=== PATIENT | male | born 1970 | race Caucasian/White ===

== ENCOUNTER 2019-11-14 01:45 | Day surgery (SDC) | payer BC, SELFPAY ==
[2019-11-11 10:08] VITALS: BMI 28.4
[2019-11-14 11:22] VITALS: BP 132/84; PULSE 85; RESP 16; TEMP 36.5; O2SAT 100; BMI 27.4
[2019-11-14] MEDS: LACTATED RINGERS 1,000 ML 150 ML IV CONT (11:41)
--- NOTE | 2019-11-14 11:54 | P.PNAN_ITS ---
Anes - Initial Pre Proc Eval Procedure: Operation Date: 11/14/19 11:45 Proposed Procedures p Screening Colonoscopy - Damon Heredia MD Date/Time: 11/14/19 11:54 Surgeon: Damon Heredia MD Pre Op Diagnosis: Neoplasm Screening Patient Data Age: 49 Gender: M Height: 6 ft Weight: 91.8 kg Last Vital Signs Temp 97.7 F 11/14/19 11:22 Pulse 85 11/14/19 11:22 Resp 16 11/14/19 11:22 BP 132/84 11/14/19 11:22 Pulse Ox 100 11/14/19 11:22 Allergies Allergy/AdvReac Type Severity Reaction Status Date / Time No Known Allergies Allergy Verified 11/14/19 11:20 Home Medications Medication Instructions Recorded Confirmed Type cholecalciferol (vitamin D3) 4,000 unit PO DAILY 11/11/19 11/14/19 History [Vitamin D3] multivitamin 1 cap PO DAILY 11/11/19 11/14/19 History omega 5-ndn-avk-fish oil [[place]-3] 1 cap PO DAILY 11/11/19 11/14/19 History omeprazole 40 mg PO DAILY 11/11/19 11/14/19 History Patient hx anesthesia problems: none Family hx anesthesia problems: none PMFSH Past Medical History Medical History (Updated 11/14/19 @ 11:54 by Arnav Ireland MD) GERD (gastroesophageal reflux disease) Anes - Eval Final PreProcedure Day of Procedure 11/14/19 11:54 Patient weight: normal Heart: regular rate and rhythm Lungs: clear to auscultation Airway: Mallampati scale class II Neurological: alert and oriented Last oral intake: >/= 8 hours ASA classification: II Emergent: no Anesthetic plan: proceed Anesthesia type and monitoring: general GIVS and standard monitoring Informed Consent: The patient's anesthetic plan and its attendant risks and benefits were discussed with the patient/family/POA. Questions were solicited and answers provided to the satisfaction of the patient/family/POA.
--- NOTE | 2019-11-14 12:18 | P.HP_ITS ---
History of Present Illness History of Present Illness Consent: Risks, benefits, and alternatives have been discussed and questions answered. Patient agrees to proceed with procedure. Chief complaint: Neoplasm Screening Narrative: Suhail Graham is a 49 year old male here for his first screening colonoscopy Review of Systems Constitutional: Constitutional: Denies headache(s) and Denies weakness Eyes: Eyes: Denies blurry vision ENT: Reports Normal hearing present, Denies headache(s) and Denies neck pain Cardiovascular: Cardiovascular: Denies chest pain and Denies dyspnea Respiratory: Respiratory: Denies dyspnea Gastrointestinal: Gastrointestinal: Reports no additional gastrointestinal complaints Genitourinary: Genitourinary: Denies dysuria Musculoskeletal: Musculoskeletal: Denies neck pain Integumentary/Breasts: Skin/Breast: Denies dry skin Neurologic: Reports Normal hearing present, Denies headache(s) and Denies weakness Psychiatric: Psychiatric: Denies anxiety Endocrine: Endocrine: Denies change in body appearance Hematologic/Lymphatic: Hematologic/Lymphatic: Denies easy bleeding Allergic/Immunologic: Allergic/Immunologic: Denies urticaria [facility] Past Medical History Medical History (Updated 11/14/19 @ 12:19 by Damon Heredia MD) Colon cancer screening GERD (gastroesophageal reflux disease) Meds Home Medications and Allergies Home Medications Medication Instructions Recorded Confirmed Type cholecalciferol (vitamin D3) 4,000 unit PO DAILY 11/11/19 11/14/19 History [Vitamin D3] multivitamin 1 cap PO DAILY 11/11/19 11/14/19 History omega 8-xla-kba-fish oil [[place]-3] 1 cap PO DAILY 11/11/19 11/14/19 History omeprazole 40 mg PO DAILY 11/11/19 11/14/19 History Allergies Allergy/AdvReac Type Severity Reaction Status Date / Time No Known Allergies Allergy Verified 11/14/19 11:20 Vital Signs Vital Signs - 24 hr 11/14/19 11:22 Temperature 97.7 F Pulse Rate 85 Respiratory Rate 16 Blood Pressure 132/84 Pulse Oximetry 100 Exam Const: General: comfortable and no acute distress HENMT: General nose exam: Normal nares present Eyes: General: appearance normal, both eyes and all related structures Neck: Neck: no JVD Resp: Auscultation: clear to auscultation bilaterally Cardio: Rate: regular rate Rhythm: regular rhythm GI: Inspection: non-distended GI Palp: Yes Soft to palpation Skin: General skin exam: normal color Neuro: General: gait normal Speech: normal speech Extrem: General: normal to inspection Psych: Mental Status: mental status grossly normal Assessment and Plan Assessment and plan (1) Colon cancer screening: Code(s): Z12.11 - Encounter for screening for malignant neoplasm of colon Status: Acute Assessment and Plan: will proceed with colonoscopy
[2019-11-14 12:36] VITALS: BP 111/77; PULSE 76; RESP 21; O2SAT 97
[2019-11-14 12:46] VITALS: BP 122/84; PULSE 62; RESP 19; O2SAT 99
[2019-11-14 12:56] VITALS: BP 126/89; PULSE 67; RESP 18; O2SAT 100
== END 2019-11-14 13:08 | disposition home or self-care (01) ==
PROVIDERS: PCP Family Medicine Sports Medicine; Visit Provider Internal Medicine Gastroenterology
PROC: 0DJD8ZZ Inspection of Lower Intestinal Tract, Via Natural or Artificial Opening Endoscopic (ICD-10-PCS; CPT 45378; principal; 2019-11-14 11:45)
DX: Z12.11 Encounter for screening for malignant neoplasm of colon (principal); D12.0 Benign neoplasm of cecum; K64.8 Other hemorrhoids; K21.9 Gastro-esophageal reflux disease without esophagitis
CPT/HCPCS: 45380; 88305; J2704; J7120

== ENCOUNTER 2024-09-12 01:16 | Emergency (ER) | payer BC, SELFPAY ==
[2024-09-12] VITALS (7 sets, daily range): BP systolic 134–161; BP diastolic 82–94; PULSE 72–84; RESP 15–22; TEMP 36.2; O2SAT 97–100
--- NOTE | ~2024-09-12 | XR_ITS ---
Clinical Indication: Chest pain PA and lateral views of the chest: Comparison: None Findings: The lungs are clear, without evidence of focal consolidation or pleural effusion. Cardiome diastinal silhouette is within normal limits. Bones and soft tissues are unremarkable. Impression: Normal chest. Reviewed, dictated and finalized at location . FABRICATOR Impression: Normal chest.
--- NOTE | 2024-09-12 01:53 | ECG_ITS ---
Test Date: 2024-09-12 01:26:02 Measurements Intervals Agency Rate: 81 P: 15 OR: 173 QRS: -18 QRSD: 126 T: 30 QT: 389 QTc: 453 Interpretive Statements SINUS RHYTHM POSSIBLE RIGHT VENTRICULAR CONDUCTION DELAY [RSR (QR) IN V1/V2] No previous ECG available for comparison Electronically Signed On 09-12-2024 15:57:34 [employer] EXECUTIVE DIRECTOR by Wallace Fernandes M.D.
[2024-09-12] MEDS: ASPIRIN 81 MG CHEWABLE TABLET 324 MG PO (01:58)
[2024-09-12 02:00] LABS: Basophils Percent Auto 0.3 % (0.2-1.2); Eosinophils Absolute Auto 0.1 K/mm3 (0-0.3); Eosinophils Percent Auto 1.2 % (0-4.4); Hemoglobin 14.4 g/dL (14.0-18.0); Immature Granulocyte Absolute 0.07 K/mm3 (0.00-0.031); Immature Granulocyte Percent A 0.6 % (0-0.5); Lymphocytes Absolute Auto 6.71 K/mm3 (0.9-3.2); Lymphocytes Percent Auto 55.1 % (18.3-44.2); Mean Corpuscular HGB Conc 33.5 g/dl (32-36); Mean Corpuscular Hemoglobin 29.1 pg (26-34); Mean Corpuscular Volume 86.9 fl (80-100); Mean Platelet Volume 8.9 fl (7.4-10.4); Monocytes Absolute Auto 0.8 K/mm3 (0.1-0.6); Monocytes Percent Auto 6.6 % (2.6-8.5); Neutrophils Absolute Auto 4.4 K/mm3 (1.3-6.7); Neutrophils Percent Auto 36.2 % (45.5-73.1); Platelet Count Result 306 k/mm3 (150-375); Red Blood Count 4.95 M/mm3 (4.6-6.20); Red Cell Distribution Width 13.2 % (11.5-14.5); White Blood Count 12.2 K/mm3 (4.5-10.0)
[2024-09-12 02:12] LABS: Alanine Aminotransferase 58 U/L (6-50); Albumin Level 4.7 g/dL (3.5-5.1); Alkaline Phosphatase 96 U/L (38-126); Anion Gap 7 mmol/L (4-12); Aspartate Amino Transferase 39 U/L (17-59); Bilirubin,Total 0.3 mg/dL (0.2-1.3); Blood Urea Nitrogen 21 mg/dL (9-20); Calcium 9.6 mg/dL (8.4-10.2); Carbon Dioxide 27 mmol/L (22-30); Chloride 104 mmol/L (98-107); Estimated CRCL calculation 103 ml/min; Estimated Glomerular Filt Rate > 60; Glucose 114 mg/dL (65-110); Lipase 45 U/L (23-300); Potassium 3.3 mmol/L (3.4-5.0); Sodium 138 mmol/L (137-145)
[2024-09-12 02:15] LABS: INR 0.9; Prothrombin Time 12.7 Seconds (11.1-14.7)
[2024-09-12 02:16] LABS: Partial Thromboplastin Time 28.6 Seconds (22.3-36.8)
[2024-09-12 02:19] LABS: D Dimer < 0.27 ug/mL (<0.48)
[2024-09-12 02:21] LABS: NT Pro B Type Natriuretic Pept < 20 pg/mL (19.9-100)
[2024-09-12 02:23] LABS: Troponin I < 0.012 ng/mL (0.000-0.034)
[2024-09-12] MEDS: ACETAMINOPHEN 500 MG TABLET 1000 MG PO (03:07)
[2024-09-12] MEDS: KETOROLAC 30 MG/ML VIAL (*BKC) IV PUSH (03:07)
--- NOTE | 2024-09-12 04:24 | ED_ITS ---
HPI - General Adult General Chief complaint: Alcohol Stated complaint: chest pain Time Seen by Provider: 09/12/24 01:41 History of Present Illness HPI narrative: this is a 54-year-old male presenting ED with a chief complaint chest pain. Patient says that last week he had a viral illness that lasted for 1-2 days. Since then he is feeling well until earlier today when he developed a sharp pain on the right side of his chest. It then moved to the center of his chest. It is better when he leans forward and worse when he leans back. It can be worse with deep breaths. He he is denying fevers chills productive cough abdominal pain nausea vomiting or diarrhea. The pain is not associated with exertion vomiting or diaphoresis. Related Data Home Medications ?Medication ?Instructions ?Recorded ?Confirmed ?Last Taken ?Type cholecalciferol (vitamin D3) 100 4,000 unit PO DAILY 11/11/19 11/14/19 11/13/19 History mcg (4,000 unit) capsule (Vitamin D3) multivitamin 1 cap PO DAILY 11/11/19 11/14/19 11/13/19 History omega 3 350 mg-dha 235 mg-epa 90 1 cap PO DAILY 11/11/19 11/14/19 11/13/19 History mg-fish oil 597 mg capsule,delay rel (Damon-3) omeprazole 40 mg capsule,delayed 40 mg PO DAILY 11/11/19 11/14/19 11/13/19 History release Allergies Allergy/AdvReac Type Severity Reaction Status Date / Time No Known Allergies Allergy Verified 09/12/24 01:27 [facility] Past Medical History Medical History Colon cancer screening GERD (gastroesophageal reflux disease) Exam 2 Narrative: APPEARANCE: No apparent distress. Head: atraumatic. EYES: EOMI, NOSE: Atraumatic NECK: Trachea midline RESPIRATORY: No increased rate of breathing clear to auscultation CARDIOVASCULAR: RRR, no pericardial friction rub, No effusion on POC Echo, ABDOMINAL: Non-distended soft nontender no CVA tenderness MUSCULOSKELETAl: No obvious deformities NEURO: Alert. Moving 4/4 extremities SKIN:: Warm, dry. Normal color PSYCHIATRIC: Normal affect Course Vital Signs Vital signs: Vital Signs Temperature 97.2 F L 09/12/24 01:20 Pulse Rate 79 09/12/24 01:20 Respiratory Rate 18 09/12/24 01:20 Blood Pressure 139/88 09/12/24 01:20 Pulse Oximetry 100 09/12/24 01:20 Oxygen Delivery Room Air 09/12/24 01:20 Temperature 97.2 F L 09/12/24 01:20 Pulse Rate 79 09/12/24 01:20 Respiratory Rate 18 09/12/24 01:20 Blood Pressure 139/88 09/12/24 01:20 Pulse Oximetry 100 09/12/24 01:27 Oxygen Delivery Room Air 09/12/24 01:36 Medical Decision Making MDM Narrative Medical decision making narrative: -Course: 54-year-old male presenting with pleuritic chest pain. Workup including troponins x2, BNP/Dimer, EKG and chest x-ray were unremarkable. clinically the patient's pain is consistent with pleurisy/pericarditis. he was given Toradol with significant improvement in his pain. Patient be discharged course of NSAIDs with cardiology follow-up. Given return precautions for severe chest pain, difficulty breathing or fevers. -DDX includes but is not limited to: pleurisy, pericarditis, ACS pneumonia PE pneumothorax -Co-morbidities complicating care: GERD -Independent interpretation of studies: labs imaging reviewed. white count 12.2 Troponin undetectable x2, BNP undetectable, dimer undetectable chest x-ray showed acute no acute cardiopulmonary abnormalities. Official read will occur in the a.m.. Independent EKG interpretation: Rhythm [sinus], Rate [81], [place] -[normal], [place] -[normal], QRS [126], QTC [normal], T waves -[negative for concerning inversions], ST Segments - [Negative for concerning elevations] Final interpretations: [Normal Sinus Rhythm] -Interventions: Toradol 30 mg, Tylenol -Shared decision making / Disposition: discharged -RX: Motrin 600 mg t.i.d. times 10 days Vital Signs Vital Signs: Vital Signs Temperature 97.2 F L 09/12/24 01:20 Pulse Rate 79 09/12/24 01:20 Respiratory Rate 18 09/12/24 01:20 Blood Pressure 139/88 09/12/24 01:20 Pulse Oximetry 100 09/12/24 01:20 Oxygen Delivery Room Air 09/12/24 01:20 Temperature 97.2 F L 09/12/24 01:20 Pulse Rate 79 12/19/24 01:20 Respiratory Rate 18 09/12/24 01:20 Blood Pressure 139/88 09/12/24 01:20 Pulse Oximetry 100 09/12/24 01:27 Oxygen Delivery Room Air 09/12/24 01:36 Lab Data 09/12/24 01:55 09/12/24 01:55 Labs: Lab Results 09/12/24 09/12/24 Range/Units 01:55 01:55 WBC 12.2 H (4.5-10.0) K/mm3 RBC 4.95 (4.6-6.20) M/mm3 Hgb 14.4 (14.0-18.0) g/dL Hct 43.0 (42.0-52.0) % MCV 86.9 (80-100) fl MCH 29.1 (26-34) pg MCHC 33.5 (32-36) g/dl RDW 13.2 (11.5-14.5) % Plt Count 306 (150-375) k/mm3 MPV 8.9 (7.4-10.4) fl Immature Gran % (Auto) 0.6 H (0-0.5) % Neut % (Auto) 36.2 L (45.5-73.1) % Lymph % (Auto) 55.1 H (18.3-44.2) % [place] % (Auto) 6.6 (2.6-8.5) % Eos % (Auto) 1.2 (0-4.4) % Baso % (Auto) 0.3 (0.2-1.2) % Lymph # (Auto) 6.71 H (0.9-3.2) K/mm3 [place] # (Auto) 0.8 H (0.1-0.6) K/mm3 Eos # (Auto) 0.1 (0-0.3) K/mm3 Baso # (Auto) 0.0 (0.0-0.1) K/mm3 Abs Immat Gran (auto) 0.07 H (0.00-0.031) K/mm3 Absolute Neuts (auto) 4.4 (1.3-6.7) K/mm3 Absolute Nucleated RBC 0.000 (0.0-0.012) K/mm3 Nucleated RBC % 0.0 (0.0-0.2) % PT 12.7 (11.1-14.7) Seconds INR 0.9 APTT 28.6 (22.3-36.8) Seconds D-Dimer Cancelled < 0.27 Sodium 138 (137-145) mmol/L Potassium 3.3 L (3.4-5.0) mmol/L Chloride 104 (98-107) mmol/L Carbon Dioxide 27 (22-30) mmol/L Anion Gap 7 (4-12) mmol/L BUN 21 H (9-20) mg/dL Creatinine 0.90 (0.7-1.3) mg/dL Estim Creat Clear Calc 103 ml/min Estimated GFR > 60 (59 - ) Glucose 114 H (65-110) mg/dL Calcium 9.6 (8.4-10.2) mg/dL Total Bilirubin 0.3 (0.2-1.3) mg/dL AST 39 (17-59) U/L ALT 58 H (6-50) U/L Alkaline Phosphatase 96 (38-126) U/L Troponin I < 0.012 (0.000-0.034) ng/mL NT-Pro-B Natriuret Pep < 20 (19.9-100) pg/mL Total Protein 8.0 (6.3-8.2) g/dL Albumin 4.7 (3.5-5.1) g/dL Lipase 45 (23-300) U/L Discharge Plan Discharge Clinical Impression: Pericarditis Patient Disposition: Home, Self-Care Condition: Stable Instructions: Antibiotic Form, Acute Pericarditis (ED) Additional Instructions: You were seen in the emergency department for chest pain. Presentation is most consistent with pericarditis /pleurisy. Please take Motrin as instructed. Please follow-up with the thread cutter tender in 1 week. Return to ED if you develop fevers severe chest pain shortness of breath or feel your condition is worsening. Patient Language: Croatian Prescriptions: New ibuprofen 600 mg tablet 600 mg PO TID 10 Days Qty: 60 0RF No Action omeprazole 40 mg capsule,delayed release(DR/EC) 40 mg PO DAILY multivitamin Capsule 1 cap PO DAILY Vitamin D3 4,000 unit Capsule 4,000 unit PO DAILY Damon-3 350 mg-235 mg- 90 mg-597 mg Capsule,Delayed Release(Dr/Ec) 1 cap PO DAILY Follow-up/Referrals: Sharla,Ben Glover MD [Primary Care Provider] - Nitish Peterson MD [Physician] - 1 Week (Pericarditis)
--- NOTE | 2024-09-12 04:50 | ECG_ITS ---
Test Date: 2024-09-12 05:13:21 Measurements Intervals [place] Rate: 69 P: 20 TX: 177 QRS: -19 QRSD: 122 T: 4 QT: 394 QTc: 423 Interpretive Statements SINUS RHYTHM POSSIBLE RIGHT VENTRICULAR CONDUCTION DELAY [RSR (QR) IN V1/V2] MINIMAL VOLTAGE CRITERIA FOR LVH, CONSIDER NORMAL VARIANT [MEETS CRITERIA IN ONE OF: R(aVL), S(V1), R(V5), R(V5/V6)+S(V1)] Compared to ECG 09/12/2024 01:26:02 No significant changes Electronically Signed On 09-12-2024 15:58:34 SPECIALTY MOLDER by Wallace Fernandes M.D.
[2024-09-12 05:41] LABS: Troponin I < 0.012 ng/mL (0.000-0.034)
== END 2024-09-12 06:25 | disposition home or self-care (01) ==
PROVIDERS: Emergency Provider Emergency Medicine; PCP Family Medicine
DX: I31.9 Disease of pericardium, unspecified (principal); K21.9 Gastro-esophageal reflux disease without esophagitis
CPT/HCPCS: 36415; 71046; 80053; 83690; 83880; 84484; 85025; 85380; 85610; 85730; 93005; 96374; 99284; A9270; J1885

== ENCOUNTER 2024-11-28 20:25 | Inpatient (IN) | payer BC, SELFPAY ==
--- NOTE | ~2024-11-28 | XR_ITS ---
EXAMINATION: XR chest 1V portable DATE: 11/30/2024 08:35 INDICATION: Chest pain. TECHNIQUE: A single frontal view of the chest was obtained. COMPARISON: Chest 2 views 09/12/2024, CT abdomen and pelvis 11/29/2024 FINDINGS: There is mild atelectasis in the lower lung zones. There is mild scarring at left lung apex . No pleural effusion or pneumothorax. The heart size is normal. IMPRESSION: 1. Mild atelectasis in the lower lung zones and mild scarring at left lung apex. Reviewed, dictated and finalized at location A. D INSTALLATION WORKER IMPRESSION: 1. Mild atelectasis in the lower lung zones and mild scarring at left lung apex .
--- NOTE | ~2024-11-28 | MR_ITS ---
EXAMINATION: MR MRCP wo/w con/w 3D wo ind DATE: 11/29/2024 10:43 INDICATION: Abdominal pain. Abnormal liver function tests. TECHNIQUE: Magnetic resonance imaging (MRI) of the abdomen was performed without and with 20 mL Multi Rekha intravenous contrast. Sequences included coronal T2-weighted FS FSE, coronal T2-weighted FSE, a xial T1-weighted LAVA, coronal FS FIESTA, axial dual-echo T1-weighted SPGR, coronal lava-FLEX, sagitt al T2-weighted FSE, axial T2-weighted FSE, and axial DWI. Thick-slab T2-weighted FSE images were obta ined for magnetic resonance cholangiopancreatography (MRCP). Maximum intensity projection 3-D reconst ructions of the volumetric data were created by the technologist. Postcontrast sequences included cor onal LAVA-flex and time course of axial T1-weighted LAVA. COMPARISON: CT abdomen and pelvis 11/29/24 FINDINGS: ABDOMEN MRI: There are cysts in the liver measuring up to 2.5 cm. There is a 2.3 cm mass in segment V III of the liver with delayed hyperenhancement without washout. The gallbladder is distended and cont ains stones. Gallbladder wall thickening is noted. There is mild intrahepatic and extrahepatic biliar y duct dilatation. The spleen, pancreas, adrenal glands, and right kidney are normal. There is a 5 mm cyst in left kidney. There is a small sliding hiatal hernia. There are no dilated loops of bowel. ABDOMEN MRCP: The common duct is dilated to 9 mm. There is ill-defined material in the distal common bile duct without enhancement. IMPRESSION: 1. Mild intrahepatic and extrahepatic biliary duct dilatation with sludge in the distal common duct. 2. Distended gallbladder with gallstones and gallbladder wall thickening suspicious for acute cholecy stitis. 3. 2.3 cm hyperenhancing liver mass. In the absence of known malignancy, this finding is likely a hem angioma or focal nodular hyperplasia. Reviewed, dictated and finalized at location A. LLMENT CLERK IMPRESSION: 1. Mild intrahepatic and extrahepatic biliary duct dilatation with sludge in th e distal common duct. 2. Distended gallbladder with gallstones and gallbladder wall thickening suspic ious for acute cholecystitis. 3. 2.3 cm hyperenhancing liver mass. In the absence of known malignancy, this f inding is likely a hemangioma or focal nodular hyperplasia.
--- NOTE | ~2024-11-28 | CT_ITS ---
EXAMINATION: CT abdomen pelvis w con DATE: 12/04/2024 12:18 INDICATION: Left lower quadrant abdominal pain. Fever. TECHNIQUE: Computed tomography (CT) of the abdomen and pelvis was performed with 100 mL Omnipaque 350 intravenous contrast. Automated exposure control and iterative reconstruction technique were employe d. The dose-length product was 677.44 mGy-cm. COMPARISON: CT abdomen and pelvis 11/29/2024, abdomen MRI 11/29/2024 FINDINGS: The visualized portions of lung bases demonstrate mild atelectasis. There is a small left p leural effusion. The heart size is normal. No pericardial effusion. There is a small sliding hiatal h ernia. There are cysts in the liver measuring up to 2.7 cm. There is a 2.3 cm hyperenhancing mass in right hepatic lobe, likely a hemangioma or focal nodular hyperplasia in the absence of known malignan cy. There are changes of cholecystectomy. The spleen is normal. There is fat stranding and fluid arou nd the pancreas, consistent with acute interstitial pancreatitis. The adrenal glands and right kidney are normal. There is a 5 mm cyst in left kidney. The prostate is mildly enlarged. There is diverticu losis of the colon without evidence of diverticulitis. The appendix is not visualized. There are no d ilated loops of bowel. There are no pathologically enlarged lymph nodes. There is mild thoracic and l umbar spondylosis. IMPRESSION: 1. Acute interstitial pancreatitis. 2. Small left pleural effusion. Reviewed, dictated and finalized at location B.
--- NOTE | ~2024-11-28 | CT_ITS ---
EXAMINATION: CT abdomen pelvis w con DATE: 11/29/2024 01:20 INDICATION: Abdominal pain. TECHNIQUE: Computed tomography (CT) of the abdomen and pelvis was performed with 100 mL Omnipaque 350 intravenous contrast. Automated exposure control and iterative reconstruction technique were employe d. The dose-length product was 738.02 mGy-cm. COMPARISON: None. FINDINGS: The visualized portions of the lung bases demonstrate mild atelectasis. No pleural effusion . The heart size is normal. No pericardial effusion. There is a small sliding hiatal hernia. There ar e cysts in the liver measuring up to 2.6 cm. There is a 2.2 cm mass in the liver. There is mild intra hepatic biliary duct dilatation. The gallbladder is distended. There is fat stranding around the gall bladder. The common duct is dilated to 9 mm. There is a possible filling defect in the distal common bile duct. The spleen, pancreas, adrenal glands, and right kidney are normal. There is a 5 mm cyst in left kidney. The prostate is mildly enlarged. There is diverticulosis of the colon without evidence of diverticulitis. There are no dilated loops of bowel. The appendix is not visualized. There are no pathologically enlarged lymph nodes. There is no free intraperitoneal fluid. There is mild thoracic a nd lumbar spondylosis. IMPRESSION: 1. Mild intrahepatic and extrahepatic biliary duct dilatation with possible filling defect distal com mon bile duct. MRCP without and with contrast is recommended. 2. 2.2 cm liver mass, which may be benign or malignant. MRCP without and with contrast is recommended . 3. Distended gallbladder with surrounding fat stranding suspicious for acute cholecystitis. 4. Small sliding hiatal hernia. Reviewed, dictated and finalized at location A. TRUCTION LABORER IMPRESSION: 1. Mild intrahepatic and extrahepatic biliary duct dilatation with possible jordyn ling defect distal common bile duct. MRCP without and with contrast is recommen ded. 2. 2.2 cm liver mass, which may be benign or malignant. MRCP without and with c ontrast is recommended. 3. Distended gallbladder with surrounding fat stranding suspicious for acute ch olecystitis. 4. Small sliding hiatal hernia.
--- NOTE | ~2024-11-28 | CT_ITS ---
EXAMINATION: CT abdomen pelvis w con DATE: 12/07/2024 14:48 INDICATION: flank pain TECHNIQUE: Computed tomography (CT) of the abdomen and pelvis was performed with 100 mL Omnipaque-350 intravenous contrast. Automated exposure control and iterative reconstruction technique were employe d. The dose-length product was 779.77 mGy-cm. COMPARISON: 12/04/2024. FINDINGS: Lower thorax: Bibasilar scar/atelectasis. Liver: Likely right lobe hemangioma versus focal nodular hyperplasia, in the absence of known maligna ncy. Multiple hepatic cysts. Multiple subcentimeter hypodensities, too small to characterize, statist ically likely representing cysts or hemangiomas. Biliary/Gallbladder: Gallbladder is absent. No bile duct dilation. Pancreas: Pancreatic enlargement/edema, with moderate peripancreatic inflammatory change and mild flu id. Spleen: Normal. Adrenals:No mass. Kidneys: No suspicious mass, obstructing stone, or hydronephrosis. Scattered punctate nonobstructing calcifications. Subcentimeter left lower pole hypodensity, too small to characterize, statistically l ikely representing a cyst. GI tract: Mild distal esophageal and antral wall edema. No small or large bowel dilation. Appendix no t confidently visualized, no lower quadrant inflammatory process. Diverticulosis without diverticulit is. Mesentery/Peritoneum: No ascites, mass, or free air. Retroperitoneum: No mass. Pelvis: Bladder is mostly empty, with mild wall stranding. Prostatomegaly with calcification. Soft Tissues: Uncomplicated small fat-containing umbilical hernia Bones: No acute osseous finding. IMPRESSION: Mild esophagitis/gastritis. Acute interstitial pancreatitis, stable. Cystitis versus bladder wall thickening from incomplete distention. Reviewed, dictated and finalized at location K.
--- NOTE | ~2024-11-28 | XR_ITS ---
EXAMINATION: XR abdomen/kub 1V DATE: 12/03/2024 14:12 INDICATION: Adynamic ileus. TECHNIQUE: A supine view of the abdomen on 3 radiographs was obtained. COMPARISON: CT abdomen and pelvis 11/29/2024 FINDINGS: There are no dilated loops of bowel. There is a small volume of stool in the colon. Surgica l clips in the right upper quadrant are likely from cholecystectomy. IMPRESSION: 1. Normal bowel gas pattern. Reviewed, dictated and finalized at location B.
--- NOTE | ~2024-11-28 | XR_ITS ---
EXAMINATION: XR cholangiogram surg 1st inj DATE: 11/29/2024 14:53 INDICATION: Acute cholecystitis. TECHNIQUE: 32 fluoroscopic images of the right upper quadrant were obtained during intraoperative cho langiography performed by the surgeon. I was not present in the operating room. Fluoroscopy exposure time was 38 seconds. COMPARISON: MRCP 11/29/2024 FINDINGS: There is a catheter in the cystic duct. There is intrahepatic and extrahepatic biliary duct dilatation. There are filling defects in the distal common bile duct. There is opacification of the pancreatic duct. Contrast passes to the duodenum. IMPRESSION: 1. Filling defects in the distal common bile duct, which may be sludge or stones. Neoplasm is not exc luded. ERCP is recommended. 2. Intrahepatic and extrahepatic biliary duct dilatation. Reviewed, dictated and finalized at location A. BOX TENDER IMPRESSION: 1. Filling defects in the distal common bile duct, which may be sludge or stone s. Neoplasm is not excluded. ERCP is recommended. 2. Intrahepatic and extrahepatic biliary duct dilatation.
--- NOTE | ~2024-11-28 | XR_ITS ---
EXAMINATION: XR ERCP DATE: 12/02/2024 13:31 INDICATION: Choledocholithiasis. TECHNIQUE: 4 spot fluoroscopic images of the right upper quadrant were obtained during endoscopic ret rograde cholangiopancreatography (ERCP). Fluoroscopy exposure time was 110 seconds. COMPARISON: Cholangiogram 11/29/2024 FINDINGS: The endoscope is in the second portion of the duodenum. There are surgical clips from byron cystectomy. Images demonstrate opacification of the biliary tree and balloon sweeping of the common d uct. IMPRESSION: 1. Balloon sweeping of the common duct. Please refer to the ERCP procedure note for additional detail s. Reviewed, dictated and finalized at location B. IMPRESSION: 1. Balloon sweeping of the common duct. Please refer to the ERCP procedure note for additional details.
--- OUTSIDE RECORDS SUMMARY | 2024-11-28 20:27 | XMS_ITS | Data Portability ---
Author Organization [place] - [facility] [employer], Main Office Address [address] [place] [address] Assessment No assessment recorded. Plan of Treatment Reminders Order Date Submit Date Provider Last Modified By Organization Details Last Modified Time Details Appointments Follow Up 15 2024 03:00P M Tyrel Roy MD Not available Not available Not available Lab None recorded. Referral None recorded. Procedures upper endoscopy procedure (EGD) (PROC) [address] [place] [address] Ctr (Pre-Screen), [address] [place], [address], 11/22/2024 08:20:04 colonosco py procedure (PROC) - December [address]2420[address] [place] [address] Ctr (Pre-Screen), [address] [place], [address], 11/22/2024 09:26:52 Surgeries None recorded. Imaging MRI, abdomen, w/wo contrast - PLEASE CONTACT PATIENT TO SCHEDULE [address] [place] [address] ([facility] Call Scheduling), [address] [place], [address], 11/27/2024 08:24:31 Medication Orders None recorded. Patient TargetsNo targets recorded. Patient Instructions Encounter Date Encounter Id Patient Instructions Last Modified By Organization Details Last Modified Time 11/21/2024 [id number] patient currentl y is stable abdomen is benign mildly tender on examination. I encouraged patient to take Cipro and Flagyl possibility of some sort of viral gastroenteritis has been discussed also liver lesion is concerning we will order the MRI of the abdomen with and without contrast I advised the patient that we will proceed with the upper endoscopy to rule out any esophagitis ulcers. Patient has already seen the vocational aide and according to me has been cleared from Cardiology. I also advised the patient that in 6 weeks he needs to get a colonoscopy done patient wants to check it with the [facility] and see if his colonoscopy can be done sooner otherwise he wants to get it scheduled at [facility]. Follow up with me in 3-4 months in the office [email or web address] Not available 11/21/2024 16:07:02 Reason for Referral None Reported. Results Created Date Observation Date Name Description Value Unit Range Abnormal Flag Note LastModifiedBy Organization Detail LastModifiedTime 11/20/1911/20/2024 CT, abdom en + pelvi s, w/ contr ast No observ ation record ed. BARCODE Not Available 2024 11:50:27 Result Notes None recorded. Problems Name Problem SNOMED Code Status Onset Date Resolution Date Notes Provider Name and Address Organization Details Recorded Time Lesion of liver 156080557 Active Srini Roy MD [address], [place] [address], [place], [address], [employer] 5 16:03:21 Epigastric pain 48438880 Active Srini Roy MD [address], [place] [address], [place], [address], [employer] 5 16:03:31 Colitis 27560790 Active Srini Roy MD [address] [place] [address], [place], [address], [employer] 5 16:03:37 Problem Notes None recorded. Procedures Surgical History Date Name Laterality Status Provider Name and Address Organization Details Recorded Time Appendectomy completed LISANDRA Jones [employer] 11/20/2024 11:53:03 Myringotomy Tube Placement completed LISANDRA Jones [employer] 11/20/2024 11:53:20 Tonsillectomy completed LISNADRA Jones [employer] 11/20/2024 11:53:32 Imaging Results Imaging Date Name Status LastModified by Organiz ation Details LastModified Time 11/20/2024 CT, abdomen + pelvis, w/ contrast completed BARCODE Information not available 11/20/2024 11:50:27 Procedure Notes None recorded. Medical Equipment None Reported. Allergies No known drug allergies Medications Name Sig Start Date Stop Date Status Note LastModified by Organization Details LastModified Time ondansetron HCl 4 mg tablet active Not Available Not Available Not Available metronidazo le 500 mg tablet active Not Available Not Available Not Available ciprofloxac in 500 mg tablet active Not Available Not Available Not Available omeprazole 40 mg capsule,del ayed release active Not Available Not Available Not Available ibuprofen 600 mg tablet 11/20 completed Not Available Not Available Not Available rosuvastati n 20 mg tablet active Not Available Not Available Not Available Golytely 236 gram-22.74 gram-6.74 gram-5.86 gram oral solution take as directed 2024 active Not Available Not Available Not Avai lable Vitals Date Recorded Body height Body mass index (BMI) Body weight Heart rate Oxygen saturation Oxygen saturation in Arterial blood by Pulse oximetry Systolic blood pressure Diastolic blood pressure Provider Name and Address Organization Details Last Updated DateTime 182.88 cm 28.5 kg/m2 55456.4 g 94 /min 97 % 97 % 124 mm[Hg] 86 mm[Hg] LISANDRA Jones [email or web address] [facility] [employer] 15:28:40 Social History Question Answer Notes LastModified by Organizat ion Details LastModified Time Tobacco Smoking Status Never Smoker LISANDRA Jones null [facility] [employer] 11/20/2024 11:52:52 What Is Your Level Of Alcohol Consumption? Occasional [email or web address] Information not available 11/21/2024 Sex: Unknown Functional Status None recorded. Mental Status None recorded. Family History Nothing Reported. Medical History Condition Response GERD/NAUSEA Y HIGH CHOLESTEROL / HYPERLIPIDEMIA Y Past Encounters Encounter ID Performer Location Encounter Start Date Encounter Closed Date Diagnosis/Indication Diagnosis SNOMED-CT Code Diagnosis ICD10 Code Diagnosis Note [id number] Tyrel Roy MD [facility] [place] [address] [place] [address] 11/21/2024 15:21:13 11/21/2024 16:13:43 Colitis 62933310 K52.9 Epigastric pain 17203759 R10.13 Lesion of liver 77745034 0 K76.9 Health Concerns Section Related Observation LastModified by Organization Detai ls LastModified Time None Recorded Concern Status LastModified by Organization Details LastModified Time None Recorded Advance Directives Directive None Recorded Payers Encounter Date Sequence Insurance Name Policy Number Policy Mcintyre Covered Member ID Mcintyre Member ID Guarantor Name 11/21/2024 1 [place] [id number] Suhail Graham [id number] Suhail Graham Notes Date Note Type Note Provider Name and Address Organization Details Recorded Time 11/21/2024 text/html patient is seen 1st time in the office patient is being seen for abdominal pain patient stated that he was in [place] and just came like a week ago patient had 2 episodes of abdominal pain chest pain for which she has seen a vocational aide according to him the vocational aide cleared him from the cardiac standpoint patient recently on November 20 was in the ER had a CT scan that showed a 3 cm liver lesion and also had colitis on it according to him his last colonoscopy was 5 years ago according to him he is getting a repeat colonoscopy at [facility] in February this year. Patient denies any diarrhea blood in the stool. According to him he still has abdominal discomfort which is in the mid abdomen along with some nausea and vomiting in the ER patient was also given Cipro and Flagyl which she has not started taking it yet. Denies any sick contacts in the family denies any fevers denies any diarrhea Tyrel Roy MD [address], [address], [place], [address], [place] - [facility] 11/21/2024 16:07:34
--- OUTSIDE RECORDS SUMMARY | 2024-11-28 20:27 | XMS_ITS | Referral Summary ---
Author Organization [facility] Address [address] [place] [address] Care Team Providers Care Edgerman Name Role Phone Ben Magdaleno MD Primary Care Provider [phone] Encounters Date Type Department Care Team Description 10/17/2024 1:00 PM FRAME POLISHER Office Visit [facility] Cardiology at [address] [place] [address] Rodrigo Carolina MD Other chest pain (Primary Dx) from Last 3 Months Allergies No known active allergies Medications omeprazole (PriLOSEC) 40 mg capsule Take 1 capsule (40 mg total) by mouth daily 10/02/2024 Active rosuvastatin (CRESTOR) 20 mg tablet Take 1 tablet (20 mg total) by mouth daily Active Active Problems Problem Noted Date Diagnosed Date Other chest pain 10/17/2024 Social History Tobacco Use Types Packs/Day Years Used Date Smoking Tobacco: Never Smokeless Tobacco: Never Tobacco Cessation:Counseling Given: Not Answered Sex and Gender Information Value Date Recorded Sex Assigned at Not on file Legal Sex Male 3:46 PM FRAME POLISHER Gender Identity Not on file Sexual Orientation Not on file Last Filed Vital Signs Vital Sign Reading Time Taken Comments Blood Pressure 142/84 10/17/2024 1:11 PM FRAME POLISHER Pulse 71 10/17/2024 1:11 PM FRAME POLISHER Temperature - - Respiratory Rate - - Oxygen Saturation 99% 10/17/2024 1:11 PM FRAME POLISHER Inhaled Oxygen Concentration - - Weight 98.4 kg (217 lb) 10/17/2024 1:11 PM FRAME POLISHER Height 180.3 cm (5' 11 ) 10/17/2024 1:11 PM FRAME POLISHER Body Mass Index 30.27 10/17/2024 1:11 PM FRAME POLISHER Plan of Treatment Not on file Procedures Procedure Name Priority Date/Time Associated Diagnosis Comments ELECTROCARDIOGRAM REPORT Routine 025 3:55 PM FRAME POLISHER Other chest pain from Last 3 Months Results * Electrocardiogram Report (10/17/2024 3:55 PM FRAME POLISHER) Rodrigo Carolina MD ECG ORDERABLES Final Re sult from Last 3 Months Insurance [facility] CHO[facility] OOS Care Teams Edgerman Relationship Specialty Start Date End Date Ben Magdaleno MD [facility] [place] [address] PCP - General Family Medicine 09/13/24
--- OUTSIDE RECORDS SUMMARY | 2024-11-28 20:27 | XMS_ITS | Clinical Summary ---
Author Organization [facility] Address [address] [place] [id number] Care Team Providers Care Racetrack Steward Name Role Phone Ben Magdaleno MD Primary Care Provider [phone] Allergies No known active allergies Medications omeprazole (PriLOSEC) 40 mg capsule Take 1 capsule (40 mg total) by mouth daily 10/02/2024 Active rosuvastatin (CRESTOR) 20 mg tablet Take 1 tablet (20 mg total) by mouth daily Active Active Problems Problem Noted Date Diagnosed Date Other chest pain 10/17/2024 Encounters Date Type Department Care Team Description 10/17/2024 1:00 PM EXTRUSION MANAGER Office Visit [facility] Medical Group Cardiology at [address] [place] [address] Rodrigo Carolina MD Other chest pain (Primary Dx) from Last 3 Months Surgical History Surgery Date Site/Laterality Comments APPENDECTOMY TYMPANOSTOMY TUBE PLACEMENT Medical History Medical History Date Comments GERD (gastroesophageal reflux disease) Hyperlipidemia Family History Medical History Relation Name Comments Alzheimer's disease Father Dementia Mother Diabetes Mother Hypertension Mother Relation Name Status Comments Father Mother Social History Tobacco Use Types Packs/Day Years Used Date Smoking Tobacco: Never Smokeless Tobacco: Never Tobacco Cessation:Counseling Given: Not Answered Sex and Gender Information Value Date Recorded Sex Assigned at Not on file Legal Sex Male 3:46 PM EXTRUSION MANAGER Gender Identity Not on file Sexual Orientation Not on file Obstetrics History Last Filed Vital Signs Vital Sign Reading Time Taken Comments Blood Pressure 142/84 10/17/2024 1:11 PM EXTRUSION MANAGER Pulse 71 10/17/2024 1:11 PM EXTRUSION MANAGER Temperature - - Respiratory Rate - - Oxygen Saturation 99% 10/17/2024 1:11 PM EXTRUSION MANAGER Inhaled Oxygen Concentration - - Weight 98.4 kg (217 lb) 10/17/2024 1:11 PM EXTRUSION MANAGER Height 180.3 cm (5' 11 ) 10/17/2024 1:11 PM EXTRUSION MANAGER Body Mass Index 30.27 10/17/2024 1:11 PM EXTRUSION MANAGER Plan of Treatment Health Maintenance Due Date Last Done Comments Colon Cancer Screening-Colonoscopy 1969 Depression Screening 1969 Hepatitis C Screening 1969 Prostate Cancer Screening-PSA 1969 DTaP/Tdap/Td Vaccine (1 - Tdap) 1980 Hepatitis B Screening 1987 Regular Well Visit/Exam 18-64 1987 Zoster Vaccine (1 of 2) 2019 Covid-19 Vaccine (3 - 2023-2 5 season) 2024 09/24/2021, 08/27/2021 Influenza Vaccine (#1) 2024 Pneumococcal vaccine <65 Aged Out No longer eligible based on patient's age to complete this topic Procedures Procedure Name Priority Date/Time Associated Diagnosis Comments ELECTROCARDIOGRAM REPORT Routine 025 3:55 PM EXTRUSION MANAGER Other chest pain from Last 3 Months Results * Electrocardiogram Report (10/17/2024 3:55 PM EXTRUSION MANAGER) us Rodrigo Carolina MD ECG ORDERABLES Final Re sult from Last 3 Months Insurance [facility] CHOICE OOS Member Subscriber Plan / Payer (Ef fective 2024-Present) Name:Suhail Graham Relation to Subscriber:Self Name:Suhail Graham Payer ID:[id number] (NAIC) Type: GEETHA Address: [facility] [id number] [id number] Care Teams Racetrack Steward Relationship Specialty Start Date End Date Ben Magdaleno MD [facility] [place] [address] (work) PCP - General Family Medicine 09/13/24
[2024-11-28 20:33] VITALS: BP 132/79; PULSE 88; RESP 15; TEMP 36.9; O2SAT 99
[2024-11-28 20:51] LABS: Basophils Percent Auto 0.3 % (0.2-1.2); Eosinophils Percent Auto 0.3 % (0-4.4); Hemoglobin 14.4 g/dL (14.0-18.0); Immature Granulocyte Absolute 0.02 K/mm3 (0.00-0.031); Immature Granulocyte Percent A 0.2 % (0-0.5); Lymphocytes Absolute Auto 2.27 K/mm3 (0.9-3.2); Lymphocytes Percent Auto 25.7 % (18.3-44.2); Mean Corpuscular HGB Conc 33.5 g/dl (32-36); Mean Corpuscular Hemoglobin 29.1 pg (26-34); Mean Platelet Volume 8.6 fl (7.4-10.4); Monocytes Absolute Auto 0.7 K/mm3 (0.1-0.6); Monocytes Percent Auto 7.6 % (2.6-8.5); Neutrophils Absolute Auto 5.8 K/mm3 (1.3-6.7); Neutrophils Percent Auto 65.9 % (45.5-73.1); Platelet Count Result 384 k/mm3 (150-375); Red Blood Count 4.94 M/mm3 (4.6-6.20); Red Cell Distribution Width 13.2 % (11.5-14.5); White Blood Count 8.8 K/mm3 (4.5-10.0)
[2024-11-28 21:03] LABS: Alanine Aminotransferase 447 U/L (6-50); Albumin Level 4.1 g/dL (3.5-5.1); Alkaline Phosphatase 527 U/L (38-126); Anion Gap 12 mmol/L (4-12); Aspartate Amino Transferase 349 U/L (17-59); Blood Urea Nitrogen 13 mg/dL (9-20); Carbon Dioxide 23 mmol/L (22-30); Chloride 105 mmol/L (98-107); Estimated CRCL calculation 102 ml/min; Estimated Glomerular Filt Rate > 60; Glucose 108 mg/dL (65-110); Lipase 33 U/L (23-300); Potassium 3.8 mmol/L (3.4-5.0); Sodium 140 mmol/L (137-145)
[2024-11-28 23:20] LABS: Add Urine Microscopic? YES; Appearance Urine Cloudy (Clear); Bacteria Urine None Seen /hpf; Bilirubin Urine 2+ (Negative); Blood Urine Trace (Negative); Color Urine Dark Yellow (Yellow); Glucose Urine UA Negative (Negative); Ketones Urine Trace mg/dL (Negative); Leukocyte Esterase Ur 1+ LEU/UL (Negative); Mucus Urine Present /lpf; Need Manual Microscopic Reviewed; Nitrate Urine Positive (Negative); Protein Urine 1+ mg/dL (Negative); Specific Grav Ur 1.022 (1.001-1.035); Squamous Epithelial Cell Urine None Seen /hpf (Few); WBC Urine 0-5 /hpf (0-3)
[2024-11-28 23:27] VITALS: BP 139/92; PULSE 80; RESP 17; O2SAT 100
[2024-11-29] VITALS (20 sets, daily range): BP systolic 130–188; BP diastolic 80–113; PULSE 61–98; RESP 14–20; TEMP 36.2–37.4; O2SAT 93–100; BMI 27.9
--- OUTSIDE RECORDS SUMMARY | 2024-11-29 01:03 | XMS_ITS | Clinical Summary ---
Author Organization [facility] Address [address] [place] [address] Care Team Providers Care Certified Marine Mechanic Name Role Phone Ben Magdaleno MD Primary Care Provider [phone] Allergies No known active allergies Medications omeprazole (PriLOSEC) 40 mg capsule Take 1 capsule (40 mg total) by mouth daily 10/02/2024 Active rosuvastatin (CRESTOR) 20 mg tablet Take 1 tablet (20 mg total) by mouth daily Active Active Problems Problem Noted Date Diagnosed Date Other chest pain 10/17/2024 Encounters Date Type Department Care Team Description 10/17/2024 1:00 PM SATELLITE INSTALLER Office Visit [facility] Medical Group Cardiology at [address] [place] [address] Rodrigo Carolina MD Other chest [...] on file Legal Sex Male 3:46 PM SATELLITE INSTALLER Gender Identity Not on file Sexual Orientation Not on file Obstetrics History Last Filed Vital Signs Vital Sign Reading Time Taken Comments Blood Pressure 142/84 10/17/2024 1:11 PM SATELLITE INSTALLER Pulse 71 10/17/2024 1:11 PM SATELLITE INSTALLER Temperature - - Respiratory Rate - - Oxygen Saturation 99% 10/17/2024 1:11 PM SATELLITE INSTALLER Inhaled Oxygen Concentration - - Weight 98.4 kg (217 lb) 10/17/2024 1:11 PM SATELLITE INSTALLER Height 180.3 cm (5' 11 ) 10/17/2024 1:11 PM SATELLITE INSTALLER Body Mass Index 30.27 10/17/2024 1:11 PM SATELLITE INSTALLER Plan of Treatment Health Maintenance Due Date [...] Comments ELECTROCARDIOGRAM REPORT Routine 025 3:55 PM SATELLITE INSTALLER Other chest pain from Last 3 Months Results * Electrocardiogram Report (10/17/2024 3:55 PM SATELLITE INSTALLER) us Rodrigo Carolina MD ECG ORDERABLES Final Re sult from Last 3 Months Insurance [facility] CHOICE OOS Member Subscriber Plan / Payer (Ef fective 2024-Present) Name:Suhail Graham Relation to Subscriber:Self Name:Suhail Graham Payer ID:[id number] (NAIC) Type: GEETHA Address: [facility] [id number] [id number] Care Teams Certified Marine Mechanic Relationship Specialty Start Date End Date Ben Magdaleno MD [facility] [place] [address] (work) PCP - General Family Medicine 09/13/24
--- OUTSIDE RECORDS SUMMARY | 2024-11-29 01:03 | XMS_ITS | Referral Summary ---
Author Organization [facility] Address [address] [place] [id number] Care Team Providers Care Quarantine Inspector Name Role Phone Ben Magdaleno MD Primary Care Provider Encounters Date Type Department Care Team Description 10/17/2024 1:00 PM PLATE DRILLER Office Visit [facility] Medical Group Cardiology at [address] [place] [address] Rodrigo Carolina MD Other chest [...] on file Legal Sex Male 3:46 PM PLATE DRILLER Gender Identity Not on file Sexual Orientation Not on file Last Filed Vital Signs Vital Sign Reading Time Taken Comments Blood Pressure 142/84 10/17/2024 1:11 PM PLATE DRILLER Pulse 71 10/17/2024 1:11 PM PLATE DRILLER Temperature - - Respiratory Rate - - Oxygen Saturation 99% 10/17/2024 1:11 PM PLATE DRILLER Inhaled Oxygen Concentration - - Weight 98.4 kg (217 lb) 10/17/2024 1:11 PM PLATE DRILLER Height 180.3 cm (5' 11 ) 10/17/2024 1:11 PM PLATE DRILLER Body Mass Index 30.27 10/17/2024 1:11 PM PLATE DRILLER Plan of Treatment Not on file Procedures Procedure Name Priority Date/Time Associated Diagnosis Comments ELECTROCARDIOGRAM REPORT Routine 025 3:55 PM PLATE DRILLER Other chest pain from Last 3 Months Results * Electrocardiogram Report (10/17/2024 3:55 PM PLATE DRILLER) Rodrigo Carolina MD ECG ORDERABLES Final Re sult from Last 3 Months Insurance [facility] CHOICE OOS Care Teams Quarantine Inspector Relationship Specialty Start Date End Date Ben Magadleno MD [facility] [place] [address] PCP - General Family Medicine 09/13/24
[2024-11-29] MEDS: SODIUM CHLORIDE 0.9% IV 1,000 ML 999 ML IV CONT (01:08)
[2024-11-29] MEDS: PROCHLORPERAZINE EDISYLATE 10 MG/2 ML VIAL IV PUSH (01:08)
--- NOTE | 2024-11-29 02:44 | ED_ITS ---
HPI - General Adult General Chief complaint: Abdominal Pain Stated complaint: abd pain Time Seen by Provider: 11/29/24 00:15 History of Present Illness HPI narrative: Patient is a 54-year-old gentleman who presents emergency department with chief complaint of abdominal pain. Patient reports that he was seen at [facility] recently diagnosed with colitis the patient states that he is taking Flagyl another antibiotic and reports he continues to have discomfort in his abdomen reports that he is nauseated and not able to keep anything down for fluids Related Data Home Medications ?Medication ?Instructions ?Recorded ?Confirmed ?Last Taken ?Type cholecalciferol (vitamin D3) 100 4,000 unit PO DAILY 11/11/19 11/14/19 11/13/19 History mcg (4,000 unit) capsule (Vitamin D3) multivitamin 1 cap PO DAILY 11/11/19 11/14/19 11/13/19 History omega 3 350 mg-dha 235 mg-epa 90 1 cap PO DAILY 11/11/19 11/14/19 11/13/19 History mg-fish oil 597 mg capsule,delay rel ([place]-3) omeprazole 40 mg capsule,delayed 40 mg PO DAILY 11/11/19 11/14/19 11/13/19 History release Allergies Allergy/AdvReac Type Severity Reaction Status Date / Time No Known Allergies Allergy Verified 11/28/24 23:28 Review of Systems 2 Review of Systems: A 10 system review of systems was completed on the patient and is negative except for what is stated in the HPI. Nursing and ancillary documentation was reviewed. PMFSH Past Medical History Medical History Colon cancer screening GERD (gastroesophageal reflux disease) Exam 2 Narrative: GENERAL: Well-appearing, well-nourished, and in no acute distress. HEAD: Normocephalic, atraumatic. EYES: PERRLA and EOMI. ENT: Nares clear, no rhinorrhea or epistaxis. Mucous membranes moist. NECK: Supple. CHEST: Clear to auscultation. No respiratory distress. HEART: Regular rate and rhythm. No murmur heard. Normal peripheral pulses. ABDOMEN: Soft, nontender, nondistended, normal active bowel sounds. EXTREMITIES: Normal range of motion. No edema. SKIN: Warm, dry, no rash. NEURO: No focal deficits. Alert and oriented x3. PSYCH: Normal mood and affect. Course Vital Signs Vital signs: Vital Signs Temperature 36.9 C 11/28/24 20:33 Pulse Rate 88 11/28/24 20:33 Respiratory Rate 15 11/28/24 20:33 Blood Pressure 132/79 11/28/24 20:33 Pulse Oximetry 99 11/28/24 20:33 Oxygen Delivery Room Air 11/28/24 20:33 Temperature 36.9 C 11/28/24 20:33 Pulse Rate 73 11/29/24 02:32 Respiratory Rate 17 11/29/24 02:32 Blood Pressure 130/95 H 11/29/24 02:32 Pulse Oximetry 96 11/29/24 02:32 Oxygen Delivery Room Air 11/28/24 20:33 Medical Decision Making MDM Narrative Medical decision making narrative: Differential diagnosis includes intra-abdominal infection, dehydration, cholecystitis, choledocholithiasis CT scan showed a thickened gallbladder wall and inflammatory stranding common bile duct was dilated at 1.1 cm with intrahepatic biliary ductal dilatation and recommendation for MRCP. Laboratory studies showed a normal white blood cell count electrolytes showed a bilirubin of 3.0 AST and ALT were 349 447 respectively lipase was normal at 33 The patient was started on Zosyn the case was discussed with hospitalist the plan will be to admit the patient to the hospital with consult for GI and surgery Vital Signs Vital Signs: Vital Signs Temperature 36.9 C 11/28/24 20:33 Pulse Rate 88 11/28/24 20:33 Respiratory Rate 15 11/28/24 20:33 Blood Pressure 132/79 11/28/24 20:33 Pulse Oximetry 99 11/28/24 20:33 Oxygen Delivery Room Air 11/28/24 20:33 Temperature 36.9 C 11/28/24 20:33 Pulse Rate 73 11/29/24 02:32 Respiratory Rate 17 11/29/24 02:32 Blood Pressure 130/95 H 11/29/24 02:32 Pulse Oximetry 96 11/29/24 02:32 Oxygen Delivery Room Air 11/28/24 20:33 Lab Data 11/28/24 20:44 11/28/24 20:44 Labs: Lab Results 11/28/24 11/28/24 Range/Units 20:44 22:59 WBC 8.8 (4.5-10.0) K/mm3 RBC 4.94 (4.6-6.20) M/mm3 Hgb 14.4 (14.0-18.0) g/dL Hct 43.0 (42.0-52.0) % MCV 87.0 (80-100) fl MCH 29.1 (26-34) pg MCHC 33.5 (32-36) g/dl RDW 13.2 (11.5-14.5) % Plt Count 384 H (150-375) k/mm3 MPV 8.6 (7.4-10.4) fl Immature Gran % (Auto) 0.2 (0-0.5) % Neut % (Auto) 65.9 (45.5-73.1) % Lymph % (Auto) 25.7 (18.3-44.2) % Tripp % (Auto) 7.6 (2.6-8.5) % Eos % (Auto) 0.3 (0-4.4) % Baso % (Auto) 0.3 (0.2-1.2) % Lymph # (Auto) 2.27 (0.9-3.2) K/mm3 Tripp # (Auto) 0.7 H (0.1-0.6) K/mm3 Eos # (Auto) 0.0 (0-0.3) K/mm3 Baso # (Auto) 0.0 (0.0-0.1) K/mm3 Abs Immat Gran (auto) 0.02 (0.00-0.031) K/mm3 Absolute Neuts (auto) 5.8 (1.3-6.7) K/mm3 Absolute Nucleated RBC 0.000 (0.0-0.012) K/mm3 Nucleated RBC % 0.0 (0.0-0.2) % Sodium 140 (137-145) mmol/L Potassium 3.8 (3.4-5.0) mmol/L Chloride 105 (98-107) mmol/L Carbon Dioxide 23 (22-30) mmol/L Anion Gap 12 (4-12) mmol/L BUN 13 D (9-20) mg/dL Creatinine 0.78 (0.7-1.3) mg/dL Estim Creat Clear Calc 102 ml/min Estimated GFR > 60 (59 - ) Glucose 108 (65-110) mg/dL Calcium 10.0 (8.4-10.2) mg/dL Total Bilirubin 3.0 H (0.2-1.3) mg/dL AST 349 H (17-59) U/L ALT 447 H (6-50) U/L Alkaline Phosphatase 527 H (38-126) U/L Total Protein 8.0 (6.3-8.2) g/dL Albumin 4.1 (3.5-5.1) g/dL Lipase 33 (23-300) U/L Urine Color Dark yellow (Yellow) Urine Appearance Cloudy H (Clear) Urine pH 7.0 (5.0-9.0) Ur Specific [place] 1.022 (1.001-1.035) Urine Protein 1+ H (Negative) mg/dL Urine Glucose (UA) Negative (Negative) mg/dL Urine Ketones Trace H (Negative) mg/dL Ur Blood (Man) Trace (Negative) Urine Nitrate Positive H (Negative) Urine Bilirubin 2+ H (Negative) Urine Urobilinogen 1.0 (<2.0) mg/dL Add Ur Microanalysis Reviewed Leukocyte Esterase Rfl 1+ H (Negative) PASTOR/UL Urine RBC 11-20 H (0-2) /hpf Urine WBC 0-5 (0-3) /hpf Ur Squamous Epith Cells None seen (Few) /hpf Urine Bacteria None seen /hpf Urine Casts 6-10 Urine Mucus Present /lpf Discharge Plan Discharge Clinical Impression: Abdominal pain, Elevated liver enzymes Patient Disposition: Still a Patient Condition: Stable Instructions: Antibiotic Form Patient Language: Nepali Prescriptions: No Action omeprazole 40 mg capsule,delayed release(DR/EC) 40 mg PO DAILY multivitamin Capsule 1 cap PO DAILY Vitamin D3 4,000 unit Capsule 4,000 unit PO DAILY [place]-3 350 mg-235 mg- 90 mg-597 mg Capsule,Delayed Release(Dr/Ec) 1 cap PO DAILY ibuprofen 600 mg tablet 600 mg PO TID 10 Days Qty: 60 0RF Follow-up/Referrals: Sharla,Ben Glover MD [Primary Care Provider] - Time of Disposition: 03:43
[2024-11-29] MEDS: PIPERACILLN/TAZ 3.375GM/NS50ML 3.375 GM/50 ML BAG IVPB ×4 (04:41→21:00)
--- NOTE | 2024-11-29 04:50 | PC.NURSE ---
Pt to be taken to floor after talking with hospitalist.
--- NOTE | 2024-11-29 05:20 | PM.IMHP ---
H&P: HPI History of Present Illness Date/Time: 11/29/24 05:20 Chief Complaint: Abdominal pain. Narrative: This is a 54-year-old male with gastroesophageal reflux disease and history of appendectomy presented to the emergency department via private vehicle with complaints of abdominal pain. The patient provides the following history. Last week at work he developed ?sharp hunger pains? which became quite intense and radiated to the right upper quadrant and chest. He was taken via EMS from his place of employment to [facility] and a CT of the abdomen and pelvis done at that time reportedly showed colitis for which he was discharged with ciprofloxacin and metronidazole. He has completed 1 of the antibiotics and has a couple of doses left of the other. Interestingly he had not had issues with loose stools up until the last several days. Yesterday he once again developed intense, squeezing abdominal pain, center more so in the epigastric region though radiating somewhat to the right upper quadrant. Associated symptoms include chills, nausea, and some vomiting and dry heaves. He denies documented fever, exertional chest pain, shortness of breath, hematemesis, melena, hematochezia, bloating, and belching. No known history of gallbladder disease, pancreatitis, or ulcers. In the ED: Vital signs were stable on arrival. Labs were significant for a total bili III 0.0, AST 349, ALT 447, alkaline phosphatase 527. Urinalysis was positive for 1+ protein, trace ketones, nitrates, 2+ bilirubin, 1+ leukocyte esterase, and [address] of the abdomen pelvis showed distended gallbladder with thickening of the wall and surrounding inflammatory stranding, common bile duct dilatation, mild intrahepatic biliary ductal dilatation, questionable filling defect of the distal common bile duct, and 2.2 cm mass of hepatic segment 8. He was started on Zosyn and was given a L normal saline bolus. He is being admitted in this setting for further treatment, evaluation, and GI and surgery consultations. Review of Systems Review of Systems: 12 systems were reviewed and are negative except for as per HPI. [facility] Past Medical History Medical History (Updated 11/29/24 @ 05:31 by Perla Burdick PA-C) Gastroesophageal reflux disease Surgical History Surgical History (Updated 11/29/24 @ 05:29 by Perla Burdick PA-C) History of tonsillectomy History of appendectomy Social History Social History (Updated 11/29/24 @ 05:30 by Perla Burdick PA-C) Social History: Surrogate medical decision maker: Sole Graham, spouse. Code status: Full code. Smoking status: Never smoker Alcohol intake: current Drinks per week: 2 Substance use: never Do You Feel Safe in your Home?: Yes Lack of Transportation: No Lack of Food: Never True Current Housing: I Have Housing Concerned About Future Housing: No Difficulty Paying Gas/Electric Bills: No Difficulty Paying for Meds: No Currently Unemployed: No Education: High School Diploma/GED Difficulty w/ Childcare or Family Care: No Spiritual care concerns: No Meds Home Medications and Allergies Home Medications ?Medication ?Instructions ?Recorded ?Confirmed ?Type cholecalciferol (vitamin D3) 100 4,000 unit PO DAILY 11/11/19 11/14/19 History mcg (4,000 unit) capsule (Vitamin D3) multivitamin 1 cap PO DAILY 11/11/19 11/14/19 History omega 3 350 mg-dha 235 mg-epa 90 1 cap PO DAILY 11/11/19 11/14/19 History mg-fish oil 597 mg capsule,delay rel ([place]-3) omeprazole 40 mg capsule,delayed 40 mg PO DAILY 11/11/19 11/14/19 History release ibuprofen 600 mg tablet 600 mg PO TID 10 days #60 tabs 09/12/24 Rx Allergies Allergy/AdvReac Type Severity Reaction Status Date / Time No Known Allergies Allergy Verified 11/28/24 23:28 Vital Signs Vital Signs - 24 hr 11/28/24 20:33 11/28/24 23:27 11/29/24 02:32 Temperature 98.4 F Pulse Rate 88 80 73 Respiratory Rate 15 17 17 Blood Pressure 132/79 139/92 H 130/95 H Pulse Oximetry 99 100 96 Oxygen Delivery Room Air Exam Narrative: General: Mildly ill-appearing gentleman sitting up in bed in no acute distress. Weight: 93.18 kg. BMI: 27.9. HEENT: PERRL, EOMI. Sclera anicteric. Conjunctiva mildly injected. Oral mucosa moist. Neck: Supple. Respiratory: Lungs are clear to auscultation bilaterally. Cardiovascular: Regular rate and rhythm with S1-S2. Gastrointestinal: Abdomen is soft and nondistended with positive bowel sounds. He is tender to palpation epigastric region and to a lesser extent in the right upper quadrant. No guarding or rebound tenderness. Skin: Warm and dry. Extremities: No cyanosis, clubbing, or edema. Radial and pedal pulses intact. Neurological: Alert. Cranial nerves 2-12 are grossly intact. No gross focal deficits to casual conversation. Psychiatric: Pleasant and cooperative with normal mood and affect. Judgment and insight intact. H&P: Results Labs Labs: Short CBC 11/28/24 Range/Units 20:44 WBC 8.8 (4.5-10.0) K/mm3 Hgb 14.4 (14.0-18.0) g/dL Hct 43.0 (42.0-52.0) % Plt Count 384 H (150-375) k/mm3 BMP 11/28/24 20:44 Sodium 140 Potassium 3.8 Chloride 105 Carbon Dioxide 23 BUN 13 D Creatinine 0.78 Glucose 108 Calcium 10.0 Liver Function 11/28/24 Range/Units 20:44 Total Bilirubin 3.0 H (0.2-1.3) mg/dL AST 349 H (17-59) U/L ALT 447 H (6-50) U/L Alkaline Phosphatase 527 H (38-126) U/L Albumin 4.1 (3.5-5.1) g/dL Urine 11/28/24 Range/Units 22:59 Urine Color Dark yellow (Yellow) Urine Appearance Cloudy H (Clear) Urine pH 7.0 (5.0-9.0) Ur Specific [place] 1.022 (1.001-1.035) Urine Protein 1+ H (Negative) mg/dL Urine Glucose (UA) Negative (Negative) mg/dL Imaging CT scan - abdomen: Radiologist's impression: 1. Distended gallbladder with thickening of the wall and surrounding inflammatory stranding. 2. Common bile duct is distended measuring 1.1 cm with mild intrahepatic biliary ductal dilatation. 3. Questionable filling defect of the distal common bile duct. 4. Subtle 2.2 cm mass of hepatic segment 8. Assessment and Plan Assessment and plan (1) Cholecystitis: Code(s): K81.9 - Cholecystitis, unspecified Status: Acute (2) Common bile duct dilatation: Code(s): K83.8 - Other specified diseases of biliary tract Status: Acute (3) Liver mass: Code(s): R16.0 - Hepatomegaly, not elsewhere classified Status: Acute (4) Elevated liver enzymes: Code(s): R74.8 - Abnormal levels of other serum enzymes Status: Acute (5) Gastroesophageal reflux disease: Code(s): K21.9 - Gastro-esophageal reflux disease without esophagitis Status: Acute Plan The patient presented to the emergency department with complaints of abdominal pain as detailed in HPI. Labs, imaging, EKG, and all reports were personally reviewed. Preliminary workup shows findings concerning for cholecystitis with questionable filling defect in the distal common bile duct. He has been started on Zosyn and analgesics and antiemetics are available as needed. Surgery has been consulted for their opinion. MRCP and abdominal MRI ordered for evaluation of elevated liver enzymes, ductal dilatation, and hepatic mass. Vital signs have been stable. His home medications will be reviewed and resumed as appropriate. Findings and treatment plan were discussed with the patient. Questions were solicited and answered to satisfaction. The patient's medical management will be taken over by the hospitalist team in a.m. Quality VTE Prophylaxis VTE prophylaxis: mechanical ordered If No VTE Prophylaxis Answer both mechanical and pharmacologic: Reason no pharmacologic proph: medical contraindication (may need procedure) The patient has been admitted under observation status. Hospitalist [facility] Advance Care Plan I have confirmed that the patient's Advanced Care Plan is present, code status is documented, or surrogate decision maker is listed in patient medical record.: Yes Medication Reconciliation I have utilized all available resources to obtain, update and review the patients current medications (includes all prescriptions, OTC, herbals, cannabis, and nutritional supplements).: Yes
--- NOTE | 2024-11-29 05:46 | ADMGEN ---
This patient, Suhail Graham, was admitted to [address] [facility] Surg Room 321-02. Patient/family oriented to hospital policies and general routines including ID bracelet, bed and alarms, visiting hours, pain management, procedures, bathroom and other care routines, personal items, smoking policy, room service/diet, and visiting hours. Information on how to activate the Rapid Response Team has been discussed. Patient/Family are encouraged to report perceived risks to care and to ask questions if they do not understand what they are told or what they should do.
[2024-11-29] MEDS: SODIUM CHLORIDE 0.9% IV 1,000 ML 125 ML IV CONT (06:11)
--- NOTE | 2024-11-29 09:11 | P.CONGI_ITS ---
<Statement entered by Damon Heredia MD - 11/29/24 14:30> I, Damon Heredia MD, have provided a substantive portion of the care of this patient and discussed the patient with my Nurse Practitioner. I have reviewed any new relevant radiographic and laboratory results including medications. I agree with her documentation as noted below.?I personally performed the medical decision making and much of the history and exam for this encounter. briefly, here with new onset of abdominal pain, work up revealed elevated liver enzymes with bili 3, CT scan showed cholecystitis, MRCP with no stone but possible sludge in bile duct. He was evaluated by surgery and he will get lap byron today with IOC, if any residual sludge/filling defect then consideration to do ERCP but if clean and liver enzymes start trending down we can just monitor. Assessment and Plan Assessment and plan (1) Elevated liver enzymes: Code(s): R74.8 - Abnormal levels of other serum enzymes <Aleisha Douglas APRN - Last Filed: 11/29/24 10:40> Status: Acute <Aleisha Douglas APRN - Last Filed: 11/29/24 10:40> (2) Liver mass: Code(s): R16.0 - Hepatomegaly, not elsewhere classified <Aleisha Douglas APRN - Last Filed: 11/29/24 10:40> Status: Acute <Aleisha Douglas APRN - Last Filed: 11/29/24 10:40> (3) Common bile duct dilatation: Code(s): K83.8 - Other specified diseases of biliary tract <Aleisha Douglas APRN - Last Filed: 11/29/24 10:40> Status: Acute <Aleisha Douglas APRN - Last Filed: 11/29/24 10:40> (4) Abdominal pain: Qualifiers: Abdominal location: epigastric Qualified Code(s): R10.13 - Epigastric pain <Aleisha Douglas APRN - Last Filed: 11/29/24 10:40> Code(s): R10.9 - Unspecified abdominal pain <Aleisha Douglas APRN - Last Filed: 11/29/24 10:40> Status: Acute <Aleisha Douglas APRN - Last Filed: 11/29/24 10:40> (5) Gastroesophageal reflux disease: Qualifiers: Esophagitis presence: esophagitis presence not specified Q ualified Code(s): K21.9 - Gastro-esophageal reflux disease without esophagitis < Aleisha Douglas, NAILHEAD PUNCHER - Last Filed: 11/29/24 10:40> Code(s): K21.9 - Gastro-esophageal reflux disease without esophagitis <Aleisha Douglas, NAILHEAD PUNCHER - Last Filed: 11/29/24 10:40> Status: Acute <Aleisha Douglas, NAILHEAD PUNCHER - Last Filed: 11/29/24 10:40> (6) Cholecystitis: Code(s): K81.9 - Cholecystitis, unspecified <Aleisha Douglas, NAILHEAD PUNCHER - Last Filed: 11/29/24 10:40> Status: Acute <Aleisha Douglas, NAILHEAD PUNCHER - Last Filed: 11/29/24 10:40> Assessment and Plan: 1. Elevated LFT's/ abnormal imaging digestive- CBD dilation/ cholecystitis/liver mass/epigastric pain/GERD: Patient has never had an EGD. firs onset of symptoms was in July at which time the patient states that he was having epigastric pain that radiated into his right upper quadrant and right flank. Second episode occurred last week and he was seen at [facility] and was diagnosed and treated for colitis. Patient completed 6 days of Cipro and Flagyl prior to admission. On admission patient was found to have elevated LFT and today total bilirubin 3.0, AST 349, ALT 447, alkaline phosphatase 527 and lipase 33. BMP and CBC normal except elevated platelets at 384. CT performed today showed common bile duct dilation at 9 mm, a 2.2 cm mass in the liver, small hiatal hernia, and distended gallbladder with fat stranding suspicious for acute cholecystitis. Patient denies any prior history of LFT elevation or liver disease. He is a social drinker. * MRCP pending * If MRCP shows obstruction we will discuss ERCP * Surgery aready consulted, additional recommendations per surgery * Continue monitoring LFTs * Continue supportive care with pain management, antiemetics and IV fluids Thank you very much for allowing me to share in the care of this very nice patient. This report may have been done utilizing a voice recognition system. Attempts have been made to correct errors. However, there may be uncorrected grammatical, spelling, and recognition errors present. <Aleisha Víctor ElvaSVETLANA riveraN - Last Filed: 11/29/24 10:40> GI Consult Note Consult date/time: 11/29/24 09:11 <Aleisha Douglas APRN - Last Filed: 11/29/24 10:40> Reason for consult: Elevated LFT's and dilated CBD <Aleishaartem Douglas APRN - Last Filed: 11/29/24 10:40> HPI: This is a 54-year-old male with history of GERD is unremarkable medical surgical history. He presented to complaints of abdominal pain. GI has been consulted for elevated LFTs and dilated CBD. Patient states that he remembers 1st having symptoms in July of 2024 at which time he experienced epigastric pressure/ tightness that radiated into his right upper quadrant and right flank. Last week he had a similar episode and was seen at [facility] and was diagnosed and treated for colitis. Patient completed 6 days out of [employer]. He presented to [facility] yesterday with complaints of abdominal pain. Prior to admission he was also having nausea and vomiting which has resolved. He typically takes omeprazole 40 mg daily and his reflux is well controlled yesterday he was having reflux symptoms decreased appetite over the past week. He denies any abdominal bloating, odynophagia, dysphagia, regurgitation, early satiety or unexplained weight loss. He is having regular daily bowel movements that are formed and non Urgent. He denies diarrhea, constipation, hematochezia, or melena. He denies any NSAID, aspirin, or anticoagulant use. He is a social drinker. He is a nonsmoker and denies marijuana use. Patient's sister has a history of cholecystectomy and his brother had some form of unknown GI cancer but is doing finding . ENDOSCOPY HISTORY: EGD: Patient has never had an EGD COLONOSCOPY: 11/14/[address] Houser for CRC screening Findings: In the cecum a polyp 2 mm in diameter was seen. The polyp was completely excised by cold forceps In the rectum, small size internal hemorrhoid was seen that was not actively bleeding Bx results: COLON, CECUM, POLYP, BIOPSY: - TUBULAR ADENOMA LABS AND STOOL STUDIES: LABS 11/28/2024: Sodium 140, potassium 3.8, BUN 13, creatinine 0.78, GFR > 60 WBC is 9, HGB 14, Hct 43, MCV 87, platelets 384 Total bilirubin 3.0, AST 349, ALT 447, alkaline phosphatase 527, albumin 4.1 and lipase 33. Calcium 10.0 IMAGING: CT abd/pelvis w/contrast 11/29/2024: FINDINGS: The visualized portions of the lung bases demonstrate mild atelectasis. No pleural effusion. The heart size is normal. No pericardial effusion. There is a small sliding hiatal hernia. There are cysts in the liver measuring up to 2.6 cm. There is a 2.2 cm mass in the liver. There is mild intrahepatic biliary duct dilatation. The gallbladder is distended. There is fat stranding around the gallbladder. The common duct is dilated to 9 mm. There is a possible filling defect in the distal common bile duct. The spleen, pancreas, adrenal glands, and right kidney are normal. There is a 5 mm cyst in left kidney. The prostate is mildly enlarged. There is diverticulosis of the colon without evidence of diverticulitis. There are no dilated loops of bowel. The appendix is not visualized. There are no pathologically enlarged lymph nodes. There is no free intraperitoneal fluid. There is mild thoracic and lumbar spondylosis. IMPRESSION: 1. Mild intrahepatic and extrahepatic biliary duct dilatation with possible filling defect distal common bile duct. MRCP without and with contrast is recommended. 2. 2.2 cm liver mass, which may be benign or malignant. MRCP without and with contrast is recommended. 3. Distended gallbladder with surrounding fat stranding suspicious for acute cholecystitis. 4. Small sliding hiatal hernia. <Aleisha Douglas APRN - Last Filed: 11/29/24 10:40> Review of Systems 2 Constitutional: Constitutional: Reports as per HPI <Aleisha Douglas APRN - Last Filed: 11/29/24 10:40> ENT: Reports as per HPI <Aleisha Douglas APRN - Last Filed: 11/29/24 10:40> Cardiovascular: Cardiovascular: Reports as per HPI, Denies chest pain and Denies dyspnea <Aleisha BiswasFelipa Douglas NAILHEAD PUNCHER Last Filed: 11/29/24 10:40> Respiratory: Respiratory: Denies cough and Denies dyspnea <Aleisha BiswasFelipa Douglas NAILHEAD PUNCHER Last Filed: 11/29/24 10:40> Gastrointestinal: Gastrointestinal: Reports as per HPI <Aleisha BiswasFelipa Douglas NAILHEAD PUNCHER - Last Filed: 11/29/24 10:40> Musculoskeletal: Musculoskeletal: Reports as per HPI <Aleisha BiswasFelipa Douglas NAILHEAD PUNCHER - Last Filed: 11/29/24 10:40> Integumentary/Breasts: Skin/Breast: Reports as per HPI <Aleisha Víctor Douglas Last Filed: 11/29/24 10:40> Psychiatric: Psychiatric: Reports as per HPI <Aleisha Víctor Douglas NAILHEAD PUNCHER Last Filed: 11/29/24 10:40> Endocrine: Endocrine: Reports no additional endocrine complaints <Aleisha BiswasFelipa Douglas NAILHEAD PUNCHER Last Filed: 11/29/24 10:40> Hematologic/Lymphatic: Hematologic/Lymphatic: Reports no additional hematologic/lymphatic complaints <Aleisha Víctor Douglas NAILHEAD PUNCHER Last Filed: 11/29/24 10:40> [facility] Past Medical History Medical History: Medical History (Updated 11/29/24 @ 13:14 by Danie Poole DO) Hyperlipidemia Gastroesophageal reflux disease <Aleishaartem Douglas NAILHEAD PUNCHER Last Filed: 11/29/24 10:40> Surgical History Surgical History: Surgical History (Updated 11/29/24 @ 05:29 by Perla Burdick PA-C) History of tonsillectomy History of appendectomy <Aleishaartem Douglas APRN Last Filed: 11/29/24 10:40> Social History Social History: Social History (Updated 11/29/24 @ 05:30 by Perla Burdick PA-C) Social History: Surrogate medical decision maker: Sole Graham, spouse. Code status: Full code. Smoking status: Never smoker Alcohol intake: current Drinks per week: 2 Substance use: never Do You Feel Safe in your Home?: Yes Lack of Transportation: No Lack of Food: Never True Current Housing: I Have Housing Concerned About Future Housing: No Difficulty Paying Gas/Electric Bills: No Difficulty Paying for Meds: No Currently Unemployed: No Education: High School Diploma/GED Difficulty w/ Childcare or Family Care: No Spiritual care concerns: No <Aleisha Douglas APRN - Last Filed: 11/29/24 10:40> Meds Home Medications and Allergies Home medications: Home Medications ?Medication ?Instructions ?Recorded ?Confirmed ?Type cholecalciferol (vitamin D3) 100 4,000 unit PO DAILY 11/11/19 11/29/24 History mcg (4,000 unit) capsule (Vitamin D3) multivitamin 1 cap PO DAILY 11/11/19 11/29/24 History omega 3 350 mg-dha 235 mg-epa 90 1 cap PO DAILY 11/11/19 11/29/24 History mg-fish oil 597 mg capsule,delay rel (Har[place]inger-3) omeprazole 40 mg capsule,delayed 40 mg PO DAILY 11/11/19 11/29/24 History release ciprofloxacin HCl 500 mg tablet 500 mg PO Q12H 11/29/24 11/29/24 History metronidazole 500 mg tablet 500 mg PO Q12H 11/29/24 11/29/24 History rosuvastatin 20 mg tablet 20 mg PO DAILY 11/29/24 11/29/24 History <Aleisha Douglas, CIELO - Last Filed: 11/29/24 10:40> Allergies/Adverse reactions: Allergies Allergy/AdvReac Type Severity Reaction Status Date / Time No Known Allergies Allergy Verified 11/29/24 13:39 <Aleisha Douglas APRN - Last Filed: 11/29/24 10:40> Vital Signs Vital Signs - 24 hr 11/28/24 20:33 11/28/24 23:27 11/29/24 02:32 Temperature 98.4 F Pulse Rate 88 80 73 Respiratory Rate 15 17 17 Blood Pressure 132/79 139/92 H 130/95 H Pulse Oximetry 99 100 96 Oxygen Delivery Room Air 11/29/24 05:59 Temperature 97.3 F L Pulse Rate 80 Respiratory Rate 14 Blood Pressure 139/85 Pulse Oximetry 96 Oxygen Delivery <Aleisha Douglas APRN - Last Filed: 11/29/24 10:40> Exam 2 Const: General: cooperative, healthy appearing, comfortable, no acute distress and well developed <Aleisha BiswasFelipa ElvaCIELO rivera - Last Filed: 11/29/24 10:40> Orientation/consciousness: oriented to person, oriented to place, oriented to time and patient oriented x3 <Aleisha Víctor Elvamiguel NAILHEAD PUNCHER - Last Filed: 11/29/24 10:40> HENMT: Head: normal to inspection, normocephalic and atraumatic <Aleisha BiswasFelipa Elvamigeul NAILHEAD PUNCHER - Last Filed: 11/29/24 10:40> Mouth: Yes Normal oral and palatal mucosa present and Yes moist mucous membranes <Aleisha Víctor Douglas NAILHEAD PUNCHER - Last Filed: 11/29/24 10:40> Eyes: General: appearance normal, both eyes and all related structures < Aleisha Víctor Douglas NAILHEAD PUNCHER - Last Filed: 11/29/24 10:40> Conjunctivae: conjunctivae normal <Aleisha Víctor Elvamiguel NAILHEAD PUNCHER - Last Filed: 11/29/24 10:40> Sclera: sclerae normal <Aleisha Víctor Elvamiguel NAILHEAD PUNCHER - Last Filed: 11/29/24 10:40> Pupils: Equal, round and reactive pupils present <Aleisha Víctor Elvamiguel NAILHEAD PUNCHER - Last Filed: 11/29/24 10:40> Neck: Neck: normal visual inspection <Aleisha Víctor Douglas APRN - Last Filed: 11/29/24 10:40> Chest: Chest palpation & inspection: normal inspection of the chest < Aleisha Víctor Douglas APRN - Last Filed: 11/29/24 10:40> Resp: Effort & Inspection: normal respiratory effort and able to speak in complete sentences <Aleisha Víctor Douglas APRN - Last Filed: 11/29/24 10:40> Auscultation: clear to auscultation bilaterally <Aleishaartem Douglas APRN - Last Filed: 11/29/24 10:40> Cardio: Jugular venous distension: no JVD <Aleisha Douglas APRN - Last Filed: 11/29/24 10:40> Rate: regular rate <Aleisha Douglas APRN Last Filed: 11/29/24 10:40> Rhythm: regular rhythm <Aleisha Douglas APRN - Last Filed: 11/29/24 10:40> Heart sounds: S1 normal heart sound present and S2 normal heart sound present <Aleisha Douglas APRN Last Filed: 11/29/24 10:40> GI: Inspection: normal to inspection and non-distended <Aleisha Douglas APRN Last Filed: 11/29/24 10:40> GI Palp: Yes Soft to palpation, No Tenderness to palpation present (GI), No Guarding due to palpation present (GI) and Yes No hepatosplenomegaly present <Aleisha Douglas NAILHEAD PUNCHER Last Filed: 11/29/24 10:40> Auscultation: normal bowel sounds <Aleisha StevensonmiguelSVETLANAN Last Filed: 11/29/24 10:40> Rectal Exam: deferred <Aleisha Douglas APRN Last Filed: 11/29/24 10:40> Skin: General skin exam: normal color and no rashes or lesions noted < Aleisha Stevensonmiguel NAILHEAD PUNCHER Last Filed: 11/29/24 10:40> Neuro: General: oriented to person, oriented to place, oriented to time and patient oriented x3 <Aleisha StevensonmiguelCIELO Last Filed: 11/29/24 10:40> Cranial nerves: Yes Equal, round and reactive pupils present <Aleisha Stevensonmiguel NAILHEAD PUNCHER Last Filed: 11/29/24 10:40> Speech: normal speech <Aleisha Stevensonmiguel NAILHEAD PUNCHER Last Filed: 11/29/24 10:40> Extrem: General: normal to inspection and no clubbing, cyanosis or edema < Aleisha Stevensonmiguel NAILHEAD PUNCHER - Last Filed: 11/29/24 10:40> Psych: Appearance: grossly normal and well kempt <Aleisha Renee CIELO Douglas - Last Filed: 11/29/24 10:40> Affect: normal affect <Aleisha StevensonlingCIELO moody - Last Filed: 11/29/24 10:40> Results Labs CBC & Chem 7: 11/28/24 20:44 11/28/24 20:44 <Aleisha Douglas APRN - Last Filed: 11/29/24 10:40> Labs: Short CBC 11/28/24 Range/Units 20:44 WBC 8.8 (4.5-10.0) K/mm3 Hgb 14.4 (14.0-18.0) g/dL Hct 43.0 (42.0-52.0) % Plt Count 384 H (150-375) k/mm3 BMP 11/28/24 20:44 Sodium 140 Potassium 3.8 Chloride 105 Carbon Dioxide 23 BUN 13 D Creatinine 0.78 Glucose 108 Calcium 10.0 Liver Function 11/28/24 Range/Units 20:44 Total Bilirubin 3.0 H (0.2-1.3) mg/dL AST 349 H (17-59) U/L ALT 447 H (6-50) U/L Alkaline Phosphatase 527 H (38-126) U/L Albumin 4.1 (3.5-5.1) g/dL Urine 11/28/24 Range/Units 22:59 Urine Color Dark yellow (Yellow) Urine Appearance Cloudy H (Clear) Urine pH 7.0 (5.0-9.0) Ur Specific [place] 1.022 (1.001-1.035) Urine Protein 1+ H (Negative) mg/dL Urine Glucose (UA) Negative (Negative) mg/dL <Aleisha Douglas APRN - Last Filed: 11/29/24 10:40>
--- NOTE | 2024-11-29 12:16 | P.PNIM_ITS ---
Progress Note: A&P Assessment and Plan (1) Cholecystitis: Code(s): K81.9 - Cholecystitis, unspecified Status: Acute Assessment and Plan: * abdomen/pelvis CT showed mild intrahepatic and extrahepatic biliary duct dilatation with possible filling defect distal common bile duct, 2.2 cm liver mass which may be benign or malignant, distended gallbladder with surrounding fat stranding suspicious for acute cholecystitis, small sliding hiatal hernia * MRCP showing mild intrahepatic and extrahepatic biliary duct dilatation was sludge in the distal common duct, distended gallbladder with gallstones and gallbladder wall thickening suspicious for acute cholecystitis, 2.3 cm hyper enhancing liver mass. * general surgery consulted and plans for lap cholecystectomy today at 1:30 a.m. * GI consulted * continue pain control * continue IV fluids * continue Zosyn * continue NPO status (2) Common bile duct dilatation: Code(s): K83.8 - Other specified diseases of biliary tract Status: Acute Assessment and Plan: see above (3) Liver mass: Code(s): R16.0 - Hepatomegaly, not elsewhere classified Status: Acute Assessment and Plan: * liver mass shown on abdomen pelvis CT and on MRCP * GI following (4) Elevated liver enzymes: Code(s): R74.8 - Abnormal levels of other serum enzymes Status: Acute Assessment and Plan: * initial total bilirubin 3.0, AST 349, ALT 447, alkaline phosphate 527 * * continue to trend (5) Gastroesophageal reflux disease: Qualifiers: Esophagitis presence: esophagitis presence not specified Qualified Code(s): K21.9 - Gastro-esophageal reflux disease without esophagitis Code(s): K21.9 - Gastro-esophageal reflux disease without esophagitis Status: Acute Assessment and Plan: * started Protonix Time Spent With Patient Time with patient: Greater than 35 minutes Subjective Date/time seen: 11/29/24 12:16 Interval history: interval history: This is 54-year-old male with a significant past medical history of GERD an appendectomy who presented to the emergency room with complaints of abdominal pain. Workup in the hospital included an abdomen / pelvis CT which showed mild intrahepatic and extrahepatic biliary duct dilatation with possible filling defect distal common bile duct, 2.2 cm liver mass which may be benign or malignant, distended gallbladder with surrounding fat stranding suspicious for acute cholecystitis, sliding scale hiatal hernia. MRCP showed mild intrahepatic and extrahepatic biliary duct dilatation with sludge in the distal common duct, distended gallbladder with gallstones and gallbladder wall thickening suspicious for acute cholecystitis, 2.3 cm hyperenhancing liver mass in the absence of known malignancy this finding is likely hemangioma or focal nodular hyperplasia. Initial labs showed a normal white blood cell count of 8.8, platelet count was 384, total bili 3.0, AST 349, ALT 447, alkaline phosphate 527. UA was obtained which showed cloudy urine appearance, 1+ urine protein, trace urine ketone, positive nitrate, 2+ urine bili, 1+ leukocytes, 11-20 urine RBC. Urine culture was obtained and pending. Patient was given 1 L of normal saline, Compazine, Zosyn, and started on IV fluids while in the ED. GI and General surgery were consulted. Subjective: Patient seen right out of OR. He is reporting abdominal pain. Lap sites with surgical glue to the abdomen. Labs reviewed. Review of Systems Review of Systems: 12 systems were reviewed and are negativ e except for as per HPI. All systems reviewed & are unremarkable except as noted in HPI and below Exam Narrative: General: In no acute distress, well nourished Head: atraumatic, no encephalopathy Eyes: PERRLA, sclera clear ENT: moist mucous membranes, nasal passages clear Neck: supple, no JVD, no adenopathy, trachea midline Cardiac: Normal S1 and S2. No murmur, gallops or friction rubs, peripheral pulses intact. Respiratory: Lungs clear to auscultation, no adventitious lung sounds, currently on O2 with face mask Gastrointestinal: soft, non-distended, non-tender, hypoactive bowel sounds. : voiding without difficulty. Extremities: moves all extremities well, no edema Skin:Lap sites with surgical glue to abdomen Neuro: Alert and oriented x4, cranial nerves intact, no neuro deficits. Psych: normal mood, normal affect, interactive Objective Data Vital Signs Vital Signs: Vital Signs - 24 hr 11/28/24 20:33 11/28/24 23:27 11/29/24 02:32 Temperature 98.4 F Pulse Rate 88 80 73 Respiratory Rate 15 17 17 Blood Pressure 132/79 139/92 H 130/95 H Pulse Oximetry 99 100 96 Oxygen Delivery Room Air 11/29/24 05:59 11/29/24 08:00 Temperature 97.3 F L Pulse Rate 80 Respiratory Rate 14 Blood Pressure 139/85 Pulse Oximetry 96 96 Oxygen Delivery Room Air Intake/Output Intake/Output: Intake & Output 11/26/24 11/27/24 11/28/24 11/29/24 23:59 23:59 23:59 23:59 Intake Total 1050 Balance 1050 Meds/Results Medications: Active Medications Generic Name Dose Route Start Last Admin Trade Name Freq PRN Reason Stop Dose Admin Acetaminophen 650 mg 11/29/24 05:34 Acetaminophen 325 Mg Tablet PO Q6H PRN Mild Pain (1-3) or Fever Hydrocodone Bitart/Acetaminophen 1 tab 11/29/24 05:34 Hydrocodone/Acetaminophen (*Crx) 5-325 Mg Tablet PO Q6H PRN Pain Rated 4-6 Piperacillin/Tazobactam/Dextrose 3.375 gm in 50 mls @ 100 mls/hr 11/29/24 10:00 11/29/24 11:13 Zosyn 3.375 Gm/Ns 50 Ml IVPB 100 mls/hr Q6H ADOLFO Administration Sodium Chloride 1,000 mls @ 125 mls/hr 11/29/24 05:36 11/29/24 06:11 Normal Saline Iv IV CONT 11/29/24 13:34 125 mls/hr .Q8H ONE Administration Morphine Sulfate 4 mg 11/29/24 03:39 Morphine Sulfate (*Crx) 4 Mg/Ml Inj IV PUSH Q2H PRN Pain Rated 7-10 Ondansetron HCl 4 mg 11/29/24 03:39 Ondansetron Inj 4 Mg/2 Ml Vial IV PUSH Q4H PRN Nausea Radiology Results: ITS Impressions Abdomen/Pelvis CT 11/29/24 07:14 IMPRESSION: 1. Mild intrahepatic and extrahepatic biliary duct dilatation with possible filling defect distal common bile duct. MRCP without and with contrast is r ecommended. 2. 2.2 cm liver mass, which may be benign or malignant. MRCP without and with contrast is recommended. 3. Distended gallbladder with surrounding fat stranding suspicious for acute cholecystitis. 4. Small sliding hiatal hernia. MRCP 11/29/24 10:47 IMPRESSION: 1. Mild intrahepatic and extrahepatic biliary duct dilatation with sludge in the distal common duct. 2. Distended gallbladder with gallstones and gallbladder wall thickening suspicious for acute cholecystitis. 3. 2.3 cm hyperenhancing liver mass. In the absence of known malignancy, this finding is likely a hemangioma or focal nodular hyperplasia. Labs Labs: Laboratory Results - last 24 hr 11/28/24 11/28/24 20:44 22:59 WBC 8.8 RBC 4.94 Hgb 14.4 Hct 43.0 MCV 87.0 MCH 29.1 MCHC 33.5 RDW 13.2 Plt Count 384 H MPV 8.6 Immature Gran % (Auto) 0.2 Neut % (Auto) 65.9 Lymph % (Auto) 25.7 [place] % (Auto) 7.6 Eos % (Auto) 0.3 Baso % (Auto) 0.3 Lymph # (Auto) 2.27 [place] # (Auto) 0.7 H Eos # (Auto) 0.0 Baso # (Auto) 0.0 Abs Immat Gran (auto) 0.02 Absolute Neuts (auto) 5.8 Absolute Nucleated RBC 0.000 Nucleated RBC % 0.0 Sodium 140 Potassium 3.8 Chloride 105 Carbon Dioxide 23 Anion Gap 12 BUN 13 D Creatinine 0.78 Estim Creat Clear Calc 102 Estimated GFR > 60 Glucose 108 Calcium 10.0 Total Bilirubin 3.0 H AST 349 H ALT 447 H Alkaline Phosphatase 527 H Total Protein 8.0 Albumin 4.1 Lipase 33 Urine Color Dark yellow Urine Appearance Cloudy H Urine pH 7.0 Ur Specific [place] 1.022 Urine Protein 1+ H Urine Glucose (UA) Negative Urine Ketones Trace H Ur Blood (Man) Trace Urine Nitrate Positive H Urine Bilirubin 2+ H Urine Urobilinogen 1.0 Add Ur Microanalysis Reviewed Leukocyte Esterase Rfl 1+ H Urine RBC 11-20 H Urine WBC 0-5 Ur Squamous Epith Cells None seen Urine Bacteria None seen Urine Casts 6-10 Urine Mucus Present Quality VTE Prophylaxis VTE prophylaxis: mechanical ordered
--- NOTE | 2024-11-29 12:48 | P.CONGS_ITS ---
Assessment and Plan Assessment and plan (1) Acute calculous cholecystitis: Code(s): K80.00 - Calculus of gallbladder with acute cholecystitis without obstruction Status: Acute Assessment and Plan: * Have reviewed the imaging and discussed the findings with the patient. He has evidence of acute calculous cholecystitis and also has elevated liver enzymes with sludge in the common bile duct. I have discussed that there is still possibility of a common bile duct obstruction either caused by the sludge or a small common bile duct stone that was not seen on the MRCP. I have recommended proceeding with laparoscopic cholecystectomy with intraoperative cholangiogram, possible open. I discussed the procedure, risks, benefits, and alternatives. Questions were answered. Will proceed with surgery today. (2) Elevated liver enzymes: Code(s): R74.8 - Abnormal levels of other serum enzymes Status: Acute History of Present Illness Consult details Consult date: 11/29/24 Reason for consult: other (CHOLELITHIASIS, ELEVATED LIVER ENZYMES) Requesting physician: Mahesh Montoya MD Narrative: This is a 54-year-old man who I am asked to see for cholelithiasis with elevated liver enzymes. He presented to the emergency department last night with right upper quadrant and epigastric abdominal pain. He has had multiple symptoms over the past 3 weeks. He has also noticed dark urine and slight yellowing the eyes. In the emergency department a CT showed evidence of gallbladder wall thickening and dilated common bile duct. He had elevated bilirubin and transaminases. He was admitted for further treatment and underwent MRCP this morning. He was found to have sludge in the common bile duct but no evidence of choledocholithiasis. Review of Systems 2 Review of Systems: All systems reviewed & are unremarkable except as noted in HPI and below Eyes: Eyes: Denies change in vision ENT: Denies hearing loss, Denies neck pain and Denies sore throat Cardiovascular: Cardiovascular: Denies chest pain and Denies dyspnea Respiratory: Respiratory: Denies cough, Denies dyspnea and Denies wheezing Gastrointestinal: Gastrointestinal: Reports as per HPI Genitourinary: Genitourinary: Denies hematuria and Denies dysuria Musculoskeletal: Musculoskeletal: Denies arthralgias, Denies joint swelling and Denies neck pain Allergic/Immunologic: Allergic/Immunologic: Denies wheezing [facility] Past Medical History Medical History (Updated 11/29/24 @ 12:51 by Abe Abdalla DO) Gastroesophageal reflux disease Surgical History Surgical History (Updated 11/29/24 @ 05:29 by Perla Burdick PA-C) History of tonsillectomy History of appendectomy Social History Social History (Updated 11/29/24 @ 05:30 by Perla Burdick PA-C) Social History: Surrogate medical decision maker: Sole Graham, spouse. Code status: Full code. Smoking status: Never smoker Alcohol intake: current Drinks per week: 2 Substance use: never Do You Feel Safe in your Home?: Yes Lack of Transportation: No Lack of Food: Never True Current Housing: I Have Housing Concerned About Future Housing: No Difficulty Paying Gas/Electric Bills: No Difficulty Paying for Meds: No Currently Unemployed: No Education: High School Diploma/GED Difficulty w/ Childcare or Family Care: No Spiritual care concerns: No Meds Home Medications and Allergies Home Medications ?Medication ?Instructions ?Recorded ?Confirmed ?Type cholecalciferol (vitamin D3) 100 4,000 unit PO DAILY 11/11/19 11/29/24 History mcg (4,000 unit) capsule (Vitamin D3) multivitamin 1 cap PO DAILY 11/11/19 11/29/24 History omega 3 350 mg-dha 235 mg-epa 90 1 cap PO DAILY 11/11/19 11/29/24 History mg-fish oil 597 mg capsule,delay rel ([place]-3) omeprazole 40 mg capsule,delayed 40 mg PO DAILY 11/11/19 11/29/24 History release ciprofloxacin HCl 500 mg tablet 500 mg PO Q12H 11/29/24 11/29/24 History metronidazole 500 mg tablet 500 mg PO Q12H 11/29/24 11/29/24 History rosuvastatin 20 mg tablet 20 mg PO DAILY 11/29/24 11/29/24 History Allergies Allergy/AdvReac Type Severity Reaction Status Date / Time No Known Allergies Allergy Verified 11/29/24 05:39 Vital Signs Vital Signs - 24 hr 11/28/24 20:33 11/28/24 23:27 11/29/24 02:32 Temperature 98.4 F Pulse Rate 88 80 73 Respiratory Rate 15 17 17 Blood Pressure 132/79 139/92 H 130/95 H Pulse Oximetry 99 100 96 Oxygen Delivery Room Air 11/29/24 05:59 11/29/24 08:00 Temperature 97.3 F L Pulse Rate 80 Respiratory Rate 14 Blood Pressure 139/85 Pulse Oximetry 96 96 Oxygen Delivery Room Air Exam 2 Const: General: alert; No acute distress Orientation/consciousness: patient oriented x3 Limitations: no limitations HENMT: Head: normocephalic and atraumatic Ears: hearing grossly normal bilaterally Face/Nose/Sinus: Normal external nose present and Normal nares present Mouth: Yes Normal oral and palatal mucosa present and Yes moist mucous membranes Eyes: General: appearance normal, both eyes and all related structures C onjunctivae: conjunctivae normal Sclera: sclerae normal Pupils: Equal, round and reactive pupils present EOM: EOMs intact bilaterally Neck: Neck: normal visual inspection, full ROM, no lymphadenopathy, supple and no JVD Lymphatic: no lymphadenopathy noted Chest: Chest palpation & inspection: normal inspection of the chest Resp: Effort & Inspection: normal respiratory effort and able to speak in complete sentences Auscultation: clear to auscultation bilaterally P ercussion: percussion normal Cardio: Jugular venous distension: no JVD Rate: regular rate Rhythm: r egular rhythm Heart sounds: S1 normal heart sound present and S2 normal heart sound present Peripheral pulses: Peripheral pulses 2+ throughout GI: Inspection: normal to inspection GI Palp: Yes Soft to palpation, Yes Tenderness to palpation present (GI) (Epigastric), No Guarding due to palpation present (GI), No No hepatosplenomegaly present and No Rebound tenderness present Auscultation: normal bowel sounds : General: Yes no CVA tenderness Back/Spine/Pelvis: Back: no CVA tenderness Skin: General skin exam: dry skin Other: Slight jaundice skin and slight scleral icterus Neuro: General: patient oriented x3, gait normal, moves all extremities, no focal motor deficits and CN's II-XI intact bilaterally Cranial nerves: Yes Equal, round and reactive pupils present Speech: normal speech Extrem: General: normal to inspection and capillary refill normal Results Labs 11/28/24 20:44 11/28/24 20:44 Labs: Abnormal lab results 11/28/24 11/28/24 Range/Units 20:44 22:59 Plt Count 384 H (150-375) k/mm3 [place] # (Auto) 0.7 H (0.1-0.6) K/mm3 Total Bilirubin 3.0 H (0.2-1.3) mg/dL AST 349 H (17-59) U/L ALT 447 H (6-50) U/L Alkaline Phosphatase 527 H (38-126) U/L Urine Appearance Cloudy H (Clear) Urine Protein 1+ H (Negative) mg/dL Urine Ketones Trace H (Negative) mg/dL Urine Nitrate Positive H (Negative) Urine Bilirubin 2+ H (Negative) Leukocyte Esterase Rfl 1+ H (Negative) PASTOR/UL Urine RBC 11-20 H (0-2) /hpf Diabetes panel 11/28/24 Range/Units 20:44 Sodium 140 (137-145) mmol/L Potassium 3.8 (3.4-5.0) mmol/L Chloride 105 (98-107) mmol/L Carbon Dioxide 23 (22-30) mmol/L BUN 13 D (9-20) mg/dL Creatinine 0.78 (0.7-1.3) mg/dL Glucose 108 (65-110) mg/dL Calcium 10.0 (8.4-10.2) mg/dL AST 349 H (17-59) U/L ALT 447 H (6-50) U/L Alkaline Phosphatase 527 H (38-126) U/L Total Protein 8.0 (6.3-8.2) g/dL Albumin 4.1 (3.5-5.1) g/dL Calcium panel 11/28/24 Range/Units 20:44 Calcium 10.0 (8.4-10.2) mg/dL Albumin 4.1 (3.5-5.1) g/dL Pituitary panel 11/28/24 Range/Units 20:44 Sodium 140 (137-145) mmol/L Potassium 3.8 (3.4-5.0) mmol/L Chloride 105 (98-107) mmol/L Carbon Dioxide 23 (22-30) mmol/L BUN 13 D (9-20) mg/dL Creatinine 0.78 (0.7-1.3) mg/dL Glucose 108 (65-110) mg/dL Calcium 10.0 (8.4-10.2) mg/dL Adrenal panel 11/28/24 Range/Units 20:44 Sodium 140 (137-145) mmol/L Potassium 3.8 (3.4-5.0) mmol/L Chloride 105 (98-107) mmol/L Carbon Dioxide 23 (22-30) mmol/L BUN 13 D (9-20) mg/dL Creatinine 0.78 (0.7-1.3) mg/dL Glucose 108 (65-110) mg/dL Calcium 10.0 (8.4-10.2) mg/dL Total Bilirubin 3.0 H (0.2-1.3) mg/dL AST 349 H (17-59) U/L ALT 447 H (6-50) U/L Alkaline Phosphatase 527 H (38-126) U/L Total Protein 8.0 (6.3-8.2) g/dL Albumin 4.1 (3.5-5.1) g/dL All other labs normal. Imaging Additional studies: ITS Impressions Abdomen/Pelvis CT 11/29/24 07:14 IMPRESSION: 1. Mild intrahepatic and extrahepatic biliary duct dilatation with possible filling defect distal common bile duct. MRCP without and with contrast is recommended. 2. 2.2 cm liver mass, which may be benign or malignant. MRCP without and with contrast is recommended. 3. Distended gallbladder with surrounding fat stranding suspicious for acute cholecystitis. 4. Small sliding hiatal hernia. MRCP 11/29/24 10:47 IMPRESSION: 1. Mild intrahepatic and extrahepatic biliary duct dilatation with sludge in the distal common duct. 2. Distended gallbladder with gallstones and gallbladder wall thickening suspicious for acute cholecystitis. 3. 2.3 cm hyperenhancing liver mass. In the absence of known malignancy, this finding is likely a hemangioma or focal nodular hyperplasia.
--- NOTE | 2024-11-29 12:53 | WPDHPUPDATE1 ---
History and Physical Update Update Date/Time: 11/29/24 12:53 History and Physical has been reviewed, including an updated exam of the patient. There are NO changes in the patient's condition. Risks, benefits, and alternatives have been discussed and questions answered. Patient agrees to proceed with procedure.
--- NOTE | 2024-11-29 13:11 | WPDANESEPPF ---
Anes - Initial Pre Proc Eval Procedure: Operation Date: 11/29/24 13:30 Proposed Procedures p Laparoscopic Cholecystectomy with IntraOperative Cholangiogram - Abe Abdalla DO Date/Time: 11/29/24 13:11 Surgeon: Nimo Montalvo APRN Pre Op Diagnosis: abdominal pain nausea vomiting elevated LFTs Patient Data Age: 54 Gender: M Height: 1.83 m Weight: 93.4 kg Last Vital Signs Temp 36.3 C L 11/29/24 05:59 Pulse 80 11/29/24 05:59 Resp 14 11/29/24 05:59 BP 139/85 11/29/24 05:59 Pulse Ox 96 11/29/24 08:00 O2 Del Method Room Air 11/29/24 08:00 Allergies Allergy/AdvReac Type Severity Reaction Status Date / Time No Known Allergies Allergy Verified 11/29/24 05:39 Home Medications ?Medication ?Instructions ?Recorded ?Confirmed ?Type cholecalciferol (vitamin D3) 100 4,000 unit PO DAILY 11/11/19 11/29/24 History mcg (4,000 unit) capsule (Vitamin D3) multivitamin 1 cap PO DAILY 11/11/19 11/29/24 History omega 3 350 mg-dha 235 mg-epa 90 1 cap PO DAILY 11/11/19 11/29/24 History mg-fish oil 597 mg capsule,delay rel ([place]-3) omeprazole 40 mg capsule,delayed 40 mg PO DAILY 11/11/19 11/29/24 History release ciprofloxacin HCl 500 mg tablet 500 mg PO Q12H 11/29/24 11/29/24 History metronidazole 500 mg tablet 500 mg PO Q12H 11/29/24 11/29/24 History rosuvastatin 20 mg tablet 20 mg PO DAILY 11/29/24 11/29/24 History Laboratory Tests 11/28/24 11/28/24 20:44 22:59 WBC 8.8 K/mm3 (4.5-10.0) RBC 4.94 M/mm3 (4.6-6.20) Hgb 14.4 g/dL (14.0-18.0) Hct 43.0 % (42.0-52.0) MCV 87.0 fl (80-100) MCH 29.1 pg (26-34) MCHC 33.5 g/dl (32-36) RDW 13.2 % (11.5-14.5) Plt Count 384 H k/mm3 (150-375) MPV 8.6 fl (7.4-10.4) Immature Gran % (Auto) 0.2 % (0-0.5) Neut % (Auto) 65.9 % (45.5-73.1) Lymph % (Auto) 25.7 % (18.3-44.2) [place] % (Auto) 7.6 % (2.6-8.5) Eos % (Auto) 0.3 % (0-4.4) Baso % (Auto) 0.3 % (0.2-1.2) Lymph # (Auto) 2.27 K/mm3 (0.9-3.2) [place] # (Auto) 0.7 H K/mm3 (0.1-0.6) Eos # (Auto) 0.0 K/mm3 (0-0.3) Baso # (Auto) 0.0 K/mm3 (0.0-0.1) Abs Immat Gran (auto) 0.02 K/mm3 (0.00-0.031) Absolute Neuts (auto) 5.8 K/mm3 (1.3-6.7) Absolute Nucleated RBC 0.000 K/mm3 (0.0-0.012) Nucleated RBC % 0.0 % (0.0-0.2) Sodium 140 mmol/L (137-145) Potassium 3.8 mmol/L (3.4-5.0) Chloride 105 mmol/L (98-107) Carbon Dioxide 23 mmol/L (22-30) Anion Gap 12 mmol/L (4-12) BUN 13 D mg/dL (9-20) Creatinine 0.78 mg/dL (0.7-1.3) Estim Creat Clear Calc 102 ml/min Estimated GFR > 60 (59 - ) Glucose 108 mg/dL (65-110) Calcium 10.0 mg/dL (8.4-10.2) Total Bilirubin 3.0 H mg/dL (0.2-1.3) AST 349 H U/L (17-59) ALT 447 H U/L (6-50) Alkaline Phosphatase 527 H U/L (38-126) Total Protein 8.0 g/dL (6.3-8.2) Albumin 4.1 g/dL (3.5-5.1) Lipase 33 U/L (23-300) Urine Color Dark yellow (Yellow) Urine Appearance Cloudy H (Clear) Urine pH 7.0 (5.0-9.0) Ur Specific [place] 1.022 (1.001-1.035) Urine Protein 1+ H mg/dL (Negative) Urine Glucose (UA) Negative mg/dL (Negative) Urine Ketones Trace H mg/dL (Negative) Ur Blood (Man) Trace (Negative) Urine Nitrate Positive H (Negative) Urine Bilirubin 2+ H (Negative) Urine Urobilinogen 1.0 mg/dL (<2.0) Add Ur Microanalysis Reviewed Leukocyte Esterase Rfl 1+ H PASTOR/UL (Negative) Urine RBC 11-20 H /hpf (0-2) Urine WBC 0-5 /hpf (0-3) Ur Squamous Epith Cells None seen /hpf (Few) Urine Bacteria None seen /hpf Urine Casts 6-10 Urine Mucus Present /lpf Patient hx anesthesia problems: none Family hx anesthesia problems: none Results Review: All pre-operative results and documents have been reviewed as part of the pre-operative evaluation. [facility] Past Medical History Medical History (Updated 11/29/24 @ 13:14 by Danie Poole DO) Hyperlipidemia Gastroesophageal reflux disease Surgical History Surgical History (Updated 11/29/24 @ 05:29 by Perla Burdick PA-C) History of tonsillectomy History of appendectomy Social History Social History (Updated 11/29/24 @ 05:30 by Perla Burdick PA-C) Social History: Surrogate medical decision maker: Sole Graham, spouse. Code status: Full code. Smoking status: Never smoker Alcohol intake: current Drinks per week: 2 Substance use: never Do You Feel Safe in your Home?: Yes Lack of Transportation: No Lack of Food: Never True Current Housing: I Have Housing Concerned About Future Housing: No Difficulty Paying Gas/Electric Bills: No Difficulty Paying for Meds: No Currently Unemployed: No Education: High School Diploma/GED Difficulty w/ Childcare or Family Care: No Spiritual care concerns: No Anes - Eval Final PreProcedure Day of Procedure 11/29/24 13:11 Patient weight: overweight Heart: regular rate and rhythm Lungs: clear to auscultation Airway: Mallampati scale class II Neurological: alert and oriented Last oral intake: >/= 8 hours ASA classification: II Emergent: no Anesthetic plan: proceed Anesthesia type and monitoring: general ETT and standard monitoring Results Review: All pre-operative results and documents have been reviewed as part of the pre-operative evaluation. Informed Consent: The patient's anesthetic plan and its attendant risks and benefits were discussed with the patient/family/POA. Questions were solicited and answers provided to the satisfaction of the patient/family/POA.
[2024-11-29] MEDS: LACTATED RINGERS 1,000 ML 30 ML IV CONT ×2 (13:42→15:26)
--- NOTE | 2024-11-29 15:06 | P.OP_ITS ---
Procedure Note - Detailed Date of Procedure 11/29/24 Pre-op Diagnosis Acute calculous cholecystitis, elevated liver enzymes Post-op Diagnosis Other (Acute calculous cholecystitis with choledocholithiasis) Procedure Performed Laparoscopic cholecystectomy with intraoperative cholangiogram Surgeon Abe Abdalla, DO Anesthesia General and Local (0.5% bupivacaine) Indications This is a 54-year-old man who presented to the emergency department with epigastric abdominal pain that started intermittently over the past 2-3 weeks. He has had more constant pain over the past couple days. In the emergency department he had elevated liver enzymes and CT showed evidence of acute calculous cholecystitis and dilated common bile duct. MRCP showed evidence of gallbladder sludge within the common bile duct. Discussions were made with the patient about treatment options and decision was made to proceed with laparo scopic cholecystectomy with intraoperative cholangiogram. Findings Laparoscopic cholecystectomy with cholangiography was performed. The gallbladder had some acute and chronic gallbladder wall thickening. There were a few pericholecystic adhesions as well. The cystic duct appeared normal in size. Intraoperative cholangiogram was obtained and images were sent to Radiology for interpretation. There did appear to be some distal common bile duct filling defects consistent with stones or sludge. Some contrast was visualized advancing into the duodenum beyond this area. There was also reflux of contrast into the pancreatic duct. The gallbladder was removed and sent to the lab for pathology. Description of Procedure Procedure as well as risks, benefits, and alternatives were discussed with patient. Written consent was obtained and placed in chart prior to procedure. The patient was brought back to surgical suite. Patient was placed in supine position on operating table. Time-out was done to confirm patient and procedure. Patient was then intubated by the anesthesia department. Abdomen was prepped and draped in sterile fashion using chlorhexidine prep. 0.5% bupivacaine with epinephrine was infiltrated at each site of incision. A 5 millimeter incision was made near the umbilicus, and a 5 millimeter Optiview trocar was advanced through the abdominal layers under direct visualization. Once inside the abdominal cavity, carbon dioxide was insufflated to create a pneumoperitoneum. The camera was inserted and the abdomen was inspected. No immediate abnormalities were identified. The patient was placed in reverse Trendelenburg position and rotated slightly to the left. An 11 millimeter incision was made in the subxiphoid region, and an 11 millimeter trocar was inserted under direct visualization. Two 5 millimeter incisions were made in the right upper quadrant, and two 5 millimeter trocars were inserted under direct visualization. The gallbladder was identified and grasped at the fundus and retracted superiorly. It was then grasped at the infundibulum retracted laterally. Careful dissection around the neck of the gallbladder was performed using blunt dissection with a [place] grasper and hook electrocautery. The cystic duct was identified, and a window was created behind it. The cystic artery was also identified and a window was created behind it. The critical view of safety was identified, visualizing the cystic duct running directly into the neck of the gallbladder, and the cystic artery running directly into the wall of the gallbladder. A 5 millimeter clip correction lieutenant was then used to place 2 clips proximally and 1 clip distally on the cystic artery. It was then transected using endoscopic scissors. The [place] Leon clamp was then placed across the neck of the gallbladder and the [place] cholangiocatheter was advanced into the distal neck of the gallbladder. Bile was able to aspirated with ease and the catheter flushed with saline with ease. The patient was then flattened out in bed. Fluoroscopy was used to obtain an intraoperative cholangiogram using Omnipaque contrast. The images were sent to Radiology for interpretation. Patient was placed back in reverse Trendelenburg position. A 5 mm Endoclip correction lieutenant was used to place 2 clips proximally and 1 clip distally on the cystic duct. It was then transected using endoscopic scissors. Once safely away from the constantin hepatitis, the gallbladder was dissected free from the liver bed using hook electrocautery. Hemostasis was achieved along the way. The gallbladder was removed completely and then removed through the subxiphoid port. The liver bed was then inspected. Hemostasis appeared adequate, and our clips appeared secure. The area was gently irrigated with sterile saline. No other abnormalities were seen. The patient was flattened out in bed, and 1 final inspection was made around the abdominal cavity. The subxiphoid port was removed, and a Duran Pj cone was used to approximate the fascia with an 0-Vicryl simple interrupted suture. The remaining ports were then removed under direct visualization, the camera was removed, and the pneumoperitoneum was released. The skin of the incisions was approximated using 4-0 Monocryl subcuticular sutures. Exofin glue was applied on top. The patient was then awakened from anesthesia, extubated, and transferred to recovery. Estimated Blood Loss 10 Pathology Yes (Gallbladder) Complications No immediate complications Condition Stable Disposition Floor [facility] Billing Surgery - Charge Forward: Surgery Billing
[2024-11-29] MEDS: BUPIVACAINE/EPINEPHRINE 0.5% 50 ML VIAL 30 ML INFILTRATE (15:29)
[2024-11-29] MEDS: MIDAZOLAM HCL (*CRX) 2 MG/2 ML VIAL 1 MG IV PUSH (15:39)
[2024-11-29] MEDS: LABETALOL HCL INJ 100 MG/20 ML VIAL IV PUSH ×2 (15:50→16:11)
[2024-11-29] MEDS: HYDROmorphone HCL INJ (*CRX) 1 MG/ML SYR 0.25 MG IV PUSH ×4 (15:56→16:17)
[2024-11-29] MEDS: LACTATED RINGERS 1,000 ML 100 ML IV CONT (17:49)
[2024-11-29] MEDS: IBUPROFEN IV 800 MG/200 ML 800 MG/200 ML BAG 400 MG IVPB (18:02)
--- NOTE | 2024-11-29 18:32 | PC.NURSE ---
1655: Pt arrived back to unit s/p surgery. Patient VSS, orders reviewed, and patient arouses to verbal stimuli easily; patient currently denies pain. LR started at 100 ml/hr as ordered. Patient's and son at bedside.
[2024-11-29] MEDS: MORPHINE SULFATE (*CRX) 2 MG/ML INJ IV PUSH (19:02)
[2024-11-29 19:45] LABS: Hematocrit 42.8 % (42.0-52.0); Hemoglobin 14.2 g/dL (14.0-18.0); Mean Corpuscular HGB Conc 33.2 g/dl (32-36); Mean Corpuscular Hemoglobin 29.5 pg (26-34); Mean Corpuscular Volume 88.8 fl (80-100); Platelet Count Result 362 k/mm3 (150-375); Red Blood Count 4.82 M/mm3 (4.6-6.20); Red Cell Distribution Width 13.6 % (11.5-14.5); White Blood Count 23.9 K/mm3 (4.5-10.0)
[2024-11-29 19:56] LABS: Alanine Aminotransferase 503 U/L (6-50); Albumin Level 3.9 g/dL (3.5-5.1); Alkaline Phosphatase 564 U/L (38-126); Anion Gap 13 mmol/L (4-12); Aspartate Amino Transferase 358 U/L (17-59); Bilirubin,Total 3.7 mg/dL (0.2-1.3); Blood Urea Nitrogen 13 mg/dL (9-20); Calcium 8.9 mg/dL (8.4-10.2); Carbon Dioxide 23 mmol/L (22-30); Chloride 103 mmol/L (98-107); Estimated CRCL calculation 103 ml/min; Estimated Glomerular Filt Rate > 60; Glucose 127 mg/dL (65-110); Potassium 3.9 mmol/L (3.4-5.0); Sodium 139 mmol/L (137-145)
[2024-11-29 20:11] LABS: Band Neutrophils Percent 4 % (0-6); Lymphocytes Absolute Manual 0.23 K/mm3 (1.1-4.5); Monocytes Absolute Manual 0.23 K/mm3 (0.1-0.90); Monocytes Percent Manual 1 % (3-9); Neutrophils Absolute Manual 23.42 K/mm3 (1.3-6.7); Neutrophils Percent Manual 94 % (46-73); Platelet Estimate Adequate (Adequate); Schistocytes None Seen; Total Cells Counted 100
[2024-11-29] MEDS: MORPHINE SULFATE (*CRX) 4 MG/ML INJ IV PUSH ×2 (20:59→23:08)
[2024-11-29] MEDS: HYDROcodone/acetaminophen (*CRX) 10-325 MG TABLET 1 TAB PO (23:59)
[2024-11-30] VITALS (10 sets, daily range): BP systolic 140–182; BP diastolic 90–104; PULSE 58–121; RESP 16–19; TEMP 36.7–37.3; O2SAT 93–98
[2024-11-30] MEDS: ONDANSETRON INJ 4 MG/2 ML VIAL IV PUSH (02:03)
[2024-11-30] MEDS: MORPHINE SULFATE (*CRX) 4 MG/ML INJ IV PUSH ×3 (02:04→21:46)
[2024-11-30] MEDS: PROMETHAZINE HCL 25 MG/ML AMPUL 12.5 MG IV PUSH (03:54)
[2024-11-30] MEDS: PIPERACILLN/TAZ 3.375GM/NS50ML 3.375 GM/50 ML BAG IVPB ×4 (03:56→21:00)
[2024-11-30] MEDS: HYDROcodone/acetaminophen (*CRX) 5-325 MG TABLET 1 TAB PO ×2 (05:34→13:10)
[2024-11-30 06:39] LABS: Hematocrit 44.2 % (42.0-52.0); Hemoglobin 14.3 g/dL (14.0-18.0); Mean Corpuscular HGB Conc 32.4 g/dl (32-36); Mean Corpuscular Hemoglobin 28.5 pg (26-34); Mean Platelet Volume 8.4 fl (7.4-10.4); Platelet Count Result 369 k/mm3 (150-375); Red Blood Count 5.02 M/mm3 (4.6-6.20); Red Cell Distribution Width 13.7 % (11.5-14.5); White Blood Count 25.4 K/mm3 (4.5-10.0)
[2024-11-30 06:57] LABS: Alanine Aminotransferase 444 U/L (6-50); Albumin Level 3.9 g/dL (3.5-5.1); Alkaline Phosphatase 470 U/L (38-126); Anion Gap 11 mmol/L (4-12); Aspartate Amino Transferase 259 U/L (17-59); Bilirubin,Total 1.4 mg/dL (0.2-1.3); Blood Urea Nitrogen 14 mg/dL (9-20); Calcium 8.7 mg/dL (8.4-10.2); Carbon Dioxide 26 mmol/L (22-30); Chloride 100 mmol/L (98-107); Estimated CRCL calculation 106 ml/min; Estimated Glomerular Filt Rate > 60; Glucose 155 mg/dL (65-110); Potassium 4.2 mmol/L (3.4-5.0); Sodium 137 mmol/L (137-145)
[2024-11-30 07:09] LABS: Band Neutrophils Percent 7 % (0-6); Eosinophils Absolute Manual 0.25 K/mm3 (0.02-0.50); Eosinophils Percent Manual 1 % (0-4); Lymphocytes Absolute Manual 1.77 K/mm3 (1.1-4.5); Lymphocytes Percent Manual 7 % (18-44); Monocytes Absolute Manual 0.25 K/mm3 (0.1-0.90); Monocytes Percent Manual 1 % (3-9); Neutrophils Absolute Manual 23.11 K/mm3 (1.3-6.7); Neutrophils Percent Manual 84 % (46-73); Platelet Estimate Adequate (Adequate); Schistocytes None Seen; Total Cells Counted 100
[2024-11-30] MEDS: MORPHINE SULFATE (*CRX) 2 MG/ML INJ IV PUSH ×2 (08:04→23:34)
--- NOTE | 2024-11-30 08:20 | ECG_ITS ---
Test Date: 2024-11-30 08:44:46 Measurements Intervals [place] Rate: 87 P: 32 WY: 163 QRS: -15 QRSD: 124 T: 4 QT: 364 QTc: 439 Interpretive Statements SINUS RHYTHM INCOMPLETE RIGHT BUNDLE BRANCH BLOCK MINIMAL VOLTAGE CRITERIA FOR LVH, CONSIDER NORMAL VARIANT [MEETS CRITERIA IN ONE OF: R(aVL), S(V1), R(V5), R(V5/V6)+S(V1)] ABNORMAL ECG Compared to ECG 09/12/2024 05:13:21 No significant changes Electronically Signed On 11-30-2024 15:57:11 [employer] by Rodrigo Carolina M.D.
[2024-11-30 09:02] LABS: Troponin I < 0.012 ng/mL (0.000-0.034)
[2024-11-30] MEDS: ROSUVASTATIN 20 MG TABLET PO (09:13)
[2024-11-30] MEDS: MULTIVITAMINS THERAPEUTIC TAB (*BKC) 1 TABLET PO (09:13)
[2024-11-30] MEDS: OMEGA 3 POLYUNSAT FATTY ACIDS 1 GM CAP PO (09:13)
[2024-11-30] MEDS: CHOLECALCIFEROL 1,000 UNITS TABLET 4000 UNITS PO (09:13)
[2024-11-30] MEDS: ENOXAPARIN 40 MG/0.4 ML SYRINGE SUB-Q (09:17)
[2024-11-30] MEDS: HYDROcodone/acetaminophen (*CRX) 10-325 MG TABLET 1 TAB PO ×3 (09:26→20:41)
[2024-11-30] MEDS: LOSARTAN POTASSIUM 25 MG TABLET PO (11:01)
--- NOTE | 2024-11-30 12:23 | WPDGIPROGNO ---
Progress Note: A&P Assessment and Plan (1) Cholecystitis: Code(s): K81.9 - Cholecystitis, unspecified Status: Acute Assessment and Plan: ioc noted sludge vs stone in bile duct but contrast reached duodenum continue to trend liver enzymes, may need ercp if persistent high liver enzymes- plan for Monday (2) Choledocholithiasis: Code(s): K80.50 - Calculus of bile duct without cholangitis or cholecystitis without obstruction Status: Acute Assessment and Plan: IOC report reviewed most likely will do ERCP Monday (3) Abdominal pain: Qualifiers: Abdominal location: epigastric Qualified Code(s): R10.13 - Epigastric pain Code(s): R10.9 - Unspecified abdominal pain Status: Acute (4) Elevated liver enzymes: Code(s): R74.8 - Abnormal levels of other serum enzymes Status: Acute Assessment and Plan: continue to monitor Subjective Date/time seen: 11/30/24 12:23 Interval history: pain from recent surgery Review of Systems Review of Systems: All systems reviewed & are unremarkable except as noted in HPI and below Exam Const: General: comfortable HENMT: Face/Nose/Sinus: Normal nares present Eyes: General: appearance normal, both eyes and all related structures Neck: Neck: supple Resp: Auscultation: clear to auscultation bilaterally Cardio: Rate: regular rate Rhythm: regular rhythm GI: Auscultation: normal bowel sounds Other: expected pain from recent surgery Skin: General skin exam: no rashes or lesions noted Neuro: Speech: normal speech Motor exam (neuro): 5/5 motor strength present throughout Extrem: General: normal to inspection Psych: Mental Status: mental status grossly normal Objective Data Vital Signs Vital Signs: Vital Signs - 24 hr 11/29/24 13:15 11/29/24 15:26 11/29/24 15:30 Temperature 98.9 F 97.1 F L Pulse Rate 61 90 95 Respiratory Rate 14 20 19 Blood Pressure 155/80 H 165/98 H 168/95 H Pulse Oximetry 98 99 99 Oxygen Delivery Room Air Simple Face Mask Simple Face Mask Oxygen Flow Rate 8 8 11/29/24 15:45 11/29/24 15:50 11/29/24 15:57 Temperature Pulse Rate 98 98 87 Respiratory Rate 18 17 Blood Pressure 188/106 H 171/112 H Pulse Oximetry 100 100 Oxygen Delivery Simple Face Mask Simple Face Mask Oxygen Flow Rate 8 8 11/29/24 16:00 11/29/24 16:07 11/29/24 16:11 Temperature Pulse Rate 90 88 92 Respiratory Rate 17 18 Blood Pressure 176/110 H 188/113 H Pulse Oximetry 100 100 Oxygen Delivery Simple Face Mask Simple Face Mask Oxygen Flow Rate 8 8 11/29/24 16:15 11/29/24 16:30 11/29/24 16:45 Temperature Pulse Rate 89 83 85 Respiratory Rate 17 15 16 Blood Pressure 172/101 H 150/98 H 155/96 H Pulse Oximetry 100 100 93 Oxygen Delivery Simple Face Mask Room Air Room Air Oxygen Flow Rate 8 11/29/24 16:55 11/29/24 17:10 11/29/24 18:30 Temperature Pulse Rate 88 81 76 Respiratory Rate 18 18 18 Blood Pressure 162/97 H 161/94 H 167/98 H Pulse Oximetry 96 97 97 Oxygen Delivery Oxygen Flow Rate 11/29/24 20:49 11/29/24 20:59 11/29/24 21:22 Temperature 99.4 F Pulse Rate 70 Respiratory Rate 16 Blood Pressure 166/94 H Pulse Oximetry 95 95 Oxygen Delivery Room Air Room Air Oxygen Flow Rate 11/30/24 01:00 11/30/24 05:20 11/30/24 08:00 Temperature 98.1 F 99.1 F 99.0 F Pulse Rate 58 L 82 88 Respiratory Rate 18 16 18 Blood Pressure 160/97 H 182/99 H 180/90 H Pulse Oximetry 96 96 93 Oxygen Delivery Oxygen Flow Rate 11/30/24 08:00 11/30/24 09:40 11/30/24 10:29 Temperature 98.9 F Pulse Rate 90 Respiratory Rate 16 Blood Pressure 171/104 H 170/103 H Pulse Oximetry 95 Oxygen Delivery Room Air Oxygen Flow Rate 11/30/24 12:00 Temperature Pulse Rate 88 Respiratory Rate 18 Blood Pressure 162/98 H Pulse Oximetry 97 Oxygen Delivery Oxygen Flow Rate Intake/Output Intake/Output: Intake & Output 11/27/24 11/28/24 11/29/24 11/30/24 23:59 23:59 23:59 23:59 Intake Total 1200 900 Balance 1200 900 Meds/Results Medications: Active Medications Generic Name Dose Route Start Last Admin Trade Name Freq PRN Reason Stop Dose Admin Hydrocodone Bitart/Acetaminophen 1 tab 11/29/24 16:55 11/30/24 05:34 Hydrocodone/Acetaminophen (*Crx) 5-325 Mg Tablet PO 1 tab Q4H PRN Administration Pain Rated 4-6 Hydrocodone Bitart/Acetaminophen 1 tab 11/29/24 16:55 11/30/24 09:26 Hydrocodone/Acetaminophen (*Crx) 10-325 Mg Tablet PO 1 tab Q4H PRN Administration Pain Rated 7-10 Diphenhydramine HCl 25 mg 11/29/24 16:55 Diphenhydramine Hcl Inj 50 Mg/Ml Vial IV PUSH Q6H PRN Itching Enoxaparin Sodium 40 mg 11/30/24 09:00 11/30/24 09:17 Enoxaparin 40 Mg/0.4 Ml Syringe SUB-Q 40 mg DAILY ADOLFO Administration Fish Oil 1 gm 11/30/24 09:00 11/30/24 09:13 [place] 3 Polyunsat Fatty Acids 1 Gm Cap PO 1 gm QAM ADOLFO Administration Piperacillin/Tazobactam/Dextrose 3.375 gm in 50 mls @ 100 mls/hr 11/29/24 10:00 11/30/24 10:00 Zosyn 3.375 Gm/Ns 50 Ml IVPB 100 mls/hr Q6H ADOLFO Administration Ibuprofen 800 mg in 200 mls @ 400 mls/hr 11/29/24 16:55 11/29/24 18:02 Caldolor 800 Mg/200 Ml IVPB 400 mls/hr Q6H PRN Administration Breakthrough Pain Rated 1-3 or NPO Ibuprofen 600 mg 11/29/24 15:40 Ibuprofen 600 Mg Tablet PO Q6H PRN Pain Rated 1-3 Losartan Potassium 25 mg 11/30/24 10:35 11/30/24 11:01 Losartan Potassium 25 Mg Tablet PO 25 mg DAILY ADOLFO Administration Morphine Sulfate 2 mg 11/29/24 16:55 11/30/24 08:04 Morphine Sulfate (*Crx) 2 Mg/Ml Inj IV PUSH 2 mg Q2H PRN Administration Breakthrough Pain Rated 4-6 or NPO Morphine Sulfate 4 mg 11/29/24 16:55 11/30/24 03:50 Morphine Sulfate (*Crx) 4 Mg/Ml Inj IV PUSH 4 mg Q2H PRN Administration Breakthrough Pain Rated 7-10 or NPO Multivitamins Therapeutic 1 tablet 11/30/24 09:00 11/30/24 09:13 Multivitamins Therapeutic Tab (*Bkc) PO 1 tablet DAILY ADOLFO Administration Naloxone HCl 0.1 mg 11/29/24 16:55 Naloxone Hcl 0.4 Mg/Ml Vial IV PUSH Q2M PRN Opiate Reversal Rosuvastatin Calcium 20 mg 11/30/24 09:00 11/30/24 09:13 Rosuvastatin 20 Mg Tablet PO 20 mg DAILY ADOLFO Administration Vitamin D 4,000 units 11/30/24 09:00 11/30/24 09:13 Cholecalciferol 1,000 Units Tablet PO 4,000 units DAILY ADOLFO Administration Radiology Results: ITS Impressions Abdomen/Pelvis CT 11/29/24 07:14 IMPRESSION: 1. Mild intrahepatic and extrahepatic biliary duct dilatation with possible filling defect distal common bile duct. MRCP without and with contrast is recommended. 2. 2.2 cm liver mass, which may be benign or malignant. MRCP without and with contrast is recommended. 3. Distended gallbladder with surrounding fat stranding suspicious for acute cholecystitis. 4. Small sliding hiatal hernia. MRCP 11/29/24 10:47 IMPRESSION: 1. Mild intrahepatic and extrahepatic biliary duct dilatation with sludge in the distal common duct. 2. Distended gallbladder with gallstones and gallbladder wall thickening suspicious for acute cholecystitis. 3. 2.3 cm hyperenhancing liver mass. In the absence of known malignancy, this finding is likely a hemangioma or focal nodular hyperplasia. Cholangiogram,Operative 11/29/24 14:55 IMPRESSION: 1. Filling defects in the distal common bile duct, which may be sludge or stones. Neoplasm is not excluded. ERCP is recommended. 2. Intrahepatic and extrahepatic biliary duct dilatation. Chest X-Ray 11/30/24 08:38 IMPRESSION: 1. Mild atelectasis in the lower lung zones and mild scarring at left lung apex. Labs Labs: Laboratory Results - last 24 hr 11/29/24 11/30/24 11/30/24 19:06 06:15 08:26 WBC 23.9 H 25.4 H RBC 4.82 5.02 Hgb 14.2 14.3 Hct 42.8 44.2 MCV 88.8 88.0 MCH 29.5 28.5 MCHC 33.2 32.4 RDW 13.6 13.7 Plt Count 362 369 MPV 9.0 8.4 Immature Gran % (Auto) Not Reportable Not Reportable Neut % (Auto) Not Reportable Not Reportable Lymph % (Auto) Not Reportable Not Reportable [place] % (Auto) Not Reportable Not Reportable Eos % (Auto) Not Reportable Not Reportable Baso % (Auto) Not Reportable Not Reportable Lymph # (Auto) Not Reportable Not Reportable [place] # (Auto) Not Reportable Not Reportable Eos # (Auto) Not Reportable Not Reportable Baso # (Auto) Not Reportable Not Reportable Abs Immat Gran (auto) Not Reportable Not Reportable Absolute Neuts (auto) Not Reportable Not Reportable Absolute Nucleated RBC Not Reportable Not Reportable Total Counted 100 100 Neutrophils % (Manual) 94 H 84 H Band Neutrophils % 4 7 H Lymphocytes % (Manual) 1.0 L 7 L Monocytes % (Manual) 1 L 1 L Eosinophils % (Manual) 1 Nucleated RBC % Not Reportable Not Reportable Abs Neuts (Manual) 23.42 H 23.11 H Abs Lymphs (Manual) 0.23 L 1.77 Abs Monocytes (Manual) 0.23 0.25 Absolute Eos (Manual) 0.25 Platelet Estimate Adequate Adequate Schistocytes None seen None seen Sodium 139 137 Potassium 3.9 4.2 Chloride 103 100 Carbon Dioxide 23 26 Anion Gap 13 H 11 BUN 13 14 Creatinine 0.77 0.75 Estim Creat Clear Calc 103 106 Estimated GFR > 60 > 60 Glucose 127 H 155 H Calcium 8.9 8.7 Magnesium 2.0 Total Bilirubin 3.7 H 1.4 H AST 358 H 259 H ALT 503 H 444 H Alkaline Phosphatase 564 H 470 H Troponin I < 0.012 Total Protein 7.0 7.0 Albumin 3.9 3.9
--- NOTE | 2024-11-30 13:36 | P.PNIM_ITS ---
Progress Note: A&P Assessment and Plan (1) Cholecystitis: Code(s): K81.9 - Cholecystitis, unspecified Status: Acute Assessment and Plan: * abdomen/pelvis CT showed mild intrahepatic and extrahepatic biliary duct dilatation with possible filling defect distal common bile duct, 2.2 cm liver mass which may be benign or malignant, distended gallbladder with surrounding fat stranding suspicious for acute cholecystitis, small sliding hiatal hernia * MRCP showing mild intrahepatic and extrahepatic biliary duct dilatation was sludge in the distal common duct, distended gallbladder with gallstones and gallbladder wall thickening suspicious for acute cholecystitis, 2.3 cm hyper enhancing liver mass. * general surgery consulted and plans for lap cholecystectomy today at 1:30 a.m. * GI consulted * continue pain control * continue IV fluids * continue Zosyn * continue NPO status 11/30 * Post op day 1 from Lap cholecystectomy * General surgery following * Continue pain control * Advance diet as tolerated * Continue Zosyn * WBC 25.4 today, will continue to monitor for now * Encourage ambulation in halls to prevent ileus (2) Common bile duct dilatation: Code(s): K83.8 - Other specified diseases of biliary tract Status: Acute Assessment and Plan: see above (3) Liver mass: Code(s): R16.0 - Hepatomegaly, not elsewhere classified Status: Acute Assessment and Plan: * liver mass shown on abdomen pelvis CT and on MRCP * GI following 11/30 * no change (4) Elevated liver enzymes: Code(s): R74.8 - Abnormal levels of other serum enzymes Status: Acute Assessment and Plan: * initial total bilirubin 3.0, AST 349, ALT 447, alkaline phosphate 527 * continue to trend 11/30 * Total Bili 1.4, AST 259, ALT 444, Alk Phos 470 * Continue to trend (5) Gastroesophageal reflux disease: Qualifiers: Esophagitis presence: esophagitis presence not specified Qualified C ode(s): K21.9 - Gastro-esophageal reflux disease without esophagitis Code(s): K21.9 - Gastro-esophageal reflux disease without esophagitis Status: Acute Assessment and Plan: * started Protonix 11/30 * no change to current treatment plan Time Spent With Patient Time with patient: 25 - 35 minutes Subjective Date/time seen: 11/30/24 13:36 Interval history: interval history: This is 54-year-old male with a significant past medical history of GERD an appendectomy who presented to the emergency room with complaints of abdominal pain. Workup in the hospital included an abdomen / pelvis CT which showed mild intrahepatic and extrahepatic biliary duct dilatation with possible filling defect distal common bile duct, 2.2 cm liver mass which may be benign or malignant, distended gallbladder with surrounding fat stranding suspicious for acute cholecystitis, sliding scale hiatal hernia. MRCP showed mild intrahepatic and extrahepatic biliary duct dilatation with sludge in the distal common duct, distended gallbladder with gallstones and gallbladder wall thickening suspicious for acute cholecystitis, 2.3 cm hyperenhancing liver mass in the absence of known malignancy this finding is likely hemangioma or focal nodular hyperplasia. Initial labs showed a normal white blood cell count of 8.8, platelet count was 384, total bili 3.0, AST 349, ALT 447, alkaline phosphate 527. UA was obtained which showed cloudy urine appearance, 1+ urine protein, trace urine ketone, positive nitrate, 2+ urine bili, 1+ leukocytes, 11-20 urine RBC. Urine culture was obtained and pending. Patient was given 1 L of normal saline, Compazine, Zosyn, and started on IV fluids while in the ED. GI and General surgery were consulted. Subjective: Patient still reporting chest pain this morning. EKG, troponin, and CXR were all WNL. Likely epigastric abdominal pain from either choledocholithiases versus gas pain from the procedure. He was encouraged to ambulate in the halls. He reports feeling nauseated x1 today but no vomiting. Labs reviewed. Review of Systems Review of Systems: 12 systems were reviewed and are negativ e except for as per HPI. All systems reviewed & are unremarkable except as noted in HPI and below Exam Narrative: General: In no acute distress, well nourished Cardiac: Normal S1 and S2. No murmur, gallops or friction rubs, peripheral pulses intact. Respiratory: Lungs clear to auscultation, no adventitious lung sounds, currently on room air Gastrointestinal: soft, slightly distended,epigastric tenderness, hypoactive bowel sounds, not passing gas, is belching. : voiding without difficulty. Skin:Lap sites with surgical glue to abdomen Neuro: Alert and oriented x4 Objective Data Vital Signs Vital Signs: Vital Signs - 24 hr 11/29/24 15:26 11/29/24 15:30 11/29/24 15:45 Temperature 97.1 F L Pulse Rate 90 95 98 Respiratory Rate 20 19 18 Blood Pressure 165/98 H 168/95 H 188/106 H Pulse Oximetry 99 99 100 Oxygen Delivery Simple Face Mask Simple Face Mask Simple Face Mask Oxygen Flow Rate 8 8 8 11/29/24 15:50 11/29/24 15:57 11/29/24 16:00 Temperature Pulse Rate 98 87 90 Respiratory Rate 17 17 Blood Pressure 171/112 H 176/110 H Pulse Oximetry 100 100 Oxygen Delivery Simple Face Mask Simple Face Mask Oxygen Flow Rate 8 8 11/29/24 16:07 11/29/24 16:11 11/29/24 16:15 Temperature Pulse Rate 88 92 89 Respiratory Rate 18 17 Blood Pressure 188/113 H 172/101 H Pulse Oximetry 100 100 Oxygen Delivery Simple Face Mask Simple Face Mask Oxygen Flow Rate 8 8 11/29/24 16:30 11/29/24 16:45 11/29/24 16:55 Temperature Pulse Rate 83 85 88 Respiratory Rate 15 16 18 Blood Pressure 150/98 H 155/96 H 162/97 H Pulse Oximetry 100 93 96 Oxygen Delivery Room Air Room Air Oxygen Flow Rate 11/29/24 17:10 11/29/24 18:30 11/29/24 20:49 Temperature 99.4 F Pulse Rate 81 76 70 Respiratory Rate 18 18 16 Blood Pressure 161/94 H 167/98 H 166/94 H Pulse Oximetry 97 97 95 Oxygen Delivery Oxygen Flow Rate 11/29/24 20:59 11/29/24 21:22 11/30/24 01:00 Temperature 98.1 F Pulse Rate 58 L Respiratory Rate 18 Blood Pressure 160/97 H Pulse Oximetry 95 96 Oxygen Delivery Room Air Room Air Oxygen Flow Rate 11/30/24 05:20 11/30/24 08:00 11/30/24 08:00 Temperature 99.1 F 99.0 F Pulse Rate 82 88 Respiratory Rate 16 18 Blood Pressure 182/99 H 180/90 H Pulse Oximetry 96 93 Oxygen Delivery Room Air Oxygen Flow Rate 11/30/24 09:40 11/30/24 10:29 11/30/24 12:00 Temperature 98.9 F Pulse Rate 90 88 Respiratory Rate 16 18 Blood Pressure 171/104 H 170/103 H 162/98 H Pulse Oximetry 95 97 Oxygen Delivery Oxygen Flow Rate Intake/Output Intake/Output: Intake & Output 11/27/24 11/28/24 11/29/24 11/30/24 23:59 23:59 23:59 23:59 Intake Total 1200 950 Balance 1200 950 Meds/Results Medications: Active Medications Generic Name Dose Route Start Last Admin Trade Name Freq PRN Reason Stop Dose Admin Hydrocodone Bitart/Acetaminophen 1 tab 11/29/24 16:55 11/30/24 13:10 Hydrocodone/Acetaminophen (*Crx) 5-325 Mg Tablet PO 1 tab Q4H PRN Administration Pain Rated 4-6 Hydrocodone Bitart/Acetaminophen 1 tab 11/29/24 16:55 11/30/24 09:26 Hydrocodone/Acetaminophen (*Crx) 10-325 Mg Tablet PO 1 tab Q4H PRN Administration Pain Rated 7-10 Diphenhydramine HCl 25 mg 11/29/24 16:55 Diphenhydramine Hcl Inj 50 Mg/Ml Vial IV PUSH Q6H PRN Itching Enoxaparin Sodium 40 mg 11/30/24 09:00 11/30/24 09:17 Enoxaparin 40 Mg/0.4 Ml Syringe SUB-Q 40 mg DAILY ADOLFO Administration Fish Oil 1 gm 11/30/24 09:00 11/30/24 09:13 [place] 3 Polyunsat Fatty Acids 1 Gm Cap PO 1 gm QAM ADOLFO Administration Piperacillin/Tazobactam/Dextrose 3.375 gm in 50 mls @ 100 mls/hr 11/29/24 10:00 11/30/24 13:05 Zosyn 3.375 Gm/Ns 50 Ml IVPB Infused Q6H ADOLFO Infusion Ibuprofen 800 mg in 200 mls @ 400 mls/hr 11/29/24 16:55 11/29/24 18:02 Caldolor 800 Mg/200 Ml IVPB 400 mls/hr Q6H PRN Administration Breakthrough Pain Rated 1-3 or NPO Ibuprofen 600 mg 11/29/24 15:40 Ibuprofen 600 Mg Tablet PO Q6H PRN Pain Rated 1-3 Losartan Potassium 25 mg 11/30/24 10:35 11/30/24 11:01 Losartan Potassium 25 Mg Tablet PO 25 mg DAILY ADOLFO Administration Morphine Sulfate 2 mg 11/29/24 16:55 11/30/24 08:04 Morphine Sulfate (*Crx) 2 Mg/Ml Inj IV PUSH 2 mg Q2H PRN Administration Breakthrough Pain Rated 4-6 or NPO Morphine Sulfate 4 mg 11/29/24 16:55 11/30/24 03:50 Morphine Sulfate (*Crx) 4 Mg/Ml Inj IV PUSH 4 mg Q2H PRN Administration Breakthrough Pain Rated 7-10 or NPO Multivitamins Therapeutic 1 tablet 11/30/24 09:00 11/30/24 09:13 Multivitamins Therapeutic Tab (*Bkc) PO 1 tablet DAILY ADOLFO Administration Naloxone HCl 0.1 mg 11/29/24 16:55 Naloxone Hcl 0.4 Mg/Ml Vial IV PUSH Q2M PRN Opiate Reversal Rosuvastatin Calcium 20 mg 11/30/24 09:00 11/30/24 09:13 Rosuvastatin 20 Mg Tablet PO 20 mg DAILY ADOLFO Administration Vitamin D 4,000 units 11/30/24 09:00 11/30/24 09:13 Cholecalciferol 1,000 Units Tablet PO 4,000 units DAILY ADOLFO Administration Radiology Results: ITS Impressions Abdomen/Pelvis CT 11/29/24 07:14 IMPRESSION: 1. Mild intrahepatic and extrahepatic biliary duct dilatation with possible filling defect distal common bile duct. MRCP without and with contrast is recommended. 2. 2.2 cm liver mass, which may be benign or malignant. MRCP without and with contrast is recommended. 3. Distended gallbladder with surrounding fat stranding suspicious for acute cholecystitis. 4. Small sliding hiatal hernia. MRCP 11/29/24 10:47 IMPRESSION: 1. Mild intrahepatic and extrahepatic biliary duct dilatation with sludge in the distal common duct. 2. Distended gallbladder with gallstones and gallbladder wall thickening suspicious for acute cholecystitis. 3. 2.3 cm hyperenhancing liver mass. In the absence of known malignancy, this finding is likely a hemangioma or focal nodular hyperplasia. Cholangiogram,Operative 11/29/24 14:55 IMPRESSION: 1. Filling defects in the distal common bile duct, which may be sludge or stones. Neoplasm is not excluded. ERCP is recommended. 2. Intrahepatic and extrahepatic biliary duct dilatation. Chest X-Ray 11/30/24 08:38 IMPRESSION: 1. Mild atelectasis in the lower lung zones and mild scarring at left lung apex. Labs Labs: Laboratory Results - last 24 hr 11/29/24 11/30/24 11/30/24 19:06 06:15 08:26 WBC 23.9 H 25.4 H RBC 4.82 5.02 Hgb 14.2 14.3 Hct 42.8 44.2 MCV 88.8 88.0 MCH 29.5 28.5 MCHC 33.2 32.4 RDW 13.6 13.7 Plt Count 362 369 MPV 9.0 8.4 Immature Gran % (Auto) Not Reportable Not Reportable Neut % (Auto) Not Reportable Not Reportable Lymph % (Auto) Not Reportable Not Reportable [place] % (Auto) Not Reportable Not Reportable Eos % (Auto) Not Reportable Not Reportable Baso % (Auto) Not Reportable Not Reportable Lymph # (Auto) Not Reportable Not Reportable [place] # (Auto) Not Reportable Not Reportable Eos # (Auto) Not Reportable Not Reportable Baso # (Auto) Not Reportable Not Reportable Abs Immat Gran (auto) Not Reportable Not Reportable Absolute Neuts (auto) Not Reportable Not Reportable Absolute Nucleated RBC Not Reportable Not Reportable Total Counted 100 100 Neutrophils % (Manual) 94 H 84 H Band Neutrophils % 4 7 H Lymphocytes % (Manual) 1.0 L 7 L Monocytes % (Manual) 1 L 1 L Eosinophils % (Manual) 1 Nucleated RBC % Not Reportable Not Reportable Abs Neuts (Manual) 23.42 H 23.11 H Abs Lymphs (Manual) 0.23 L 1.77 Abs Monocytes (Manual) 0.23 0.25 Absolute Eos (Manual) 0.25 Platelet Estimate Adequate Adequate Schistocytes None seen None seen Sodium 139 137 Potassium 3.9 4.2 Chloride 103 100 Carbon Dioxide 23 26 Anion Gap 13 H 11 BUN 13 14 Creatinine 0.77 0.75 Estim Creat Clear Calc 103 106 Estimated GFR > 60 > 60 Glucose 127 H 155 H Calcium 8.9 8.7 Magnesium 2.0 Total Bilirubin 3.7 H 1.4 H AST 358 H 259 H ALT 503 H 444 H Alkaline Phosphatase 564 H 470 H Troponin I < 0.012 Total Protein 7.0 7.0 Albumin 3.9 3.9 Quality VTE Prophylaxis VTE prophylaxis: mechanical ordered
--- NOTE | 2024-11-30 16:29 | P.PNGS_ITS ---
Progress Note: A&P Assessment and Plan (1) Acute calculous cholecystitis: Code(s): K80.00 - Calculus of gallbladder with acute cholecystitis without obstruction Status: Acute Assessment and Plan: * Patient continues to have symptoms suggestive of possible ongoing bile duct obstruction. Liver enzymes marginally better today. Continue to follow, but may need ERCP eventually. Will also check lipase tomorrow to rule out pancreatitis. (2) Elevated liver enzymes: Code(s): R74.8 - Abnormal levels of other serum enzymes Status: Acute Subjective Subjective Date/Time Seen: 11/30/24 16:29 Interval history: Still having significant epigastric pain. Urine still dark. Not much appetite yet. Exam GI: Inspection: non-distended, incision (Intact with glue) and other (Jaundice skin) GI Palp: Yes Soft to palpation and Yes Tenderness to palpation present (GI) (Epigastric) Objective Data Vital Signs Vital Signs: Vital Signs - 24 hr 11/29/24 16:30 11/29/24 16:45 11/29/24 16:55 Temperature Pulse Rate 83 85 88 Respiratory Rate 15 16 18 Blood Pressure 150/98 H 155/96 H 162/97 H Pulse Oximetry 100 93 96 Oxygen Delivery Room Air Room Air 11/29/24 17:10 11/29/24 18:30 11/29/24 20:49 Temperature 99.4 F Pulse Rate 81 76 70 Respiratory Rate 18 18 16 Blood Pressure 161/94 H 167/98 H 166/94 H Pulse Oximetry 97 97 95 Oxygen Delivery 11/29/24 20:59 11/29/24 21:22 11/30/24 01:00 Temperature 98.1 F Pulse Rate 58 L Respiratory Rate 18 Blood Pressure 160/97 H Pulse Oximetry 95 96 Oxygen Delivery Room Air Room Air 11/30/24 05:20 11/30/24 08:00 11/30/24 08:00 Temperature 99.1 F 99.0 F Pulse Rate 82 88 Respiratory Rate 16 18 Blood Pressure 182/99 H 180/90 H Pulse Oximetry 96 93 Oxygen Delivery Room Air 11/30/24 09:40 11/30/24 10:29 11/30/24 12:00 Temperature 98.9 F Pulse Rate 90 88 Respiratory Rate 16 18 Blood Pressure 171/104 H 170/103 H 162/98 H Pulse Oximetry 95 97 Oxygen Delivery Intake/Output Intake/Output: Intake & Output 11/27/24 11/28/24 11/29/24 11/30/24 23:59 23:59 23:59 23:59 Intake Total 1200 1190 Balance 1200 1190 Meds/Results Medications: Active Medications Generic Name Dose Route Start Last Admin Trade Name Freq PRN Reason Stop Dose Admin Hydrocodone Bitart/Acetaminophen 1 tab 11/29/24 16:55 11/30/24 13:10 Hydrocodone/Acetaminophen (*Crx) 5-325 Mg Tablet PO 1 tab Q4H PRN Administration Pain Rated 4-6 Hydrocodone Bitart/Acetaminophen 1 tab 11/29/24 16:55 11/30/24 09:26 Hydrocodone/Acetaminophen (*Crx) 10-325 Mg Tablet PO 1 tab Q4H PRN Administration Pain Rated 7-10 Diphenhydramine HCl 25 mg 11/29/24 16:55 Diphenhydramine Hcl Inj 50 Mg/Ml Vial IV PUSH Q6H PRN Itching Enoxaparin Sodium 40 mg 11/30/24 09:00 11/30/24 09:17 Enoxaparin 40 Mg/0.4 Ml Syringe SUB-Q 40 mg DAILY ADOLFO Administration Fish Oil 1 gm 11/30/24 09:00 11/30/24 09:13 [place] 3 Polyunsat Fatty Acids 1 Gm Cap PO 1 gm QAM ADOLFO Administration Piperacillin/Tazobactam/Dextrose 3.375 gm in 50 mls @ 100 mls/hr 11/29/24 10:00 11/30/24 13:05 Zosyn 3.375 Gm/Ns 50 Ml IVPB Infused Q6H ADOLFO Infusion Ibuprofen 800 mg in 200 mls @ 400 mls/hr 11/29/24 16:55 11/29/24 18:02 Caldolor 800 Mg/200 Ml IVPB 400 mls/hr Q6H PRN Administration Breakthrough Pain Rated 1-3 or NPO Ibuprofen 600 mg 11/29/24 15:40 Ibuprofen 600 Mg Tablet PO Q6H PRN Pain Rated 1-3 Losartan Potassium 25 mg 11/30/24 10:35 11/30/24 11:01 Losartan Potassium 25 Mg Tablet PO 25 mg DAILY ADOLFO Administration Morphine Sulfate 2 mg 11/29/24 16:55 11/30/24 08:04 Morphine Sulfate (*Crx) 2 Mg/Ml Inj IV PUSH 2 mg Q2H PRN Administration Breakthrough Pain Rated 4-6 or NPO Morphine Sulfate 4 mg 11/29/24 16:55 11/30/24 03:50 Morphine Sulfate (*Crx) 4 Mg/Ml Inj IV PUSH 4 mg Q2H PRN Administration Breakthrough Pain Rated 7-10 or NPO Multivitamins Therapeutic 1 tablet 11/30/24 09:00 11/30/24 09:13 Multivitamins Therapeutic Tab (*Bkc) PO 1 tablet DAILY ADOLFO Administration Naloxone HCl 0.1 mg 11/29/24 16:55 Naloxone Hcl 0.4 Mg/Ml Vial IV PUSH Q2M PRN Opiate Reversal Rosuvastatin Calcium 20 mg 11/30/24 09:00 11/30/24 09:13 Rosuvastatin 20 Mg Tablet PO 20 mg DAILY ADOLFO Administration Vitamin D 4,000 units 11/30/24 09:00 11/30/24 09:13 Cholecalciferol 1,000 Units Tablet PO 4,000 units DAILY ADOLFO Administration Radiology Results: ITS Impressions Abdomen/Pelvis CT 11/29/24 07:14 IMPRESSION: 1. Mild intrahepatic and extrahepatic biliary duct dilatation with possible filling defect distal common bile duct. MRCP without and with contrast is recommended. 2. 2.2 cm liver mass, which may be benign or malignant. MRCP without and with contrast is recommended. 3. Distended gallbladder with surrounding fat stranding suspicious for acute cholecystitis. 4. Small sliding hiatal hernia. MRCP 11/29/24 10:47 IMPRESSION: 1. Mild intrahepatic and extrahepatic biliary duct dilatation with sludge in the distal common duct. 2. Distended gallbladder with gallstones and gallbladder wall thickening suspicious for acute cholecystitis. 3. 2.3 cm hyperenhancing liver mass. In the absence of known malignancy, this finding is likely a hemangioma or focal nodular hyperplasia. Cholangiogram,Operative 11/29/24 14:55 IMPRESSION: 1. Filling defects in the distal common bile duct, which may be sludge or stones. Neoplasm is not excluded. ERCP is recommended. 2. Intrahepatic and extrahepatic biliary duct dilatation. Chest X-Ray 11/30/24 08:38 IMPRESSION: 1. Mild atelectasis in the lower lung zones and mild scarring at left lung apex. Labs Labs: Laboratory Results - last 24 hr 11/29/24 11/30/24 11/30/24 19:06 06:15 08:26 WBC 23.9 H 25.4 H RBC 4.82 5.02 Hgb 14.2 14.3 Hct 42.8 44.2 MCV 88.8 88.0 MCH 29.5 28.5 MCHC 33.2 32.4 RDW 13.6 13.7 Plt Count 362 369 MPV 9.0 8.4 Immature Gran % (Auto) Not Reportable Not Reportable Neut % (Auto) Not Reportable Not Reportable Lymph % (Auto) Not Reportable Not Reportable [place] % (Auto) Not Reportable Not Reportable Eos % (Auto) Not Reportable Not Reportable Baso % (Auto) Not Reportable Not Reportable Lymph # (Auto) Not Reportable Not Reportable [facility] # (Auto) Not Reportable Not Reportable Eos # (Auto) Not Reportable Not Reportable Baso # (Auto) Not Reportable Not Reportable Abs Immat Gran (auto) Not Reportable Not Reportable Absolute Neuts (auto) Not Reportable Not Reportable Absolute Nucleated RBC Not Reportable Not Reportable Total Counted 100 100 Neutrophils % (Manual) 94 H 84 H Band Neutrophils % 4 7 H Lymphocytes % (Manual) 1.0 L 7 L Monocytes % (Manual) 1 L 1 L Eosinophils % (Manual) 1 Nucleated RBC % Not Reportable Not Reportable Abs Neuts (Manual) 23.42 H 23.11 H Abs Lymphs (Manual) 0.23 L 1.77 Abs Monocytes (Manual) 0.23 0.25 Absolute Eos (Manual) 0.25 Platelet Estimate Adequate Adequate Schistocytes None seen None seen Sodium 139 137 Potassium 3.9 4.2 Chloride 103 100 Carbon Dioxide 23 26 Anion Gap 13 H 11 BUN 13 14 Creatinine 0.77 0.75 Estim Creat Clear Calc 103 106 Estimated GFR > 60 > 60 Glucose 127 H 155 H Calcium 8.9 8.7 Magnesium 2.0 Total Bilirubin 3.7 H 1.4 H AST 358 H 259 H ALT 503 H 444 H Alkaline Phosphatase 564 H 470 H Troponin I < 0.012 Total Protein 7.0 7.0 Albumin 3.9 3.9
[2024-11-30] MEDS: diphenhydrAMINE HCl INJ 50 MG/ML VIAL 25 MG IV PUSH (18:00)
[2024-11-30] MEDS: IBUPROFEN 600 MG TABLET PO (20:41)
[2024-12-01] VITALS (8 sets, daily range): BP systolic 137–158; BP diastolic 87–97; PULSE 92–117; RESP 13–18; TEMP 35.3–36.6; O2SAT 93–96
[2024-12-01] MEDS: HYDROcodone/acetaminophen (*CRX) 5-325 MG TABLET 1 TAB PO ×2 (00:38→21:09)
--- NOTE | 2024-12-01 03:34 | PC.NURSE ---
Daylight Savings Time For Daylight Savings Time Ending in the Fall - Clocks are moved back. For Daylight Savings Time Beginning in the Spring - Clocks are moved ahead. For [facility], the time of change occurs at 0200 hrs. Time is taken from the windows server support technician. This entry on the patient's chart recognizes the change in time reflected during documentation. Example: 2 entries for vital signs may be charted for 0200 hrs.
[2024-12-01] MEDS: IBUPROFEN 600 MG TABLET PO ×3 (04:34→21:09)
[2024-12-01] MEDS: PIPERACILLN/TAZ 3.375GM/NS50ML 3.375 GM/50 ML BAG IVPB ×4 (04:38→21:07)
[2024-12-01] MEDS: PANTOPRAZOLE 40 MG TABLET PO (05:07)
[2024-12-01 06:35] LABS: Alanine Aminotransferase 365 U/L (6-50); Albumin Level 3.6 g/dL (3.5-5.1); Alkaline Phosphatase 380 U/L (38-126); Anion Gap 8 mmol/L (4-12); Aspartate Amino Transferase 143 U/L (17-59); Bilirubin,Total 1.5 mg/dL (0.2-1.3); Blood Urea Nitrogen 11 mg/dL (9-20); Calcium 8.6 mg/dL (8.4-10.2); Carbon Dioxide 27 mmol/L (22-30); Chloride 100 mmol/L (98-107); Estimated CRCL calculation 116 ml/min; Estimated Glomerular Filt Rate > 60; Glucose 136 mg/dL (65-110); Lipase 1311 U/L (23-300); Potassium 4.1 mmol/L (3.4-5.0); Sodium 135 mmol/L (137-145)
[2024-12-01 06:36] LABS: Basophils Absolute Auto 0.1 K/mm3 (0.0-0.1); Basophils Percent Auto 0.3 % (0.2-1.2); Hematocrit 44.1 % (42.0-52.0); Hemoglobin 14.3 g/dL (14.0-18.0); Immature Granulocyte Absolute 0.77 K/mm3 (0.00-0.031); Lymphocytes Absolute Auto 1.51 K/mm3 (0.9-3.2); Mean Corpuscular HGB Conc 32.4 g/dl (32-36); Mean Corpuscular Hemoglobin 28.7 pg (26-34); Mean Corpuscular Volume 88.6 fl (80-100); Mean Platelet Volume 8.8 fl (7.4-10.4); Monocytes Absolute Auto 1.5 K/mm3 (0.1-0.6); Neutrophils Absolute Auto 33.8 K/mm3 (1.3-6.7); Neutrophils Percent Auto 89.7 % (45.5-73.1); Platelet Count Result 338 k/mm3 (150-375); Red Blood Count 4.98 M/mm3 (4.6-6.20); White Blood Count 37.7 K/mm3 (4.5-10.0)
[2024-12-01] MEDS: CHOLECALCIFEROL 1,000 UNITS TABLET 4000 UNITS PO (09:21)
[2024-12-01] MEDS: MULTIVITAMINS THERAPEUTIC TAB (*BKC) 1 TABLET PO (09:21)
[2024-12-01] MEDS: LOSARTAN POTASSIUM 25 MG TABLET PO (09:21)
[2024-12-01] MEDS: ROSUVASTATIN 20 MG TABLET PO (09:21)
[2024-12-01] MEDS: OMEGA 3 POLYUNSAT FATTY ACIDS 1 GM CAP PO (09:21)
[2024-12-01] MEDS: ENOXAPARIN 40 MG/0.4 ML SYRINGE SUB-Q (09:23)
--- NOTE | 2024-12-01 11:29 | PM.PNGS ---
Progress Note: A&P Assessment and Plan (1) Acute calculous cholecystitis: Code(s): K80.00 - Calculus of gallbladder with acute cholecystitis without obstruction Status: Acute Assessment and Plan: WBC rising and feeling feverish, concerning for possible cholangitis. Pain improving slightly. Await decision from GI for possible ERCP. (2) Elevated liver enzymes: Code(s): R74.8 - Abnormal levels of other serum enzymes Status: Acute (3) Pancreatitis due to biliary obstruction: Qualifiers: Chronicity: acute Acute pancreatitis complication: unspecified Qualified Code(s): K85.10 - Biliary acute pancreatitis without necrosis or infection Code(s): K85.90 - Acute pancreatitis without necrosis or infection, unspecified; K83.1 - Obstruction of bile duct Status: Acute Assessment and Plan: Lipase elevated this AM and still having epigastric tenderness. Will repeat Lipase tomorrow, consider repeat CT if pain worsening. Subjective Subjective Date/Time Seen: 12/01/24 11:29 Interval history: Pain a little improved today, but still has significant pain on palpation. No flatus or BM yet. Not much appetite but tolerating drinking fluids. Also feeling feverish. Exam GI: Inspection: non-distended and incision (intact with glue) GI Palp: Yes Soft to palpation, Yes Tenderness to palpation present (GI) (epigastric) and Yes Guarding due to palpation present (GI) (epigastric) Objective Data Vital Signs Vital Signs: Vital Signs - 24 hr 11/30/24 12:00 11/30/24 16:00 11/30/24 20:00 Temperature 98.8 F Pulse Rate 88 90 121 H Respiratory Rate 18 18 19 Blood Pressure 162/98 H 160/101 H 157/104 H Pulse Oximetry 97 98 94 Oxygen Delivery 11/30/24 20:41 11/30/24 21:45 11/30/24 22:30 Temperature Pulse Rate 114 H 104 H Respiratory Rate Blood Pressure 163/103 H 140/95 H Pulse Oximetry Oxygen Delivery Room Air 12/01/24 00:00 12/01/24 00:44 12/01/24 04:00 Temperature 97.9 F 97.2 F L Pulse Rate 111 H 99 114 H Respiratory Rate 13 17 Blood Pressure 149/97 H 140/87 146/93 H Pulse Oximetry 93 93 Oxygen Delivery 12/01/24 08:00 12/01/24 08:00 Temperature 95.6 F L Pulse Rate 108 H Respiratory Rate 18 Blood Pressure 150/96 H Pulse Oximetry 95 Oxygen Delivery Room Air Intake/Output Intake/Output: Intake & Output 11/28/24 11/29/24 11/30/24 12/02/24 23:59 23:59 23:59 00:59 Intake Total 1200 1530 790 Balance 1200 1530 790 Meds/Results Medications: Active Medications Generic Name Dose Route Start Last Admin Trade Name Freq PRN Reason Stop Dose Admin Hydrocodone Bitart/Acetaminophen 1 tab 11/29/24 16:55 12/01/24 00:38 Hydrocodone/Acetaminophen (*Crx) 5-325 Mg Tablet PO 1 tab Q4H PRN Administration Pain Rated 4-6 Hydrocodone Bitart/Acetaminophen 1 tab 11/29/24 16:55 11/30/24 20:41 Hydrocodone/Acetaminophen (*Crx) 10-325 Mg Tablet PO 1 tab Q4H PRN Administration Pain Rated 7-10 Diphenhydramine HCl 25 mg 11/29/24 16:55 11/30/24 18:00 Diphenhydramine Hcl Inj 50 Mg/Ml Vial IV PUSH 25 mg Q6H PRN Administration Itching Enoxaparin Sodium 40 mg 11/30/24 09:00 12/01/24 09:23 Enoxaparin 40 Mg/0.4 Ml Syringe SUB-Q 40 mg DAILY ADOLFO Administration Fish Oil 1 gm 11/30/24 09:00 12/01/24 09:21 [place] 3 Polyunsat Fatty Acids 1 Gm Cap PO 1 gm QAM ADOLFO Administration Piperacillin/Tazobactam/Dextrose 3.375 gm in 50 mls @ 100 mls/hr 11/29/24 10:00 12/01/24 11:07 Zosyn 3.375 Gm/Ns 50 Ml IVPB 100 mls/hr Q6H ADOLFO Administration Ibuprofen 800 mg in 200 mls @ 400 mls/hr 11/29/24 16:55 11/29/24 18:02 Caldolor 800 Mg/200 Ml IVPB 400 mls/hr Q6H PRN Administration Breakthrough Pain Rated 1-3 or NPO Ibuprofen 600 mg 11/29/24 15:40 12/01/24 04:34 Ibuprofen 600 Mg Tablet PO 600 mg Q6H PRN Administration Pain Rated 1-3 Losartan Potassium 25 mg 11/30/24 10:35 12/01/24 09:21 Losartan Potassium 25 Mg Tablet PO 25 mg DAILY ADOLFO Administration Magnesium Hydroxide 30 ml 12/01/24 11:28 Magnesium Hydroxide Susp 30 Ml Udc PO 12/01/24 11:29 ONCE ONE Morphine Sulfate 2 mg 11/29/24 16:55 11/30/24 23:34 Morphine Sulfate (*Crx) 2 Mg/Ml Inj IV PUSH 2 mg Q2H PRN Administration Breakthrough Pain Rated 4-6 or NPO Morphine Sulfate 4 mg 11/29/24 16:55 11/30/24 21:46 Morphine Sulfate (*Crx) 4 Mg/Ml Inj IV PUSH 4 mg Q2H PRN Administration Breakthrough Pain Rated 7-10 or NPO Multivitamins Therapeutic 1 tablet 11/30/24 09:00 12/01/24 09:21 Multivitamins Therapeutic Tab (*Bkc) PO 1 tablet DAILY ADOLFO Administration Naloxone HCl 0.1 mg 11/29/24 16:55 Naloxone Hcl 0.4 Mg/Ml Vial IV PUSH Q2M PRN Opiate Reversal Pantoprazole Sodium 40 mg 12/01/24 09:00 12/01/24 05:07 Pantoprazole 40 Mg Tablet PO 40 mg QAM ADOLFO Administration Rosuvastatin Calcium 20 mg 11/30/24 09:00 12/01/24 09:21 Rosuvastatin 20 Mg Tablet PO 20 mg DAILY ADOLFO Administration Vitamin D 4,000 units 11/30/24 09:00 12/01/24 09:21 Cholecalciferol 1,000 Units Tablet PO 4,000 units DAILY ADOLFO Administration Radiology Results: ITS Impressions Abdomen/Pelvis CT 11/29/24 07:14 IMPRESSION: 1. Mild intrahepatic and extrahepatic biliary duct dilatation with possible filling defect distal common bile duct. MRCP without and with contrast is recommended. 2. 2.2 cm liver mass, which may be benign or malignant. MRCP without and with contrast is recommended. 3. Distended gallbladder with surrounding fat stranding suspicious for acute cholecystitis. 4. Small sliding hiatal hernia. MRCP 11/29/24 10:47 IMPRESSION: 1. Mild intrahepatic and extrahepatic biliary duct dilatation with sludge in the distal common duct. 2. Distended gallbladder with gallstones and gallbladder wall thickening suspicious for acute cholecystitis. 3. 2.3 cm hyperenhancing liver mass. In the absence of known malignancy, this finding is likely a hemangioma or focal nodular hyperplasia. Cholangiogram,Operative 11/29/24 14:55 IMPRESSION: 1. Filling defects in the distal common bile duct, which may be sludge or stones. Neoplasm is not excluded. ERCP is recommended. 2. Intrahepatic and extrahepatic biliary duct dilatation. Chest X-Ray 11/30/24 08:38 IMPRESSION: 1. Mild atelectasis in the lower lung zones and mild scarring at left lung apex. Labs Labs: Laboratory Results - last 24 hr 12/01/24 06:12 WBC 37.7 H RBC 4.98 Hgb 14.3 Hct 44.1 MCV 88.6 MCH 28.7 MCHC 32.4 RDW 14.0 Plt Count 338 MPV 8.8 Immature Gran % (Auto) 2.0 H Neut % (Auto) 89.7 H Lymph % (Auto) 4.0 L [place] % (Auto) 4.0 Eos % (Auto) 0.0 Baso % (Auto) 0.3 Lymph # (Auto) 1.51 [place] # (Auto) 1.5 H Eos # (Auto) 0.0 Baso # (Auto) 0.1 Abs Immat Gran (auto) 0.77 H Absolute Neuts (auto) 33.8 H Absolute Nucleated RBC 0.000 Nucleated RBC % 0.0 Sodium 135 L Potassium 4.1 Chloride 100 Carbon Dioxide 27 Anion Gap 8 BUN 11 Creatinine 0.68 L Estim Creat Clear Calc 116 Estimated GFR > 60 Glucose 136 H Calcium 8.6 Total Bilirubin 1.5 H AST 143 H ALT 365 H Alkaline Phosphatase 380 H Total Protein 7.0 Albumin 3.6 Lipase 1311 H
--- NOTE | 2024-12-01 12:53 | WPDGIPROGNO ---
Progress Note: A&P Assessment and Plan (1) Cholecystitis: Code(s): K81.9 - Cholecystitis, unspecified Status: Acute Assessment and Plan: ioc noted sludge vs stone in bile duct but contrast reached duodenum noted worsening leukocytosis (covered with abx) and chills ? cholangitis will proceed with ercp tomorrow (2) Choledocholithiasis: Code(s): K80.50 - Calculus of bile duct without cholangitis or cholecystitis without obstruction Status: Acute Assessment and Plan: IOC report reviewed plan is ERCP tomorrow also had elevated lipase ? pancreatitis, also discussed with patient that ERCP increases risk of pancreatitis (3) Abdominal pain: Qualifiers: Abdominal location: epigastric Qualified Code(s): R10.13 - Epigastric pain Code(s): R10.9 - Unspecified abdominal pain Status: Acute Assessment and Plan: this has improved (4) Elevated liver enzymes: Code(s): R74.8 - Abnormal levels of other serum enzymes Status: Acute Assessment and Plan: bili 1.5 (5) SIRS (systemic inflammatory response syndrome): Code(s): R65.10 - Systemic inflammatory response syndrome (SIRS) of non-infectious origin without acute organ dysfunction Status: Acute Assessment and Plan: on abx (6) Leukocytosis: Code(s): D72.829 - Elevated white blood cell count, unspecified Status: Acute Subjective Date/time seen: 12/01/24 12:53 Interval history: c/o more reflux symptom, pain has improved but bloated Review of Systems Review of Systems: All systems reviewed & are unremarkable except as noted in HPI and below Exam Const: General: comfortable HENMT: Face/Nose/Sinus: Normal nares present Eyes: General: appearance normal, both eyes and all related structures Neck: Neck: supple Resp: Auscultation: clear to auscultation bilaterally Cardio: Rate: regular rate Rhythm: regular rhythm GI: GI Palp: Yes Tenderness to palpation present (GI) Auscultation: normal bowel sounds Other: expected pain from recent surgery Skin: General skin exam: no rashes or lesions noted Neuro: Speech: normal speech Motor exam (neuro): 5/5 motor strength present throughout Extrem: General: normal to inspection Psych: Mental Status: mental status grossly normal Objective Data Vital Signs Vital Signs: Vital Signs - 24 hr 11/30/24 12:00 11/30/24 16:00 11/30/24 20:00 Temperature 98.8 F Pulse Rate 88 90 121 H Respiratory Rate 18 18 19 Blood Pressure 162/98 H 160/101 H 157/104 H Pulse Oximetry 97 98 94 Oxygen Delivery 11/30/24 20:41 11/30/24 21:45 11/30/24 22:30 Temperature Pulse Rate 114 H 104 H Respiratory Rate Blood Pressure 163/103 H 140/95 H Pulse Oximetry Oxygen Delivery Room Air 12/01/24 00:00 12/01/24 00:44 12/01/24 04:00 Temperature 97.9 F 97.2 F L Pulse Rate 111 H 99 114 H Respiratory Rate 13 17 Blood Pressure 149/97 H 140/87 146/93 H Pulse Oximetry 93 93 Oxygen Delivery 12/01/24 08:00 12/01/24 08:00 12/01/24 12:00 Temperature 95.6 F L 95.7 F L Pulse Rate 108 H 92 Respiratory Rate 18 18 Blood Pressure 150/96 H 158/95 H Pulse Oximetry 95 94 Oxygen Delivery Room Air Intake/Output Intake/Output: Intake & Output 11/28/24 11/29/24 11/30/24 12/02/24 23:59 23:59 23:59 00:59 Intake Total 1200 1530 790 Balance 1200 1530 790 Meds/Results Medications: Active Medications Generic Name Dose Route Start Last Admin Trade Name Freq PRN Reason Stop Dose Admin Hydrocodone Bitart/Acetaminophen 1 tab 11/29/24 16:55 12/01/24 00:38 Hydrocodone/Acetaminophen (*Crx) 5-325 Mg Tablet PO 1 tab Q4H PRN Administration Pain Rated 4-6 Hydrocodone Bitart/Acetaminophen 1 tab 11/29/24 16:55 11/30/24 20:41 Hydrocodone/Acetaminophen (*Crx) 10-325 Mg Tablet PO 1 tab Q4H PRN Administration Pain Rated 7-10 Diphenhydramine HCl 25 mg 11/29/24 16:55 11/30/24 18:00 Diphenhydramine Hcl Inj 50 Mg/Ml Vial IV PUSH 25 mg Q6H PRN Administration Itching Enoxaparin Sodium 40 mg 11/30/24 09:00 12/01/24 09:23 Enoxaparin 40 Mg/0.4 Ml Syringe SUB-Q 40 mg DAILY ADOLFO Administration Fish Oil 1 gm 11/30/24 09:00 12/01/24 09:21 [place] 3 Polyunsat Fatty Acids 1 Gm Cap PO 1 gm QAM ADOLFO Administration Piperacillin/Tazobactam/Dextrose 3.375 gm in 50 mls @ 100 mls/hr 11/29/24 10:00 12/01/24 11:07 Zosyn 3.375 Gm/Ns 50 Ml IVPB 100 mls/hr Q6H ADOLFO Administration Ibuprofen 800 mg in 200 mls @ 400 mls/hr 11/29/24 16:55 11/29/24 18:02 Caldolor 800 Mg/200 Ml IVPB 400 mls/hr Q6H PRN Administration Breakthrough Pain Rated 1-3 or NPO Ibuprofen 600 mg 11/29/24 15:40 12/01/24 04:34 Ibuprofen 600 Mg Tablet PO 600 mg Q6H PRN Administration Pain Rated 1-3 Losartan Potassium 25 mg 11/30/24 10:35 12/01/24 09:21 Losartan Potassium 25 Mg Tablet PO 25 mg DAILY ADOLFO Administration Morphine Sulfate 2 mg 11/29/24 16:55 11/30/24 23:34 Morphine Sulfate (*Crx) 2 Mg/Ml Inj IV PUSH 2 mg Q2H PRN Administration Breakthrough Pain Rated 4-6 or NPO Morphine Sulfate 4 mg 11/29/24 16:55 11/30/24 21:46 Morphine Sulfate (*Crx) 4 Mg/Ml Inj IV PUSH 4 mg Q2H PRN Administration Breakthrough Pain Rated 7-10 or NPO Multivitamins Therapeutic 1 tablet 11/30/24 09:00 12/01/24 09:21 Multivitamins Therapeutic Tab (*Bkc) PO 1 tablet DAILY ADOLFO Administration Naloxone HCl 0.1 mg 11/29/24 16:55 Naloxone Hcl 0.4 Mg/Ml Vial IV PUSH Q2M PRN Opiate Reversal Pantoprazole Sodium 40 mg 12/01/24 09:00 12/01/24 05:07 Pantoprazole 40 Mg Tablet PO 40 mg QAM ADOLFO Administration Rosuvastatin Calcium 20 mg 11/30/24 09:00 12/01/24 09:21 Rosuvastatin 20 Mg Tablet PO 20 mg DAILY ADOLFO Administration Vitamin D 4,000 units 11/30/24 09:00 12/01/24 09:21 Cholecalciferol 1,000 Units Tablet PO 4,000 units DAILY ADOLFO Administration Radiology Results: ITS Impressions Abdomen/Pelvis CT 11/29/24 07:14 IMPRESSION: 1. Mild intrahepatic and extrahepatic biliary duct dilatation with possible filling defect distal common bile duct. MRCP without and with contrast is recommended. 2. 2.2 cm liver mass, which may be benign or malignant. MRCP without and with contrast is recommended. 3. Distended gallbladder with surrounding fat stranding suspicious for acute cholecystitis. 4. Small sliding hiatal hernia. MRCP 11/29/24 10:47 IMPRESSION: 1. Mild intrahepatic and extrahepatic biliary duct dilatation with sludge in the distal common duct. 2. Distended gallbladder with gallstones and gallbladder wall thickening suspicious for acute cholecystitis. 3. 2.3 cm hyperenhancing liver mass. In the absence of known malignancy, this finding is likely a hemangioma or focal nodular hyperplasia. Cholangiogram,Operative 11/29/24 14:55 IMPRESSION: 1. Filling defects in the distal common bile duct, which may be sludge or stones. Neoplasm is not excluded. ERCP is recommended. 2. Intrahepatic and extrahepatic biliary duct dilatation. Chest X-Ray 11/30/24 08:38 IMPRESSION: 1. Mild atelectasis in the lower lung zones and mild scarring at left lung apex. Labs Labs: Laboratory Results - last 24 hr 12/01/24 06:12 WBC 37.7 H RBC 4.98 Hgb 14.3 Hct 44.1 MCV 88.6 MCH 28.7 MCHC 32.4 RDW 14.0 Plt Count 338 MPV 8.8 Immature Gran % (Auto) 2.0 H Neut % (Auto) 89.7 H Lymph % (Auto) 4.0 L [place] % (Auto) 4.0 Eos % (Auto) 0.0 Baso % (Auto) 0.3 Lymph # (Auto) 1.51 [place] # (Auto) 1.5 H Eos # (Auto) 0.0 Baso # (Auto) 0.1 Abs Immat Gran (auto) 0.77 H Absolute Neuts (auto) 33.8 H Absolute Nucleated RBC 0.000 Nucleated RBC % 0.0 Sodium 135 L Potassium 4.1 Chloride 100 Carbon Dioxide 27 Anion Gap 8 BUN 11 Creatinine 0.68 L Estim Creat Clear Calc 116 Estimated GFR > 60 Glucose 136 H Calcium 8.6 Total Bilirubin 1.5 H AST 143 H ALT 365 H Alkaline Phosphatase 380 H Total Protein 7.0 Albumin 3.6 Lipase 1311 H
[2024-12-01] MEDS: MAGNESIUM HYDROXIDE SUSP 30 ML UDC PO (13:16)
--- NOTE | 2024-12-01 13:28 | P.PNIM_ITS ---
Progress Note: A&P Assessment and Plan (1) Cholecystitis: Code(s): K81.9 - Cholecystitis, unspecified Status: Acute Assessment and Plan: * abdomen/pelvis CT showed mild intrahepatic and extrahepatic biliary duct dilatation with possible filling defect distal common bile duct, 2.2 cm liver mass which may be benign or malignant, distended gallbladder with surrounding fat stranding suspicious for acute cholecystitis, small sliding hiatal hernia * MRCP showing mild intrahepatic and extrahepatic biliary duct dilatation was sludge in the distal common duct, distended gallbladder with gallstones and gallbladder wall thickening suspicious for acute cholecystitis, 2.3 cm hyper enhancing liver mass and noted in the absence of knwon malignancy this is likely Hemangioma or focal nodular hyperplasia * general surgery consulted and plans for lap cholecystectomy today at 1:30 a.m. * GI consulted * continue pain control * continue IV fluids * continue Zosyn * continue NPO status 11/30 * Post op day 1 from Lap cholecystectomy * General surgery following * Continue pain control * Advance diet as tolerated * Continue Zosyn * WBC 25.4 today, will continue to monitor for now * Encourage ambulation in halls to prevent ileus * 12/01 For ERCP tomorrow continue ZOsyn, advance diet as tolerated adn NPO from Midnight GI on board (2) Common bile duct dilatation: Code(s): K83.8 - Other specified diseases of biliary tract Status: Acute Assessment and Plan: see above (3) Liver mass: Code(s): R16.0 - Hepatomegaly, not elsewhere classified Status: Acute Assessment and Plan: * liver mass shown on abdomen pelvis CT and on MRCP * GI following 11/30 * no change (4) Elevated liver enzymes: Code(s): R74.8 - Abnormal levels of other serum enzymes Status: Acute Assessment and Plan: * initial total bilirubin 3.0, AST 349, ALT 447, alkaline phosphate 527 * continue to trend today Bili 1.5, AST 143, ALT 365, Alk phos 380 For MRCP (5) Gastroesophageal reflux disease: Qualifiers: Esophagitis presence: esophagitis presence not specified Qualified Code(s): K21.9 - Gastro-esophageal reflux disease without esophagitis Code(s): K21.9 - Gastro-esophageal reflux disease without esophagitis Status: Acute Assessment and Plan: * started Protonix 11/30 * no change to current treatment plan Plan DVT prophylaxis on Sq Lovenox Subjective Date/time seen: 12/01/24 13:28 Interval history: Comfortable at bedside awaiting ERCP tomorrow Review of Systems Review of Systems: 12 systems were reviewed and are negativ e except for as per HPI. All systems reviewed & are unremarkable except as noted in HPI and below Exam Narrative: General: In no acute distress, well nourished Cardiac: Normal S1 and S2. No murmur, gallops or friction rubs, peripheral pulses intact. Respiratory: Lungs clear to auscultation, no adventitious lung sounds, currently on room air Gastrointestinal: soft, slightly distended,epigastric tenderness, hypoactive bowel sounds, not passing gas, is belching. : voiding without difficulty. Skin:Lap sites with surgical glue to abdomen Neuro: Alert and oriented x4 Objective Data Vital Signs Vital Signs: Vital Signs - 24 hr 11/30/24 16:00 11/30/24 20:00 11/30/24 20:41 Temperature 98.8 F Pulse Rate 90 121 H Respiratory Rate 18 19 Blood Pressure 160/101 H 157/104 H Pulse Oximetry 98 94 Oxygen Delivery Room Air 11/30/24 21:45 11/30/24 22:30 12/01/24 00:00 Temperature 97.9 F Pulse Rate 114 H 104 H 111 H Respiratory Rate 13 Blood Pressure 163/103 H 140/95 H 149/97 H Pulse Oximetry 93 Oxygen Delivery 12/01/24 00:44 12/01/24 04:00 12/01/24 08:00 Temperature 97.2 F L 95.6 F L Pulse Rate 99 114 H 108 H Respiratory Rate 17 18 Blood Pressure 140/87 146/93 H 150/96 H Pulse Oximetry 93 95 Oxygen Delivery 12/01/24 08:00 12/01/24 12:00 Temperature 95.7 F L Pulse Rate 92 Respiratory Rate 18 Blood Pressure 158/95 H Pulse Oximetry 94 Oxygen Delivery Room Air Intake/Output Intake/Output: Intake & Output 11/28/24 11/29/24 11/30/24 12/02/24 23:59 23:59 23:59 00:59 Intake Total 1200 1530 790 Balance 1200 1530 790 Meds/Results Medications: Active Medications Generic Name Dose Route Start Last Admin Trade Name Freq PRN Reason Stop Dose Admin Hydrocodone Bitart/Acetaminophen 1 tab 11/29/24 16:55 12/01/24 00:38 Hydrocodone/Acetaminophen (*Crx) 5-325 Mg Tablet PO 1 tab Q4H PRN Administration Pain Rated 4-6 Hydrocodone Bitart/Acetaminophen 1 tab 11/29/24 16:55 11/30/24 20:41 Hydrocodone/Acetaminophen (*Crx) 10-325 Mg Tablet PO 1 tab Q4H PRN Administration Pain Rated 7-10 Diphenhydramine HCl 25 mg 11/29/24 16:55 11/30/24 18:00 Diphenhydramine Hcl Inj 50 Mg/Ml Vial IV PUSH 25 mg Q6H PRN Administration Itching Enoxaparin Sodium 40 mg 11/30/24 09:00 12/01/24 09:23 Enoxaparin 40 Mg/0.4 Ml Syringe SUB-Q 40 mg DAILY ADOLFO Administration Fish Oil 1 gm 11/30/24 09:00 12/01/24 09:21 [place] 3 Polyunsat Fatty Acids 1 Gm Cap PO 1 gm QAM ADOLFO Administration Piperacillin/Tazobactam/Dextrose 3.375 gm in 50 mls @ 100 mls/hr 11/29/24 10:00 12/01/24 11:07 Zosyn 3.375 Gm/Ns 50 Ml IVPB 100 mls/hr Q6H ADOLFO Administration Ibuprofen 800 mg in 200 mls @ 400 mls/hr 11/29/24 16:55 11/29/24 18:02 Caldolor 800 Mg/200 Ml IVPB 400 mls/hr Q6H PRN Administration Breakthrough Pain Rated 1-3 or NPO Ibuprofen 600 mg 11/29/24 15:40 12/01/24 04:34 Ibuprofen 600 Mg Tablet PO 600 mg Q6H PRN Administration Pain Rated 1-3 Losartan Potassium 25 mg 11/30/24 10:35 12/01/24 09:21 Losartan Potassium 25 Mg Tablet PO 25 mg DAILY ADOLFO Administration Morphine Sulfate 2 mg 11/29/24 16:55 11/30/24 23:34 Morphine Sulfate (*Crx) 2 Mg/Ml Inj IV PUSH 2 mg Q2H PRN Administration Breakthrough Pain Rated 4-6 or NPO Morphine Sulfate 4 mg 11/29/24 16:55 11/30/24 21:46 Morphine Sulfate (*Crx) 4 Mg/Ml Inj IV PUSH 4 mg Q2H PRN Administration Breakthrough Pain Rated 7-10 or NPO Multivitamins Therapeutic 1 tablet 11/30/24 09:00 12/01/24 09:21 Multivitamins Therapeutic Tab (*Bkc) PO 1 tablet DAILY ADOLFO Administration Naloxone HCl 0.1 mg 11/29/24 16:55 Naloxone Hcl 0.4 Mg/Ml Vial IV PUSH Q2M PRN Opiate Reversal Pantoprazole Sodium 40 mg 12/01/24 09:00 12/01/24 05:07 Pantoprazole 40 Mg Tablet PO 40 mg QAM ADOLFO Administration Rosuvastatin Calcium 20 mg 11/30/24 09:00 12/01/24 09:21 Rosuvastatin 20 Mg Tablet PO 20 mg DAILY ADOLFO Administration Vitamin D 4,000 units 11/30/24 09:00 12/01/24 09:21 Cholecalciferol 1,000 Units Tablet PO 4,000 units DAILY ADOLFO Administration Radiology Results: ITS Impressions Abdomen/Pelvis CT 11/29/24 07:14 IMPRESSION: 1. Mild intrahepatic and extrahepatic biliary duct dilatation with possible filling defect distal common bile duct. MRCP without and with contrast is recommended. 2. 2.2 cm liver mass, which may be benign or malignant. MRCP without and with contrast is recommended. 3. Distended gallbladder with surrounding fat stranding suspicious for acute cholecystitis. 4. Small sliding hiatal hernia. MRCP 11/29/24 10:47 IMPRESSION: 1. Mild intrahepatic and extrahepatic biliary duct dilatation with sludge in the distal common duct. 2. Distended gallbladder with gallstones and gallbladder wall thickening suspicious for acute cholecystitis. 3. 2.3 cm hyperenhancing liver mass. In the absence of known malignancy, this finding is likely a hemangioma or focal nodular hyperplasia. Cholangiogram,Operative 11/29/24 14:55 IMPRESSION: 1. Filling defects in the distal common bile duct, which may be sludge or stones. Neoplasm is not excluded. ERCP is recommended. 2. Intrahepatic and extrahepatic biliary duct dilatation. Chest X-Ray 11/30/24 08:38 IMPRESSION: 1. Mild atelectasis in the lower lung zones and mild scarring at left lung apex. Labs Labs: Laboratory Results - last 24 hr 12/01/24 06:12 WBC 37.7 H RBC 4.98 Hgb 14.3 Hct 44.1 MCV 88.6 MCH 28.7 MCHC 32.4 RDW 14.0 Plt Count 338 MPV 8.8 Immature Gran % (Auto) 2.0 H Neut % (Auto) 89.7 H Lymph % (Auto) 4.0 L [place] % (Auto) 4.0 Eos % (Auto) 0.0 Baso % (Auto) 0.3 Lymph # (Auto) 1.51 [place] # (Auto) 1.5 H Eos # (Auto) 0.0 Baso # (Auto) 0.1 Abs Immat Gran (auto) 0.77 H Absolute Neuts (auto) 33.8 H Absolute Nucleated RBC 0.000 Nucleated RBC % 0.0 Sodium 135 L Potassium 4.1 Chloride 100 Carbon Dioxide 27 Anion Gap 8 BUN 11 Creatinine 0.68 L Estim Creat Clear Calc 116 Estimated GFR > 60 Glucose 136 H Calcium 8.6 Total Bilirubin 1.5 H AST 143 H ALT 365 H Alkaline Phosphatase 380 H Total Protein 7.0 Albumin 3.6 Lipase 1311 H Quality VTE Prophylaxis VTE prophylaxis: mechanical ordered
[2024-12-01] MEDS: MORPHINE SULFATE (*CRX) 4 MG/ML INJ IV PUSH (16:54)
--- NOTE | 2024-12-01 17:16 | PC.NURSE ---
Provider notified of Pt C/O indigestion, nausea and elevated B/P. Orders received.
[2024-12-01] MEDS: ONDANSETRON INJ 4 MG/2 ML VIAL IV PUSH (17:31)
[2024-12-01] MEDS: BELLADONNA ALK/PHENOB ELIX 10 ML, MAG HYDROX/ALUMINUM HYD/SIMETH 30 ML, LIDOCAINE 2% VI... PO (17:42)
[2024-12-01] MEDS: MORPHINE SULFATE (*CRX) 2 MG/ML INJ IV PUSH (20:26)
[2024-12-01] MEDS: diphenhydrAMINE HCl INJ 50 MG/ML VIAL 25 MG IV PUSH (20:27)
[2024-12-01] MEDS: MIRTAZAPINE 7.5 MG TABLET PO (23:49)
[2024-12-02] VITALS (11 sets, daily range): BP systolic 143–174; BP diastolic 89–110; PULSE 87–109; RESP 12–18; TEMP 35.5–37.2; O2SAT 95–100
[2024-12-02] MEDS: MORPHINE SULFATE (*CRX) 4 MG/ML INJ IV PUSH ×2 (01:03→16:05)
[2024-12-02] MEDS: HYDROcodone/acetaminophen (*CRX) 5-325 MG TABLET 1 TAB PO (01:33)
[2024-12-02] MEDS: MORPHINE SULFATE (*CRX) 2 MG/ML INJ IV PUSH (02:43)
[2024-12-02] MEDS: CALCIUM CARBONATE (TUMS) 500 MG (200 MG ELEMENTAL) PO ×2 (03:15→22:44)
[2024-12-02] MEDS: PANTOPRAZOLE 40 MG TABLET PO ×2 (03:15→10:58)
[2024-12-02] MEDS: IBUPROFEN IV 800 MG/200 ML 800 MG/200 ML BAG 400 MG IVPB (03:16)
[2024-12-02] MEDS: PIPERACILLN/TAZ 3.375GM/NS50ML 3.375 GM/50 ML BAG IVPB ×3 (03:56→22:09)
[2024-12-02 06:39] LABS: Basophils Absolute Auto 0.1 K/mm3 (0.0-0.1); Basophils Percent Auto 0.2 % (0.2-1.2); Eosinophils Absolute Auto 0.1 K/mm3 (0-0.3); Eosinophils Percent Auto 0.2 % (0-4.4); Hematocrit 41.8 % (42.0-52.0); Hemoglobin 13.5 g/dL (14.0-18.0); Immature Granulocyte Absolute 0.64 K/mm3 (0.00-0.031); Lymphocytes Absolute Auto 2.54 K/mm3 (0.9-3.2); Lymphocytes Percent Auto 7.8 % (18.3-44.2); Mean Corpuscular HGB Conc 32.3 g/dl (32-36); Mean Corpuscular Hemoglobin 28.9 pg (26-34); Mean Corpuscular Volume 89.5 fl (80-100); Monocytes Absolute Auto 1.5 K/mm3 (0.1-0.6); Monocytes Percent Auto 4.6 % (2.6-8.5); Neutrophils Absolute Auto 27.9 K/mm3 (1.3-6.7); Neutrophils Percent Auto 85.2 % (45.5-73.1); Platelet Count Result 330 k/mm3 (150-375); Red Blood Count 4.67 M/mm3 (4.6-6.20); Red Cell Distribution Width 13.8 % (11.5-14.5); White Blood Count 32.7 K/mm3 (4.5-10.0)
[2024-12-02 06:48] LABS: Alanine Aminotransferase 222 U/L (6-50); Albumin Level 3.4 g/dL (3.5-5.1); Alkaline Phosphatase 281 U/L (38-126); Anion Gap 9 mmol/L (4-12); Aspartate Amino Transferase 49 U/L (17-59); Bilirubin,Total 1.1 mg/dL (0.2-1.3); Blood Urea Nitrogen 15 mg/dL (9-20); Calcium 8.5 mg/dL (8.4-10.2); Carbon Dioxide 28 mmol/L (22-30); Chloride 100 mmol/L (98-107); Estimated CRCL calculation 102 ml/min; Estimated Glomerular Filt Rate > 60; Glucose 131 mg/dL (65-110); Lipase 266 U/L (23-300); Potassium 3.9 mmol/L (3.4-5.0); Sodium 137 mmol/L (137-145)
--- NOTE | 2024-12-02 09:25 | P.PNIM_ITS ---
Progress Note: A&P Assessment and Plan (1) Cholecystitis: Code(s): K81.9 - Cholecystitis, unspecified Status: Acute Assessment and Plan: * abdomen/pelvis CT showed mild intrahepatic and extrahepatic biliary duct dilatation with possible filling defect distal common bile duct, 2.2 cm liver mass which may be benign or malignant, distended gallbladder with surrounding fat stranding suspicious for acute cholecystitis, small sliding hiatal hernia * MRCP showing mild intrahepatic and extrahepatic biliary duct dilatation was sludge in the distal common duct, distended gallbladder with gallstones and gallbladder wall thickening suspicious for acute cholecystitis, 2.3 cm hyper enhancing liver mass and noted in the absence of knwon malignancy this is likely Hemangioma or focal nodular hyperplasia * general surgery consulted and plans for lap cholecystectomy today at 1:30 a.m. * GI consulted * continue pain control * continue IV fluids * continue Zosyn * continue NPO status 11/30 * Post op day 1 from Lap cholecystectomy * General surgery following * Continue pain control * Advance diet as tolerated * Continue Zosyn * WBC 32 today, will continue to monitor for now * Encourage ambulation in halls to prevent ileus * 12/01 For ERCP tomorrow continue ZOsyn, advance diet as tolerated adn NPO from Midnight awaiting ERCP today GI on board (2) Common bile duct dilatation: Code(s): K83.8 - Other specified diseases of biliary tract Status: Acute Assessment and Plan: see above (3) Liver mass: Code(s): R16.0 - Hepatomegaly, not elsewhere classified Status: Acute Assessment and Plan: * liver mass shown on abdomen pelvis CT * MRCP showed mass is likely hemangioma or focal nodular hyperplasia in shahnaz absence of known malignancy * GI following (4) Elevated liver enzymes: Code(s): R74.8 - Abnormal levels of other serum enzymes Status: Acute Assessment and Plan: * initial total bilirubin 3.0, AST 349, ALT 447, alkaline phosphate 527 * continue to trend today Bili 1.5, AST 122, ALT 281, Alk phos 380 For ERCP (5) Gastroesophageal reflux disease: Qualifiers: Esophagitis presence: esophagitis presence not specified Qualified Code(s): K21.9 - Gastro-esophageal reflux disease without esophagitis Code(s): K21.9 - Gastro-esophageal reflux disease without esophagitis Status: Acute Assessment and Plan: * started Protonix 11/30 * no change to current treatment plan Plan DVT prophylaxis on Sq Lovenox Subjective Date/time seen: 12/02/24 09:25 Interval history: Comfortable at bedside awaiting ERCP today Review of Systems Review of Systems: 12 systems were reviewed and are negativ e except for as per HPI. All systems reviewed & are unremarkable except as noted in HPI and below Exam Narrative: General: In no acute distress, well nourished Cardiac: Normal S1 and S2. No murmur, gallops or friction rubs, peripheral pulses intact. Respiratory: Lungs clear to auscultation, no adventitious lung sounds, currently on room air Gastrointestinal: soft, slightly distended,epigastric tenderness, hypoactive bowel sounds, not passing gas, is belching. : voiding without difficulty. Skin:Lap sites with surgical glue to abdomen Neuro: Alert and oriented x4 Objective Data Vital Signs Vital Signs: Vital Signs - 24 hr 12/01/24 12:00 12/01/24 16:00 12/01/24 20:00 Temperature 95.7 F L 97.9 F Pulse Rate 92 108 H 117 H Respiratory Rate 18 18 13 Blood Pressure 158/95 H 149/94 H 149/97 H Pulse Oximetry 94 96 94 Oxygen Delivery 12/01/24 20:26 12/01/24 23:54 12/02/24 04:00 Temperature 97.2 F L 97.0 F L Pulse Rate 112 H 94 Respiratory Rate 16 12 Blood Pressure 137/96 H 153/96 H Pulse Oximetry 94 95 Oxygen Delivery Room Air 12/02/24 08:00 Temperature 95.9 F L Pulse Rate 108 H Respiratory Rate 18 Blood Pressure 160/97 H Pulse Oximetry 95 Oxygen Delivery Intake/Output Intake/Output: Intake & Output 11/29/24 11/30/24 12/02/24 12/02/24 23:59 23:59 00:59 23:59 Intake Total 1400 1530 1420 650 Balance 1400 1530 1420 650 Meds/Results Medications: Active Medications Generic Name Dose Route Start Last Admin Trade Name Freq PRN Reason Stop Dose Admin Hydrocodone Bitart/Acetaminophen 1 tab 11/29/24 16:55 12/02/24 01:33 Hydrocodone/Acetaminophen (*Crx) 5-325 Mg Tablet PO 1 tab Q4H PRN Administration Pain Rated 4-6 Hydrocodone Bitart/Acetaminophen 1 tab 11/29/24 16:55 11/30/24 20:41 Hydrocodone/Acetaminophen (*Crx) 10-325 Mg Tablet PO 1 tab Q4H PRN Administration Pain Rated 7-10 Calcium Carbonate 200 mg 12/02/24 02:57 12/02/24 03:15 Calcium Carbonate (Tums) 500 Mg (200 Mg Elemental) PO 200 mg Q6H PRN Administration Indigestion Diphenhydramine HCl 25 mg 11/29/24 16:55 12/01/24 20:27 Diphenhydramine Hcl Inj 50 Mg/Ml Vial IV PUSH 25 mg Q6H PRN Administration Itching Enoxaparin Sodium 40 mg 11/30/24 09:00 12/01/24 09:23 Enoxaparin 40 Mg/0.4 Ml Syringe SUB-Q 40 mg DAILY ADOLFO Administration Fish Oil 1 gm 11/30/24 09:00 12/01/24 09:21 [place] 3 Polyunsat Fatty Acids 1 Gm Cap PO 1 gm QAM ADOLFO Administration Piperacillin/Tazobactam/Dextrose 3.375 gm in 50 mls @ 100 mls/hr 11/29/24 10:00 12/02/24 04:26 Zosyn 3.375 Gm/Ns 50 Ml IVPB Infused Q6H ADOLFO Infusion Ibuprofen 800 mg in 200 mls @ 400 mls/hr 11/29/24 16:55 12/02/24 03:46 Caldolor 800 Mg/200 Ml IVPB Infused Q6H PRN Infusion Breakthrough Pain Rated 1-3 or NPO Doxycycline Hyclate 100 mg in 100 mls @ 100 mls/hr 12/02/24 08:00 Vibramycin 100 Mg/Ns 100 Ml IVPB Q12HR ADOLFO Ibuprofen 600 mg 11/29/24 15:40 12/01/24 21:09 Ibuprofen 600 Mg Tablet PO 600 mg Q6H PRN Administration Pain Rated 1-3 Losartan Potassium 25 mg 11/30/24 10:35 12/01/24 09:21 Losartan Potassium 25 Mg Tablet PO 25 mg DAILY ADOLFO Administration Morphine Sulfate 2 mg 11/29/24 16:55 12/02/24 02:43 Morphine Sulfate (*Crx) 2 Mg/Ml Inj IV PUSH 2 mg Q2H PRN Administration Breakthrough Pain Rated 4-6 or NPO Morphine Sulfate 4 mg 11/29/24 16:55 12/02/24 01:03 Morphine Sulfate (*Crx) 4 Mg/Ml Inj IV PUSH 4 mg Q2H PRN Administration Breakthrough Pain Rated 7-10 or NPO Multivitamins Therapeutic 1 tablet 11/30/24 09:00 12/01/24 09:21 Multivitamins Therapeutic Tab (*Bkc) PO 1 tablet DAILY ADOLFO Administration Naloxone HCl 0.1 mg 11/29/24 16:55 Naloxone Hcl 0.4 Mg/Ml Vial IV PUSH Q2M PRN Opiate Reversal Ondansetron HCl 4 mg 12/01/24 17:14 12/01/24 17:31 Ondansetron Inj 4 Mg/2 Ml Vial IV PUSH 4 mg Q6H PRN Administration Nausea And Vomiting Pantoprazole Sodium 40 mg 12/02/24 09:00 Pantoprazole 40 Mg Tablet PO Q12HR ADOLFO Rosuvastatin Calcium 20 mg 11/30/24 09:00 12/01/24 09:21 Rosuvastatin 20 Mg Tablet PO 20 mg DAILY ADOLFO Administration Vitamin D 4,000 units 11/30/24 09:00 12/01/24 09:21 Cholecalciferol 1,000 Units Tablet PO 4,000 units DAILY ADOLFO Administration Radiology Results: ITS Impressions Abdomen/Pelvis CT 11/29/24 07:14 IMPRESSION: 1. Mild intrahepatic and extrahepatic biliary duct dilatation with possible filling defect distal common bile duct. MRCP without and with contrast is recommended. 2. 2.2 cm liver mass, which may be benign or malignant. MRCP without and with contrast is recommended. 3. Distended gallbladder with surrounding fat stranding suspicious for acute cholecystitis. 4. Small sliding hiatal hernia. MRCP 11/29/24 10:47 IMPRESSION: 1. Mild intrahepatic and extrahepatic biliary duct dilatation with sludge in the distal common duct. 2. Distended gallbladder with gallstones and gallbladder wall thickening suspicious for acute cholecystitis. 3. 2.3 cm hyperenhancing liver mass. In the absence of known malignancy, this finding is likely a hemangioma or focal nodular hyperplasia. Cholangiogram,Operative 11/29/24 14:55 IMPRESSION: 1. Filling defects in the distal common bile duct, which may be sludge or stones. Neoplasm is not excluded. ERCP is recommended. 2. Intrahepatic and extrahepatic biliary duct dilatation. Chest X-Ray 11/30/24 08:38 IMPRESSION: 1. Mild atelectasis in the lower lung zones and mild scarring at left lung apex. Labs Labs: Laboratory Results - last 24 hr 12/02/24 06:15 WBC 32.7 H RBC 4.67 Hgb 13.5 L Hct 41.8 L MCV 89.5 MCH 28.9 MCHC 32.3 RDW 13.8 Plt Count 330 MPV 9.0 Immature Gran % (Auto) 2.0 H Neut % (Auto) 85.2 H Lymph % (Auto) 7.[address] [place] % (Auto) 4.6 Eos % (Auto) 0.2 Baso % (Auto) 0.2 Lymph # (Auto) 2.54 [place] # (Auto) 1.5 H Eos # (Auto) 0.1 Baso # (Auto) 0.1 Abs Immat Gran (auto) 0.64 H Absolute Neuts (auto) 27.9 H Absolute Nucleated RBC 0.000 Nucleated RBC % 0.0 Sodium 137 Potassium 3.9 Chloride 100 Carbon Dioxide 28 Anion Gap 9 BUN 15 Creatinine 0.78 Estim Creat Clear Calc 102 Estimated GFR > 60 Glucose 131 H Calcium 8.5 Total Bilirubin 1.1 AST 49 ALT 222 H Alkaline Phosphatase 281 H Total Protein 7.0 Albumin 3.4 L Lipase 266 Quality VTE Prophylaxis VTE prophylaxis: mechanical ordered
[2024-12-02] MEDS: DOXYCYCLINE 100 MG/NS 100 ML 100 MG/100 ML BAG IVPB ×2 (10:26→21:03)
[2024-12-02] MEDS: HYDROcodone/acetaminophen (*CRX) 10-325 MG TABLET 1 TAB PO ×2 (10:40→16:05)
[2024-12-02] MEDS: LACTATED RINGERS 1,000 ML 150 ML IV CONT (12:01)
--- NOTE | 2024-12-02 12:35 | WPDANESEPPF ---
Anes - Initial Pre Proc Eval Procedure: Operation Date: 11/29/24 13:30 Proposed Procedures p Laparoscopic Cholecystectomy with IntraOperative Cholangiogram - Abe Abdalla DO Operation Date: 12/02/24 12:30 Proposed Procedures p Endoscopic Retro Cholangiopancreatogram - Damon Heredia MD Date/Time: 12/02/24 12:35 Surgeon: Nimo Montalvo APRN Pre Op Diagnosis: abdominal pain nausea vomiting elevated LFTs Patient Data Age: 54 Gender: M Height: 1.83 m Weight: 84.1 kg Last Vital Signs Temp 36.4 C L 12/02/24 11:53 Pulse 90 12/02/24 11:53 Resp 16 12/02/24 11:53 BP 167/110 H 12/02/24 11:53 Pulse Ox 96 12/02/24 11:53 O2 Del Method Room Air 12/02/24 11:53 O2 Flow Rate 8 11/29/24 16:15 Allergies Allergy/AdvReac Type Severity Reaction Status Date / Time No Known Allergies Allergy Verified 12/02/24 11:50 Home Medications ?Medication ?Instructions ?Recorded ?Confirmed ?Type cholecalciferol (vitamin D3) 100 4,000 unit PO DAILY 11/11/19 11/29/24 History mcg (4,000 unit) capsule (Vitamin D3) multivitamin 1 cap PO DAILY 11/11/19 11/29/24 History omega 3 350 mg-dha 235 mg-epa 90 1 cap PO DAILY 11/11/19 11/29/24 History mg-fish oil 597 mg capsule,delay rel (Vass-3) omeprazole 40 mg capsule,delayed 40 mg PO DAILY 11/11/19 11/29/24 History release ciprofloxacin HCl 500 mg tablet 500 mg PO Q12H 11/29/24 11/29/24 History metronidazole 500 mg tablet 500 mg PO Q12H 11/29/24 11/29/24 History rosuvastatin 20 mg tablet 20 mg PO DAILY 11/29/24 11/29/24 History Laboratory Tests 12/02/24 06:15 WBC 32.7 H K/mm3 (4.5-10.0) RBC 4.67 M/mm3 (4.6-6.20) Hgb 13.5 L g/dL (14.0-18.0) Hct 41.8 L % (42.0-52.0) MCV 89.5 fl (80-100) MCH 28.9 pg (26-34) MCHC 32.3 g/dl (32-36) RDW 13.8 % (11.5-14.5) Plt Count 330 k/mm3 (150-375) MPV 9.0 fl (7.4-10.4) Immature Gran % (Auto) 2.0 H % (0-0.5) Neut % (Auto) 85.2 H % (45.5-73.1) Lymph % (Auto) 7.8 L % (18.3-44.2) [place] % (Auto) 4.6 % (2.6-8.5) Eos % (Auto) 0.2 % (0-4.4) Baso % (Auto) 0.2 % (0.2-1.2) Lymph # (Auto) 2.54 K/mm3 (0.9-3.2) [place] # (Auto) 1.5 H K/mm3 (0.1-0.6) Eos # (Auto) 0.1 K/mm3 (0-0.3) Baso # (Auto) 0.1 K/mm3 (0.0-0.1) Abs Immat Gran (auto) 0.64 H K/mm3 (0.00-0.031) Absolute Neuts (auto) 27.9 H K/mm3 (1.3-6.7) Absolute Nucleated RBC 0.000 K/mm3 (0.0-0.012) Nucleated RBC % 0.0 % (0.0-0.2) Sodium 137 mmol/L (137-145) Potassium 3.9 mmol/L (3.4-5.0) Chloride 100 mmol/L (98-107) Carbon Dioxide 28 mmol/L (22-30) Anion Gap 9 mmol/L (4-12) BUN 15 mg/dL (9-20) Creatinine 0.78 mg/dL (0.7-1.3) Estim Creat Clear Calc 102 ml/min Estimated GFR > 60 (59 - ) Glucose 131 H mg/dL (65-110) Calcium 8.5 mg/dL (8.4-10.2) Total Bilirubin 1.1 mg/dL (0.2-1.3) AST 49 U/L (17-59) ALT 222 H U/L (6-50) Alkaline Phosphatase 281 H U/L (38-126) Total Protein 7.0 g/dL (6.3-8.2) Albumin 3.4 L g/dL (3.5-5.1) Lipase 266 U/L (23-300) Patient hx anesthesia problems: none Family hx anesthesia problems: none Results Review: All pre-operative results and documents have been reviewed as part of the pre-operative evaluation. [facility] Past Medical History Medical History Leukocytosis SIRS (systemic inflammatory response syndrome) Choledocholithiasis Hyperlipidemia Gastroesophageal reflux disease Surgical History Surgical History History of tonsillectomy History of appendectomy Social History Social History Social History: Surrogate medical decision maker: Sole Graham, spouse. Code status: Full code. Smoking status: Never smoker Alcohol intake: current Drinks per week: 2 Substance use: never Do You Feel Safe in your Home?: Yes Lack of Transportation: No Lack of Food: Never True Current Housing: I Have Housing Concerned About Future Housing: No Difficulty Paying Gas/Electric Bills: No Difficulty Paying for Meds: No Currently Unemployed: No Education: High School Diploma/GED Difficulty w/ Childcare or Family Care: No Spiritual care concerns: No Anes - Eval Final PreProcedure Day of Procedure 12/02/24 12:35 Patient weight: normal Heart: regular rate and rhythm Lungs: clear to auscultation Airway: Mallampati scale class II Neurological: alert and oriented Last oral intake: >/= 8 hours ASA classification: II Emergent: no Anesthetic plan: proceed Anesthesia type and monitoring: general ETT and standard monitoring Other findings: exam per LW Results Review: All pre-operative results and documents have been reviewed as part of the pre-operative evaluation. Informed Consent: The patient's anesthetic plan and its attendant risks and benefits were discussed with the patient/family/POA. Questions were solicited and answers provided to the satisfaction of the patient/family/POA.
[2024-12-02] MEDS: INDOMETHACIN 50 MG SUPP.RECT RECTAL (12:40)
[2024-12-02] MEDS: ONDANSETRON INJ 4 MG/2 ML VIAL IV PUSH (14:45)
--- NOTE | 2024-12-02 15:17 | P.PNGS_ITS ---
Progress Note: A&P Assessment and Plan (1) Acute calculous cholecystitis: Code(s): K80.00 - Calculus of gallbladder with acute cholecystitis without obstruction Status: Acute Assessment and Plan: * WBC down slightly today. ERCP done today with sphincterotomy and clearance of common bile duct stone and sludge. Also found to have an esophageal ulcer/stricture and duodenal ulcer. Could be contributing to his persistent epigastric pain. Repeat labs again tomorrow. (2) Elevated liver enzymes: Code(s): R74.8 - Abnormal levels of other serum enzymes Status: Acute Assessment and Plan: * Trending down (3) Pancreatitis due to biliary obstruction: Qualifiers: Chronicity: acute Acute pancreatitis complication: unspecified Qualified Code(s): K85.10 - Biliary acute pancreatitis without necrosis or infection Code(s): K85.90 - Acute pancreatitis without necrosis or infection, unspecified; K83.1 - Obstruction of bile duct Status: Acute Assessment and Plan: * Lipase down to normal today. ERCP done today with clearance of stone and sludge. * Advanced to a full liquid diet following ERCP. Repeat labs again tomorrow. Plan I have discussed the patient's case and plan of care with Dr. Abdalal. Subjective Subjective Date/Time Seen: 12/02/24 15:17 Patient reports: no flatus and no bowel movement Interval history: Patient seen following ERCP with sphincterotomy and removal of common bile duct stone and sludge, no evidence of bile leak, additionally found to have esophageal and duodenal ulcer. He reports having some epigastric abdominal pain, which has been consistent since admission. He had some phlegm he coughed up, which made him gag right before my arrival. He is now complaining of some nausea but has not had any vomiting. No other complaints at this time. Exam Const: General: no acute distress and uncomfortable Orie ntation/consciousness: patient oriented x3 GI: Inspection: non-distended and incision (dry and glue intact) GI Palp: Yes Soft to palpation, Yes Tenderness to palpation present (GI) (epigastric area), No Guarding due to palpation present (GI) and No Rebound tenderness present Auscultation: Hypoactive bowel sounds present Objective Data Vital Signs Vital Signs: Vital Signs - 24 hr 12/01/24 16:00 12/01/24 20:00 12/01/24 20:26 Temperature 97.9 F Pulse Rate 108 H 117 H Respiratory Rate 18 13 Blood Pressure 149/94 H 149/97 H Pulse Oximetry 96 94 Oxygen Delivery Room Air Oxygen Flow Rate 12/01/24 23:54 12/02/24 04:00 12/02/24 08:00 Temperature 97.2 F L 97.0 F L 95.9 F L Pulse Rate 112 H 94 108 H Respiratory Rate 16 12 18 Blood Pressure 137/96 H 153/96 H 160/97 H Pulse Oximetry 94 95 95 Oxygen Delivery Oxygen Flow Rate 12/02/24 08:00 12/02/24 11:53 12/02/24 13:27 Temperature 97.5 F L 98.1 F Pulse Rate 108 H 90 102 H Respiratory Rate 18 16 16 Blood Pressure 167/110 H 143/92 H Pulse Oximetry 95 96 100 Oxygen Delivery Room Air Room Air Simple Face Mask Oxygen Flow Rate 6 12/02/24 13:37 12/02/24 13:47 12/02/24 13:57 Temperature Pulse Rate 105 H 95 93 Respiratory Rate 18 18 18 Blood Pressure 145/100 H 147/96 H 152/97 H Pulse Oximetry 100 100 100 Oxygen Delivery Simple Face Mask Simple Face Mask Room Air Oxygen Flow Rate 6 4 12/02/24 14:07 12/02/24 14:17 Temperature Pulse Rate 99 87 Respiratory Rate 18 18 Blood Pressure 167/92 H 174/98 H Pulse Oximetry 100 98 Oxygen Delivery Room Air Room Air Oxygen Flow Rate Intake/Output Intake/Output: Intake & Output 11/29/24 11/30/24 12/02/24 12/02/24 23:59 23:59 00:59 23:59 Intake Total 1400 1530 1420 750 Balance 1400 1530 1420 750 Meds/Results Medications: Active Medications Generic Name Dose Route Start Last Admin Trade Name Freq PRN Reason Stop Dose Admin Hydrocodone Bitart/Acetaminophen 1 tab 11/29/24 16:55 12/02/24 01:33 Hydrocodone/Acetaminophen (*Crx) 5-325 Mg Tablet PO 1 tab Q4H PRN Administration Pain Rated 4-6 Hydrocodone Bitart/Acetaminophen 1 tab 11/29/24 16:55 12/02/24 10:40 Hydrocodone/Acetaminophen (*Crx) 10-325 Mg Tablet PO 1 tab Q4H PRN Administration Pain Rated 7-10 Calcium Carbonate 200 mg 12/02/24 02:57 12/02/24 03:15 Calcium Carbonate (Tums) 500 Mg (200 Mg Elemental) PO 200 mg Q6H PRN Administration Indigestion Diphenhydramine HCl 25 mg 11/29/24 16:55 12/01/24 20:27 Diphenhydramine Hcl Inj 50 Mg/Ml Vial IV PUSH 25 mg Q6H PRN Administration Itching Enoxaparin Sodium 40 mg 11/30/24 09:00 12/02/24 10:26 Enoxaparin 40 Mg/0.4 Ml Syringe SUB-Q Not Given DAILY [facility] Fish Oil 1 gm 11/30/24 09:00 12/02/24 10:29 [place] 3 Polyunsat Fatty Acids 1 Gm Cap PO Not Given QAM [facility] Piperacillin/Tazobactam/Dextrose 3.375 gm in 50 mls @ 100 mls/hr 11/29/24 10:00 12/02/24 10:42 Zosyn 3.375 Gm/Ns 50 Ml IVPB 100 mls/hr Q6H [facility] Administration Doxycycline Hyclate 100 mg in 100 mls @ 100 mls/hr 12/02/24 08:00 12/02/24 10:26 Vibramycin 100 Mg/Ns 100 Ml IVPB 100 mls/hr Q12HR [facility] Administration Losartan Potassium 25 mg 11/30/24 10:35 12/02/24 10:26 Losartan Potassium 25 Mg Tablet PO Not Given DAILY [facility] Morphine Sulfate 2 mg 11/29/24 16:55 12/02/24 02:43 Morphine Sulfate (*Crx) 2 Mg/Ml Inj IV PUSH 2 mg Q2H PRN Administration Breakthrough Pain Rated 4-6 or NPO Morphine Sulfate 4 mg 11/29/24 16:55 12/02/24 01:03 Morphine Sulfate (*Crx) 4 Mg/Ml Inj IV PUSH 4 mg Q2H PRN Administration Breakthrough Pain Rated 7-10 or NPO Multivitamins Therapeutic 1 tablet 11/30/24 09:00 12/02/24 10:26 Multivitamins Therapeutic Tab (*Bkc) PO Not Given DAILY [facility] Naloxone HCl 0.1 mg 11/29/24 16:55 Naloxone Hcl 0.4 Mg/Ml Vial IV PUSH Q2M PRN Opiate Reversal Ondansetron HCl 4 mg 12/01/24 17:14 12/01/24 17:31 Ondansetron Inj 4 Mg/2 Ml Vial IV PUSH 4 mg Q6H PRN Administration Nausea And Vomiting Pantoprazole Sodium 40 mg 12/02/24 21:00 Pantoprazole Sodium Iv 40 Mg Vial IV PUSH Q12HR [facility] Rosuvastatin Calcium 20 mg 11/30/24 09:00 12/02/24 10:59 Rosuvastatin 20 Mg Tablet PO Not Given DAILY [facility] Sucralfate 1,000 mg 12/02/24 16:30 Sucralfate Susp 100 Mg/Ml 10 Ml Udc PO ACHS [facility] Vitamin D 4,000 units 11/30/24 09:00 12/02/24 10:26 Cholecalciferol 1,000 Units Tablet PO Not Given DAILY [facility] Radiology Results: ITS Impressions Abdomen/Pelvis CT 11/29/24 07:14 IMPRESSION: 1. Mild intrahepatic and extrahepatic biliary duct dilatation with possible filling defect distal common bile duct. MRCP without and with contrast is recommended. 2. 2.2 cm liver mass, which may be benign or malignant. MRCP without and with contrast is recommended. 3. Distended gallbladder with surrounding fat stranding suspicious for acute cholecystitis. 4. Small sliding hiatal hernia. MRCP 11/29/24 10:47 IMPRESSION: 1. Mild intrahepatic and extrahepatic biliary duct dilatation with sludge in the distal common duct. 2. Distended gallbladder with gallstones and gallbladder wall thickening suspicious for acute cholecystitis. 3. 2.3 cm hyperenhancing liver mass. In the absence of known malignancy, this finding is likely a hemangioma or focal nodular hyperplasia. Cholangiogram,Operative 11/29/24 14:55 IMPRESSION: 1. Filling defects in the distal common bile duct, which may be sludge or stones. Neoplasm is not excluded. ERCP is recommended. 2. Intrahepatic and extrahepatic biliary duct dilatation. Chest X-Ray 11/30/24 08:38 IMPRESSION: 1. Mild atelectasis in the lower lung zones and mild scarring at left lung apex. Endo Retro Cholangiopancreatogram 12/02/24 14:27 IMPRESSION: 1. Balloon sweeping of the common duct. Please refer to the ERCP procedure note for additional details. Labs Labs: Laboratory Results - last 24 hr 12/02/24 06:15 WBC 32.7 H RBC 4.67 Hgb 13.5 L Hct 41.8 L MCV 89.5 MCH 28.9 MCHC 32.3 RDW 13.8 Plt Count 330 MPV 9.0 Immature Gran % (Auto) 2.0 H Neut % (Auto) 85.2 H Lymph % (Auto) 7.8 L [place] % (Auto) 4.6 Eos % (Auto) 0.2 Baso % (Auto) 0.2 Lymph # (Auto) 2.54 [place] # (Auto) 1.5 H Eos # (Auto) 0.1 Baso # (Auto) 0.1 Abs Immat Gran (auto) 0.64 H Absolute Neuts (auto) 27.9 H Absolute Nucleated RBC 0.000 Nucleated RBC % 0.0 Sodium 137 Potassium 3.9 Chloride 100 Carbon Dioxide 28 Anion Gap 9 BUN 15 Creatinine 0.78 Estim Creat Clear Calc 102 Estimated GFR > 60 Glucose 131 H Calcium 8.5 Total Bilirubin 1.1 AST 49 ALT 222 H Alkaline Phosphatase 281 H Total Protein 7.0 Albumin 3.4 L Lipase 266
[2024-12-02] MEDS: SUCRALFATE SUSP 100 MG/ML 10 ML UDC 1000 MG PO (20:30)
[2024-12-02] MEDS: diphenhydrAMINE HCl INJ 50 MG/ML VIAL 25 MG IV PUSH (21:01)
[2024-12-02] MEDS: PANTOPRAZOLE SODIUM IV 40 MG VIAL IV PUSH (21:03)
[2024-12-03] VITALS (8 sets, daily range): BP systolic 152–169; BP diastolic 93–98; PULSE 94–106; RESP 16–18; TEMP 37.2–38.5; O2SAT 93–97
[2024-12-03] MEDS: MORPHINE SULFATE (*CRX) 2 MG/ML INJ IV PUSH ×3 (00:23→17:51)
[2024-12-03] MEDS: HYDROcodone/acetaminophen (*CRX) 5-325 MG TABLET 1 TAB PO ×3 (01:01→15:21)
[2024-12-03] MEDS: PIPERACILLN/TAZ 3.375GM/NS50ML 3.375 GM/50 ML BAG IVPB ×4 (03:36→22:30)
[2024-12-03] MEDS: MORPHINE SULFATE (*CRX) 4 MG/ML INJ IV PUSH ×2 (05:24→08:34)
[2024-12-03] MEDS: SUCRALFATE SUSP 100 MG/ML 10 ML UDC 1000 MG PO ×4 (05:30→20:25)
[2024-12-03 06:36] LABS: Basophils Percent Auto 0.1 % (0.2-1.2); Eosinophils Absolute Auto 0.2 K/mm3 (0-0.3); Eosinophils Percent Auto 0.7 % (0-4.4); Hematocrit 37.9 % (42.0-52.0); Hemoglobin 12.2 g/dL (14.0-18.0); Immature Granulocyte Absolute 0.12 K/mm3 (0.00-0.031); Immature Granulocyte Percent A 0.6 % (0-0.5); Lymphocytes Absolute Auto 1.87 K/mm3 (0.9-3.2); Lymphocytes Percent Auto 9.3 % (18.3-44.2); Mean Corpuscular HGB Conc 32.2 g/dl (32-36); Mean Corpuscular Hemoglobin 28.5 pg (26-34); Mean Corpuscular Volume 88.6 fl (80-100); Mean Platelet Volume 9.3 fl (7.4-10.4); Monocytes Absolute Auto 1.1 K/mm3 (0.1-0.6); Monocytes Percent Auto 5.6 % (2.6-8.5); Neutrophils Absolute Auto 16.8 K/mm3 (1.3-6.7); Neutrophils Percent Auto 83.7 % (45.5-73.1); Platelet Count Result 349 k/mm3 (150-375); Red Blood Count 4.28 M/mm3 (4.6-6.20); White Blood Count 20.1 K/mm3 (4.5-10.0)
[2024-12-03 06:46] LABS: Alanine Aminotransferase 183 U/L (6-50); Albumin Level 3.1 g/dL (3.5-5.1); Alkaline Phosphatase 420 U/L (38-126); Anion Gap 7 mmol/L (4-12); Aspartate Amino Transferase 86 U/L (17-59); Bilirubin,Total 2.8 mg/dL (0.2-1.3); Blood Urea Nitrogen 14 mg/dL (9-20); Calcium 8.3 mg/dL (8.4-10.2); Carbon Dioxide 28 mmol/L (22-30); Chloride 100 mmol/L (98-107); Estimated CRCL calculation 106 ml/min; Estimated Glomerular Filt Rate > 60; Glucose 125 mg/dL (65-110); Potassium 3.8 mmol/L (3.4-5.0); Sodium 135 mmol/L (137-145)
--- NOTE | 2024-12-03 07:17 | P.PNIM_ITS ---
Progress Note: A&P Assessment and Plan (1) Cholecystitis: Code(s): K81.9 - Cholecystitis, unspecified Status: Acute Assessment and Plan: - Abdomen/pelvis CT mild intrahepatic and extrahepatic biliary duct dilatation with possible filling defect distal common bile duct, 2.2 cm liver mass which may be benign or malignant, distended gallbladder with surrounding fat stranding suspicious for acute cholecystitis, small sliding hiatal hernia - MRCP mild intrahepatic and extrahepatic biliary duct dilatation was sludge in the distal common duct, distended gallbladder with gallstones and gallbladder wall thickening suspicious for acute cholecystitis, 2.3 cm hyper enhancing liver mass and noted in the absence of known malignancy this is likely Hemangioma or focal nodular hyperplasia - ERCP reflux esophagitis, esophageal stricture and previous pancreatic surgery - IV pain management - Gentle IV fluid resuscitation - Antibiotics: Zosyn 3.375 mg every 6 hours started 11/29, doxycycline 100 mg BID started 12/02 - Diet: advance as tolerated - Monitor vital signs, I and O's, check stool output, neuro status and patient is a fall risk - Monitor serum electrolytes and CBC - Monitor lactic acid - Consult general surgery s/p Laparoscopic cholecystectomy with intraoperative cholangiogram on 11/[address] Abdalla - GI consulted EGD in 3-4 months to assess healing, no nsaid use iv protonix BID and carafate with meals Patient endorsing increased abdominal pain requiring IV pain medication. Seems more incisional in nature however he has not had a bowel movement since prior to surgery. KUB showing normal bowel gas pattern. Patient also endorsing epigastric pain, possibly related to esophageal stricture seen on EGD. (2) Common bile duct dilatation: Code(s): K83.8 - Other specified diseases of biliary tract Status: Acute Assessment and Plan: see above (3) Liver mass: Code(s): R16.0 - Hepatomegaly, not elsewhere classified Status: Acute Assessment and Plan: * Liver mass shown on abdomen pelvis CT * MRCP showed mass is likely hemangioma or focal nodular hyperplasia in the absence of known malignancy * GI following (4) Elevated liver enzymes: Code(s): R74.8 - Abnormal levels of other serum enzymes Status: Acute Assessment and Plan: - Initial total bilirubin 3.0, AST 349, ALT 447, alkaline phosphate 527, now tot bili 2.8, AST 86, ALT 183, alk phos 420 on am labs LFTs have doubled since labs yesterday however likely due to patients ERCP Continue to trend (5) Gastroesophageal reflux disease: Qualifiers: Esophagitis presence: esophagitis presence not specified Qualified Code(s): K21.9 - Gastro-esophageal reflux disease without esophagitis Code(s): K21.9 - Gastro-esophageal reflux disease without esophagitis Status: Acute Assessment and Plan: * started Protonix Time Spent With Patient Time with patient: 25 - 35 minutes Subjective Date/time seen: 12/03/24 07:17 Interval history: 54-year-old male with a significant past medical history of GERD and appendectomy who presented to the emergency room with complaints of abdominal pain. Patient is pleasant lying in bed. He continues to endorse severe incisional pain require pain medication regularly. He states that he has not had a bowel movement since prior to surgery. He denies any nausea or vomiting but notes increased epigastric pain and indigestion. He has no other complaints denying chest pain, shortness of breath, palpitations. He continues to ambulate around the nursing station. Review of Systems Review of Systems: All systems reviewed & are unremarkable except as noted in HPI and below Exam Narrative: AF HR 102 RR 18 SpO2 94 BP 152/93 General: male in no acute respiratory distress who is nontoxic appearing, lying semi recumbent in bed. HEENT: Normocephalic. Atraumatic. Extraocular movement intact. Sclera clear and anicteric. No facial asymmetry. Chest: Lungs are clear to auscultation bilaterally. No wheezes or crackles. CV: Heart was regular rate and rhythm. S1/S2. No murmurs, gallops, or rubs. Abd: Abdomen was soft. Tender to palpation. Nondistended. Hypoactive bowel sounds. Incisions are well healing. Ext: No clubbing, cyanosis, or edema. Objective Data Vital Signs Vital Signs: Vital Signs - 24 hr 12/02/24 08:00 12/02/24 08:00 12/02/24 11:53 Temperature 95.9 F L 97.5 F L Pulse Rate 108 H 108 H 90 Respiratory Rate 18 18 16 Blood Pressure 160/97 H 167/110 H Pulse Oximetry 95 95 96 Oxygen Delivery Room Air Room Air Oxygen Flow Rate 12/02/24 13:27 12/02/24 13:37 12/02/24 13:47 Temperature 98.1 F Pulse Rate 102 H 105 H 95 Respiratory Rate 16 18 18 Blood Pressure 143/92 H 145/100 H 147/96 H Pulse Oximetry 100 100 100 Oxygen Delivery Simple Face Mask Simple Face Mask Simple Face Mask Oxygen Flow Rate 6 6 4 12/02/24 13:57 12/02/24 14:07 12/02/24 14:17 Temperature Pulse Rate 93 99 87 Respiratory Rate 18 18 18 Blood Pressure 152/97 H 167/92 H 174/98 H Pulse Oximetry 100 100 98 Oxygen Delivery Room Air Room Air Room Air Oxygen Flow Rate 12/02/24 16:00 12/02/24 20:00 12/02/24 20:30 Temperature 98.9 F Pulse Rate 104 H 109 H Respiratory Rate 18 18 Blood Pressure 143/100 H 145/89 H Pulse Oximetry 97 95 Oxygen Delivery Room Air Oxygen Flow Rate 12/03/24 04:00 Temperature 99.1 F Pulse Rate 102 H Respiratory Rate 18 Blood Pressure 152/93 H Pulse Oximetry 94 Oxygen Delivery Oxygen Flow Rate Intake/Output Intake/Output: Intake & Output 11/30/24 12/02/24 12/02/24 12/03/24 23:59 00:59 23:59 23:59 Intake Total 1530 1420 1290 50 Balance 1530 1420 1290 50 Meds/Results Medications: Active Medications Generic Name Dose Route Start Last Admin Trade Name Freq PRN Reason Stop Dose Admin Hydrocodone Bitart/Acetaminophen 1 tab 11/29/24 16:55 12/03/24 06:05 Hydrocodone/Acetaminophen (*Crx) 5-325 Mg Tablet PO 1 tab Q4H PRN Administration Pain Rated 4-6 Hydrocodone Bitart/Acetaminophen 1 tab 11/29/24 16:55 12/02/24 16:05 Hydrocodone/Acetaminophen (*Crx) 10-325 Mg Tablet PO 1 tab Q4H PRN Administration Pain Rated 7-10 Calcium Carbonate 200 mg 12/02/24 02:57 12/02/24 22:44 Calcium Carbonate (Tums) 500 Mg (200 Mg Elemental) PO 200 mg Q6H PRN Administration Indigestion Diphenhydramine HCl 25 mg 11/29/24 16:55 12/02/24 21:01 Diphenhydramine Hcl Inj 50 Mg/Ml Vial IV PUSH 25 mg Q6H PRN Administration Itching Enoxaparin Sodium 40 mg 11/30/24 09:00 12/02/24 10:26 Enoxaparin 40 Mg/0.4 Ml Syringe SUB-Q Not Given DAILY [facility] Fish Oil 1 gm 11/30/24 09:00 12/02/24 10:29 [place] 3 Polyunsat Fatty Acids 1 Gm Cap PO Not Given QAM [facility] Piperacillin/Tazobactam/Dextrose 3.375 gm in 50 mls @ 100 mls/hr 11/29/24 10:00 12/03/24 04:06 Zosyn 3.375 Gm/Ns 50 Ml IVPB Infused Q6H [facility] Infusion Doxycycline Hyclate 100 mg in 100 mls @ 100 mls/hr 12/02/24 08:00 12/02/24 22:03 Vibramycin 100 Mg/Ns 100 Ml IVPB Infused Q12HR [facility] Infusion Losartan Potassium 25 mg 11/30/24 10:35 12/02/24 10:26 Losartan Potassium 25 Mg Tablet PO Not Given DAILY [facility] Morphine Sulfate 2 mg 11/29/24 16:55 12/03/24 03:35 Morphine Sulfate (*Crx) 2 Mg/Ml Inj IV PUSH 2 mg Q2H PRN Administration Breakthrough Pain Rated 4-6 or NPO Morphine Sulfate 4 mg 11/29/24 16:55 12/03/24 05:24 Morphine Sulfate (*Crx) 4 Mg/Ml Inj IV PUSH 4 mg Q2H PRN Administration Breakthrough Pain Rated 7-10 or NPO Multivitamins Therapeutic 1 tablet 11/30/24 09:00 12/02/24 10:26 Multivitamins Therapeutic Tab (*Bkc) PO Not Given DAILY [facility] Naloxone HCl 0.1 mg 11/29/24 16:55 Naloxone Hcl 0.4 Mg/Ml Vial IV PUSH Q2M PRN Opiate Reversal Pantoprazole Sodium 40 mg 12/02/24 21:00 12/02/24 21:03 Pantoprazole Sodium Iv 40 Mg Vial IV PUSH 40 mg Q12HR [facility] Administration Prochlorperazine Edisylate 10 mg 12/02/24 16:24 Prochlorperazine Edisylate 10 Mg/2 Ml Vial IV PUSH 12/04/24 08:00 Q6H PRN Nausea And Vomiting Rosuvastatin Calcium 20 mg 11/30/24 09:00 12/02/24 10:59 Rosuvastatin 20 Mg Tablet PO Not Given DAILY [facility] Sucralfate 1,000 mg 12/02/24 16:30 12/03/24 05:30 Sucralfate Susp 100 Mg/Ml 10 Ml Udc PO 1,000 mg ACHS [facility] Administration Vitamin D 4,000 units 11/30/24 09:00 12/02/24 10:26 Cholecalciferol 1,000 Units Tablet PO Not Given DAILY [facility] Radiology Results: ITS Impressions Abdomen/Pelvis CT 11/29/24 07:14 IMPRESSION: 1. Mild intrahepatic and extrahepatic biliary duct dilatation with possible filling defect distal common bile duct. MRCP without and with contrast is recommended. 2. 2.2 cm liver mass, which may be benign or malignant. MRCP without and with contrast is recommended. 3. Distended gallbladder with surrounding fat stranding suspicious for acute ch olecystitis. 4. Small sliding hiatal hernia. MRCP 11/29/24 10:47 IMPRESSION: 1. Mild intrahepatic and extrahepatic biliary duct dilatation with sludge in the distal common duct. 2. Distended gallbladder with gallstones and gallbladder wall thickening suspicious for acute cholecystitis. 3. 2.3 cm hyperenhancing liver mass. In the absence of known malignancy, this finding is likely a hemangioma or focal nodular hyperplasia. Cholangiogram,Operative 11/29/24 14:55 IMPRESSION: 1. Filling defects in the distal common bile duct, which may be sludge or stones. Neoplasm is not excluded. ERCP is recommended. 2. Intrahepatic and extrahepatic biliary duct dilatation. Chest X-Ray 11/30/24 08:38 IMPRESSION: 1. Mild atelectasis in the lower lung zones and mild scarring at left lung apex. Endo Retro Cholangiopancreatogram 12/02/24 14:27 IMPRESSION: 1. Balloon sweeping of the common duct. Please refer to the ERCP procedure note for additional details. Labs Labs: Laboratory Results - last 24 hr 12/02/24 12/03/24 06:15 06:03 WBC 32.7 H RBC 4.67 Hgb 13.5 L Hct 41.8 L MCV 89.5 MCH 28.9 MCHC 32.3 RDW 13.8 Plt Count 330 MPV 9.0 Immature Gran % (Auto) 2.0 H Neut % (Auto) 85.2 H Lymph % (Auto) 7.8 L [place] % (Auto) 4.6 Eos % (Auto) 0.2 Baso % (Auto) 0.2 Lymph # (Auto) 2.54 [place] # (Auto) 1.5 H Eos # (Auto) 0.1 Baso # (Auto) 0.1 Abs Immat Gran (auto) 0.64 H Absolute Neuts (auto) 27.9 H Absolute Nucleated RBC 0.000 Nucleated RBC % 0.0 Sodium 135 L Potassium 3.8 Chloride 100 Carbon Dioxide 28 Anion Gap 7 BUN 14 Creatinine 0.75 Estim Creat Clear Calc 106 Estimated GFR > 60 Glucose 125 H Calcium 8.3 L Magnesium 2.0 Total Bilirubin 2.8 H AST 86 H ALT 183 H Alkaline Phosphatase 420 H Total Protein 6.0 L Albumin 3.1 L Quality VTE Prophylaxis VTE prophylaxis: mechanical ordered
[2024-12-03] MEDS: DOXYCYCLINE 100 MG/NS 100 ML 100 MG/100 ML BAG IVPB (08:31)
[2024-12-03] MEDS: LOSARTAN POTASSIUM 25 MG TABLET PO (08:33)
[2024-12-03] MEDS: OMEGA 3 POLYUNSAT FATTY ACIDS 1 GM CAP PO (08:33)
[2024-12-03] MEDS: CALCIUM CARBONATE (TUMS) 500 MG (200 MG ELEMENTAL) PO (08:33)
[2024-12-03] MEDS: MULTIVITAMINS THERAPEUTIC TAB (*BKC) 1 TABLET PO (08:33)
[2024-12-03] MEDS: CHOLECALCIFEROL 1,000 UNITS TABLET 4000 UNITS PO (08:33)
[2024-12-03] MEDS: ENOXAPARIN 40 MG/0.4 ML SYRINGE SUB-Q (08:33)
[2024-12-03] MEDS: ROSUVASTATIN 20 MG TABLET PO (08:33)
[2024-12-03] MEDS: PANTOPRAZOLE SODIUM IV 40 MG VIAL IV PUSH ×2 (08:34→20:24)
--- NOTE | 2024-12-03 16:08 | P.PNGI_ITS ---
Progress Note: A&P Assessment and Plan (1) Choledocholithiasis: Code(s): K80.50 - Calculus of bile duct without cholangitis or cholecystitis without obstruction Status: Acute Assessment and Plan: s/p ercp yesterday with sphincterotomy and balloon sweep of sludge, no bile leak still recovering, he has upper abdominal pain but wonder if could be mostly from ulcerative esophagitis- this was dilated with balloon because unable to traverse safely with ERCP scope (2) Cholecystitis: Code(s): K81.9 - Cholecystitis, unspecified Status: Acute Assessment and Plan: s/p surgery and ercp (3) Abdominal pain: Qualifiers: Abdominal location: epigastric Qualified Code(s): R10.13 - Epigastric pain Code(s): R10.9 - Unspecified abdominal pain Status: Acute Assessment and Plan: with GERD symptom iv protonix bid carafate with meals will check another amylase yesterday (4) Elevated liver enzymes: Code(s): R74.8 - Abnormal levels of other serum enzymes Status: Acute Assessment and Plan: still elevated, monitor (5) SIRS (systemic inflammatory response syndrome): Code(s): R65.10 - Systemic inflammatory response syndrome (SIRS) of non-infectious origin without acute organ dysfunction Status: Acute Assessment and Plan: on doxy (will discontinue) and zosyn (6) Leukocytosis: Code(s): D72.829 - Elevated white blood cell count, unspecified Status: Acute Assessment and Plan: trending down (7) Ulcerative esophagitis: Code(s): K22.10 - Ulcer of esophagus without bleeding Status: Acute Assessment and Plan: iv bid consider repeat egd in 3-4 months to assess healing no more nsaid's (8) Esophageal stricture: Code(s): K22.2 - Esophageal obstruction Status: Acute (9) Constipation: Code(s): K59.00 - Constipation, unspecified Status: Acute Assessment and Plan: kub ok post op and narcotics s/p relistor will add one dose of lactulose Subjective Date/time seen: 12/03/24 16:08 Interval history: yesterday noted ulcerative esophagitis with stricture- this was also dilated and then completed ERCP with sphincterotomy and balloon sweep. Today with reflux and still epigastric discomfort/regurgitation still no BM Review of Systems Review of Systems: All systems reviewed & are unremarkable except as noted in HPI and below Exam Const: General: no acute distress and uncomfortable Orientation/consciousness: patient oriented x3 HENMT: Face/Nose/Sinus: Normal nares present Eyes: General: appearance normal, both eyes and all related structures Neck: Neck: supple Resp: Effort & Inspection: normal respiratory effort Cardio: Rate: regular rate GI: Inspection: non-distended and incision (dry and glue intact) GI Palp: Yes Soft to palpation, Yes Tenderness to palpation present (GI) (epigastric area), No Guarding due to palpation present (GI) and No Rebound tenderness present Auscultation: Hypoactive bowel sounds present Skin: General skin exam: no rashes or lesions noted Neuro: Speech: normal speech Motor exam (neuro): 5/5 motor strength present throughout Extrem: General: normal to inspection Psych: Mental Status: mental status grossly normal Objective Data Vital Signs Vital Signs: Vital Signs - 24 hr 12/02/24 20:00 12/02/24 20:30 12/03/24 04:00 Temperature 98.9 F 99.1 F Pulse Rate 109 H 102 H Respiratory Rate 18 18 Blood Pressure 145/89 H 152/93 H Pulse Oximetry 95 94 Oxygen Delivery Room Air 12/03/24 08:00 12/03/24 08:30 12/03/24 12:00 Temperature 100.4 F H 99.3 F Pulse Rate 99 106 H Respiratory Rate 18 18 Blood Pressure 163/94 H 156/94 H Pulse Oximetry 93 97 Oxygen Delivery Room Air Intake/Output Intake/Output: Intake & Output 11/30/24 12/02/24 12/02/24 12/03/24 23:59 00:59 23:59 23:59 Intake Total 1530 1420 1290 580 Balance 1530 1420 1290 580 Meds/Results Medications: Active Medications Generic Name Dose Route Start Last Admin Trade Name Freq PRN Reason Stop Dose Admin Hydrocodone Bitart/Acetaminophen 1 tab 11/29/24 16:55 12/03/24 15:21 Hydrocodone/Acetaminophen (*Crx) 5-325 Mg Tablet PO 1 tab Q4H PRN Administration Pain Rated 4-6 Hydrocodone Bitart/Acetaminophen 1 tab 11/29/24 16:55 12/02/24 16:05 Hydrocodone/Acetaminophen (*Crx) 10-325 Mg Tablet PO 1 tab Q4H PRN Administration Pain Rated 7-10 Calcium Carbonate 200 mg 12/02/24 02:57 12/03/24 08:33 Calcium Carbonate (Tums) 500 Mg (200 Mg Elemental) PO 200 mg Q6H PRN Administration Indigestion Diphenhydramine HCl 25 mg 11/29/24 16:55 12/02/24 21:01 Diphenhydramine Hcl Inj 50 Mg/Ml Vial IV PUSH 25 mg Q6H PRN Administration Itching Enoxaparin Sodium 40 mg 11/30/24 09:00 12/03/24 08:33 Enoxaparin 40 Mg/0.4 Ml Syringe SUB-Q 40 mg DAILY ADOLFO Administration Fish Oil 1 gm 11/30/24 09:00 12/03/24 08:33 [place] 3 Polyunsat Fatty Acids 1 Gm Cap PO 1 gm QAM ADOLFO Administration Piperacillin/Tazobactam/Dextrose 3.375 gm in 50 mls @ 100 mls/hr 11/29/24 10:00 12/03/24 15:22 Zosyn 3.375 Gm/Ns 50 Ml IVPB 100 mls/hr Q6H ADOLFO Administration Lactulose 20 gm 12/03/24 16:07 Lactulose 20 Gm/30 Ml Udc PO 12/03/24 16:08 ONCE ONE Losartan Potassium 25 mg 11/30/24 10:35 12/03/24 08:33 Losartan Potassium 25 Mg Tablet PO 25 mg DAILY ADOLFO Administration Morphine Sulfate 2 mg 11/29/24 16:55 12/03/24 03:35 Morphine Sulfate (*Crx) 2 Mg/Ml Inj IV PUSH 2 mg Q2H PRN Administration Breakthrough Pain Rated 4-6 or NPO Multivitamins Therapeutic 1 tablet 11/30/24 09:00 12/03/24 08:33 Multivitamins Therapeutic Tab (*Bkc) PO 1 tablet DAILY ADOLFO Administration Naloxone HCl 0.1 mg 11/29/24 16:55 Naloxone Hcl 0.4 Mg/Ml Vial IV PUSH Q2M PRN Opiate Reversal Pantoprazole Sodium 40 mg 12/02/24 21:00 12/03/24 08:34 Pantoprazole Sodium Iv 40 Mg Vial IV PUSH 40 mg Q12HR ADOLFO Administration Polyethylene Glycol 17 gm 12/03/24 13:27 Polyethylene Glycol 3350 17 Gm Powd.Pack PO QAM PRN Constipation Prochlorperazine Edisylate 10 mg 12/02/24 16:24 Prochlorperazine Edisylate 10 Mg/2 Ml Vial IV PUSH 12/04/24 08:00 Q6H PRN Nausea And Vomiting Rosuvastatin Calcium 20 mg 11/30/24 09:00 12/03/24 08:33 Rosuvastatin 20 Mg Tablet PO 20 mg DAILY ADOLFO Administration Senna/Docusate Sodium 1 tab 12/03/24 21:00 Senna/Docusate Sodium Tablet PO HS ADOLFO Sucralfate 1,000 mg 12/02/24 16:30 12/03/24 15:31 Sucralfate Susp 100 Mg/Ml 10 Ml Udc PO 1,000 mg ACHS ADOLFO Administration Vitamin D 4,000 units 11/30/24 09:00 12/03/24 08:33 Cholecalciferol 1,000 Units Tablet PO 4,000 units DAILY ADOLFO Administration Radiology Results: ITS Impressions Abdomen/Pelvis CT 11/29/24 07:14 IMPRESSION: 1. Mild intrahepatic and extrahepatic biliary duct dilatation with possible filling defect distal common bile duct. MRCP without and with contrast is recommended. 2. 2.2 cm liver mass, which may be benign or malignant. MRCP without and with contrast is recommended. 3. Distended gallbladder with surrounding fat stranding suspicious for acute cholecystitis. 4. Small sliding hiatal hernia. MRCP 11/29/24 10:47 IMPRESSION: 1. Mild intrahepatic and extrahepatic biliary duct dilatation with sludge in the distal common duct. 2. Distended gallbladder with gallstones and gallbladder wall thickening suspicious for acute cholecystitis. 3. 2.3 cm hyperenhancing liver mass. In the absence of known malignancy, this finding is likely a hemangioma or focal nodular hyperplasia. Cholangiogram,Operative 11/29/24 14:55 IMPRESSION: 1. Filling defects in the distal common bile duct, which may be sludge or stones. Neoplasm is not excluded. ERCP is recommended. 2. Intrahepatic and extrahepatic biliary duct dilatation. Chest X-Ray 11/30/24 08:38 IMPRESSION: 1. Mild atelectasis in the lower lung zones and mild scarring at left lung apex. Endo Retro Cholangiopancreatogram 12/02/24 14:27 IMPRESSION: 1. Balloon sweeping of the common duct. Please refer to the ERCP procedure note for additional details. Abdomen X-Ray 12/03/24 14:18 IMPRESSION: 1. Normal bowel gas pattern. Labs Labs: Laboratory Results - last 24 hr 12/03/24 06:03 WBC 20.1 H RBC 4.28 L Hgb 12.2 L Hct 37.9 L MCV 88.6 MCH 28.5 MCHC 32.2 RDW 14.0 Plt Count 349 MPV 9.3 Immature Gran % (Auto) 0.6 H Neut % (Auto) 83.7 H Lymph % (Auto) 9.3 L [place] % (Auto) 5.6 Eos % (Auto) 0.7 Baso % (Auto) 0.1 L Lymph # (Auto) 1.87 [place] # (Auto) 1.1 H Eos # (Auto) 0.2 Baso # (Auto) 0.0 Abs Immat Gran (auto) 0.12 H Absolute Neuts (auto) 16.8 H Absolute Nucleated RBC 0.000 Nucleated RBC % 0.0 Sodium 135 L Potassium 3.8 Chloride 100 Carbon Dioxide 28 Anion Gap 7 BUN 14 Creatinine 0.75 Estim Creat Clear Calc 106 Estimated GFR > 60 Glucose 125 H Calcium 8.3 L Magnesium 2.0 Total Bilirubin 2.8 H AST 86 H ALT 183 H Alkaline Phosphatase 420 H Total Protein 6.0 L Albumin 3.1 L
--- NOTE | 2024-12-03 16:15 | P.PNGS_ITS ---
Progress Note: A&P Assessment and Plan (1) Acute calculous cholecystitis: Code(s): K80.00 - Calculus of gallbladder with acute cholecystitis without obstruction Status: Acute Assessment and Plan: * WBC trending down to 20,000. ERCP yesterday successful. Still having epigastric abdominal pain. Ulcerative esophagitis could be contributing, but we will repeat labs tomorrow and include lipase. ERCP showed no bile leak. (2) Elevated liver enzymes: Code(s): R74.8 - Abnormal levels of other serum enzymes Status: Acute Assessment and Plan: * LFTs up after ERCP yesterday when CBD stone and sludge was successfully removed, trend labs tomorrow (3) Pancreatitis due to biliary obstruction: Qualifiers: Chronicity: acute Acute pancreatitis complication: unspecified Qualified Code(s): K85.10 - Biliary acute pancreatitis without necrosis or infection Code(s): K85.90 - Acute pancreatitis without necrosis or infection, unspecified; K83.1 - Obstruction of bile duct Status: Acute Assessment and Plan: * Repeat lipase tomorrow, continues to have epigastric abdominal pain. May need to consider repeating CT if no improvement. Plan I have discussed the patient's case and plan of care with Dr. Abdalla. Subjective Subjective Date/Time Seen: 12/03/24 16:15 Post Op day: 4 (Laparoscopic cholecytectomy) Patient reports: still having pain, tolerating liquids well, voiding w/o difficulty, no flatus, no bowel movement and fever (low grade temp 100.4F this am) Interval history: Patient reports nausea is better today. No vomiting. His epigastric abdominal pain is about the same or possibly slightly worse today. He denies any other new complaints. No flatus or BM since surgery. He was started on Senokot and PRN miralax (but has not received a dose). He feels like he could have a BM soon. KUB today showed normal bowel gas pattern. He also reports feeling today like there are things stuck in his throat when trying to swallow both liquids and solids. Exam Const: General: no acute distress and uncomfortable Orientation/consciousness: patient oriented x3 Resp: Effort & Inspection: normal respiratory effort Auscultation: clear to auscultation bilaterally Cardio: Rate: regular rate Rhythm: regular rhythm GI: Inspection: incision (dry and glue intact, no erythema or drainage) and other (mildly distended) GI Palp: Yes Soft to palpation, Yes Tenderness to palpation present (GI) (epigastric), No Guarding due to palpation present (GI) and No Rebound tenderness present Auscultation: Hypoactive bowel sounds present Extrem: General: no calf tenderness and no edema Objective Data Vital Signs Vital Signs: Vital Signs - 24 hr 12/02/24 20:00 12/02/24 20:30 12/03/24 04:00 Temperature 98.9 F 99.1 F Pulse Rate 109 H 102 H Respiratory Rate 18 18 Blood Pressure 145/89 H 152/93 H Pulse Oximetry 95 94 Oxygen Delivery Room Air 12/03/24 08:00 12/03/24 08:30 12/03/24 12:00 Temperature 100.4 F H 99.3 F Pulse Rate 99 106 H Respiratory Rate 18 18 Blood Pressure 163/94 H 156/94 H Pulse Oximetry 93 97 Oxygen Delivery Room Air Intake/Output Intake/Output: Intake & Output 11/30/24 12/02/24 12/02/24 12/03/24 23:59 00:59 23:59 23:59 Intake Total 1530 1420 1290 580 Balance 1530 1420 1290 580 Meds/Results Medications: Active Medications Generic Name Dose Route Start Last Admin Trade Name Freq PRN Reason Stop Dose Admin Hydrocodone Bitart/Acetaminophen 1 tab 11/29/24 16:55 12/03/24 15:21 Hydrocodone/Acetaminophen (*Crx) 5-325 Mg Tablet PO 1 tab Q4H PRN Administration Pain Rated 4-6 Hydrocodone Bitart/Acetaminophen 1 tab 11/29/24 16:55 12/02/24 16:05 Hydrocodone/Acetaminophen (*Crx) 10-325 Mg Tablet PO 1 tab Q4H PRN Administration Pain Rated 7-10 Calcium Carbonate 200 mg 12/02/24 02:57 12/03/24 08:33 Calcium Carbonate (Tums) 500 Mg (200 Mg Elemental) PO 200 mg Q6H PRN Administration Indigestion Diphenhydramine HCl 25 mg 11/29/24 16:55 12/02/24 21:01 Diphenhydramine Hcl Inj 50 Mg/Ml Vial IV PUSH 25 mg Q6H PRN Administration Itching Enoxaparin Sodium 40 mg 11/30/24 09:00 12/03/24 08:33 Enoxaparin 40 Mg/0.4 Ml Syringe SUB-Q 40 mg DAILY ADOLFO Administration Fish Oil 1 gm 11/30/24 09:00 12/03/24 08:33 [place] 3 Polyunsat Fatty Acids 1 Gm Cap PO 1 gm QAM ADOLFO Administration Piperacillin/Tazobactam/Dextrose 3.375 gm in 50 mls @ 100 mls/hr 11/29/24 10:00 12/03/24 15:22 Zosyn 3.375 Gm/Ns 50 Ml IVPB 100 mls/hr Q6H ADOLFO Administration Losartan Potassium 25 mg 11/30/24 10:35 12/03/24 08:33 Losartan Potassium 25 Mg Tablet PO 25 mg DAILY ADOLFO Administration Morphine Sulfate 2 mg 11/29/24 16:55 12/03/24 03:35 Morphine Sulfate (*Crx) 2 Mg/Ml Inj IV PUSH 2 mg Q2H PRN Administration Breakthrough Pain Rated 4-6 or NPO Multivitamins Therapeutic 1 tablet 11/30/24 09:00 12/03/24 08:33 Multivitamins Therapeutic Tab (*Bkc) PO 1 tablet DAILY ADOLFO Administration Naloxone HCl 0.1 mg 11/29/24 16:55 Naloxone Hcl 0.4 Mg/Ml Vial IV PUSH Q2M PRN Opiate Reversal Pantoprazole Sodium 40 mg 12/02/24 21:00 12/03/24 08:34 Pantoprazole Sodium Iv 40 Mg Vial IV PUSH 40 mg Q12HR ADOLFO Administration Polyethylene Glycol 17 gm 12/03/24 13:27 Polyethylene Glycol 3350 17 Gm Powd.Pack PO QAM PRN Constipation Prochlorperazine Edisylate 10 mg 12/02/24 16:24 Prochlorperazine Edisylate 10 Mg/2 Ml Vial IV PUSH 12/04/24 08:00 Q6H PRN Nausea And Vomiting Rosuvastatin Calcium 20 mg 11/30/24 09:00 12/03/24 08:33 Rosuvastatin 20 Mg Tablet PO 20 mg DAILY ADOLFO Administration Senna/Docusate Sodium 1 tab 12/03/24 21:00 Senna/Docusate Sodium Tablet PO HS ADOLFO Sucralfate 1,000 mg 12/02/24 16:30 12/03/24 15:31 Sucralfate Susp 100 Mg/Ml 10 Ml Udc PO 1,000 mg ACHS ADOLFO Administration Vitamin D 4,000 units 11/30/24 09:00 12/03/24 08:33 Cholecalciferol 1,000 Units Tablet PO 4,000 units DAILY ADOLFO Administration Radiology Results: ITS Impressions Abdomen/Pelvis CT 11/29/24 07:14 IMPRESSION: 1. Mild intrahepatic and extrahepatic biliary duct dilatation with possible filling defect distal common bile duct. MRCP without and with contrast is recommended. 2. 2.2 cm liver mass, which may be benign or malignant. MRCP without and with contrast is recommended. 3. Distended gallbladder with surrounding fat stranding suspicious for acute cholecystitis. 4. Small sliding hiatal hernia. MRCP 11/29/24 10:47 IMPRESSION: 1. Mild intrahepatic and extrahepatic biliary duct dilatation with sludge in the distal common duct. 2. Distended gallbladder with gallstones and gallbladder wall thickening suspicious for acute cholecystitis. 3. 2.3 cm hyperenhancing liver mass. In the absence of known malignancy, this finding is likely a hemangioma or focal nodular hyperplasia. Cholangiogram,Operative 11/29/24 14:55 IMPRESSION: 1. Filling defects in the distal common bile duct, which may be sludge or stones. Neoplasm is not excluded. ERCP is recommended. 2. Intrahepatic and extrahepatic biliary duct dilatation. Chest X-Ray 11/30/24 08:38 IMPRESSION: 1. Mild atelectasis in the lower lung zones and mild scarring at left lung apex. Endo Retro Cholangiopancreatogram 12/02/24 14:27 IMPRESSION: 1. Balloon sweeping of the common duct. Please refer to the ERCP procedure note for additional details. Abdomen X-Ray 12/03/24 14:18 IMPRESSION: 1. Normal bowel gas pattern. Labs Labs: Laboratory Results - last 24 hr 12/03/24 06:03 WBC 20.1 H RBC 4.28 L Hgb 12.2 L Hct 37.9 L MCV 88.6 MCH 28.5 MCHC 32.2 RDW 14.0 Plt Count 349 MPV 9.3 Immature Gran % (Auto) 0.6 H Neut % (Auto) 83.7 H Lymph % (Auto) 9.3 L [place] % (Auto) 5.6 Eos % (Auto) 0.7 Baso % (Auto) 0.1 L Lymph # (Auto) 1.87 [place] # (Auto) 1.1 H Eos # (Auto) 0.2 Baso # (Auto) 0.0 Abs Immat Gran (auto) 0.12 H Absolute Neuts (auto) 16.8 H Absolute Nucleated RBC 0.000 Nucleated RBC % 0.0 Sodium 135 L Potassium 3.8 Chloride 100 Carbon Dioxide 28 Anion Gap 7 BUN 14 Creatinine 0.75 Estim Creat Clear Calc 106 Estimated GFR > 60 Glucose 125 H Calcium 8.3 L Magnesium 2.0 Total Bilirubin 2.8 H AST 86 H ALT 183 H Alkaline Phosphatase 420 H Total Protein 6.0 L Albumin 3.1 L
[2024-12-03] MEDS: LACTULOSE 20 GM/30 ML UDC PO (17:13)
[2024-12-03] MEDS: ACETAMINOPHEN 325 MG TABLET 650 MG PO (18:58)
[2024-12-03] MEDS: HYDROcodone/acetaminophen (*CRX) 10-325 MG TABLET 1 TAB PO (20:24)
[2024-12-03] MEDS: SENNA/DOCUSATE SODIUM TABLET 1 TAB PO (20:24)
[2024-12-03] MEDS: BISACODYL 10 MG SUPPOSITORY RECTAL (20:25)
[2024-12-03] MEDS: diphenhydrAMINE HCl INJ 50 MG/ML VIAL 25 MG IV PUSH (23:00)
[2024-12-04] VITALS (11 sets, daily range): BP systolic 120–159; BP diastolic 70–90; PULSE 74–99; RESP 16–18; TEMP 36.8–38.3; O2SAT 96–98
[2024-12-04] MEDS: HYDROcodone/acetaminophen (*CRX) 10-325 MG TABLET 1 TAB PO ×3 (02:49→20:33)
[2024-12-04] MEDS: PIPERACILLN/TAZ 3.375GM/NS50ML 3.375 GM/50 ML BAG IVPB ×4 (04:37→20:31)
[2024-12-04] MEDS: MORPHINE SULFATE (*CRX) 2 MG/ML INJ IV PUSH (05:07)
[2024-12-04] MEDS: ACETAMINOPHEN 325 MG TABLET 650 MG PO ×2 (06:10→13:52)
[2024-12-04] MEDS: SUCRALFATE SUSP 100 MG/ML 10 ML UDC 1000 MG PO ×3 (06:11→20:32)
[2024-12-04 07:00] LABS: Basophils Absolute Auto 0.1 K/mm3 (0.0-0.1); Basophils Percent Auto 0.4 % (0.2-1.2); Eosinophils Absolute Auto 0.2 K/mm3 (0-0.3); Hematocrit 37.3 % (42.0-52.0); Hemoglobin 11.9 g/dL (14.0-18.0); Immature Granulocyte Absolute 0.14 K/mm3 (0.00-0.031); Immature Granulocyte Percent A 0.7 % (0-0.5); Immature Platelet Fraction Pct 3.8 % (0.9-11.2); Lymphocytes Absolute Auto 2.08 K/mm3 (0.9-3.2); Lymphocytes Percent Auto 10.7 % (18.3-44.2); Mean Corpuscular HGB Conc 31.9 g/dl (32-36); Mean Corpuscular Hemoglobin 28.6 pg (26-34); Mean Corpuscular Volume 89.7 fl (80-100); Mean Platelet Volume 10.7 fl (7.4-10.4); Monocytes Absolute Auto 1.3 K/mm3 (0.1-0.6); Monocytes Percent Auto 6.5 % (2.6-8.5); Neutrophils Absolute Auto 15.7 K/mm3 (1.3-6.7); Neutrophils Percent Auto 80.7 % (45.5-73.1); Platelet Count Result 313 k/mm3 (150-375); Red Blood Count 4.16 M/mm3 (4.6-6.20); Red Cell Distribution Width 13.8 % (11.5-14.5); White Blood Count 19.4 K/mm3 (4.5-10.0)
[2024-12-04 07:10] LABS: Alanine Aminotransferase 131 U/L (6-50); Albumin Level 3.2 g/dL (3.5-5.1); Alkaline Phosphatase 315 U/L (38-126); Anion Gap 9 mmol/L (4-12); Aspartate Amino Transferase 44 U/L (17-59); Bilirubin,Total 1.3 mg/dL (0.2-1.3); Blood Urea Nitrogen 12 mg/dL (9-20); Calcium 8.4 mg/dL (8.4-10.2); Carbon Dioxide 27 mmol/L (22-30); Chloride 97 mmol/L (98-107); Estimated CRCL calculation 126 ml/min; Estimated Glomerular Filt Rate > 60; Glucose 115 mg/dL (65-110); Potassium 3.7 mmol/L (3.4-5.0); Sodium 133 mmol/L (137-145)
[2024-12-04 07:11] LABS: Lipase 54 U/L (23-300)
[2024-12-04] MEDS: ENOXAPARIN 40 MG/0.4 ML SYRINGE SUB-Q (08:41)
[2024-12-04] MEDS: ROSUVASTATIN 20 MG TABLET PO (08:42)
[2024-12-04] MEDS: PANTOPRAZOLE SODIUM IV 40 MG VIAL IV PUSH ×2 (08:42→20:32)
[2024-12-04] MEDS: OMEGA 3 POLYUNSAT FATTY ACIDS 1 GM CAP PO (08:42)
[2024-12-04] MEDS: LOSARTAN POTASSIUM 25 MG TABLET PO (08:42)
[2024-12-04] MEDS: MULTIVITAMINS THERAPEUTIC TAB (*BKC) 1 TABLET PO (08:42)
[2024-12-04] MEDS: CHOLECALCIFEROL 1,000 UNITS TABLET 4000 UNITS PO (08:42)
--- NOTE | 2024-12-04 08:54 | P.PNIM_ITS ---
Progress Note: A&P Assessment and Plan (1) Cholecystitis: Code(s): K81.9 - Cholecystitis, unspecified Status: Acute Assessment and Plan: - Abdomen/pelvis CT mild intrahepatic and extrahepatic biliary duct dilatation with possible filling defect distal common bile duct, 2.2 cm liver mass which may be benign or malignant, distended gallbladder with surrounding fat stranding suspicious for acute cholecystitis, small sliding hiatal hernia - MRCP mild intrahepatic and extrahepatic biliary duct dilatation was sludge in the distal common duct, distended gallbladder with gallstones and gallbladder wall thickening suspicious for acute cholecystitis, 2.3 cm hyper enhancing liver mass and noted in the absence of known malignancy this is likely Hemangioma or focal nodular hyperplasia - ERCP reflux esophagitis, esophageal stricture and previous pancreatic surgery - IV pain management - Gentle IV fluid resuscitation - Antibiotics: Zosyn 3.375 mg every 6 hours started 11/29, doxycycline 100 mg BID started 12/02 - Diet: advance as tolerated - Monitor vital signs, I and O's, check stool output, neuro status and patient is a fall risk - Monitor serum electrolytes and CBC - Monitor lactic acid - Consult general surgery s/p Laparoscopic cholecystectomy with intraoperative cholangiogram on 11/[address] Abdalla - GI consulted EGD in 3-4 months to assess healing, no nsaid use iv protonix BID and carafate with meals Patient endorsing increased abdominal pain requiring IV pain medication. Seems more incisional in nature however he has not had a bowel movement since prior to surgery. KUB showing normal bowel gas pattern. Patient also endorsing epigastric pain, possibly related to esophageal stricture seen on EGD. 12/04- WBC trending down - 19 today. ERCP yesterday. Still some abdominal pain. Ulcerative esophagitis could be contributing, lipase repeated- 54. ERCP showed no bile leak. gi, surgery following- possible CT scan today (2) Common bile duct dilatation: Code(s): K83.8 - Other specified diseases of biliary tract Status: Acute Assessment and Plan: see above (3) Liver mass: Code(s): R16.0 - Hepatomegaly, not elsewhere classified Status: Acute Assessment and Plan: * Liver mass shown on abdomen pelvis CT * MRCP showed mass is likely hemangioma or focal nodular hyperplasia in the absence of known malignancy * GI following (4) Elevated liver enzymes: Code(s): R74.8 - Abnormal levels of other serum enzymes Status: Acute Assessment and Plan: - Initial total bilirubin 3.0, AST 349, ALT 447, alkaline phosphate 527, now tot bili 2.8, AST 86, ALT 183, alk phos 420 on am labs LFTs have doubled since labs yesterday however likely due to patients ERCP Continue to trend (5) Gastroesophageal reflux disease: Qualifiers: Esophagitis presence: esophagitis presence not specified Qualified Code(s): K21.9 - Gastro-esophageal reflux disease without esophagitis Code(s): K21.9 - Gastro-esophageal reflux disease without esophagitis Status: Acute Assessment and Plan: * started Protonix Time Spent With Patient Time with patient: 25 - 35 minutes Subjective Date/time seen: 12/04/24 08:54 Interval history: Assuming care. ERCP yesterday, 12/04. Still having abdominal pain. Ulcerative esophagitis could be contributing, ERCP showed no bile leak. surgery, gi f ollowing. Possible ct scan today. Try to avoid IV pain meds. had 2 BMs today Review of Systems Review of Systems: 12 systems were reviewed and are negativ e except for as per HPI. All systems reviewed & are unremarkable except as noted in HPI and below Exam Narrative: General: male in no acute respiratory distress who is nontoxic appearing, lying semi recumbent in bed. HEENT: Normocephalic. Atraumatic. Extraocular movement intact. Sclera clear and anicteric. No facial asymmetry. Chest: Lungs are clear to auscultation bilaterally. No wheezes or crackles. CV: Heart was regular rate and rhythm. S1/S2. No murmurs, gallops, or rubs. Abd: Abdomen was soft. Tender to palpation. Nondistended. Hypoactive bowel sounds. Incisions are well healing. Ext: No clubbing, cyanosis, or edema. Objective Data Vital Signs Vital Signs: Vital Signs - 24 hr 12/03/24 12:00 12/03/24 16:00 12/03/24 18:58 Temperature 99.3 F 101.3 F H 101.3 F H Pulse Rate 106 H 103 H Respiratory Rate 18 18 Blood Pressure 156/94 H 167/98 H Pulse Oximetry 97 96 12/03/24 19:55 12/03/24 20:00 12/03/24 23:24 Temperature 100.1 F H 100.1 F H 98.9 F Pulse Rate 99 94 Respiratory Rate 16 16 Blood Pressure 169/94 H 154/97 H Pulse Oximetry 97 97 12/04/24 03:24 12/04/24 06:10 12/04/24 07:27 Temperature 100.6 F H 100.6 F H 98.5 F Pulse Rate 99 Respiratory Rate 16 Blood Pressure 159/90 H Pulse Oximetry 97 Intake/Output Intake/Output: Intake & Output 12/02/24 12/02/24 12/03/24 12/04/24 00:59 23:59 23:59 23:59 Intake Total 1420 1290 1920 Balance 1420 1290 1920 Meds/Results Medications: Active Medications Generic Name Dose Route Start Last Admin Trade Name Freq PRN Reason Stop Dose Admin Acetaminophen 650 mg 12/03/24 18:36 12/04/24 06:10 Acetaminophen 325 Mg Tablet PO 650 mg Q6H PRN Administration Mild Pain (1-3) or Fever Hydrocodone Bitart/Acetaminophen 1 tab 11/29/24 16:55 12/03/24 15:21 Hydrocodone/Acetaminophen (*Crx) 5-325 Mg Tablet PO 1 tab Q4H PRN Administration Pain Rated 4-6 Hydrocodone Bitart/Acetaminophen 1 tab 11/29/24 16:55 12/04/24 02:49 Hydrocodone/Acetaminophen (*Crx) 10-325 Mg Tablet PO 1 tab Q4H PRN Administration Pain Rated 7-10 Calcium Carbonate 200 mg 12/02/24 02:57 12/03/24 08:33 Calcium Carbonate (Tums) 500 Mg (200 Mg Elemental) PO 200 mg Q6H PRN Administration Indigestion Diphenhydramine HCl 25 mg 11/29/24 16:55 12/03/24 23:00 Diphenhydramine Hcl Inj 50 Mg/Ml Vial IV PUSH 25 mg Q6H PRN Administration Itching Enoxaparin Sodium 40 mg 11/30/24 09:00 12/04/24 08:41 Enoxaparin 40 Mg/0.4 Ml Syringe SUB-Q 40 mg DAILY ADOLFO Administration Fish Oil 1 gm 11/30/24 09:00 12/04/24 08:42 [place] 3 Polyunsat Fatty Acids 1 Gm Cap PO 1 gm QAM ADOLFO Administration Piperacillin/Tazobactam/Dextrose 3.375 gm in 50 mls @ 100 mls/hr 11/29/24 10:00 12/04/24 04:37 Zosyn 3.375 Gm/Ns 50 Ml IVPB 100 mls/hr Q6H ADOLFO Administration Losartan Potassium 25 mg 11/30/24 10:35 12/04/24 08:42 Losartan Potassium 25 Mg Tablet PO 25 mg DAILY ADOLFO Administration Morphine Sulfate 2 mg 11/29/24 16:55 12/04/24 05:07 Morphine Sulfate (*Crx) 2 Mg/Ml Inj IV PUSH 2 mg Q2H PRN Administration Breakthrough Pain Rated 4-6 or NPO Multivitamins Therapeutic 1 tablet 11/30/24 09:00 12/04/24 08:42 Multivitamins Therapeutic Tab (*Bkc) PO 1 tablet DAILY ADOLFO Administration Naloxone HCl 0.1 mg 11/29/24 16:55 Naloxone Hcl 0.4 Mg/Ml Vial IV PUSH Q2M PRN Opiate Reversal Pantoprazole Sodium 40 mg 12/02/24 21:00 12/04/24 08:42 Pantoprazole Sodium Iv 40 Mg Vial IV PUSH 40 mg Q12HR ADOLFO Administration Polyethylene Glycol 17 gm 12/03/24 13:27 Polyethylene Glycol 3350 17 Gm Powd.Pack PO QAM PRN Constipation Rosuvastatin Calcium 20 mg 11/30/24 09:00 12/04/24 08:42 Rosuvastatin 20 Mg Tablet PO 20 mg DAILY ADOLFO Administration Senna/Docusate Sodium 1 tab 12/03/24 21:00 12/03/24 20:24 Senna/Docusate Sodium Tablet PO 1 tab HS ADOLFO Administration Sucralfate 1,000 mg 12/02/24 16:30 12/04/24 06:11 Sucralfate Susp 100 Mg/Ml 10 Ml Udc PO 1,000 mg ACHS ADOLFO Administration Vitamin D 4,000 units 11/30/24 09:00 12/04/24 08:42 Cholecalciferol 1,000 Units Tablet PO 4,000 units DAILY ADOLFO Administration Radiology Results: ITS Impressions Abdomen/Pelvis CT 11/29/24 07:14 IMPRESSION: 1. Mild intrahepatic and extrahepatic biliary duct dilatation with possible filling defect distal common bile duct. MRCP without and with contrast is recommended. 2. 2.2 cm liver mass, which may be benign or malignant. MRCP without and with co ntrast is recommended. 3. Distended gallbladder with surrounding fat stranding suspicious for acute cholecystitis. 4. Small sliding hiatal hernia. MRCP 11/29/24 10:47 IMPRESSION: 1. Mild intrahepatic and extrahepatic biliary duct dilatation with sludge in the distal common duct. 2. Distended gallbladder with gallstones and gallbladder wall thickening suspicious for acute cholecystitis. 3. 2.3 cm hyperenhancing liver mass. In the absence of known malignancy, this finding is likely a hemangioma or focal nodular hyperplasia. Cholangiogram,Operative 11/29/24 14:55 IMPRESSION: 1. Filling defects in the distal common bile duct, which may be sludge or stones. Neoplasm is not excluded. ERCP is recommended. 2. Intrahepatic and extrahepatic biliary duct dilatation. Chest X-Ray 11/30/24 08:38 IMPRESSION: 1. Mild atelectasis in the lower lung zones and mild scarring at left lung apex. Endo Retro Cholangiopancreatogram 12/02/24 14:27 IMPRESSION: 1. Balloon sweeping of the common duct. Please refer to the ERCP procedure note for additional details. Abdomen X-Ray 12/03/24 14:18 IMPRESSION: 1. Normal bowel gas pattern. Labs Labs: Laboratory Results - last 24 hr 12/04/24 06:15 WBC 19.4 H RBC 4.16 L Hgb 11.9 L Hct 37.3 L MCV 89.7 MCH 28.6 MCHC 31.9 L RDW 13.8 Plt Count 313 MPV 10.7 H Immature Gran % (Auto) 0.7 H Neut % (Auto) 80.7 H Lymph % (Auto) 10.7 L [place] % (Auto) 6.5 Eos % (Auto) 1.0 Baso % (Auto) 0.4 Lymph # (Auto) 2.08 [place] # (Auto) 1.3 H Eos # (Auto) 0.2 Baso # (Auto) 0.1 Abs Immat Gran (auto) 0.14 H Absolute Neuts (auto) 15.7 H Absolute Nucleated RBC 0.000 Nucleated RBC % 0.0 % Immature Plt Fraction 3.8 Sodium 133 L Potassium 3.7 Chloride 97 L Carbon Dioxide 27 Anion Gap 9 BUN 12 Creatinine 0.62 L Estim Creat Clear Calc 126 Estimated GFR > 60 Glucose 115 H Calcium 8.4 Total Bilirubin 1.3 AST 44 ALT 131 H Alkaline Phosphatase 315 H Total Protein 7.0 Albumin 3.2 L Lipase 54 Quality VTE Prophylaxis VTE prophylaxis: mechanical ordered
--- NOTE | 2024-12-04 09:27 | P.PNGS_ITS ---
Progress Note: A&P Assessment and Plan (1) Acute calculous cholecystitis: Code(s): K80.00 - Calculus of gallbladder with acute cholecystitis without obstruction Status: Acute Assessment and Plan: * Surgically doing well, but now c/o LLQ and still having fevers with persistent leukocytosis. Will get CT abd/pelvis this AM. Hopefully can advance diet if CT shows no new findings. (2) Elevated liver enzymes: Code(s): R74.8 - Abnormal levels of other serum enzymes Status: Acute Assessment and Plan: * Bilirubin normalized now. Should continue to improve. (3) Pancreatitis due to biliary obstruction: Qualifiers: Chronicity: acute Acute pancreatitis complication: unspecified Qualified Code(s): K85.10 - Biliary acute pancreatitis without necrosis or infection Code(s): K85.90 - Acute pancreatitis without necrosis or infection, unspecified; K83.1 - Obstruction of bile duct Status: Acute Assessment and Plan: * Resolved (4) LLQ pain: Code(s): R10.32 - Left lower quadrant pain Status: Acute (5) Esophageal stricture: Code(s): K22.2 - Esophageal obstruction Status: Acute (6) Ulcerative esophagitis: Code(s): K22.10 - Ulcer of esophagus without bleeding Status: Acute Subjective Subjective Date/Time Seen: 12/04/24 09:27 Interval history: Patient feeling a little better today. Had a BM and passing flatus. Now c/o LLQ and suprapubic pain. Fever this AM, but now normal. Objective Data Vital Signs Vital Signs: Vital Signs - 24 hr 12/03/24 12:00 12/03/24 16:00 12/03/24 18:58 Temperature 99.3 F 101.3 F H 101.3 F H Pulse Rate 106 H 103 H Respiratory Rate 18 18 Blood Pressure 156/94 H 167/98 H Pulse Oximetry 97 96 12/03/24 19:55 12/03/24 20:00 12/03/24 23:24 Temperature 100.1 F H 100.1 F H 98.9 F Pulse Rate 99 94 Respiratory Rate 16 16 Blood Pressure 169/94 H 154/97 H Pulse Oximetry 97 97 12/04/24 03:24 12/04/24 06:10 12/04/24 07:27 Temperature 100.6 F H 100.6 F H 98.5 F Pulse Rate 99 Respiratory Rate 16 Blood Pressure 159/90 H Pulse Oximetry 97 12/04/24 08:00 Temperature 98.7 F Pulse Rate 92 Respiratory Rate 16 Blood Pressure 154/87 H Pulse Oximetry 98 Intake/Output Intake/Output: Intake & Output 12/02/24 12/02/24 12/03/24 12/04/24 00:59 23:59 23:59 23:59 Intake Total 1420 1290 1920 168 Balance 1420 1290 1920 168 Meds/Results Medications: Active Medications Generic Name Dose Route Start Last Admin Trade Name Freq PRN Reason Stop Dose Admin Acetaminophen 650 mg 12/03/24 18:36 12/04/24 06:10 Acetaminophen 325 Mg Tablet PO 650 mg Q6H PRN Administration Mild Pain (1-3) or Fever Hydrocodone Bitart/Acetaminophen 1 tab 11/29/24 16:55 12/03/24 15:21 Hydrocodone/Acetaminophen (*Crx) 5-325 Mg Tablet PO 1 tab Q4H PRN Administration Pain Rated 4-6 Hydrocodone Bitart/Acetaminophen 1 tab 11/29/24 16:55 12/04/24 02:49 Hydrocodone/Acetaminophen (*Crx) 10-325 Mg Tablet PO 1 tab Q4H PRN Administration Pain Rated 7-10 Calcium Carbonate 200 mg 12/02/24 02:57 12/03/24 08:33 Calcium Carbonate (Tums) 500 Mg (200 Mg Elemental) PO 200 mg Q6H PRN Administration Indigestion Diphenhydramine HCl 25 mg 11/29/24 16:55 12/03/24 23:00 Diphenhydramine Hcl Inj 50 Mg/Ml Vial IV PUSH 25 mg Q6H PRN Administration Itching Enoxaparin Sodium 40 mg 11/30/24 09:00 12/04/24 08:41 Enoxaparin 40 Mg/0.4 Ml Syringe SUB-Q 40 mg DAILY ADOLFO Administration Fish Oil 1 gm 11/30/24 09:00 12/04/24 08:42 [place] 3 Polyunsat Fatty Acids 1 Gm Cap PO 1 gm QAM ADOLFO Administration Piperacillin/Tazobactam/Dextrose 3.375 gm in 50 mls @ 100 mls/hr 11/29/24 10:00 12/04/24 09:17 Zosyn 3.375 Gm/Ns 50 Ml IVPB 100 mls/hr Q6H ADOLFO Administration Losartan Potassium 25 mg 11/30/24 10:35 12/04/24 08:42 Losartan Potassium 25 Mg Tablet PO 25 mg DAILY ADOLFO Administration Morphine Sulfate 2 mg 11/29/24 16:55 12/04/24 05:07 Morphine Sulfate (*Crx) 2 Mg/Ml Inj IV PUSH 2 mg Q2H PRN Administration Breakthrough Pain Rated 4-6 or NPO Multivitamins Therapeutic 1 tablet 11/30/24 09:00 12/04/24 08:42 Multivitamins Therapeutic Tab (*Bkc) PO 1 tablet DAILY ADOLFO Administration Naloxone HCl 0.1 mg 11/29/24 16:55 Naloxone Hcl 0.4 Mg/Ml Vial IV PUSH Q2M PRN Opiate Reversal Pantoprazole Sodium 40 mg 12/02/24 21:00 12/04/24 08:42 Pantoprazole Sodium Iv 40 Mg Vial IV PUSH 40 mg Q12HR ADOLFO Administration Polyethylene Glycol 17 gm 12/03/24 13:27 Polyethylene Glycol 3350 17 Gm Powd.Pack PO QAM PRN Constipation Rosuvastatin Calcium 20 mg 11/30/24 09:00 12/04/24 08:42 Rosuvastatin 20 Mg Tablet PO 20 mg DAILY ADOLFO Administration Senna/Docusate Sodium 1 tab 12/03/24 21:00 12/03/24 20:24 Senna/Docusate Sodium Tablet PO 1 tab HS ADOLFO Administration Sucralfate 1,000 mg 12/02/24 16:30 12/04/24 06:11 Sucralfate Susp 100 Mg/Ml 10 Ml Udc PO 1,000 mg ACHS ADOLFO Administration Vitamin D 4,000 units 11/30/24 09:00 12/04/24 08:42 Cholecalciferol 1,000 Units Tablet PO 4,000 units DAILY ADOLFO Administration Radiology Results: ITS Impressions Abdomen/Pelvis CT 11/29/24 07:14 IMPRESSION: 1. Mild intrahepatic and extrahepatic biliary duct dilatation with possible filling defect distal common bile duct. MRCP without and with contrast is recommended. 2. 2.2 cm liver mass, which may be benign or malignant. MRCP without and with contrast is recommended. 3. Distended gallbladder with surrounding fat stranding suspicious for acute cholecystitis. 4. Small sliding hiatal hernia. MRCP 11/29/24 10:47 IMPRESSION: 1. Mild intrahepatic and extrahepatic biliary duct dilatation with sludge in the distal common duct. 2. Distended gallbladder with gallstones and gallbladder wall thickening suspicious for acute cholecystitis. 3. 2.3 cm hyperenhancing liver mass. In the absence of known malignancy, this finding is likely a hemangioma or focal nodular hyperplasia. Cholangiogram,Operative 11/29/24 14:55 IMPRESSION: 1. Filling defects in the distal common bile duct, which may be sludge or stones . Neoplasm is not excluded. ERCP is recommended. 2. Intrahepatic and extrahepatic biliary duct dilatation. Chest X-Ray 11/30/24 08:38 IMPRESSION: 1. Mild atelectasis in the lower lung zones and mild scarring at left lung apex. Endo Retro Cholangiopancreatogram 12/02/24 14:27 IMPRESSION: 1. Balloon sweeping of the common duct. Please refer to the ERCP procedure note for additional details. Abdomen X-Ray 12/03/24 14:18 IMPRESSION: 1. Normal bowel gas pattern. Labs Labs: Laboratory Results - last 24 hr 12/04/24 06:15 WBC 19.4 H RBC 4.16 L Hgb 11.9 L Hct 37.3 L MCV 89.7 MCH 28.6 MCHC 31.9 L RDW 13.8 Plt Count 313 MPV 10.7 H Immature Gran % (Auto) 0.7 H Neut % (Auto) 80.7 H Lymph % (Auto) 10.7 L [place] % (Auto) 6.5 Eos % (Auto) 1.0 Baso % (Auto) 0.4 Lymph # (Auto) 2.08 [place] # (Auto) 1.3 H Eos # (Auto) 0.2 Baso # (Auto) 0.1 Abs Immat Gran (auto) 0.14 H Absolute Neuts (auto) 15.7 H Absolute Nucleated RBC 0.000 Nucleated RBC % 0.0 % Immature Plt Fraction 3.8 Sodium 133 L Potassium 3.7 Chloride 97 L Carbon Dioxide 27 Anion Gap 9 BUN 12 Creatinine 0.62 L Estim Creat Clear Calc 126 Estimated GFR > 60 Glucose 115 H Calcium 8.4 Total Bilirubin 1.3 AST 44 ALT 131 H Alkaline Phosphatase 315 H Total Protein 7.0 Albumin 3.2 L Lipase 54
--- NOTE | 2024-12-04 17:11 | WPDGIPROGNO ---
Progress Note: A&P Assessment and Plan (1) Choledocholithiasis: Code(s): K80.50 - Calculus of bile duct without cholangitis or cholecystitis without obstruction Status: Acute Assessment and Plan: s/p ercp ywith sphincterotomy and balloon sweep of sludge, no bile leak CT scan showed pancreatitis but normal lipase and liver enzymes coming down (however lipase was elevated prior ERCP) pain also could be from ulcerative esophagitis- this was dilated with balloon because unable to traverse safely with ERCP scope (2) Cholecystitis: Code(s): K81.9 - Cholecystitis, unspecified Status: Acute Assessment and Plan: s/p surgery and ercp (3) Abdominal pain: Qualifiers: Abdominal location: epigastric Qualified Code(s): R10.13 - Epigastric pain Code(s): R10.9 - Unspecified abdominal pain Status: Acute Assessment and Plan: with GERD symptom iv protonix bid carafate with meals CT scan reviewed (4) Elevated liver enzymes: Code(s): R74.8 - Abnormal levels of other serum enzymes Status: Acute Assessment and Plan: coming down (5) SIRS (systemic inflammatory response syndrome): Code(s): R65.10 - Systemic inflammatory response syndrome (SIRS) of non-infectious origin without acute organ dysfunction Status: Acute Assessment and Plan: low grade fever covered with abx (6) Leukocytosis: Code(s): D72.829 - Elevated white blood cell count, unspecified Status: Acute Assessment and Plan: trending down (7) Ulcerative esophagitis: Code(s): K22.10 - Ulcer of esophagus without bleeding Status: Acute Assessment and Plan: iv bid consider repeat egd in 3-4 months to assess healing no more nsaid's (8) Esophageal stricture: Code(s): K22.2 - Esophageal obstruction Status: Acute (9) Constipation: Code(s): K59.00 - Constipation, unspecified Status: Acute Assessment and Plan: kub ok post op and narcotics s/p relistor will add one dose of lactulose Subjective Date/time seen: 12/04/24 17:11 Interval history: had low grade fever, pain is similar he had small BM and would like to have another dose of laxative Review of Systems Review of Systems: All systems reviewed & are unremarkable except as noted in HPI and below Exam Const: General: no acute distress and uncomfortable Orientation/consciousness: patient oriented x3 HENMT: Face/Nose/Sinus: Normal nares present Eyes: General: appearance normal, both eyes and all related structures Neck: Neck: supple Resp: Effort & Inspection: normal respiratory effort Cardio: Rate: regular rate GI: Inspection: non-distended and incision (dry and glue intact) GI Palp: Yes Soft to palpation, Yes Tenderness to palpation present (GI) (epigastric area), No Guarding due to palpation present (GI) and No Rebound tenderness present Skin: General skin exam: no rashes or lesions noted Neuro: Speech: normal speech Motor exam (neuro): 5/5 motor strength present throughout Extrem: General: normal to inspection Psych: Mental Status: mental status grossly normal Objective Data Vital Signs Vital Signs: Vital Signs - 24 hr 12/03/24 18:58 12/03/24 19:55 12/03/24 20:00 Temperature 101.3 F H 100.1 F H 100.1 F H Pulse Rate 99 Respiratory Rate 16 Blood Pressure 169/94 H Pulse Oximetry 97 Oxygen Delivery 12/03/24 23:24 12/04/24 03:24 12/04/24 06:10 Temperature 98.9 F 100.6 F H 100.6 F H Pulse Rate 94 99 Respiratory Rate 16 16 Blood Pressure 154/97 H 159/90 H Pulse Oximetry 97 97 Oxygen Delivery 12/04/24 07:27 12/04/24 08:00 12/04/24 08:42 Temperature 98.5 F 98.7 F Pulse Rate 92 Respiratory Rate 16 16 Blood Pressure 154/87 H Pulse Oximetry 98 98 Oxygen Delivery Room Air 12/04/24 13:00 12/04/24 13:52 12/04/24 14:51 Temperature 101 F H 101 F H 99.9 F H Pulse Rate 97 97 Respiratory Rate 16 16 Blood Pressure 149/83 H Pulse Oximetry 96 96 Oxygen Delivery 12/04/24 14:51 Temperature 99.9 F H Pulse Rate Respiratory Rate Blood Pressure Pulse Oximetry Oxygen Delivery Intake/Output Intake/Output: Intake & Output 12/02/24 12/02/24 12/03/24 12/04/24 00:59 23:59 23:59 23:59 Intake Total 1420 1290 1920 268 Balance 1420 1290 1920 268 Meds/Results Medications: Active Medications Generic Name Dose Route Start Last Admin Trade Name Freq PRN Reason Stop Dose Admin Acetaminophen 650 mg 12/03/24 18:36 12/04/24 13:52 Acetaminophen 325 Mg Tablet PO 650 mg Q6H PRN Administration Mild Pain (1-3) or Fever Hydrocodone Bitart/Acetaminophen 1 tab 11/29/24 16:55 12/03/24 15:21 Hydrocodone/Acetaminophen (*Crx) 5-325 Mg Tablet PO 1 tab Q4H PRN Administration Pain Rated 4-6 Hydrocodone Bitart/Acetaminophen 1 tab 11/29/24 16:55 12/04/24 16:03 Hydrocodone/Acetaminophen (*Crx) 10-325 Mg Tablet PO 1 tab Q4H PRN Administration Pain Rated 7-10 Calcium Carbonate 200 mg 12/02/24 02:57 12/03/24 08:33 Calcium Carbonate (Tums) 500 Mg (200 Mg Elemental) PO 200 mg Q6H PRN Administration Indigestion Diphenhydramine HCl 25 mg 11/29/24 16:55 12/03/24 23:00 Diphenhydramine Hcl Inj 50 Mg/Ml Vial IV PUSH 25 mg Q6H PRN Administration Itching Enoxaparin Sodium 40 mg 11/30/24 09:00 12/04/24 08:41 Enoxaparin 40 Mg/0.4 Ml Syringe SUB-Q 40 mg DAILY ADOLFO Administration Fish Oil 1 gm 11/30/24 09:00 12/04/24 08:42 [place] 3 Polyunsat Fatty Acids 1 Gm Cap PO 1 gm QAM ADOLFO Administration Piperacillin/Tazobactam/Dextrose 3.375 gm in 50 mls @ 100 mls/hr 11/29/24 10:00 12/04/24 16:33 Zosyn 3.375 Gm/Ns 50 Ml IVPB Infused Q6H ADOLFO Infusion Losartan Potassium 25 mg 11/30/24 10:35 12/04/24 08:42 Losartan Potassium 25 Mg Tablet PO 25 mg DAILY ADOLFO Administration Morphine Sulfate 2 mg 11/29/24 16:55 12/04/24 05:07 Morphine Sulfate (*Crx) 2 Mg/Ml Inj IV PUSH 2 mg Q2H PRN Administration Breakthrough Pain Rated 4-6 or NPO Multivitamins Therapeutic 1 tablet 11/30/24 09:00 12/04/24 08:42 Multivitamins Therapeutic Tab (*Bkc) PO 1 tablet DAILY ADOLFO Administration Naloxone HCl 0.1 mg 11/29/24 16:55 Naloxone Hcl 0.4 Mg/Ml Vial IV PUSH Q2M PRN Opiate Reversal Pantoprazole Sodium 40 mg 12/02/24 21:00 12/04/24 08:42 Pantoprazole Sodium Iv 40 Mg Vial IV PUSH 40 mg Q12HR ADOLFO Administration Polyethylene Glycol 17 gm 12/03/24 13:27 Polyethylene Glycol 3350 17 Gm Powd.Pack PO QAM PRN Constipation Rosuvastatin Calcium 20 mg 11/30/24 09:00 12/04/24 08:42 Rosuvastatin 20 Mg Tablet PO 20 mg DAILY ADOLFO Administration Senna/Docusate Sodium 1 tab 12/03/24 21:00 12/03/24 20:24 Senna/Docusate Sodium Tablet PO 1 tab HS ADOLFO Administration Sucralfate 1,000 mg 12/02/24 16:30 12/04/24 16:02 Sucralfate Susp 100 Mg/Ml 10 Ml Udc PO 1,000 mg ACHS ADOLFO Administration Vitamin D 4,000 units 11/30/24 09:00 12/04/24 08:42 Cholecalciferol 1,000 Units Tablet PO 4,000 units DAILY ADOLFO Administration Radiology Results: ITS Impressions MRCP 11/29/24 10:47 IMPRESSION: 1. Mild intrahepatic and extrahepatic biliary duct dilatation with sludge in the distal common duct. 2. Distended gallbladder with gallstones and gallbladder wall thickening suspicious for acute cholecystitis. 3. 2.3 cm hyperenhancing liver mass. In the absence of known malignancy, this finding is likely a hemangioma or focal nodular hyperplasia. Cholangiogram,Operative 11/29/24 14:55 IMPRESSION: 1. Filling defects in the distal common bile duct, which may be sludge or stones. Neoplasm is not excluded. ERCP is recommended. 2. Intrahepatic and extrahepatic biliary duct dilatation. Chest X-Ray 11/30/24 08:38 IMPRESSION: 1. Mild atelectasis in the lower lung zones and mild scarring at left lung apex. Endo Retro Cholangiopancreatogram 12/02/24 14:27 IMPRESSION: 1. Balloon sweeping of the common duct. Please refer to the ERCP procedure note for additional details. Abdomen X-Ray 12/03/24 14:18 IMPRESSION: 1. Normal bowel gas pattern. Abdomen/Pelvis CT 12/04/24 12:33 IMPRESSION: 1. Acute interstitial pancreatitis. 2. Small left pleural effusion. Labs Labs: Laboratory Results - last 24 hr 12/04/24 06:15 WBC 19.4 H RBC 4.16 L Hgb 11.9 L Hct 37.3 L MCV 89.7 MCH 28.6 MCHC 31.9 L RDW 13.8 Plt Count 313 MPV 10.7 H Immature Gran % (Auto) 0.7 H Neut % (Auto) 80.7 H Lymph % (Auto) 10.[address] [facility] % (Auto) 6.5 Eos % (Auto) 1.0 Baso % (Auto) 0.4 Lymph # (Auto) 2.08 [facility] # (Auto) 1.3 H Eos # (Auto) 0.2 Baso # (Auto) 0.1 Abs Immat Gran (auto) 0.14 H Absolute Neuts (auto) 15.7 H Absolute Nucleated RBC 0.000 Nucleated RBC % 0.0 % Immature Plt Fraction 3.8 Sodium 133 L Potassium 3.7 Chloride 97 L Carbon Dioxide 27 Anion Gap 9 BUN 12 Creatinine 0.62 L Estim Creat Clear Calc 126 Estimated GFR > 60 Glucose 115 H Calcium 8.4 Total Bilirubin 1.3 AST 44 ALT 131 H Alkaline Phosphatase 315 H Total Protein 7.0 Albumin 3.2 L Lipase 54
[2024-12-04] MEDS: LACTULOSE 20 GM/30 ML UDC PO (17:38)
[2024-12-04] MEDS: SENNA/DOCUSATE SODIUM TABLET 1 TAB PO (20:32)
[2024-12-04] MEDS: diphenhydrAMINE HCl INJ 50 MG/ML VIAL 25 MG IV PUSH (20:32)
[2024-12-05] VITALS (10 sets, daily range): BP systolic 125–143; BP diastolic 75–95; PULSE 72–94; RESP 16; TEMP 36.8–38.1; O2SAT 95–99
[2024-12-05] MEDS: HYDROcodone/acetaminophen (*CRX) 10-325 MG TABLET 1 TAB PO (00:53)
[2024-12-05] MEDS: SUCRALFATE SUSP 100 MG/ML 10 ML UDC 1000 MG PO ×4 (04:57→20:34)
[2024-12-05] MEDS: PIPERACILLN/TAZ 3.375GM/NS50ML 3.375 GM/50 ML BAG IVPB ×4 (04:57→22:25)
[2024-12-05 06:32] LABS: Basophils Absolute Auto 0.1 K/mm3 (0.0-0.1); Basophils Percent Auto 0.4 % (0.2-1.2); Eosinophils Absolute Auto 0.2 K/mm3 (0-0.3); Eosinophils Percent Auto 1.1 % (0-4.4); Hemoglobin 11.9 g/dL (14.0-18.0); Immature Granulocyte Absolute 0.23 K/mm3 (0.00-0.031); Immature Granulocyte Percent A 1.3 % (0-0.5); Lymphocytes Absolute Auto 2.34 K/mm3 (0.9-3.2); Lymphocytes Percent Auto 13.2 % (18.3-44.2); Mean Corpuscular HGB Conc 33.1 g/dl (32-36); Mean Corpuscular Hemoglobin 28.9 pg (26-34); Mean Corpuscular Volume 87.4 fl (80-100); Mean Platelet Volume 9.4 fl (7.4-10.4); Monocytes Absolute Auto 1.6 K/mm3 (0.1-0.6); Monocytes Percent Auto 8.8 % (2.6-8.5); Neutrophils Absolute Auto 13.3 K/mm3 (1.3-6.7); Neutrophils Percent Auto 75.2 % (45.5-73.1); Platelet Count Result 337 k/mm3 (150-375); Red Blood Count 4.12 M/mm3 (4.6-6.20); Red Cell Distribution Width 13.4 % (11.5-14.5); White Blood Count 17.7 K/mm3 (4.5-10.0)
[2024-12-05 06:48] LABS: Alanine Aminotransferase 92 U/L (6-50); Albumin Level 3.3 g/dL (3.5-5.1); Alkaline Phosphatase 283 U/L (38-126); Anion Gap 8 mmol/L (4-12); Aspartate Amino Transferase 31 U/L (17-59); Blood Urea Nitrogen 10 mg/dL (9-20); Calcium 8.6 mg/dL (8.4-10.2); Carbon Dioxide 29 mmol/L (22-30); Chloride 97 mmol/L (98-107); Estimated CRCL calculation 111 ml/min; Estimated Glomerular Filt Rate > 60; Glucose 122 mg/dL (65-110); Potassium 3.4 mmol/L (3.4-5.0); Sodium 134 mmol/L (137-145)
[2024-12-05] MEDS: CALCIUM CARBONATE (TUMS) 500 MG (200 MG ELEMENTAL) PO (09:18)
[2024-12-05] MEDS: MULTIVITAMINS THERAPEUTIC TAB (*BKC) 1 TABLET PO (09:19)
[2024-12-05] MEDS: HYDROcodone/acetaminophen (*CRX) 5-325 MG TABLET 1 TAB PO ×3 (09:19→18:36)
[2024-12-05] MEDS: CHOLECALCIFEROL 1,000 UNITS TABLET 4000 UNITS PO (09:20)
[2024-12-05] MEDS: ENOXAPARIN 40 MG/0.4 ML SYRINGE SUB-Q (09:20)
[2024-12-05] MEDS: OMEGA 3 POLYUNSAT FATTY ACIDS 1 GM CAP PO (09:20)
[2024-12-05] MEDS: ROSUVASTATIN 20 MG TABLET PO (09:20)
[2024-12-05] MEDS: PANTOPRAZOLE SODIUM IV 40 MG VIAL IV PUSH ×2 (09:20→20:34)
[2024-12-05] MEDS: LOSARTAN POTASSIUM 25 MG TABLET PO (09:20)
--- NOTE | 2024-12-05 10:49 | P.PNIM_ITS ---
Progress Note: A&P Assessment and Plan (1) Cholecystitis: Code(s): K81.9 - Cholecystitis, unspecified Status: Acute Assessment and Plan: - Abdomen/pelvis CT mild intrahepatic and extrahepatic biliary duct dilatation with possible filling defect distal common bile duct, 2.2 cm liver mass which may be benign or malignant, distended gallbladder with surrounding fat stranding suspicious for acute cholecystitis, small sliding hiatal hernia - MRCP mild intrahepatic and extrahepatic biliary duct dilatation was sludge in the distal common duct, distended gallbladder with gallstones and gallbladder wall thickening suspicious for acute cholecystitis, 2.3 cm hyper enhancing liver mass and noted in the absence of known malignancy this is likely Hemangioma or focal nodular hyperplasia - ERCP reflux esophagitis, esophageal stricture and previous pancreatic surgery - IV pain management - Gentle IV fluid resuscitation - Antibiotics: Zosyn 3.375 mg every 6 hours started 11/29, doxycycline 100 mg BID started 12/02 - Diet: advance as tolerated - Monitor vital signs, I and O's, check stool output, neuro status and patient is a fall risk - Monitor serum electrolytes and CBC - Monitor lactic acid - Consult general surgery s/p Laparoscopic cholecystectomy with intraoperative cholangiogram on 11/[address] Abdalla - GI consulted EGD in 3-4 months to assess healing, no nsaid use iv protonix BID and carafate with meals Patient endorsing increased abdominal pain requiring IV pain medication. Seems more incisional in nature however he has not had a bowel movement since prior to surgery. KUB showing normal bowel gas pattern. Patient also endorsing epigastric pain, possibly related to esophageal stricture seen on EGD. 12/04- WBC trending down - 19 today. ERCP yesterday. Still some abdominal pain. Ulcerative esophagitis could be contributing, lipase repeated- 54. ERCP showed no bile leak. gi, surgery following- CT scan yesterday 12/05- WBC down some more today- 17.7. able to avoid IV pain meds, pain is controlled with po meds (2) Common bile duct dilatation: Code(s): K83.8 - Other specified diseases of biliary tract Status: Acute Assessment and Plan: see above (3) Liver mass: Code(s): R16.0 - Hepatomegaly, not elsewhere classified Status: Acute Assessment and Plan: * Liver mass shown on abdomen pelvis CT * MRCP showed mass is likely hemangioma or focal nodular hyperplasia in the absence of known malignancy * GI following (4) Elevated liver enzymes: Code(s): R74.8 - Abnormal levels of other serum enzymes Status: Acute Assessment and Plan: - Initial total bilirubin 3.0, AST 349, ALT 447, alkaline phosphate 527, now tot bili 2.8, AST 86, ALT 183, alk phos 420 on am labs LFTs have doubled since labs yesterday however likely due to patients ERCP Continue to trend (5) Gastroesophageal reflux disease: Qualifiers: Esophagitis presence: esophagitis presence not specified Qualified Code(s): K21.9 - Gastro-esophageal reflux disease without esophagitis Code(s): K21.9 - Gastro-esophageal reflux disease without esophagitis Status: Acute Assessment and Plan: * started Protonix Time Spent With Patient Time with patient: 25 - 35 minutes Subjective Date/time seen: 12/05/24 10:49 Interval history: Had low grade fever last night, pain is better last night, somewhat more bloating this am. no nausea. he had small BM, able to ambulate Review of Systems Review of Systems: 12 systems were reviewed and are negativ e except for as per HPI. All systems reviewed & are unremarkable except as noted in HPI and below Exam Narrative: General: male in no acute respiratory distress who is nontoxic appearing, lying semi recumbent in bed. HEENT: Normocephalic. Atraumatic. Extraocular movement intact. Sclera clear and anicteric. No facial asymmetry. Chest: Lungs are clear to auscultation bilaterally. No wheezes or crackles. CV: Heart was regular rate and rhythm. S1/S2. No murmurs, gallops, or rubs. Abd: Abdomen was soft. Tender to palpation. Nondistended. Hypoactive bowel sounds. Incisions are well healing. Ext: No clubbing, cyanosis, or edema. Objective Data Vital Signs Vital Signs: Vital Signs - 24 hr 12/04/24 13:00 12/04/24 13:52 12/04/24 14:51 Temperature 101 F H 101 F H 99.9 F H Pulse Rate 97 97 Respiratory Rate 16 16 Blood Pressure 149/83 H Pulse Oximetry 96 96 Oxygen Delivery 12/04/24 14:51 12/04/24 16:00 12/04/24 20:00 Temperature 99.9 F H 99.9 F H Pulse Rate 74 74 Respiratory Rate 16 16 Blood Pressure 148/86 H Pulse Oximetry 97 97 Oxygen Delivery Room Air 12/04/24 20:25 12/05/24 00:00 12/05/24 04:40 Temperature 98.3 F 98.2 F 99.4 F Pulse Rate 95 72 91 Respiratory Rate 18 16 16 Blood Pressure 120/70 130/75 142/95 H Pulse Oximetry 97 95 97 Oxygen Delivery 12/05/24 09:20 Temperature Pulse Rate Respiratory Rate 16 Blood Pressure Pulse Oximetry 97 Oxygen Delivery Room Air Intake/Output Intake/Output: Intake & Output 12/02/24 12/03/24 12/04/24 12/05/24 23:59 23:59 23:59 23:59 Intake Total 1290 1920 938 350 Balance 1290 1920 938 350 Meds/Results Medications: Active Medications Generic Name Dose Route Start Last Admin Trade Name Freq PRN Reason Stop Dose Admin Acetaminophen 650 mg 12/03/24 18:36 12/04/24 13:52 Acetaminophen 325 Mg Tablet PO 650 mg Q6H PRN Administration Mild Pain (1-3) or Fever Hydrocodone Bitart/Acetaminophen 1 tab 11/29/24 16:55 12/05/24 09:19 Hydrocodone/Acetaminophen (*Crx) 5-325 Mg Tablet PO 1 tab Q4H PRN Administration Pain Rated 4-6 Hydrocodone Bitart/Acetaminophen 1 tab 11/29/24 16:55 12/05/24 00:53 Hydrocodone/Acetaminophen (*Crx) 10-325 Mg Tablet PO 1 tab Q4H PRN Administration Pain Rated 7-10 Calcium Carbonate 200 mg 12/02/24 02:57 12/05/24 09:18 Calcium Carbonate (Tums) 500 Mg (200 Mg Elemental) PO 200 mg Q6H PRN Administration Indigestion Diphenhydramine HCl 25 mg 11/29/24 16:55 12/04/24 20:32 Diphenhydramine Hcl Inj 50 Mg/Ml Vial IV PUSH 25 mg Q6H PRN Administration Itching Enoxaparin Sodium 40 mg 11/30/24 09:00 12/05/24 09:20 Enoxaparin 40 Mg/0.4 Ml Syringe SUB-Q 40 mg DAILY ADOLFO Administration Fish Oil 1 gm 11/30/24 09:00 12/05/24 09:20 [place] 3 Polyunsat Fatty Acids 1 Gm Cap PO 1 gm QAM ADOLFO Administration Piperacillin/Tazobactam/Dextrose 3.375 gm in 50 mls @ 100 mls/hr 11/29/24 10:00 12/05/24 09:50 Zosyn 3.375 Gm/Ns 50 Ml IVPB Infused Q6H ADOLFO Infusion Losartan Potassium 25 mg 11/30/24 10:35 12/05/24 09:20 Losartan Potassium 25 Mg Tablet PO 25 mg DAILY ADOLFO Administration Morphine Sulfate 2 mg 11/29/24 16:55 12/04/24 05:07 Morphine Sulfate (*Crx) 2 Mg/Ml Inj IV PUSH 2 mg Q2H PRN Administration Breakthrough Pain Rated 4-6 or NPO Multivitamins Therapeutic 1 tablet 11/30/24 09:00 12/05/24 09:19 Multivitamins Therapeutic Tab (*Bkc) PO 1 tablet DAILY ADOLFO Administration Naloxone HCl 0.1 mg 11/29/24 16:55 Naloxone Hcl 0.4 Mg/Ml Vial IV PUSH Q2M PRN Opiate Reversal Pantoprazole Sodium 40 mg 12/02/24 21:00 12/05/24 09:20 Pantoprazole Sodium Iv 40 Mg Vial IV PUSH 40 mg Q12HR ADOLFO Administration Polyethylene Glycol 17 gm 12/03/24 13:27 Polyethylene Glycol 3350 17 Gm Powd.Pack PO QAM PRN Constipation Rosuvastatin Calcium 20 mg 11/30/24 09:00 12/05/24 09:20 Rosuvastatin 20 Mg Tablet PO 20 mg DAILY ADOLFO Administration Senna/Docusate Sodium 1 tab 12/03/24 21:00 12/04/24 20:32 Senna/Docusate Sodium Tablet PO 1 tab HS ADOLFO Administration Sucralfate 1,000 mg 12/02/24 16:30 12/05/24 04:57 Sucralfate Susp 100 Mg/Ml 10 Ml Udc PO 1,000 mg ACHS ADOLFO Administration Trazodone HCl 50 mg 12/05/24 10:36 Trazodone Hcl 50 Mg Tablet PO HS PRN Insomnia Vitamin D 4,000 units 11/30/24 09:00 12/05/24 09:20 Cholecalciferol 1,000 Units Tablet PO 4,000 units DAILY ADOLFO Administration Radiology Results: ITS Impressions MRCP 11/29/24 10:47 IMPRESSION: 1. Mild intrahepatic and extrahepatic biliary duct dilatation with sludge in the distal common duct. 2. Distended gallbladder with gallstones and gallbladder wall thickening suspicious for acute cholecystitis. 3. 2.3 cm hyperenhancing liver mass. In the absence of known malignancy, this finding is likely a hemangioma or focal nodular hyperplasia. Cholangiogram,Operative 11/29/24 14:55 IMPRESSION: 1. Filling defects in the distal common bile duct, which may be sludge or st ones. Neoplasm is not excluded. ERCP is recommended. 2. Intrahepatic and extrahepatic biliary duct dilatation. Chest X-Ray 11/30/24 08:38 IMPRESSION: 1. Mild atelectasis in the lower lung zones and mild scarring at left lung apex. Endo Retro Cholangiopancreatogram 12/02/24 14:27 IMPRESSION: 1. Balloon sweeping of the common duct. Please refer to the ERCP procedure note for additional details. Abdomen X-Ray 12/03/24 14:18 IMPRESSION: 1. Normal bowel gas pattern. Abdomen/Pelvis CT 12/04/24 12:33 IMPRESSION: 1. Acute interstitial pancreatitis. 2. Small left pleural effusion. Labs Labs: Laboratory Results - last 24 hr 12/05/24 05:57 WBC 17.7 H RBC 4.12 L Hgb 11.9 L Hct 36.0 L MCV 87.4 MCH 28.9 MCHC 33.1 RDW 13.4 Plt Count 337 MPV 9.4 Immature Gran % (Auto) 1.3 H Neut % (Auto) 75.2 H Lymph % (Auto) 13.2 L [place] % (Auto) 8.8 H Eos % (Auto) 1.1 Baso % (Auto) 0.4 Lymph # (Auto) 2.34 [place] # (Auto) 1.6 H Eos # (Auto) 0.2 Baso # (Auto) 0.1 Abs Immat Gran (auto) 0.23 H Absolute Neuts (auto) 13.3 H Absolute Nucleated RBC 0.000 Nucleated RBC % 0.0 Sodium 134 L Potassium 3.4 Chloride 97 L Carbon Dioxide 29 Anion Gap 8 BUN 10 Creatinine 0.71 Estim Creat Clear Calc 111 Estimated GFR > 60 Glucose 122 H Calcium 8.6 Total Bilirubin 1.0 AST 31 ALT 92 H Alkaline Phosphatase 283 H Total Protein 6.0 L Albumin 3.3 L Quality VTE Prophylaxis VTE prophylaxis: mechanical ordered
--- NOTE | 2024-12-05 14:28 | PM.PNGS ---
Progress Note: A&P Assessment and Plan (1) Acute calculous cholecystitis: Code(s): K80.00 - Calculus of gallbladder with acute cholecystitis without obstruction Status: Acute Assessment and Plan: CT scan abd/pelvis yesterday showed acute interstitial pancreatitis. His pain is improving and has migrated back to the epigastric area and LUQ this morning. WBC and LFTs trending down Continue low fat diet and antibiotics Hopefully he can discharge in the 1-2 days if he continues to improve (2) Elevated liver enzymes: Code(s): R74.8 - Abnormal levels of other serum enzymes Status: Acute Assessment and Plan: Bilirubin normalized now. Should continue to improve. (3) Pancreatitis due to biliary obstruction: Qualifiers: Chronicity: acute Acute pancreatitis complication: unspecified Qualified Code(s): K85.10 - Biliary acute pancreatitis without necrosis or infection Code(s): K85.90 - Acute pancreatitis without necrosis or infection, unspecified; K83.1 - Obstruction of bile duct Status: Acute (4) Esophageal stricture: Code(s): K22.2 - Esophageal obstruction Status: Acute (5) Ulcerative esophagitis: Code(s): K22.10 - Ulcer of esophagus without bleeding Status: Acute Plan I have discussed the patient's case and plan of care with Dr. Abdalla. Thank you for allowing us to see the patient in consultation and we will continue to follow along with you. Subjective Subjective Date/Time Seen: 12/05/24 14:28 Patient reports: no new complaints, feels better, pain is less, tolerating a regular diet (eating small amounts, but tolerating it well), flatus (passing more gas), bowel movement (good soft BM today) and afebrile Interval history: Abdominal pain improved today. He reports the pain has migrated back to the epigastric area and LUQ. No nausea or vomiting. He didn't have any abdominal pain overnight but felt like he has very mild epigastric and LUQ pain this morning, possibly after breakfast. No other complaints at this time. Exam Const: General: comfortable and no acute distress GI: Inspection: non-distended and incision (incisions dry and intact, no erythema) GI Palp: Yes Soft to palpation, Yes Tenderness to palpation present (GI) (epigastric and LUQ), No Guarding due to palpation present (GI) and No Rebound tenderness present Auscultation: normal bowel sounds Objective Data Vital Signs Vital Signs: Vital Signs - 24 hr 12/04/24 14:51 12/04/24 14:51 12/04/24 16:00 Temperature 99.9 F H 99.9 F H 99.9 F H Pulse Rate 97 74 Respiratory Rate 16 16 Blood Pressure 148/86 H Pulse Oximetry 96 97 Oxygen Delivery 12/04/24 20:00 12/04/24 20:25 12/05/24 00:00 Temperature 98.3 F 98.2 F Pulse Rate 74 95 72 Respiratory Rate 16 18 16 Blood Pressure 120/70 130/75 Pulse Oximetry 97 97 95 Oxygen Delivery Room Air 12/05/24 04:40 12/05/24 08:00 12/05/24 09:20 Temperature 99.4 F 99.3 F Pulse Rate 91 88 Respiratory Rate 16 16 16 Blood Pressure 142/95 H 143/81 H Pulse Oximetry 97 96 97 Oxygen Delivery Room Air 12/05/24 12:00 Temperature 98.5 F Pulse Rate 87 Respiratory Rate 16 Blood Pressure 141/82 H Pulse Oximetry 97 Oxygen Delivery Intake/Output Intake/Output: Intake & Output 12/02/24 12/03/24 12/04/24 12/05/24 23:59 23:59 23:59 23:59 Intake Total 1290 1920 938 827 Balance 1290 1920 938 827 Meds/Results Medications: Active Medications Generic Name Dose Route Start Last Admin Trade Name Freq PRN Reason Stop Dose Admin Acetaminophen 650 mg 12/03/24 18:36 12/04/24 13:52 Acetaminophen 325 Mg Tablet PO 650 mg Q6H PRN Administration Mild Pain (1-3) or Fever Hydrocodone Bitart/Acetaminophen 1 tab 11/29/24 16:55 12/05/24 14:27 Hydrocodone/Acetaminophen (*Crx) 5-325 Mg Tablet PO 1 tab Q4H PRN Administration Pain Rated 4-6 Hydrocodone Bitart/Acetaminophen 1 tab 11/29/24 16:55 12/05/24 00:53 Hydrocodone/Acetaminophen (*Crx) 10-325 Mg Tablet PO 1 tab Q4H PRN Administration Pain Rated 7-10 Calcium Carbonate 200 mg 12/02/24 02:57 12/05/24 09:18 Calcium Carbonate (Tums) 500 Mg (200 Mg Elemental) PO 200 mg Q6H PRN Administration Indigestion Diphenhydramine HCl 25 mg 11/29/24 16:55 12/04/24 20:32 Diphenhydramine Hcl Inj 50 Mg/Ml Vial IV PUSH 25 mg Q6H PRN Administration Itching Enoxaparin Sodium 40 mg 11/30/24 09:00 12/05/24 09:20 Enoxaparin 40 Mg/0.4 Ml Syringe SUB-Q 40 mg DAILY ADOLFO Administration Fish Oil 1 gm 11/30/24 09:00 12/05/24 09:20 [place] 3 Polyunsat Fatty Acids 1 Gm Cap PO 1 gm QAM ADOLFO Administration Piperacillin/Tazobactam/Dextrose 3.375 gm in 50 mls @ 100 mls/hr 11/29/24 10:00 12/05/24 09:50 Zosyn 3.375 Gm/Ns 50 Ml IVPB Infused Q6H ADOLFO Infusion Losartan Potassium 25 mg 11/30/24 10:35 12/05/24 09:20 Losartan Potassium 25 Mg Tablet PO 25 mg DAILY ADOLFO Administration Morphine Sulfate 2 mg 11/29/24 16:55 12/04/24 05:07 Morphine Sulfate (*Crx) 2 Mg/Ml Inj IV PUSH 2 mg Q2H PRN Administration Breakthrough Pain Rated 4-6 or NPO Multivitamins Therapeutic 1 tablet 11/30/24 09:00 12/05/24 09:19 Multivitamins Therapeutic Tab (*Bkc) PO 1 tablet DAILY ADOLFO Administration Naloxone HCl 0.1 mg 11/29/24 16:55 Naloxone Hcl 0.4 Mg/Ml Vial IV PUSH Q2M PRN Opiate Reversal Pantoprazole Sodium 40 mg 12/02/24 21:00 12/05/24 09:20 Pantoprazole Sodium Iv 40 Mg Vial IV PUSH 40 mg Q12HR ADOLFO Administration Polyethylene Glycol 17 gm 12/03/24 13:27 Polyethylene Glycol 3350 17 Gm Powd.Pack PO QAM PRN Constipation Rosuvastatin Calcium 20 mg 11/30/24 09:00 12/05/24 09:20 Rosuvastatin 20 Mg Tablet PO 20 mg DAILY ADOLFO Administration Senna/Docusate Sodium 1 tab 12/03/24 21:00 12/04/24 20:32 Senna/Docusate Sodium Tablet PO 1 tab HS ADOLFO Administration Sucralfate 1,000 mg 12/02/24 16:30 12/05/24 11:02 Sucralfate Susp 100 Mg/Ml 10 Ml Udc PO 1,000 mg ACHS ADOLFO Administration Trazodone HCl 50 mg 12/05/24 10:36 Trazodone Hcl 50 Mg Tablet PO HS PRN Insomnia Vitamin D 4,000 units 11/30/24 09:00 12/05/24 09:20 Cholecalciferol 1,000 Units Tablet PO 4,000 units DAILY ADOLFO Administration Radiology Results: ITS Impressions MRCP 11/29/24 10:47 IMPRESSION: 1. Mild intrahepatic and extrahepatic biliary duct dilatation with sludge in the distal common duct. 2. Distended gallbladder with gallstones and gallbladder wall thickening suspicious for acute cholecystitis. 3. 2.3 cm hyperenhancing liver mass. In the absence of known malignancy, this finding is likely a hemangioma or focal nodular hyperplasia. Cholangiogram,Operative 11/29/24 14:55 IMPRESSION: 1. Filling defects in the distal common bile duct, which may be sludge or stones. Neoplasm is not excluded. ERCP is recommended. 2. Intrahepatic and extrahepatic biliary duct dilatation. Chest X-Ray 11/30/24 08:38 IMPRESSION: 1. Mild atelectasis in the lower lung zones and mild scarring at left lung apex. Endo Retro Cholangiopancreatogram 12/02/24 14:27 IMPRESSION: 1. Balloon sweeping of the common duct. Please refer to the ERCP procedure note for additional details. Abdomen X-Ray 12/03/24 14:18 IMPRESSION: 1. Normal bowel gas pattern. Abdomen/Pelvis CT 12/04/24 12:33 IMPRESSION: 1. Acute interstitial pancreatitis. 2. Small left pleural effusion. Labs Labs: Laboratory Results - last 24 hr 12/05/24 05:57 WBC 17.7 H RBC 4.12 L Hgb 11.9 L Hct 36.0 L MCV 87.4 MCH 28.9 MCHC 33.1 RDW 13.4 Plt Count 337 MPV 9.4 Immature Gran % (Auto) 1.3 H Neut % (Auto) 75.2 H Lymph % (Auto) 13.2 L [place] % (Auto) 8.8 H Eos % (Auto) 1.1 Baso % (Auto) 0.4 Lymph # (Auto) 2.34 [place] # (Auto) 1.6 H Eos # (Auto) 0.2 Baso # (Auto) 0.1 Abs Immat Gran (auto) 0.23 H Absolute Neuts (auto) 13.3 H Absolute Nucleated RBC 0.000 Nucleated RBC % 0.0 Sodium 134 L Potassium 3.4 Chloride 97 L Carbon Dioxide 29 Anion Gap 8 BUN 10 Creatinine 0.71 Estim Creat Clear Calc 111 Estimated GFR > 60 Glucose 122 H Calcium 8.6 Total Bilirubin 1.0 AST 31 ALT 92 H Alkaline Phosphatase 283 H Total Protein 6.0 L Albumin 3.3 L
--- NOTE | 2024-12-05 16:07 | P.PNGI_ITS ---
Progress Note: A&P Assessment and Plan (1) Choledocholithiasis: Code(s): K80.50 - Calculus of bile duct without cholangitis or cholecystitis without obstruction Status: Acute Assessment and Plan: s/p ercp ywith sphincterotomy and balloon sweep of sludge, no bile leak CT scan showed pancreatitis but normal lipase, bili now is normal pain also could be from ulcerative esophagitis- treated with ppi twice daily tolerating diet no fever today blood cx no growth (2) Cholecystitis: Code(s): K81.9 - Cholecystitis, unspecified Status: Acute Assessment and Plan: s/p surgery and ercp (3) Abdominal pain: Qualifiers: Abdominal location: epigastric Qualified Code(s): R10.13 - Epigastric pain Code(s): R10.9 - Unspecified abdominal pain Status: Acute Assessment and Plan: with GERD symptom iv protonix bid carafate with meals (4) Elevated liver enzymes: Code(s): R74.8 - Abnormal levels of other serum enzymes Status: Acute Assessment and Plan: trending down (5) SIRS (systemic inflammatory response syndrome): Code(s): R65.10 - Systemic inflammatory response syndrome (SIRS) of non-infectious origin without acute organ dysfunction Status: Acute Assessment and Plan: no more fever covered with abx (6) Leukocytosis: Code(s): D72.829 - Elevated white blood cell count, unspecified Status: Acute Assessment and Plan: trending down (7) Ulcerative esophagitis: Code(s): K22.10 - Ulcer of esophagus without bleeding Status: Acute Assessment and Plan: iv bid consider repeat egd in 3-4 months to assess healing no more nsaid's (8) Esophageal stricture: Code(s): K22.2 - Esophageal obstruction Status: Acute (9) Constipation: Code(s): K59.00 - Constipation, unspecified Status: Acute Assessment and Plan: kub ok post op and narcotics s/p relistor will add one dose of lactulose Subjective Date/time seen: 12/05/24 16:07 Interval history: similar pain, had BM no more fever today Review of Systems Review of Systems: All systems reviewed & are unremarkable except as noted in HPI and below Exam Const: General: comfortable and no acute distress HENMT: Face/Nose/Sinus: Normal nares present Eyes: Sclera: sclerae normal Neck: Neck: supple Resp: Effort & Inspection: normal respiratory effort Cardio: Rate: regular rate GI: Inspection: non-distended and incision (incisions dry and intact, no erythema) GI Palp: Yes Soft to palpation, Yes Tenderness to palpation present (GI) (epigastric and LUQ), No Guarding due to palpation present (GI) and No Rebound tenderness present Auscultation: normal bowel sounds Skin: General skin exam: no rashes or lesions noted Neuro: Speech: normal speech Motor exam (neuro): 5/5 motor strength present throughout Extrem: General: normal to inspection Psych: Mental Status: mental status grossly normal Objective Data Vital Signs Vital Signs: Vital Signs - 24 hr 12/04/24 20:00 12/04/24 20:25 12/05/24 00:00 Temperature 98.3 F 98.2 F Pulse Rate 74 95 72 Respiratory Rate 16 18 16 Blood Pressure 120/70 130/75 Pulse Oximetry 97 97 95 Oxygen Delivery Room Air 12/05/24 04:40 12/05/24 08:00 12/05/24 09:20 Temperature 99.4 F 99.3 F Pulse Rate 91 88 Respiratory Rate 16 16 16 Blood Pressure 142/95 H 143/81 H Pulse Oximetry 97 96 97 Oxygen Delivery Room Air 12/05/24 12:00 Temperature 98.5 F Pulse Rate 87 Respiratory Rate 16 Blood Pressure 141/82 H Pulse Oximetry 97 Oxygen Delivery Intake/Output Intake/Output: Intake & Output 12/02/24 12/03/24 12/04/24 12/05/24 23:59 23:59 23:59 23:59 Intake Total 1290 1920 938 827 Balance 1290 1920 938 827 Meds/Results Medications: Active Medications Generic Name Dose Route Start Last Admin Trade Name Freq PRN Reason Stop Dose Admin Acetaminophen 650 mg 12/03/24 18:36 12/04/24 13:52 Acetaminophen 325 Mg Tablet PO 650 mg Q6H PRN Administration Mild Pain (1-3) or Fever Hydrocodone Bitart/Acetaminophen 1 tab 11/29/24 16:55 12/05/24 14:27 Hydrocodone/Acetaminophen (*Crx) 5-325 Mg Tablet PO 1 tab Q4H PRN Administration Pain Rated 4-6 Hydrocodone Bitart/Acetaminophen 1 tab 11/29/24 16:55 12/05/24 00:53 Hydrocodone/Acetaminophen (*Crx) 10-325 Mg Tablet PO 1 tab Q4H PRN Administration Pain Rated 7-10 Calcium Carbonate 200 mg 12/02/24 02:57 12/05/24 09:18 Calcium Carbonate (Tums) 500 Mg (200 Mg Elemental) PO 200 mg Q6H PRN Administration Indigestion Diphenhydramine HCl 25 mg 11/29/24 16:55 12/04/24 20:32 Diphenhydramine Hcl Inj 50 Mg/Ml Vial IV PUSH 25 mg Q6H PRN Administration Itching Enoxaparin Sodium 40 mg 11/30/24 09:00 12/05/24 09:20 Enoxaparin 40 Mg/0.4 Ml Syringe SUB-Q 40 mg DAILY ADOLFO Administration Fish Oil 1 gm 11/30/24 09:00 12/05/24 09:20 [place] 3 Polyunsat Fatty Acids 1 Gm Cap PO 1 gm QAM ADOLFO Administration Piperacillin/Tazobactam/Dextrose 3.375 gm in 50 mls @ 100 mls/hr 11/29/24 10:00 12/05/24 15:47 Zosyn 3.375 Gm/Ns 50 Ml IVPB 100 mls/hr Q6H ADOLFO Administration Losartan Potassium 25 mg 11/30/24 10:35 12/05/24 09:20 Losartan Potassium 25 Mg Tablet PO 25 mg DAILY ADOLFO Administration Morphine Sulfate 2 mg 11/29/24 16:55 12/04/24 05:07 Morphine Sulfate (*Crx) 2 Mg/Ml Inj IV PUSH 2 mg Q2H PRN Administration Breakthrough Pain Rated 4-6 or NPO Multivitamins Therapeutic 1 tablet 11/30/24 09:00 12/05/24 09:19 Multivitamins Therapeutic Tab (*Bkc) PO 1 tablet DAILY ADOLFO Administration Naloxone HCl 0.1 mg 11/29/24 16:55 Naloxone Hcl 0.4 Mg/Ml Vial IV PUSH Q2M PRN Opiate Reversal Pantoprazole Sodium 40 mg 12/02/24 21:00 12/05/24 09:20 Pantoprazole Sodium Iv 40 Mg Vial IV PUSH 40 mg Q12HR ADOLFO Administration Polyethylene Glycol 17 gm 12/03/24 13:27 Polyethylene Glycol 3350 17 Gm Powd.Pack PO QAM PRN Constipation Rosuvastatin Calcium 20 mg 11/30/24 09:00 12/05/24 09:20 Rosuvastatin 20 Mg Tablet PO 20 mg DAILY ADOLFO Administration Senna/Docusate Sodium 1 tab 12/03/24 21:00 12/04/24 20:32 Senna/Docusate Sodium Tablet PO 1 tab HS ADOLOF Administration Sucralfate 1,000 mg 12/02/24 16:30 12/05/24 15:47 Sucralfate Susp 100 Mg/Ml 10 Ml Udc PO 1,000 mg ACHS ADOLFO Administration Trazodone HCl 50 mg 12/05/24 10:36 Trazodone Hcl 50 Mg Tablet PO HS PRN Insomnia Vitamin D 4,000 units 11/30/24 09:00 12/05/24 09:20 Cholecalciferol 1,000 Units Tablet PO 4,000 units DAILY ADOLFO Administration Radiology Results: ITS Impressions MRCP 11/29/24 10:47 IMPRESSION: 1. Mild intrahepatic and extrahepatic biliary duct dilatation with sludge in the distal common duct. 2. Distended gallbladder with gallstones and gallbladder wall thickening suspicious for acute cholecystitis. 3. 2.3 cm hyperenhancing liver mass. In the absence of known malignancy, this finding is likely a hemangioma or focal nodular hyperplasia. Cholangiogram,Operative 11/29/24 14:55 IMPRESSION: 1. Filling defects in the distal common bile duct, which may be sludge or stones. Neoplasm is not excluded. ERCP is recommended. 2. Intrahepatic and extrahepatic biliary duct dilatation. Chest X-Ray 11/30/24 08:38 IMPRESSION: 1. Mild atelectasis in the lower lung zones and mild scarring at left lung apex. Endo Retro Cholangiopancreatogram 12/02/24 14:27 IMPRESSION: 1. Balloon sweeping of the common duct. Please refer to the ERCP procedure note for additional details. Abdomen X-Ray 12/03/24 14:18 IMPRESSION: 1. Normal bowel gas pattern. Abdomen/Pelvis CT 12/04/24 12:33 IMPRESSION: 1. Acute interstitial pancreatitis. 2. Small left pleural effusion. Labs Labs: Laboratory Results - last 24 hr 12/05/24 05:57 WBC 17.7 H RBC 4.12 L Hgb 11.9 L Hct 36.0 L MCV 87.4 MCH 28.9 MCHC 33.1 RDW 13.4 Plt Count 337 MPV 9.4 Immature Gran % (Auto) 1.3 H Neut % (Auto) 75.2 H Lymph % (Auto) 13.2 L [place] % (Auto) 8.8 H Eos % (Auto) 1.1 Baso % (Auto) 0.4 Lymph # (Auto) 2.34 [place] # (Auto) 1.6 H Eos # (Auto) 0.2 Baso # (Auto) 0.1 Abs Immat Gran (auto) 0.23 H Absolute Neuts (auto) 13.3 H Absolute Nucleated RBC 0.000 Nucleated RBC % 0.0 Sodium 134 L Potassium 3.4 Chloride 97 L Carbon Dioxide 29 Anion Gap 8 BUN 10 Creatinine 0.71 Estim Creat Clear Calc 111 Estimated GFR > 60 Glucose 122 H Calcium 8.6 Total Bilirubin 1.0 AST 31 ALT 92 H Alkaline Phosphatase 283 H Total Protein 6.0 L Albumin 3.3 L
[2024-12-05] MEDS: SENNA/DOCUSATE SODIUM TABLET 1 TAB PO (20:30)
[2024-12-05] MEDS: traZODone HCL 50 MG TABLET PO (20:30)
[2024-12-05] MEDS: ACETAMINOPHEN 325 MG TABLET 650 MG PO (20:30)
[2024-12-05] MEDS: diphenhydrAMINE HCl INJ 50 MG/ML VIAL 25 MG IV PUSH (22:16)
[2024-12-06] VITALS (7 sets, daily range): BP systolic 109–123; BP diastolic 70–85; PULSE 85–96; RESP 16–20; TEMP 36.6–38.1; O2SAT 96–99
[2024-12-06] MEDS: HYDROcodone/acetaminophen (*CRX) 10-325 MG TABLET 1 TAB PO (04:07)
[2024-12-06] MEDS: PIPERACILLN/TAZ 3.375GM/NS50ML 3.375 GM/50 ML BAG IVPB ×2 (04:08→10:06)
[2024-12-06] MEDS: SUCRALFATE SUSP 100 MG/ML 10 ML UDC 1000 MG PO ×4 (05:53→20:06)
[2024-12-06] MEDS: ACETAMINOPHEN 325 MG TABLET 650 MG PO (05:53)
[2024-12-06 06:20] LABS: Basophils Absolute Auto 0.1 K/mm3 (0.0-0.1); Basophils Percent Auto 0.4 % (0.2-1.2); Eosinophils Absolute Auto 0.2 K/mm3 (0-0.3); Eosinophils Percent Auto 1.4 % (0-4.4); Hematocrit 34.7 % (42.0-52.0); Hemoglobin 11.5 g/dL (14.0-18.0); Immature Granulocyte Absolute 0.16 K/mm3 (0.00-0.031); Lymphocytes Absolute Auto 2.03 K/mm3 (0.9-3.2); Lymphocytes Percent Auto 13.1 % (18.3-44.2); Mean Corpuscular HGB Conc 33.1 g/dl (32-36); Mean Corpuscular Hemoglobin 28.7 pg (26-34); Mean Corpuscular Volume 86.5 fl (80-100); Mean Platelet Volume 9.3 fl (7.4-10.4); Monocytes Absolute Auto 1.6 K/mm3 (0.1-0.6); Monocytes Percent Auto 10.4 % (2.6-8.5); Neutrophils Absolute Auto 11.4 K/mm3 (1.3-6.7); Neutrophils Percent Auto 73.7 % (45.5-73.1); Platelet Count Result 353 k/mm3 (150-375); Red Blood Count 4.01 M/mm3 (4.6-6.20); Red Cell Distribution Width 13.5 % (11.5-14.5); White Blood Count 15.5 K/mm3 (4.5-10.0)
[2024-12-06 06:29] LABS: Alanine Aminotransferase 70 U/L (6-50); Albumin Level 3.1 g/dL (3.5-5.1); Alkaline Phosphatase 223 U/L (38-126); Anion Gap 9 mmol/L (4-12); Aspartate Amino Transferase 30 U/L (17-59); Bilirubin,Total 0.7 mg/dL (0.2-1.3); Blood Urea Nitrogen 11 mg/dL (9-20); Calcium 8.3 mg/dL (8.4-10.2); Carbon Dioxide 27 mmol/L (22-30); Chloride 99 mmol/L (98-107); Estimated CRCL calculation 102 ml/min; Estimated Glomerular Filt Rate > 60; Glucose 127 mg/dL (65-110); Lipase 49 U/L (23-300); Potassium 3.2 mmol/L (3.4-5.0); Sodium 135 mmol/L (137-145)
--- NOTE | 2024-12-06 08:28 | PM.PNGS ---
Progress Note: A&P Assessment and Plan (1) Acute calculous cholecystitis: Code(s): K80.00 - Calculus of gallbladder with acute cholecystitis without obstruction Status: Acute Assessment and Plan: Surgically stable for discharge. Follow up in 2 weeks in office. Continue antibiotics and medical treatment per Hospitalist. (2) Elevated liver enzymes: Code(s): R74.8 - Abnormal levels of other serum enzymes Status: Acute Assessment and Plan: Bilirubin normalized now. Should continue to improve. (3) Pancreatitis due to biliary obstruction: Qualifiers: Chronicity: acute Acute pancreatitis complication: unspecified Qualified Code(s): K85.10 - Biliary acute pancreatitis without necrosis or infection Code(s): K85.90 - Acute pancreatitis without necrosis or infection, unspecified; K83.1 - Obstruction of bile duct Status: Acute (4) Esophageal stricture: Code(s): K22.2 - Esophageal obstruction Status: Acute (5) Ulcerative esophagitis: Code(s): K22.10 - Ulcer of esophagus without bleeding Status: Acute Subjective Subjective Date/Time Seen: 12/06/24 08:28 Interval history: Tolerating diet but still not much appetite. Still having fevers but not as high. Pain improved. Resting better. Exam GI: Inspection: non-distended and incision (intact with glue, mild bruising) GI Palp: Yes Soft to palpation, No Tenderness to palpation present (GI) and No Guarding due to palpation present (GI) Auscultation: normal bowel sounds Objective Data Vital Signs Vital Signs: Vital Signs - 24 hr 12/05/24 09:20 12/05/24 12:00 12/05/24 16:00 Temperature 98.5 F 98.6 F Pulse Rate 87 94 Respiratory Rate 16 16 Blood Pressure 141/82 H Pulse Oximetry 97 97 Oxygen Delivery Room Air 12/05/24 17:28 12/05/24 20:00 12/05/24 20:15 Temperature 98.6 F 100.5 F H Pulse Rate 94 91 91 Respiratory Rate 16 16 16 Blood Pressure 125/80 126/78 Pulse Oximetry 99 98 98 Oxygen Delivery Room Air 12/05/24 20:30 12/06/24 00:25 12/06/24 04:20 Temperature 100.2 F H 98.5 F 100.1 F H Pulse Rate 85 96 Respiratory Rate 18 20 Blood Pressure 121/73 123/79 Pulse Oximetry 97 96 Oxygen Delivery 12/06/24 05:53 Temperature 100.5 F H Pulse Rate Respiratory Rate Blood Pressure Pulse Oximetry Oxygen Delivery Intake/Output Intake/Output: Intake & Output 12/03/24 12/04/24 12/05/24 12/06/24 23:59 23:59 23:59 23:59 Intake Total 5334 072 5921 930 Balance 5396 112 4279 930 Meds/Results Medications: Active Medications Generic Name Dose Route Start Last Admin Trade Name Freq PRN Reason Stop Dose Admin Acetaminophen 650 mg 12/03/24 18:36 12/06/24 05:53 Acetaminophen 325 Mg Tablet PO 650 mg Q6H PRN Administration Mild Pain (1-3) or Fever Hydrocodone Bitart/Acetaminophen 1 tab 11/29/24 16:55 12/05/24 18:36 Hydrocodone/Acetaminophen (*Crx) 5-325 Mg Tablet PO 1 tab Q4H PRN Administration Pain Rated 4-6 Hydrocodone Bitart/Acetaminophen 1 tab 11/29/24 16:55 12/06/24 04:07 Hydrocodone/Acetaminophen (*Crx) 10-325 Mg Tablet PO 1 tab Q4H PRN Administration Pain Rated 7-10 Calcium Carbonate 200 mg 12/02/24 02:57 12/05/24 09:18 Calcium Carbonate (Tums) 500 Mg (200 Mg Elemental) PO 200 mg Q6H PRN Administration Indigestion Diphenhydramine HCl 25 mg 11/29/24 16:55 12/05/24 22:16 Diphenhydramine Hcl Inj 50 Mg/Ml Vial IV PUSH 25 mg Q6H PRN Administration Itching Enoxaparin Sodium 40 mg 11/30/24 09:00 12/05/24 09:20 Enoxaparin 40 Mg/0.4 Ml Syringe SUB-Q 40 mg DAILY ADOLFO Administration Fish Oil 1 gm 11/30/24 09:00 12/05/24 09:20 [place] 3 Polyunsat Fatty Acids 1 Gm Cap PO 1 gm QAM ADOLFO Administration Piperacillin/Tazobactam/Dextrose 3.375 gm in 50 mls @ 100 mls/hr 11/29/24 10:00 12/06/24 04:08 Zosyn 3.375 Gm/Ns 50 Ml IVPB 100 mls/hr Q6H ADOLFO Administration Losartan Potassium 25 mg 11/30/24 10:35 12/05/24 09:20 Losartan Potassium 25 Mg Tablet PO 25 mg DAILY ADOLFO Administration Morphine Sulfate 2 mg 11/29/24 16:55 12/04/24 05:07 Morphine Sulfate (*Crx) 2 Mg/Ml Inj IV PUSH 2 mg Q2H PRN Administration Breakthrough Pain Rated 4-6 or NPO Multivitamins Therapeutic 1 tablet 11/30/24 09:00 12/05/24 09:19 Multivitamins Therapeutic Tab (*Bkc) PO 1 tablet DAILY ADOLFO Administration Naloxone HCl 0.1 mg 11/29/24 16:55 Naloxone Hcl 0.4 Mg/Ml Vial IV PUSH Q2M PRN Opiate Reversal Pantoprazole Sodium 40 mg 12/02/24 21:00 12/05/24 20:34 Pantoprazole Sodium Iv 40 Mg Vial IV PUSH 40 mg Q12HR ADOLFO Administration Polyethylene Glycol 17 gm 12/03/24 13:27 Polyethylene Glycol 3350 17 Gm Powd.Pack PO QAM PRN Constipation Rosuvastatin Calcium 20 mg 11/30/24 09:00 12/05/24 09:20 Rosuvastatin 20 Mg Tablet PO 20 mg DAILY ADOLFO Administration Senna/Docusate Sodium 1 tab 12/03/24 21:00 12/05/24 20:30 Senna/Docusate Sodium Tablet PO 1 tab HS ADOLFO Administration Sucralfate 1,000 mg 12/02/24 16:30 12/06/24 05:53 Sucralfate Susp 100 Mg/Ml 10 Ml Udc PO 1,000 mg ACHS ADOLFO Administration Trazodone HCl 50 mg 12/05/24 10:36 12/05/24 20:30 Trazodone Hcl 50 Mg Tablet PO 50 mg HS PRN Administration Insomnia Vitamin D 4,000 units 11/30/24 09:00 12/05/24 09:20 Cholecalciferol 1,000 Units Tablet PO 4,000 units DAILY ADOLFO Administration Radiology Results: ITS Impressions MRCP 11/29/24 10:47 IMPRESSION: 1. Mild intrahepatic and extrahepatic biliary duct dilatation with sludge in the distal common duct. 2. Distended gallbladder with gallstones and gallbladder wall thickening suspicious for acute cholecystitis. 3. 2.3 cm hyperenhancing liver mass. In the absence of known malignancy, this finding is likely a hemangioma or focal nodular hyperplasia. Cholangiogram,Operative 11/29/24 14:55 IMPRESSION: 1. Filling defects in the distal common bile duct, which may be sludge or stones. Neoplasm is not excluded. ERCP is recommended. 2. Intrahepatic and extrahepatic biliary duct dilatation. Chest X-Ray 11/30/24 08:38 IMPRESSION: 1. Mild atelectasis in the lower lung zones and mild scarring at left lung apex. Endo Retro Cholangiopancreatogram 12/02/24 14:27 IMPRESSION: 1. Balloon sweeping of the common duct. Please refer to the ERCP procedure note for additional details. Abdomen X-Ray 12/03/24 14:18 IMPRESSION: 1. Normal bowel gas pattern. Abdomen/Pelvis CT 12/04/24 12:33 IMPRESSION: 1. Acute interstitial pancreatitis. 2. Small left pleural effusion. Labs Labs: Laboratory Results - last 24 hr 12/06/24 05:54 WBC 15.5 H RBC 4.01 L Hgb 11.5 L Hct 34.7 L MCV 86.5 MCH 28.7 MCHC 33.1 RDW 13.5 Plt Count 353 MPV 9.3 Immature Gran % (Auto) 1.0 H Neut % (Auto) 73.7 H Lymph % (Auto) 13.1 L [place] % (Auto) 10.4 H Eos % (Auto) 1.4 Baso % (Auto) 0.4 Lymph # (Auto) 2.03 [place] # (Auto) 1.6 H Eos # (Auto) 0.2 Baso # (Auto) 0.1 Abs Immat Gran (auto) 0.16 H Absolute Neuts (auto) 11.4 H Absolute Nucleated RBC 0.000 Nucleated RBC % 0.0 Sodium 135 L Potassium 3.2 L Chloride 99 Carbon Dioxide 27 Anion Gap 9 BUN 11 Creatinine 0.78 Estim Creat Clear Calc 102 Estimated GFR > 60 Glucose 127 H Calcium 8.3 L Total Bilirubin 0.7 AST 30 ALT 70 H Alkaline Phosphatase 223 H Total Protein 6.0 L Albumin 3.1 L Lipase 49
--- NOTE | 2024-12-06 09:54 | P.PNIM_ITS ---
Progress Note: A&P Assessment and Plan (1) Cholecystitis: Code(s): K81.9 - Cholecystitis, unspecified Status: Acute Assessment and Plan: - Abdomen/pelvis CT mild intrahepatic and extrahepatic biliary duct dilatation with possible filling defect distal common bile duct, 2.2 cm liver mass which may be benign or malignant, distended gallbladder with surrounding fat stranding suspicious for acute cholecystitis, small sliding hiatal hernia - MRCP mild intrahepatic and extrahepatic biliary duct dilatation was sludge in the distal common duct, distended gallbladder with gallstones and gallbladder wall thickening suspicious for acute cholecystitis, 2.3 cm hyper enhancing liver mass and noted in the absence of known malignancy this is likely Hemangioma or focal nodular hyperplasia - ERCP reflux esophagitis, esophageal stricture and previous pancreatic surgery - IV pain management - Gentle IV fluid resuscitation - Antibiotics: Zosyn 3.375 mg every 6 hours started 11/29, doxycycline 100 mg BID started 12/02 - Diet: advance as tolerated - Monitor vital signs, I and O's, check stool output, neuro status and patient is a fall risk - Monitor serum electrolytes and CBC - Monitor lactic acid - Consult general surgery s/p Laparoscopic cholecystectomy with intraoperative cholangiogram on 11/[address] Abdalla - GI consulted EGD in 3-4 months to assess healing, no nsaid use iv protonix BID and carafate with meals Patient endorsing increased abdominal pain requiring IV pain medication. Seems more incisional in nature however he has not had a bowel movement since prior to surgery. KUB showing normal bowel gas pattern. Patient also endorsing epigastric pain, possibly related to esophageal stricture seen on EGD. 12/04- WBC trending down - 19 today. ERCP yesterday. Still some abdominal pain. Ulcerative esophagitis could be contributing, lipase repeated- 54. ERCP showed no bile leak. gi, surgery following- CT scan yesterday 12/05- WBC down some more today- 17.7. able to avoid IV pain meds, pain is controlled with po meds 12/06 wbc 15.5. Completed antibiotic course. (2) Common bile duct dilatation: Code(s): K83.8 - Other specified diseases of biliary tract Status: Acute Assessment and Plan: see above (3) Liver mass: Code(s): R16.0 - Hepatomegaly, not elsewhere classified Status: Acute Assessment and Plan: * Liver mass shown on abdomen pelvis CT * MRCP showed mass is likely hemangioma or focal nodular hyperplasia in the absence of known malignancy * GI following ast normal-30, alt down to 70, alk. phos down to 223 (4) Elevated liver enzymes: Code(s): R74.8 - Abnormal levels of other serum enzymes Status: Acute Assessment and Plan: - Initial total bilirubin 3.0, AST 349, ALT 447, alkaline phosphate 527, now tot bili 2.8, AST 86, ALT 183, alk phos 420 on am labs LFTs have doubled since labs yesterday however likely due to patients ERCP Continue to trend (5) Gastroesophageal reflux disease: Qualifiers: Esophagitis presence: esophagitis presence not specified Qualified Co de(s): K21.9 - Gastro-esophageal reflux disease without esophagitis Code(s): K21.9 - Gastro-esophageal reflux disease without esophagitis Status: Acute Assessment and Plan: * started Protonix bid * gi is following * still an issue * continue to avoid caffeine, fried foods, donot lie down right after meals Time Spent With Patient Time with patient: 25 - 35 minutes Subjective Date/time seen: 12/06/24 09:54 Interval history: Pt is seen and examined. Pain is the same, epigastric in nature. GI is following. Had BM. WBC trending down. bc negative so far. Surgery cleared him to be discharged. Awaiting for GI to see him and optimize treatment for epigastric pain. Pt had BM and appetite is slowly improving. Will add shakes to nutritional supplement. Review of Systems Review of Systems: 12 systems were reviewed and are negativ e except for as per HPI. All systems reviewed & are unremarkable except as noted in HPI and below Exam Narrative: General: male in no acute respiratory distress who is nontoxic appearing, lying semi recumbent in bed. HEENT: Normocephalic. Atraumatic. Extraocular movement intact. Sclera clear and anicteric. No facial asymmetry. Chest: Lungs are clear to auscultation bilaterally. No wheezes or crackles. CV: Heart was regular rate and rhythm. S1/S2. No murmurs, gallops, or rubs. Abd: Abdomen was soft. Tender to palpation. Nondistended. Hypoactive bowel sounds. Incisions are well healing. Ext: No clubbing, cyanosis, or edema. Objective Data Vital Signs Vital Signs: Vital Signs - 24 hr 12/05/24 12:00 12/05/24 16:00 12/05/24 17:28 Temperature 98.5 F 98.6 F 98.6 F Pulse Rate 87 94 94 Respiratory Rate 16 16 Blood Pressure 141/82 H 125/80 Pulse Oximetry 97 99 Oxygen Delivery 12/05/24 20:00 12/05/24 20:15 12/05/24 20:30 Temperature 100.5 F H 100.2 F H Pulse Rate 91 91 Respiratory Rate 16 16 Blood Pressure 126/78 Pulse Oximetry 98 98 Oxygen Delivery Room Air 12/06/24 00:25 12/06/24 04:20 12/06/24 05:53 Temperature 98.5 F 100.1 F H 100.5 F H Pulse Rate 85 96 Respiratory Rate 18 20 Blood Pressure 121/73 123/79 Pulse Oximetry 97 96 Oxygen Delivery 12/06/24 08:00 Temperature 98.1 F Pulse Rate 85 Respiratory Rate 16 Blood Pressure 123/85 Pulse Oximetry 99 Oxygen Delivery Intake/Output Intake/Output: Intake & Output 12/03/24 12/04/24 12/05/24 12/06/24 23:59 23:59 23:59 23:59 Intake Total 1675 477 0769 1050 Balance 0010 498 7314 1050 Meds/Results Medications: Active Medications Generic Name Dose Route Start Last Admin Trade Name Freq PRN Reason Stop Dose Admin Acetaminophen 650 mg 12/03/24 18:36 12/06/24 05:53 Acetaminophen 325 Mg Tablet PO 650 mg Q6H PRN Administration Mild Pain (1-3) or Fever Hydrocodone Bitart/Acetaminophen 1 tab 11/29/24 16:55 12/05/24 18:36 Hydrocodone/Acetaminophen (*Crx) 5-325 Mg Tablet PO 1 tab Q4H PRN Administration Pain Rated 4-6 Hydrocodone Bitart/Acetaminophen 1 tab 11/29/24 16:55 12/06/24 04:07 Hydrocodone/Acetaminophen (*Crx) 10-325 Mg Tablet PO 1 tab Q4H PRN Administration Pain Rated 7-10 Calcium Carbonate 200 mg 12/02/24 02:57 12/05/24 09:18 Calcium Carbonate (Tums) 500 Mg (200 Mg Elemental) PO 200 mg Q6H PRN Administration Indigestion Diphenhydramine HCl 25 mg 11/29/24 16:55 12/05/24 22:16 Diphenhydramine Hcl Inj 50 Mg/Ml Vial IV PUSH 25 mg Q6H PRN Administration Itching Enoxaparin Sodium 40 mg 11/30/24 09:00 12/05/24 09:20 Enoxaparin 40 Mg/0.4 Ml Syringe SUB-Q 40 mg DAILY ADOLFO Administration Fish Oil 1 gm 11/30/24 09:00 12/05/24 09:20 [place] 3 Polyunsat Fatty Acids 1 Gm Cap PO 1 gm QAM ADOLFO Administration Piperacillin/Tazobactam/Dextrose 3.375 gm in 50 mls @ 100 mls/hr 11/29/24 10:00 12/06/24 04:08 Zosyn 3.375 Gm/Ns 50 Ml IVPB 100 mls/hr Q6H ADOLFO Administration Losartan Potassium 25 mg 11/30/24 10:35 12/05/24 09:20 Losartan Potassium 25 Mg Tablet PO 25 mg DAILY ADOLFO Administration Morphine Sulfate 2 mg 11/29/24 16:55 12/04/24 05:07 Morphine Sulfate (*Crx) 2 Mg/Ml Inj IV PUSH 2 mg Q2H PRN Administration Breakthrough Pain Rated 4-6 or NPO Multivitamins Therapeutic 1 tablet 11/30/24 09:00 12/05/24 09:19 Multivitamins Therapeutic Tab (*Bkc) PO 1 tablet DAILY ADOLFO Administration Naloxone HCl 0.1 mg 11/29/24 16:55 Naloxone Hcl 0.4 Mg/Ml Vial IV PUSH Q2M PRN Opiate Reversal Pantoprazole Sodium 40 mg 12/02/24 21:00 12/05/24 20:34 Pantoprazole Sodium Iv 40 Mg Vial IV PUSH 40 mg Q12HR ADOLFO Administration Polyethylene Glycol 17 gm 12/03/24 13:27 Polyethylene Glycol 3350 17 Gm Powd.Pack PO QAM PRN Constipation Rosuvastatin Calcium 20 mg 11/30/24 09:00 12/05/24 09:20 Rosuvastatin 20 Mg Tablet PO 20 mg DAILY ADOLFO Administration Senna/Docusate Sodium 1 tab 12/03/24 21:00 12/05/24 20:30 Senna/Docusate Sodium Tablet PO 1 tab HS ADOLFO Administration Sucralfate 1,000 mg 12/02/24 16:30 12/06/24 05:53 Sucralfate Susp 100 Mg/Ml 10 Ml Udc PO 1,000 mg ACHS ADOLFO Administration Trazodone HCl 50 mg 12/05/24 10:36 12/05/24 20:30 Trazodone Hcl 50 Mg Tablet PO 50 mg HS PRN Administration Insomnia Vitamin D 4,000 units 11/30/24 09:00 12/05/24 09:20 Cholecalciferol 1,000 Units Tablet PO 4,000 units DAILY ADOLFO Administration Radiology Results: ITS Impressions MRCP 11/29/24 10:47 IMPRESSION: 1. Mild intrahepatic and extrahepatic biliary duct dilatation with sludge in the distal common duct. 2. Distended gallbladder with gallstones and gallbladder wall thickening suspicious for acute cholecystitis. 3. 2.3 cm hyperenhancing liver mass. In the absence of known malignancy, this finding is likely a hemangioma or focal nodular hyperplasia. Cholangiogram,Operative 11/29/24 14:55 IMPRESSION: 1. Filling defects in the distal common bile duct, which may be sludge or stones. Neoplasm is not excluded. ERCP is recommended. 2. Intrahepatic and extrahepatic biliary duct dilatation. Chest X-Ray 11/30/24 08:38 IMPRESSION: 1. Mild atelectasis in the lower lung zones and mild scarring at left lung apex. Endo Retro Cholangiopancreatogram 12/02/24 14:27 IMPRESSION: 1. Balloon sweeping of the common duct. Please refer to the ERCP procedure note for additional details. Abdomen X-Ray 12/03/24 14:18 IMPRESSION: 1. Normal bowel gas pattern. Abdomen/Pelvis CT 12/04/24 12:33 IMPRESSION: 1. Acute interstitial pancreatitis. 2. Small left pleural effusion. Labs Labs: Laboratory Results - last 24 hr 12/06/24 05:54 WBC 15.5 H RBC 4.01 L Hgb 11.5 L Hct 34.7 L MCV 86.5 MCH 28.7 MCHC 33.1 RDW 13.5 Plt Count 353 MPV 9.3 Immature Gran % (Auto) 1.0 H Neut % (Auto) 73.7 H Lymph % (Auto) 13.1 L [place] % (Auto) 10.4 H Eos % (Auto) 1.4 Baso % (Auto) 0.4 Lymph # (Auto) 2.03 [place] # (Auto) 1.6 H Eos # (Auto) 0.2 Baso # (Auto) 0.1 Abs Immat Gran (auto) 0.16 H Absolute Neuts (auto) 11.4 H Absolute Nucleated RBC 0.000 Nucleated RBC % 0.0 Sodium 135 L Potassium 3.2 L Chloride 99 Carbon Dioxide 27 Anion Gap 9 BUN 11 Creatinine 0.78 Estim Creat Clear Calc 102 Estimated GFR > 60 Glucose 127 H Calcium 8.3 L Total Bilirubin 0.7 AST 30 ALT 70 H Alkaline Phosphatase 223 H Total Protein 6.0 L Albumin 3.1 L Lipase 49 Quality VTE Prophylaxis VTE prophylaxis: mechanical ordered
[2024-12-06] MEDS: CHOLECALCIFEROL 1,000 UNITS TABLET 4000 UNITS PO (10:02)
[2024-12-06] MEDS: OMEGA 3 POLYUNSAT FATTY ACIDS 1 GM CAP PO (10:02)
[2024-12-06] MEDS: MULTIVITAMINS THERAPEUTIC TAB (*BKC) 1 TABLET PO (10:02)
[2024-12-06] MEDS: PANTOPRAZOLE SODIUM IV 40 MG VIAL IV PUSH ×2 (10:03→20:06)
[2024-12-06] MEDS: LOSARTAN POTASSIUM 25 MG TABLET PO (10:03)
[2024-12-06] MEDS: ROSUVASTATIN 20 MG TABLET PO (10:03)
[2024-12-06] MEDS: HYDROcodone/acetaminophen (*CRX) 5-325 MG TABLET 1 TAB PO ×2 (13:33→20:06)
[2024-12-06] MEDS: polyethylene glycoL 3350 17 GM POWD.PACK PO (13:36)
--- NOTE | 2024-12-06 17:11 | P.PNGI_ITS ---
Progress Note: A&P Assessment and Plan (1) Choledocholithiasis: Code(s): K80.50 - Calculus of bile duct without cholangitis or cholecystitis without obstruction Status: Acute Assessment and Plan: s/p ercp with sphincterotomy and balloon sweep of sludge, no bile leak CT scan showed pancreatitis but normal lipase low grade fever but wbc trending down and overall better on iv abx hopefully home tomorrow (2) Cholecystitis: Code(s): K81.9 - Cholecystitis, unspecified Status: Acute Assessment and Plan: s/p surgery and ercp (3) Abdominal pain: Qualifiers: Abdominal location: epigastric Qualified Code(s): R10.13 - Epigastric pain Code(s): R10.9 - Unspecified abdominal pain Status: Acute Assessment and Plan: with GERD symptom he will need to go home with ppi twice daily and avoid nsaid's carafate with meals (4) Elevated liver enzymes: Code(s): R74.8 - Abnormal levels of other serum enzymes Status: Acute Assessment and Plan: bili normal now (5) SIRS (systemic inflammatory response syndrome): Code(s): R65.10 - Systemic inflammatory response syndrome (SIRS) of non-infectious origin without acute organ dysfunction Status: Acute Assessment and Plan: low grade fever covered with abx (6) Leukocytosis: Code(s): D72.829 - Elevated white blood cell count, unspecified Status: Acute Assessment and Plan: trending down (7) Ulcerative esophagitis: Code(s): K22.10 - Ulcer of esophagus without bleeding Status: Acute Assessment and Plan: ppi bid consider repeat egd in 3-4 months to assess healing no more nsaid's (8) Constipation: Code(s): K59.00 - Constipation, unspecified Status: Acute Assessment and Plan: having more BM Subjective Date/time seen: 12/06/24 17:11 Interval history: had low grade fever but slowly feeling better he is walking had 2 BM today Review of Systems Review of Systems: All systems reviewed & are unremarkable except as noted in HPI and below Exam Const: General: comfortable HENMT: Face/Nose/Sinus: Normal nares present Eyes: Sclera: sclerae normal Neck: Neck: supple Resp: Effort & Inspection: normal respiratory effort Cardio: Rate: regular rate GI: Inspection: non-distended and incision (intact with glue, mild bruising) GI Palp: Yes Soft to palpation, No Tenderness to palpation present (GI) and No Guarding due to palpation present (GI) Auscultation: normal bowel sounds Skin: General skin exam: normal color Neuro: Speech: normal speech Motor exam (neuro): 5/5 motor strength present throughout Extrem: General: normal to inspection Psych: Mental Status: mental status grossly normal Objective Data Vital Signs Vital Signs: Vital Signs - 24 hr 12/05/24 17:28 12/05/24 20:00 12/05/24 20:15 Temperature 98.6 F 100.5 F H Pulse Rate 94 91 91 Respiratory Rate 16 16 16 Blood Pressure 125/80 126/78 Pulse Oximetry 99 98 98 Oxygen Delivery Room Air 12/05/24 20:30 12/06/24 00:25 12/06/24 04:20 Temperature 100.2 F H 98.5 F 100.1 F H Pulse Rate 85 96 Respiratory Rate 18 20 Blood Pressure 121/73 123/79 Pulse Oximetry 97 96 Oxygen Delivery 12/06/24 05:53 12/06/24 08:00 12/06/24 11:09 Temperature 100.5 F H 98.1 F Pulse Rate 85 90 Respiratory Rate 16 20 Blood Pressure 123/85 109/70 Pulse Oximetry 99 98 Oxygen Delivery 12/06/24 16:00 Temperature Pulse Rate 96 Respiratory Rate Blood Pressure 120/75 Pulse Oximetry 97 Oxygen Delivery Intake/Output Intake/Output: Intake & Output 12/03/24 12/04/24 12/05/24 12/06/24 23:59 23:59 23:59 23:59 Intake Total 6492 032 3138 2390 Balance 8169 269 2918 2390 Meds/Results Medications: Active Medications Generic Name Dose Route Start Last Admin Trade Name Freq PRN Reason Stop Dose Admin Acetaminophen 650 mg 12/03/24 18:36 12/06/24 05:53 Acetaminophen 325 Mg Tablet PO 650 mg Q6H PRN Administration Mild Pain (1-3) or Fever Hydrocodone Bitart/Acetaminophen 1 tab 11/29/24 16:55 12/06/24 13:33 Hydrocodone/Acetaminophen (*Crx) 5-325 Mg Tablet PO 1 tab Q4H PRN Administration Pain Rated 4-6 Hydrocodone Bitart/Acetaminophen 1 tab 11/29/24 16:55 12/06/24 04:07 Hydrocodone/Acetaminophen (*Crx) 10-325 Mg Tablet PO 1 tab Q4H PRN Administration Pain Rated 7-10 Calcium Carbonate 200 mg 12/02/24 02:57 12/05/24 09:18 Calcium Carbonate (Tums) 500 Mg (200 Mg Elemental) PO 200 mg Q6H PRN Administration Indigestion Diphenhydramine HCl 25 mg 11/29/24 16:55 12/05/24 22:16 Diphenhydramine Hcl Inj 50 Mg/Ml Vial IV PUSH 25 mg Q6H PRN Administration Itching Enoxaparin Sodium 40 mg 11/30/24 09:00 12/06/24 10:09 Enoxaparin 40 Mg/0.4 Ml Syringe SUB-Q Not Given DAILY ADOLFO Fish Oil 1 gm 11/30/24 09:00 12/06/24 10:02 [place] 3 Polyunsat Fatty Acids 1 Gm Cap PO 1 gm QAM ADOLFO Administration Losartan Potassium 25 mg 11/30/24 10:35 12/06/24 10:03 Losartan Potassium 25 Mg Tablet PO 25 mg DAILY ADOLFO Administration Morphine Sulfate 2 mg 11/29/24 16:55 12/04/24 05:07 Morphine Sulfate (*Crx) 2 Mg/Ml Inj IV PUSH 2 mg Q2H PRN Administration Breakthrough Pain Rated 4-6 or NPO Multivitamins Therapeutic 1 tablet 11/30/24 09:00 12/06/24 10:02 Multivitamins Therapeutic Tab (*Bkc) PO 1 tablet DAILY ADOLFO Administration Naloxone HCl 0.1 mg 11/29/24 16:55 Naloxone Hcl 0.4 Mg/Ml Vial IV PUSH Q2M PRN Opiate Reversal Pantoprazole Sodium 40 mg 12/02/24 21:00 12/06/24 10:03 Pantoprazole Sodium Iv 40 Mg Vial IV PUSH 40 mg Q12HR ADOLFO Administration Polyethylene Glycol 17 gm 12/03/24 13:27 12/06/24 13:36 Polyethylene Glycol 3350 17 Gm Powd.Pack PO 17 gm QAM PRN Administration Constipation Rosuvastatin Calcium 20 mg 11/30/24 09:00 12/06/24 10:03 Rosuvastatin 20 Mg Tablet PO 20 mg DAILY ADOLFO Administration Senna/Docusate Sodium 1 tab 12/03/24 21:00 12/05/24 20:30 Senna/Docusate Sodium Tablet PO 1 tab HS ADOLFO Administration Sucralfate 1,000 mg 12/02/24 16:30 12/06/24 16:48 Sucralfate Susp 100 Mg/Ml 10 Ml Udc PO 1,000 mg ACHS ADOLFO Administration Trazodone HCl 50 mg 12/05/24 10:36 12/05/24 20:30 Trazodone Hcl 50 Mg Tablet PO 50 mg HS PRN Administration Insomnia Vitamin D 4,000 units 11/30/24 09:00 12/06/24 10:02 Cholecalciferol 1,000 Units Tablet PO 4,000 units DAILY ADOLFO Administration Radiology Results: ITS Impressions MRCP 11/29/24 10:47 IMPRESSION: 1. Mild intrahepatic and extrahepatic biliary duct dilatation with sludge in the distal common duct. 2. Distended gallbladder with gallstones and gallbladder wall thickening suspicious for acute cholecystitis. 3. 2.3 cm hyperenhancing liver mass. In the absence of known malignancy, this finding is likely a hemangioma or focal nodular hyperplasia. Cholangiogram,Operative 11/29/24 14:55 IMPRESSION: 1. Filling defects in the distal common bile duct, which may be sludge or stones. Neoplasm is not excluded. ERCP is recommended. 2. Intrahepatic and extrahepatic biliary duct dilatation. Chest X-Ray 11/30/24 08:38 IMPRESSION: 1. Mild atelectasis in the lower lung zones and mild scarring at left lung apex. Endo Retro Cholangiopancreatogram 12/02/24 14:27 IMPRESSION: 1. Balloon sweeping of the common duct. Please refer to the ERCP procedure note for additional details. Abdomen X-Ray 12/03/24 14:18 IMPRESSION: 1. Normal bowel gas pattern. Abdomen/Pelvis CT 12/04/24 12:33 IMPRESSION: 1. Acute interstitial pancreatitis. 2. Small left pleural effusion. Labs Labs: Laboratory Results - last 24 hr 12/06/24 05:54 WBC 15.5 H RBC 4.01 L Hgb 11.5 L Hct 34.7 L MCV 86.5 MCH 28.7 MCHC 33.1 RDW 13.5 Plt Count 353 MPV 9.3 Immature Gran % (Auto) 1.0 H Neut % (Auto) 73.7 H Lymph % (Auto) 13.1 L [place] % (Auto) 10.4 H Eos % (Auto) 1.4 Baso % (Auto) 0.4 Lymph # (Auto) 2.03 [place] # (Auto) 1.6 H Eos # (Auto) 0.2 Baso # (Auto) 0.1 Abs Immat Gran (auto) 0.16 H Absolute Neuts (auto) 11.4 H Absolute Nucleated RBC 0.000 Nucleated RBC % 0.0 Sodium 135 L Potassium 3.2 L Chloride 99 Carbon Dioxide 27 Anion Gap 9 BUN 11 Creatinine 0.78 Estim Creat Clear Calc 102 Estimated GFR > 60 Glucose 127 H Calcium 8.3 L Total Bilirubin 0.7 AST 30 ALT 70 H Alkaline Phosphatase 223 H Total Protein 6.0 L Albumin 3.1 L Lipase 49
[2024-12-06] MEDS: SENNA/DOCUSATE SODIUM TABLET 1 TAB PO (20:09)
[2024-12-06] MEDS: diphenhydrAMINE HCl INJ 50 MG/ML VIAL 25 MG IV PUSH (20:10)
[2024-12-07] VITALS: BP 123/70; PULSE 80; RESP 16; TEMP 36.8; O2SAT 98
[2024-12-07] MEDS: HYDROcodone/acetaminophen (*CRX) 5-325 MG TABLET 1 TAB PO (01:05)
[2024-12-07] MEDS: MORPHINE SULFATE (*CRX) 2 MG/ML INJ IV PUSH (02:04)
[2024-12-07 04:00] VITALS: BP 121/71; PULSE 80; RESP 20; TEMP 37.4; O2SAT 97
[2024-12-07] MEDS: SUCRALFATE SUSP 100 MG/ML 10 ML UDC 1000 MG PO ×2 (06:17→16:27)
[2024-12-07 06:37] LABS: Basophils Absolute Auto 0.1 K/mm3 (0.0-0.1); Basophils Percent Auto 0.5 % (0.2-1.2); Eosinophils Absolute Auto 0.2 K/mm3 (0-0.3); Eosinophils Percent Auto 1.1 % (0-4.4); Hematocrit 36.4 % (42.0-52.0); Immature Granulocyte Absolute 0.15 K/mm3 (0.00-0.031); Immature Granulocyte Percent A 0.7 % (0-0.5); Lymphocytes Percent Auto 16.6 % (18.3-44.2); Mean Corpuscular Hemoglobin 29.3 pg (26-34); Mean Corpuscular Volume 88.8 fl (80-100); Mean Platelet Volume 9.3 fl (7.4-10.4); Monocytes Absolute Auto 1.4 K/mm3 (0.1-0.6); Monocytes Percent Auto 6.9 % (2.6-8.5); Neutrophils Absolute Auto 15.2 K/mm3 (1.3-6.7); Neutrophils Percent Auto 74.2 % (45.5-73.1); Platelet Count Result 392 k/mm3 (150-375); Red Cell Distribution Width 13.5 % (11.5-14.5); White Blood Count 20.5 K/mm3 (4.5-10.0)
[2024-12-07 06:56] LABS: Alanine Aminotransferase 62 U/L (6-50); Albumin Level 3.3 g/dL (3.5-5.1); Alkaline Phosphatase 211 U/L (38-126); Anion Gap 7 mmol/L (4-12); Aspartate Amino Transferase 34 U/L (17-59); Bilirubin,Total 0.7 mg/dL (0.2-1.3); Blood Urea Nitrogen 12 mg/dL (9-20); Calcium 8.5 mg/dL (8.4-10.2); Carbon Dioxide 30 mmol/L (22-30); Chloride 98 mmol/L (98-107); Estimated CRCL calculation 103 ml/min; Estimated Glomerular Filt Rate > 60; Glucose 115 mg/dL (65-110); Potassium 3.7 mmol/L (3.4-5.0); Sodium 135 mmol/L (137-145)
[2024-12-07] MEDS: ROSUVASTATIN 20 MG TABLET PO (08:41)
[2024-12-07] MEDS: PANTOPRAZOLE 40 MG TABLET PO (08:41)
[2024-12-07] MEDS: OMEGA 3 POLYUNSAT FATTY ACIDS 1 GM CAP PO (08:41)
[2024-12-07] MEDS: CALCIUM CARBONATE (TUMS) 500 MG (200 MG ELEMENTAL) PO (08:41)
[2024-12-07] MEDS: CHOLECALCIFEROL 1,000 UNITS TABLET 4000 UNITS PO (08:42)
[2024-12-07] MEDS: MULTIVITAMINS THERAPEUTIC TAB (*BKC) 1 TABLET PO (08:42)
[2024-12-07] MEDS: LOSARTAN POTASSIUM 25 MG TABLET PO (08:42)
[2024-12-07] MEDS: HYDROcodone/acetaminophen (*CRX) 10-325 MG TABLET 1 TAB PO (09:50)
[2024-12-07 10:02] VITALS: BP 112/70; PULSE 95; RESP 20; TEMP 37.6; O2SAT 96
[2024-12-07 12:00] VITALS: BP 104/71; PULSE 100; RESP 16; TEMP 37.2; O2SAT 98
--- NOTE | 2024-12-07 12:11 | P.PNGI_ITS ---
Progress Note: A&P Assessment and Plan (1) Choledocholithiasis: Code(s): K80.50 - Calculus of bile duct without cholangitis or cholecystitis without obstruction Status: Acute Assessment and Plan: s/p ercp with sphincterotomy and balloon sweep of sludge, no bile leak CT scan showed pancreatitis but normal lipase s/p abx abdominal pain much better but new pain in left flank ? related to kidney stone- this was discussed with hospitalist patient can follow-up in office in few more weeks (2) Cholecystitis: Code(s): K81.9 - Cholecystitis, unspecified Status: Acute Assessment and Plan: s/p surgery and ercp (3) Abdominal pain: Qualifiers: Abdominal location: epigastric Qualified Code(s): R10.13 - Epigastric pain Code(s): R10.9 - Unspecified abdominal pain Status: Acute Assessment and Plan: he will need to go home with ppi twice daily egd in 3-4 months tolerating diet (4) Elevated liver enzymes: Code(s): R74.8 - Abnormal levels of other serum enzymes Status: Acute Assessment and Plan: trending down (5) Leukocytosis: Code(s): D72.829 - Elevated white blood cell count, unspecified Status: Acute Assessment and Plan: s/p abx (6) Ulcerative esophagitis: Code(s): K22.10 - Ulcer of esophagus without bleeding Status: Acute Assessment and Plan: ppi bid consider repeat egd in 3-4 months to assess healing no more nsaid's Subjective Date/time seen: 12/07/24 12:11 Interval history: upper abdominal pain has improved but now he has new left flank pain and he thinks that earlier passed a kidney stone- never had that previously also had some redness around iv site Review of Systems Review of Systems: All systems reviewed & are unremarkable except as noted in HPI and below Exam Const: General: comfortable HENMT: Face/Nose/Sinus: Normal nares present Eyes: Sclera: sclerae normal Neck: Neck: supple Resp: Effort & Inspection: normal respiratory effort Cardio: Rate: regular rate GI: Inspection: non-distended and incision (intact with glue, mild bruising) GI Palp: Yes Soft to palpation, No Tenderness to palpation present (GI) and No Guarding due to palpation present (GI) Auscultation: normal bowel sounds : Other: pain left flank Skin: General skin exam: normal color Neuro: Speech: normal speech Motor exam (neuro): 5/5 motor strength present throughout Extrem: General: normal to inspection Psych: Mental Status: mental status grossly normal Objective Data Vital Signs Vital Signs: Vital Signs - 24 hr 12/06/24 16:00 12/06/24 20:00 12/07/24 00:00 Temperature 97.8 F 98.2 F Pulse Rate 96 95 80 Respiratory Rate 16 16 Blood Pressure 120/75 112/72 123/70 Pulse Oximetry 97 97 98 12/07/24 04:00 12/07/24 10:02 Temperature 99.3 F 99.7 F H Pulse Rate 80 95 Respiratory Rate 20 20 Blood Pressure 121/71 112/70 Pulse Oximetry 97 96 Intake/Output Intake/Output: Intake & Output 12/04/24 12/05/24 12/06/24 12/07/24 23:59 23:59 23:59 23:59 Intake Total 938 1167 3180 640 Balance 938 1167 3180 640 Meds/Results Medications: Active Medications Generic Name Dose Route Start Last Admin Trade Name Freq PRN Reason Stop Dose Admin Acetaminophen 650 mg 12/03/24 18:36 12/06/24 05:53 Acetaminophen 325 Mg Tablet PO 650 mg Q6H PRN Administration Mild Pain (1-3) or Fever Hydrocodone Bitart/Acetaminophen 1 tab 11/29/24 16:55 12/07/24 01:05 Hydrocodone/Acetaminophen (*Crx) 5-325 Mg Tablet PO 1 tab Q4H PRN Administration Pain Rated 4-6 Hydrocodone Bitart/Acetaminophen 1 tab 11/29/24 16:55 12/07/24 09:50 Hydrocodone/Acetaminophen (*Crx) 10-325 Mg Tablet PO 1 tab Q4H PRN Administration Pain Rated 7-10 Calcium Carbonate 200 mg 12/02/24 02:57 12/07/24 08:41 Calcium Carbonate (Tums) 500 Mg (200 Mg Elemental) PO 200 mg Q6H PRN Administration Indigestion Diphenhydramine HCl 25 mg 11/29/24 16:55 12/06/24 20:10 Diphenhydramine Hcl Inj 50 Mg/Ml Vial IV PUSH 25 mg Q6H PRN Administration Itching Enoxaparin Sodium 40 mg 11/30/24 09:00 12/07/24 08:41 Enoxaparin 40 Mg/0.4 Ml Syringe SUB-Q Not Given DAILY [facility] Fish Oil 1 gm 11/30/24 09:00 12/07/24 08:41 [place] 3 Polyunsat Fatty Acids 1 Gm Cap PO 1 gm QAM ADOLFO Administration Losartan Potassium 25 mg 11/30/24 10:35 12/07/24 08:42 Losartan Potassium 25 Mg Tablet PO 25 mg DAILY ADOLFO Administration Morphine Sulfate 2 mg 11/29/24 16:55 12/07/24 02:04 Morphine Sulfate (*Crx) 2 Mg/Ml Inj IV PUSH 2 mg Q2H PRN Administration Breakthrough Pain Rated 4-6 or NPO Multivitamins Therapeutic 1 tablet 11/30/24 09:00 12/07/24 08:42 Multivitamins Therapeutic Tab (*Bkc) PO 1 tablet DAILY ADOLFO Administration Naloxone HCl 0.1 mg 11/29/24 16:55 Naloxone Hcl 0.4 Mg/Ml Vial IV PUSH Q2M PRN Opiate Reversal Pantoprazole Sodium 40 mg 12/07/24 09:00 12/07/24 08:41 Pantoprazole 40 Mg Tablet PO 40 mg Q12HR ADOLFO Administration Polyethylene Glycol 17 gm 12/03/24 13:27 12/06/24 13:36 Polyethylene Glycol 3350 17 Gm Powd.Pack PO 17 gm QAM PRN Administration Constipation Rosuvastatin Calcium 20 mg 11/30/24 09:00 12/07/24 08:41 Rosuvastatin 20 Mg Tablet PO 20 mg DAILY ADOLFO Administration Senna/Docusate Sodium 1 tab 12/03/24 21:00 12/06/24 20:09 Senna/Docusate Sodium Tablet PO 1 tab HS ADOLFO Administration Sucralfate 1,000 mg 12/02/24 16:30 12/07/24 06:17 Sucralfate Susp 100 Mg/Ml 10 Ml Udc PO 1,000 mg ACHS ADOLFO Administration Trazodone HCl 50 mg 12/05/24 10:36 12/05/24 20:30 Trazodone Hcl 50 Mg Tablet PO 50 mg HS PRN Administration Insomnia Vitamin D 4,000 units 11/30/24 09:00 12/07/24 08:42 Cholecalciferol 1,000 Units Tablet PO 4,000 units DAILY ADOLFO Administration Radiology Results: ITS Impressions MRCP 11/29/24 10:47 IMPRESSION: 1. Mild intrahepatic and extrahepatic biliary duct dilatation with sludge in the distal common duct. 2. Distended gallbladder with gallstones and gallbladder wall thickening suspicious for acute cholecystitis. 3. 2.3 cm hyperenhancing liver mass. In the absence of known malignancy, this finding is likely a hemangioma or focal nodular hyperplasia. Cholangiogram,Operative 11/29/24 14:55 IMPRESSION: 1. Filling defects in the distal common bile duct, which may be sludge or stones. Neoplasm is not excluded. ERCP is recommended. 2. Intrahepatic and extrahepatic biliary duct dilatation. Chest X-Ray 11/30/24 08:38 IMPRESSION: 1. Mild atelectasis in the lower lung zones and mild scarring at left lung apex. Endo Retro Cholangiopancreatogram 12/02/24 14:27 IMPRESSION: 1. Balloon sweeping of the common duct. Please refer to the ERCP procedure note for additional details. Abdomen X-Ray 12/03/24 14:18 IMPRESSION: 1. Normal bowel gas pattern. Abdomen/Pelvis CT 12/04/24 12:33 IMPRESSION: 1. Acute interstitial pancreatitis. 2. Small left pleural effusion. Labs Labs: Laboratory Results - last 24 hr 12/07/24 06:22 WBC 20.5 H RBC 4.10 L Hgb 12.0 L Hct 36.4 L MCV 88.8 MCH 29.3 MCHC 33.0 RDW 13.5 Plt Count 392 H MPV 9.3 Immature Gran % (Auto) 0.7 H Neut % (Auto) 74.2 H Lymph % (Auto) 16.6 L [place] % (Auto) 6.9 Eos % (Auto) 1.1 Baso % (Auto) 0.5 Lymph # (Auto) 3.40 H [place] # (Auto) 1.4 H Eos # (Auto) 0.2 Baso # (Auto) 0.1 Abs Immat Gran (auto) 0.15 H Absolute Neuts (auto) 15.2 H Absolute Nucleated RBC 0.000 Nucleated RBC % 0.0 Sodium 135 L Potassium 3.7 Chloride 98 Carbon Dioxide 30 Anion Gap 7 BUN 12 Creatinine 0.77 Estim Creat Clear Calc 103 Estimated GFR > 60 Glucose 115 H Calcium 8.5 Total Bilirubin 0.7 AST 34 ALT 62 H Alkaline Phosphatase 211 H Total Protein 7.0 Albumin 3.3 L
--- NOTE | 2024-12-07 14:26 | P.PNIM_ITS ---
Progress Note: A&P Assessment and Plan (1) Cholecystitis: Code(s): K81.9 - Cholecystitis, unspecified Status: Acute Assessment and Plan: - Abdomen/pelvis CT mild intrahepatic and extrahepatic biliary duct dilatation with possible filling defect distal common bile duct, 2.2 cm liver mass which may be benign or malignant, distended gallbladder with surrounding fat stranding suspicious for acute cholecystitis, small sliding hiatal hernia - MRCP mild intrahepatic and extrahepatic biliary duct dilatation was sludge in the distal common duct, distended gallbladder with gallstones and gallbladder wall thickening suspicious for acute cholecystitis, 2.3 cm hyper enhancing liver mass and noted in the absence of known malignancy this is likely Hemangioma or focal nodular hyperplasia - ERCP reflux esophagitis, esophageal stricture and previous pancreatic surgery - IV pain management - Gentle IV fluid resuscitation - Antibiotics: Zosyn 3.375 mg every 6 hours started 11/29, doxycycline 100 mg BID started 12/02 - Diet: advance as tolerated - Monitor vital signs, I and O's, check stool output, neuro status and patient is a fall risk - Monitor serum electrolytes and CBC - Monitor lactic acid - Consult general surgery s/p Laparoscopic cholecystectomy with intraoperative cholangiogram on 11/[address] Abdalla - GI consulted EGD in 3-4 months to assess healing, no nsaid use iv protonix BID and carafate with meals Patient endorsing increased abdominal pain requiring IV pain medication. Seems more incisional in nature however he has not had a bowel movement since prior to surgery. KUB showing normal bowel gas pattern. Patient also endorsing epigastric pain, possibly related to esophageal stricture seen on EGD. 12/04- WBC trending down - 19 today. ERCP yesterday. Still some abdominal pain. Ulcerative esophagitis could be contributing, lipase repeated- 54. ERCP showed no bile leak. gi, surgery following- CT scan yesterday 12/05- WBC down some more today- 17.7. able to avoid IV pain meds, pain is controlled with po meds 12/06 wbc 15.5. Completed antibiotic course. 12/07 some increase in wbc. pt thinks he passed kidney stone- no records of any obstruction on 12/04 cat scan. will repeat it today (2) Common bile duct dilatation: Code(s): K83.8 - Other specified diseases of biliary tract Status: Acute Assessment and Plan: see above (3) Liver mass: Code(s): R16.0 - Hepatomegaly, not elsewhere classified Status: Acute Assessment and Plan: * Liver mass shown on abdomen pelvis CT * MRCP showed mass is likely hemangioma or focal nodular hyperplasia in the absence of known malignancy * GI following ast normal-30, alt down to 70, alk. phos down to 223 (4) Elevated liver enzymes: Code(s): R74.8 - Abnormal levels of other serum enzymes Status: Acute Assessment and Plan: - Initial total bilirubin 3.0, AST 349, ALT 447, alkaline phosphate 527, now tot bili 2.8, AST 86, ALT 183, alk phos 420 on am labs LFTs have doubled since labs yesterday however likely due to patients ERCP Continue to trend (5) Gastroesophageal reflux disease: Qualifiers: Esophagitis presence: esophagitis presence not specified Qualified Code(s): K21.9 - Gastro-esophageal reflux disease without esophagitis Code(s): K21.9 - Gastro-esophageal reflux disease without esophagitis Status: Acute Assessment and Plan: * started Protonix bid * gi is following * still an issue * continue to avoid caffeine, fried foods, donot lie down right after meals Time Spent With Patient Time with patient: 25 - 35 minutes Subjective Date/time seen: 12/07/24 14:26 Interval history: Pt is seen and examined. upper abdominal pain has improved but now he has new left flank pain and he thinks he passed a kidney stone. Previous CT didnot have any kidney stones from 12/04.discussed [facility] urology- no need for consult. Reassurance about kidney cyst as nothing needs to be done for that as well. will repeat CT scan, try lidocain patch as could be muscular in nature and anticipate discharge home is cat scan is negative. Review of Systems Review of Systems: lt flank pain. All systems reviewed & are unremarkable except as noted in HPI and below Exam Narrative: General: male in no acute respiratory distress who is nontoxic appearing, lying semi recumbent in bed. HEENT: Normocephalic. Atraumatic. Extraocular movement intact. Sclera clear and anicteric. No facial asymmetry. Chest: Lungs are clear to auscultation bilaterally. No wheezes or crackles. CV: Heart was regular rate and rhythm. S1/S2. No murmurs, gallops, or rubs. Abd: Abdomen was soft. Tender to palpation. Nondistended. Hypoactive bowel sounds. Incisions are well healing. Ext: No clubbing, cyanosis, or edema. Objective Data Vital Signs Vital Signs: Vital Signs - 24 hr 12/06/24 16:00 12/06/24 20:00 12/07/24 00:00 Temperature 97.8 F 98.2 F Pulse Rate 96 95 80 Respiratory Rate 16 16 Blood Pressure 120/75 112/72 123/70 Pulse Oximetry 97 97 98 12/07/24 04:00 12/07/24 10:02 12/07/24 12:00 Temperature 99.3 F 99.7 F H 98.9 F Pulse Rate 80 95 100 Respiratory Rate 20 20 16 Blood Pressure 121/71 112/70 104/71 Pulse Oximetry 97 96 98 Intake/Output Intake/Output: Intake & Output 12/04/24 12/05/24 12/06/24 12/07/24 23:59 23:59 23:59 23:59 Intake Total 938 1167 3180 880 Balance 938 1167 3180 880 Meds/Results Medications: Active Medications Generic Name Dose Route Start Last Admin Trade Name Freq PRN Reason Stop Dose Admin Acetaminophen 650 mg 12/03/24 18:36 12/06/24 05:53 Acetaminophen 325 Mg Tablet PO 650 mg Q6H PRN Administration Mild Pain (1-3) or Fever Hydrocodone Bitart/Acetaminophen 1 tab 11/29/24 16:55 12/07/24 01:05 Hydrocodone/Acetaminophen (*Crx) 5-325 Mg Tablet PO 1 tab Q4H PRN Administration Pain Rated 4-6 Hydrocodone Bitart/Acetaminophen 1 tab 11/29/24 16:55 12/07/24 09:50 Hydrocodone/Acetaminophen (*Crx) 10-325 Mg Tablet PO 1 tab Q4H PRN Administration Pain Rated 7-10 Calcium Carbonate 200 mg 12/02/24 02:57 12/07/24 08:41 Calcium Carbonate (Tums) 500 Mg (200 Mg Elemental) PO 200 mg Q6H PRN Administration Indigestion Diphenhydramine HCl 25 mg 11/29/24 16:55 12/06/24 20:10 Diphenhydramine Hcl Inj 50 Mg/Ml Vial IV PUSH 25 mg Q6H PRN Administration Itching Enoxaparin Sodium 40 mg 11/30/24 09:00 12/07/24 08:41 Enoxaparin 40 Mg/0.4 Ml Syringe SUB-Q Not Given DAILY [facility] Fish Oil 1 gm 11/30/24 09:00 12/07/24 08:41 [place] 3 Polyunsat Fatty Acids 1 Gm Cap PO 1 gm QAM ADOLFO Administration Losartan Potassium 25 mg 11/30/24 10:35 12/07/24 08:42 Losartan Potassium 25 Mg Tablet PO 25 mg DAILY ADOLFO Administration Morphine Sulfate 2 mg 11/29/24 16:55 12/07/24 02:04 Morphine Sulfate (*Crx) 2 Mg/Ml Inj IV PUSH 2 mg Q2H PRN Administration Breakthrough Pain Rated 4-6 or NPO Multivitamins Therapeutic 1 tablet 11/30/24 09:00 12/07/24 08:42 Multivitamins Therapeutic Tab (*Bkc) PO 1 tablet DAILY ADOLFO Administration Naloxone HCl 0.1 mg 11/29/24 16:55 Naloxone Hcl 0.4 Mg/Ml Vial IV PUSH Q2M PRN Opiate Reversal Pantoprazole Sodium 40 mg 12/07/24 09:00 12/07/24 08:41 Pantoprazole 40 Mg Tablet PO 40 mg Q12HR ADOLFO Administration Polyethylene Glycol 17 gm 12/03/24 13:27 12/06/24 13:36 Polyethylene Glycol 3350 17 Gm Powd.Pack PO 17 gm QAM PRN Administration Constipation Rosuvastatin Calcium 20 mg 11/30/24 09:00 12/07/24 08:41 Rosuvastatin 20 Mg Tablet PO 20 mg DAILY ADOLFO Administration Senna/Docusate Sodium 1 tab 12/03/24 21:00 12/06/24 20:09 Senna/Docusate Sodium Tablet PO 1 tab HS ADOLFO Administration Sucralfate 1,000 mg 12/02/24 16:30 12/07/24 06:17 Sucralfate Susp 100 Mg/Ml 10 Ml Udc PO 1,000 mg ACHS ADOLFO Administration Trazodone HCl 50 mg 12/05/24 10:36 12/05/24 20:30 Trazodone Hcl 50 Mg Tablet PO 50 mg HS PRN Administration Insomnia Vitamin D 4,000 units 11/30/24 09:00 12/07/24 08:42 Cholecalciferol 1,000 Units Tablet PO 4,000 units DAILY ADOLFO Administration Radiology Results: ITS Impressions MRCP 11/29/24 10:47 IMPRESSION: 1. Mild intrahepatic and extrahepatic biliary duct dilatation with sludge in the distal common duct. 2. Distended gallbladder with gallstones and gallbladder wall thickening suspicious for acute cholecystitis. 3. 2.3 cm hyperenhancing liver mass. In the absence of known malignancy, this finding is likely a hemangioma or focal nodular hyperplasia. Cholangiogram,Operative 11/29/24 14:55 IMPRESSION: 1. Filling defects in the distal common bile duct, which may be sludge or stones. Neoplasm is not excluded. ERCP is recommended. 2. Intrahepatic and extrahepatic biliary duct dilatation. Chest X-Ray 11/30/24 08:38 IMPRESSION: 1. Mild atelectasis in the lower lung zones and mild scarring at left lung apex. Endo Retro Cholangiopancreatogram 12/02/24 14:27 IMPRESSION: 1. Balloon sweeping of the common duct. Please refer to the ERCP procedure note for additional details. Abdomen X-Ray 12/03/24 14:18 IMPRESSION: 1. Normal bowel gas pattern. Abdomen/Pelvis CT 12/04/24 12:33 IMPRESSION: 1. Acute interstitial pancreatitis. 2. Small left pleural effusion. Labs Labs: Laboratory Results - last 24 hr 12/07/24 06:22 WBC 20.5 H RBC 4.10 L Hgb 12.0 L Hct 36.4 L MCV 88.8 MCH 29.3 MCHC 33.0 RDW 13.5 Plt Count 392 H MPV 9.3 Immature Gran % (Auto) 0.7 H Neut % (Auto) 74.2 H Lymph % (Auto) 16.6 L [place] % (Auto) 6.9 Eos % (Auto) 1.1 Baso % (Auto) 0.5 Lymph # (Auto) 3.40 H [place] # (Auto) 1.4 H Eos # (Auto) 0.2 Baso # (Auto) 0.1 Abs Immat Gran (auto) 0.15 H Absolute Neuts (auto) 15.2 H Absolute Nucleated RBC 0.000 Nucleated RBC % 0.0 Sodium 135 L Potassium 3.7 Chloride 98 Carbon Dioxide 30 Anion Gap 7 BUN 12 Creatinine 0.77 Estim Creat Clear Calc 103 Estimated GFR > 60 Glucose 115 H Calcium 8.5 Total Bilirubin 0.7 AST 34 ALT 62 H Alkaline Phosphatase 211 H Total Protein 7.0 Albumin 3.3 L Quality VTE Prophylaxis VTE prophylaxis: mechanical ordered
--- NOTE | 2024-12-07 15:09 | P.DS_ITS ---
DS: Admitting Diagnosis Discharge Date 12/07 Admitting Diagnosis abd pain DS: Discharge Diagnosis Discharge Diagnosis (1) Cholecystitis: Code(s): K81.9 - Cholecystitis, unspecified Status: Acute (2) Common bile duct dilatation: Code(s): K83.8 - Other specified diseases of biliary tract Status: Acute Assessment and Plan: (3) Liver mass: Code(s): R16.0 - Hepatomegaly, not elsewhere classified Status: Acute (4) Elevated liver enzymes: Code(s): R74.8 - Abnormal levels of other serum enzymes Status: Acute (5) Gastroesophageal reflux disease: Qualifiers: Esophagitis presence: esophagitis presence not specified Qualified Code(s): K21.9 - Gastro-esophageal reflux disease without esophagitis Code(s): K21.9 - Gastro-esophageal reflux disease without esophagitis Status: Acute DS: Summary Hospital Course Hospital Course: 54-year-old male with a significant past medical history of GERD and appendectomy who admitted with complaints of abdominal pain. Several issues were addressed during hospitalization: # cholecystitis # common bile duct dialation - Abdomen/pelvis CT mild intrahepatic and extrahepatic biliary duct dilatation with possible filling defect distal common bile duct, 2.2 cm liver mass which may be benign or malignant, distended gallbladder with surrounding fat stranding suspicious for acute cholecystitis, small sliding hiatal hernia - MRCP mild intrahepatic and extrahepatic biliary duct dilatation was sludge in the distal common duct, distended gallbladder with gallstones and gallbladder wall thickening suspicious for acute cholecystitis, 2.3 cm hyper enhancing liver mass and noted in the absence of known malignancy this is likely Hemangioma or focal nodular hyperplasia - ERCP reflux esophagitis, esophageal stricture and previous pancreatic surgery - IV pain management - Gentle IV fluid resuscitation - Antibiotics: Zosyn 3.375 mg every 6 hours started 11/29, doxycycline 100 mg BID started 12/02- completed the course - Diet: advance as tolerated - Monitor vital signs, I and O's, check stool output, neuro status and patient is a fall risk - Monitor serum electrolytes and CBC - Monitor lactic acid - Consult general surgery s/p Laparoscopic cholecystectomy with intraoperative cholangiogram on 11/[address] Carpenter - GI consulted EGD in 3-4 months to assess healing, no nsaid use iv protonix BID and carafate with meals Patient endorsing increased abdominal pain requiring IV pain medication. Seems more incisional in nature however he has not had a bowel movement since prior to surgery. KUB showing normal bowel gas pattern. Patient also endorsing epigastric pain, possibly related to esophageal stricture seen on EGD. 12/04- WBC trending down - 19 today. ERCP yesterday. Still some abdominal pain. Ulcerative esophagitis could be contributing, lipase repeated- 54. ERCP showed no bile leak. gi, surgery following- CT scan yesterday 12/05- WBC down some more today- 17.7. able to avoid IV pain meds, pain is controlled with po meds 12/06 wbc 15.5. Completed antibiotic course. Surgery cleared for discharge 12/07 some increase in wbc- likely due to pancreatitis still. GI is aware. no acute interventions are needed. Will have a close f/u as an out. CBC/CMP repeat within a week. Continue strict diet as directed per GI. Return to ED if any persistent ever, n/v/d/worsening of abd pain. Cleared for discharge per DR Houser. # Liver mass * Liver mass shown on abdomen pelvis CT * MRCP showed mass is likely hemangioma or focal nodular hyperplasia in the absence of known malignancy * GI following- ast normal-30, alt down to 70, alk. phos down to 223 * repeat cmp within a week of discharge- close f/u with PCP and GI # Gastroesophageal reflux disease: * started Protonix bid- will continue on discharge- RX sent * gi is following- will need egd in 3-4 months and close f/u with GI when discharged * still an issue but improving * continue to avoid caffeine, fried foods, donot lie down right after meals # leukocytosis s/p abx- completed course very likely due to pancreatitis cleared for discharge per GI and surgery -repeat cbc/cmp lab order within a week and close f/u with PCP/GI. F/u with surgery in [address] prior to discharge as pt thought he passed kidney stone IMPRESSION: Mild esophagitis/gastritis. Acute interstitial pancreatitis, stable. Cystitis versus bladder wall thickening from incomplete distention. Since he is symptomatic- flank pain, nausea (which could be due to gerd still), intermitted low grade fever- will treat empirically with levaquin - 750mg rx sent. Pt was called and notified. Status at Discharge Functional status at discharge: independent ambulation Overall status at discharge: patient is progressing back to baseline Time Spent with Patient Time attestation: Total time spent providing and/or coordinating discharge services: Time spent: Greater than 30 minutes Exam Narrative: General: male in no acute respiratory distress who is nontoxic appearing, lying semi recumbent in bed. lt side tenderness HEENT: Normocephalic. Atraumatic. Extraocular movement intact. Sclera clear and anicteric. No facial asymmetry. Chest: Lungs are clear to auscultation bilaterally. No wheezes or crackles. CV: Heart was regular rate and rhythm. S1/S2. No murmurs, gallops, or rubs. Abd: Abdomen was soft. Tender to palpation. Nondistended. Hypoactive bowel sounds. Incisions are well healing. Ext: No clubbing, cyanosis, or edema. Const: General: comfortable DS: Data Data Completed and Pending Completed studies during hospitalization: Pending at discharge 11/29/24 12:54 Surgical [PTH] Routine 12/02/24 13:05 Surgical [PTH] Routine Labs on day of discharge: Labs from last 24 hours 12/07/24 06:22 WBC 20.5 H RBC 4.10 L Hgb 12.0 L Hct 36.4 L MCV 88.8 MCH 29.3 MCHC 33.0 RDW 13.5 Plt Count 392 H MPV 9.3 Immature Gran % (Auto) 0.7 H Neut % (Auto) 74.2 H Lymph % (Auto) 16.6 L [place] % (Auto) 6.9 Eos % (Auto) 1.1 Baso % (Auto) 0.5 Lymph # (Auto) 3.40 H [place] # (Auto) 1.4 H Eos # (Auto) 0.2 Baso # (Auto) 0.1 Abs Immat Gran (auto) 0.15 H Absolute Neuts (auto) 15.2 H Absolute Nucleated RBC 0.000 Nucleated RBC % 0.0 Sodium 135 L Potassium 3.7 Chloride 98 Carbon Dioxide 30 Anion Gap 7 BUN 12 Creatinine 0.77 Estim Creat Clear Calc 103 Estimated GFR > 60 Glucose 115 H Calcium 8.5 Total Bilirubin 0.7 AST 34 ALT 62 H Alkaline Phosphatase 211 H Total Protein 7.0 Albumin 3.3 L Preliminary micro results at discharge 12/04/24 15:35 Blood Culture - Preliminary Blood 12/04/24 15:55 Blood Culture - Preliminary Blood Discharge Plan Discharge Attending physician on discharge: Bernard Bull Consulting providers: Damon Heredia; Abe Carpenter Discharging Clinician: Rupinder Ingram Patient Disposition: Home, Self-Care Activity: other - see discharge instructions Diet: low fat Wound Care Instructions: other - see discharge instructions Discharge Instructions: You completed course of two antibiotics: zosyn and doxycycline. After ERCP, you develop pancreatitis- which is typically self limiting. Please use instruction provided per GI for diet-but in general-avoid fatty greasy spicy foods. Avoid alcohol, smoking. NO NSAIDs! Please follow up with GI. YOu will need EGD in 3-4 month. Home with ppi twice daily- protonix. Use lidocaine patch if needed for flank pain. Recheck labs within a week after discharge. DISCHARGE INSTRUCTION SHEET FOR HERNIA, GALLBLADDER AND APPENDIX SURGERIES DR. CARPENTER PATIENT TO TAKE HOME 1. May shower, no soaking in bath x 2weeks. 2. Call office for: * Wound increasingly painful or bleeding * Vomiting * Fever of greater than 101 degrees 3. If no bowel movement for three days, take 1 oz. (30 ml) Milk of Magnesia or MiraLax 17g 1 to 2 times daily. 4. No heavy lifting > 10-15 pounds x weeks for hernia repairs and 2 weeks for laparoscopic cholecystectomy or appendectomy. 5. No driving for 3 days or while taking narcotic pain medications. 6. Ice to surgical site for 48 hours (30 min on, then 30 min off). 7. Up walking 10-30 minutes three times per day. 8. Resume previous home medications. 9. Follow-up 10-14 days in office for wound check or as previously scheduled. ([id number]) 10. Oral pain medications prescription to be sent to pharmacy. Take Tylenol 500mg every 6 hours and Ibuprofen 600mg every 6 hours for the first 2 days, then as needed. 11. NUTRITION: Start out by drinking fluids and increase your diet as tolerated. If you experience nausea, try dry toast, crackers, and 7-UP. If nausea or vomiting persists, contact your surgeon?s office. 12. Gallbladders-Low Fat Diet for 2 weeks (send care note of low fat diet) 13. Inguinal Hernias-wear scrotal support for 48 hours 14. Abdominal Hernias-if sent home with abdominal binder, wear for the first 2 weeks (may remove to shower or at night to sleep). Revised January 2019 Patient Instructions: Antibiotic Form, Low Fat Diet (DC) Patient Language: Swazi Stand Alone Forms: General Discharge Information Follow-up/Referrals: Abe Carpenter DO [Physician] - Call for Appointment Discharge Medications: New polyethylene glycol 3350 [Miralax] 17 gram Powder In Packet 17 g PO QAM PRN (Reason: Constipation) Qty: 10 0RF hydrocodone-acetaminophen 5-325 mg Tablet 1 tablet PO Q4H PRN (Reason: Pain Rated 4-6) Qty: 26 0RF sucralfate 100 mg/mL Suspension 1,000 mg PO ACHS Qty: 60 0RF pantoprazole 40 mg Tablet,Delayed Release (Dr/Ec) 40 mg PO Q12HR Qty: 90 0RF losartan 25 mg Tablet 25 mg PO DAILY Qty: 90 0RF levofloxacin 750 mg tablet 750 mg PO DAILY 10 Days Qty: 10 0RF Continued multivitamin Capsule 1 cap PO DAILY Vitamin D3 4,000 unit Capsule 4,000 unit PO DAILY Sultan-3 350 mg-235 mg- 90 mg-597 mg Capsule,Delayed Release(Dr/Ec) 1 cap PO DAILY rosuvastatin 20 mg tablet 20 mg PO DAILY Discontinued ciprofloxacin HCl 500 mg tablet 500 mg PO Q12H metronidazole 500 mg tablet 500 mg PO Q12H pantoprazole 40 mg tablet,delayed release (DR/EC) 40 mg PO BID Qty: 60 5RF Other Ambulatory Orders: Complete Blood Count no Diff (Routine) Timeframe: 1 Week Location: Determined by Patient Ordered By: Rupinder Ingram Comprehensive Metabolic Panel (Routine) Timeframe: 1 Week Location: Determined by Patient Ordered By: Rupinder Ingram Date of admission: 12/01/24 11:57 Primary Care Provider: SharlaBen Admitting Provider: Mahesh Whitehead Attending physician on admission: Maria Luisa Villafuerte Condition: Stable Quality VTE Prophylaxis VTE prophylaxis: mechanical ordered
[2024-12-07 16:00] VITALS: BP 105/53; PULSE 102; RESP 20; TEMP 36.7; O2SAT 100
[2024-12-07] MEDS: LIDOCAINE 5% PATCH 1 PATCH TRANSDERM (16:27)
[2024-12-07] MEDS: ACETAMINOPHEN 325 MG TABLET 650 MG PO (16:38)
== END 2024-12-07 18:31 | disposition home or self-care (01) | DRG 417 ==
LOC: ANHED 11-29 03:43 → ANH3MEDSUR 11-29 04:46
PROVIDERS: Internal Medicine; Internal Medicine Gastroenterology; Nurse Practitioner Acute Care; Surgery; Admitting Provider Internal Medicine; Emergency Provider Emergency Medicine; PCP Family Medicine; Visit Provider Nurse Practitioner
PROC: 0FT44ZZ Resection of Gallbladder, Percutaneous Endoscopic Approach (ICD-10-PCS; CPT 47562; principal; 2024-11-29 13:30)
PROC: 0FC98ZZ Extirpation of Matter from Common Bile Duct, Via Natural or Artificial Opening Endoscopic (ICD-10-PCS; CPT 43260; principal; 2024-12-02 12:30)
DX: K80.62 Calculus of gallbladder and bile duct with acute cholecystitis without obstruction (principal); K85.10 Biliary acute pancreatitis without necrosis or infection; K22.10 Ulcer of esophagus without bleeding; R65.10 Systemic inflammatory response syndrome (SIRS) of non-infectious origin without acute organ dysfunction; K26.9 Duodenal ulcer, unspecified as acute or chronic, without hemorrhage or perforation; K22.2 Esophageal obstruction; K21.00 Gastro-esophageal reflux disease with esophagitis, without bleeding; K59.00 Constipation, unspecified
CPT/HCPCS: 36415; 71045; 74018; 74177; 74183; 74300; 74329; 76376; 80053; 81001; 83690; 83735; 84484; 85025; 85055; 87040; 87086; 88304; 88305; 93005; 96361; 96375; 99285; A9270; A9577; C1726; G0378; J0330; J0780; J1100; J1171; J1200; J1610; J1650; J1741; J1885; J2003; J2250; J2270; J2405; J2470; J2543; J2550; J2704; J3010; J7030; J7120; Q9966; Q9967

== ENCOUNTER 2024-12-10 09:17 | Outpatient (CLI) | payer BC, SELFPAY ==
[2024-12-10 09:54] LABS: Hematocrit 36.2 % (42.0-52.0); Hemoglobin 11.8 g/dL (14.0-18.0); Mean Corpuscular HGB Conc 32.6 g/dl (32-36); Mean Corpuscular Hemoglobin 28.4 pg (26-34); Mean Platelet Volume 9.1 fl (7.4-10.4); Platelet Count Result 442 k/mm3 (150-375); Red Blood Count 4.16 M/mm3 (4.6-6.20); Red Cell Distribution Width 13.2 % (11.5-14.5); White Blood Count 19.1 K/mm3 (4.5-10.0)
--- OUTSIDE RECORDS SUMMARY | 2024-12-10 10:04 | XMS_ITS | Referral Summary ---
Author Organization [facility] Address [address] [place] [address] Care Team Providers Care Weight Loss Sales Consultant Name Role Phone Ben Magdaleno MD Primary Care Provider [phone] Encounters Date Type Department Care Team Description 10/17/2024 1:00 PM FLEET SERVICE MANAGER Office Visit [facility] Cardiology at [address] [place] [address] Rodrigo Carolina MD Other chest [...] on file Legal Sex Male 3:46 PM FLEET SERVICE MANAGER Gender Identity Not on file Sexual Orientation Not on file Last Filed Vital Signs Vital Sign Reading Time Taken Comments Blood Pressure 142/84 10/17/2024 1:11 PM FLEET SERVICE MANAGER Pulse 71 10/17/2024 1:11 PM FLEET SERVICE MANAGER Temperature - - Respiratory Rate - - Oxygen Saturation 99% 10/17/2024 1:11 PM FLEET SERVICE MANAGER Inhaled Oxygen Concentration - - Weight 98.4 kg (217 lb) 10/17/2024 1:11 PM FLEET SERVICE MANAGER Height 180.3 cm (5' 11 ) 10/17/2024 1:11 PM FLEET SERVICE MANAGER Body Mass Index 30.27 10/17/2024 1:11 PM FLEET SERVICE MANAGER Plan of Treatment Not on file Procedures Procedure Name Priority Date/Time Associated Diagnosis Comments ELECTROCARDIOGRAM REPORT Routine 025 3:55 PM FLEET SERVICE MANAGER Other chest pain from Last 3 Months Results * Electrocardiogram Report (10/17/2024 3:55 PM FLEET SERVICE MANAGER) Rodrigo Carolina MD ECG ORDERABLES Final Re sult from Last 3 Months Insurance [facility] CHOICE OOS Care Teams Weight Loss Sales Consultant Relationship Specialty Start Date End Date Ben Magdaleno MD [facility] [place] [address] PCP - General Family Medicine 09/13/24
--- OUTSIDE RECORDS SUMMARY | 2024-12-10 10:04 | XMS_ITS | Clinical Summary ---
Author Organization [facility] Address [address] [place] [address] Care Team Providers Care Dietetic Intern Name Role Phone Ben Magdaleno MD Primary Care Provider [phone] Allergies No known active allergies Medications omeprazole (PriLOSEC) 40 mg capsule Take 1 capsule (40 mg total) by mouth daily 10/02/2024 Active rosuvastatin (CRESTOR) 20 mg tablet Take 1 tablet (20 mg total) by mouth daily Active Active Problems Problem Noted Date Diagnosed Date Other chest pain 10/17/2024 Encounters Date Type Department Care Team Description 10/17/2024 1:00 PM HUMAN SERVICES MANAGER Office Visit [facility] Medical Group Cardiology at [address] [place] [address] Rodrigo Carolina MD Other chest [...] on file Legal Sex Male 3:46 PM HUMAN SERVICES MANAGER Gender Identity Not on file Sexual Orientation Not on file Obstetrics History Last Filed Vital Signs Vital Sign Reading Time Taken Comments Blood Pressure 142/84 10/17/2024 1:11 PM HUMAN SERVICES MANAGER Pulse 71 10/17/2024 1:11 PM HUMAN SERVICES MANAGER Temperature - - Respiratory Rate - - Oxygen Saturation 99% 10/17/2024 1:11 PM HUMAN SERVICES MANAGER Inhaled Oxygen Concentration - - Weight 98.4 kg (217 lb) 10/17/2024 1:11 PM HUMAN SERVICES MANAGER Height 180.3 cm (5' 11 ) 10/17/2024 1:11 PM HUMAN SERVICES MANAGER Body Mass Index 30.27 10/17/2024 1:11 PM HUMAN SERVICES MANAGER Plan of Treatment Health Maintenance Due [...] Comments ELECTROCARDIOGRAM REPORT Routine 025 3:55 PM HUMAN SERVICES MANAGER Other chest pain from Last 3 Months Results * Electrocardiogram Report (10/17/2024 3:55 PM HUMAN SERVICES MANAGER) us Rodrigo Carolina MD ECG ORDERABLES Final Re sult from Last 3 Months Insurance [facility] CHOICE OOS Member Subscriber Plan / Payer (Ef fective 2024-Present) Name:Suhail Graham Relation to Subscriber:Self Name:Suhail Graham Payer ID:[id number] (NAIC) Type: GEETHA Address: [facility] [id number] [id number] Care Teams Dietetic Intern Relationship Specialty Start Date End Date Ben Magdaleno MD [facility] [place] [address] (work) PCP - General Family Medicine 09/13/24
--- OUTSIDE RECORDS SUMMARY | 2024-12-10 10:04 | XMS_ITS | CONTINUITY OF CARE DOCUMENT ---
Author Name cody ross Address Unknown Organization [facility] Address [address] [place] [address] Phone [phone] Care Team Providers Care Supervisor Photoengraving Name Role Phone Alexandre BOONE, Austin Unavailable [phone] Austin Schroeder MD Unavailable [phone] INSURANCE PROVIDERS Payer name Policy type / Coverage type [place] red libertarian ID [facility] [id number] 1
[2024-12-10 10:07] LABS: Alanine Aminotransferase 63 U/L (6-50); Albumin Level 3.5 g/dL (3.5-5.1); Alkaline Phosphatase 172 U/L (38-126); Anion Gap 10 mmol/L (4-12); Aspartate Amino Transferase 40 U/L (17-59); Bilirubin,Total 0.6 mg/dL (0.2-1.3); Blood Urea Nitrogen 14 mg/dL (9-20); Calcium 8.9 mg/dL (8.4-10.2); Carbon Dioxide 27 mmol/L (22-30); Chloride 100 mmol/L (98-107); Estimated Glomerular Filt Rate > 60; Glucose 120 mg/dL (65-110); Potassium 4.2 mmol/L (3.4-5.0); Sodium 137 mmol/L (137-145)
== END 2024-12-10 09:18 | disposition home or self-care (01) ==
LOC: ANHLAB 09:20
PROVIDERS: PCP Family Medicine; Visit Provider Nurse Practitioner
DX: D72.829 Elevated white blood cell count, unspecified (principal); R74.8 Abnormal levels of other serum enzymes
CPT/HCPCS: 36415; 80053; 85027

== ENCOUNTER 2024-12-12 14:39 | Outpatient (CLI) | payer BC, SELFPAY ==
--- OUTSIDE RECORDS SUMMARY | 2024-12-12 15:03 | XMS_ITS | CONTINUITY OF CARE DOCUMENT ---
Author Name cody ross Address Unknown Organization [facility] Address [address] [facility] [address] [place] [address] Phone [phone] Care Team Providers Care Remarketing Manager Name Role Phone Alexandre BOONE, [place] Unavailable [phone] Austin Schroeder MD Unavailable [phone] INSURANCE PROVIDERS Payer name Policy type / Coverage type [place] red constitution party ID [facility] [id number]
--- OUTSIDE RECORDS SUMMARY | 2024-12-12 15:03 | XMS_ITS | Referral Summary ---
Author Organization [facility] Address [address] [place] [id number] Care Team Providers Care Wallpaper Printer Helper Name Role Phone Ben Magdaleno MD Primary Care Provider [phone] Encounters Date Type Department Care Team Description 10/17/2024 1:00 PM LAY HEALTH ADVOCATE Office Visit [facility] Medical Group Cardiology at [address] [place] [address] Rodrigo Carolina MD Other chest [...] on file Legal Sex Male 3:46 PM LAY HEALTH ADVOCATE Gender Identity Not on file Sexual Orientation Not on file Last Filed Vital Signs Vital Sign Reading Time Taken Comments Blood Pressure 142/84 10/17/2024 1:11 PM LAY HEALTH ADVOCATE Pulse 71 10/17/2024 1:11 PM LAY HEALTH ADVOCATE Temperature - - Respiratory Rate - - Oxygen Saturation 99% 10/17/2024 1:11 PM LAY HEALTH ADVOCATE Inhaled Oxygen Concentration - - Weight 98.4 kg (217 lb) 10/17/2024 1:11 PM LAY HEALTH ADVOCATE Height 180.3 cm (5' 11 ) 10/17/2024 1:11 PM LAY HEALTH ADVOCATE Body Mass Index 30.27 10/17/2024 1:11 PM LAY HEALTH ADVOCATE Plan of Treatment Not on file Procedures Procedure Name Priority Date/Time Associated Diagnosis Comments ELECTROCARDIOGRAM REPORT Routine 025 3:55 PM LAY HEALTH ADVOCATE Other chest pain from Last 3 Months Results * Electrocardiogram Report (10/17/2024 3:55 PM LAY HEALTH ADVOCATE) Rodrigo Carolina MD ECG ORDERABLES Final Re sult from Last 3 Months Insurance [facility] CHOICE OOS Care Teams Wallpaper Printer Helper Relationship Specialty Start Date End Date Ben Magdaleno MD [facility] [place] [address] PCP - General Family Medicine 09/13/24
--- OUTSIDE RECORDS SUMMARY | 2024-12-12 15:03 | XMS_ITS | Clinical Summary ---
Author Organization [facility] Address [address] [place] [id number] Care Team Providers Care Deputy Editor In Chief Name Role Phone Ben Magdaleno MD Primary Care Provider [phone] Allergies No known active allergies Medications omeprazole (PriLOSEC) 40 mg capsule Take 1 capsule (40 mg total) by mouth daily 10/02/2024 Active rosuvastatin (CRESTOR) 20 mg tablet Take 1 tablet (20 mg total) by mouth daily Active Active Problems Problem Noted Date Diagnosed Date Other chest pain 10/17/2024 Encounters Date Type Department Care Team Description 10/17/2024 1:00 PM ENGINEERING PRODUCTION WORKER Office Visit [facility] Medical Group Cardiology at [address] [place] [address] Rodrigo Carolina MD Other chest [...] on file Legal Sex Male 3:46 PM ENGINEERING PRODUCTION WORKER Gender Identity Not on file Sexual Orientation Not on file Obstetrics History Last Filed Vital Signs Vital Sign Reading Time Taken Comments Blood Pressure 142/84 10/17/2024 1:11 PM ENGINEERING PRODUCTION WORKER Pulse 71 10/17/2024 1:11 PM ENGINEERING PRODUCTION WORKER Temperature - - Respiratory Rate - - Oxygen Saturation 99% 10/17/2024 1:11 PM ENGINEERING PRODUCTION WORKER Inhaled Oxygen Concentration - - Weight 98.4 kg (217 lb) 10/17/2024 1:11 PM ENGINEERING PRODUCTION WORKER Height 180.3 cm (5' 11 ) 10/17/2024 1:11 PM ENGINEERING PRODUCTION WORKER Body Mass Index 30.27 10/17/2024 1:11 PM ENGINEERING PRODUCTION WORKER Plan of Treatment Health Maintenance Due Date [...] Comments ELECTROCARDIOGRAM REPORT Routine 025 3:55 PM ENGINEERING PRODUCTION WORKER Other chest pain from Last 3 Months Results * Electrocardiogram Report (10/17/2024 3:55 PM ENGINEERING PRODUCTION WORKER) us Rodrigo Carolina MD ECG ORDERABLES Final Re sult from Last 3 Months Insurance [facility] CHOICE OOS Member Subscriber Plan / Payer (Ef fective 2024-Present) Name:Suhail Graham Relation to Subscriber:Self Name:Suhail Graham Payer ID:[id number] (NAIC) Type: GEETHA Address: [facility] [id number] [id number] Care Teams Deputy Editor In Chief Relationship Specialty Start Date End Date Ben Magdaleno MD [facility] [place] [address] (work) PCP - General Family Medicine 09/13/24
--- OUTSIDE RECORDS SUMMARY | 2024-12-12 15:04 | XMS_ITS | Data Portability ---
Author Organization [facility] [employer], Main Office Address [address] [place] [address] Assessment No assessment recorded. Plan of Treatment Reminders Order Date Submit Date Provider Last Modified By Organization Details Last Modified Time Details Appointments Procedure 60 2024 07:00A M Tyrel Roy MD Not available Not available Not available Follow Up 15 2024 03:00P Rochelle Roy MD Not available Not available Not available Lab None recorded. Referral None recorded. Procedures upper endoscopy procedure (EGD) (PROC) [address] [place] [address] Ctr (Pre-Screen), [address] [place], [address], 11/22/2024 08:20:04 colonosco py procedure (PROC) - December 202420[address] [place] [address] Ctr (Pre-Screen), [address] [place], [address], 12/06/2024 08:06:49 Surgeries None recorded. Imaging MRI, abdomen, w/wo contrast - PLEASE CONTACT PATIENT TO SCHEDULE [address] [place] [address] (One Call Scheduling), [address] [place], [address], 12/09/2024 07:59:33 Medication Orders None recorded. Patient TargetsNo targets recorded. Patient Instructions Encounter Date Encounter Id Patient Instructions Last Modified By Organization Details Last Modified Time 11/21/2024 [id number] patient currentl y is stable abdomen is [...] esophagitis ulcers. Patient has already seen the textile dyer and according to me has been cleared from Cardiology. I also advised the patient that in 6 weeks he needs to get a colonoscopy done patient wants to check it with the [facility] and see if his colonoscopy can be done sooner otherwise he wants to get it scheduled at [place]. Follow up with me in 3-4 months in the office Not available 11/21/2024 16:07:02 Reason for Referral [...] Organization Details Recorded Time Lesion of liver 395290874 Active Srini Roy MD [address], [place] [address], [place], [address], [employer] 5 16:03:21 Epigastric pain 48943650 Active Srini Roy MD [address] [place] [address], [place], [address], [employer] 5 16:03:31 Colitis 57967274 Active MD [address], [place], [address], [employer] 5 16:03:37 Problem Notes None recorded. Procedures Surgical History Date Name Laterality Status Provider Name and Address Organization Details Recorded Time Appendectomy completed LISANDRA Jones [employer] 11/20/2024 11:53:03 Myringotomy Tube Placement completed LISANDRA Jones [employer] 11/20/2024 11:53:20 Tonsillectomy completed LISANDRA Jones [facility] [employer] [facility] 11/20/2024 11:53:32 Imaging Results Imaging Date Name Status LastModified by Organiz ation Details LastModified Time 11/20/2024 CT, abdomen + pelvis, w/ contrast completed [facility] Information not available 11/20/2024 11:50:27 Procedure Notes None recorded. Medical Equipment None Reported. Allergies No known drug allergies Medications Name Sig Start Date Stop Date Status Note LastModified by Organization Details LastModified Time hydrocodone 5 mg-acetamin ophen 325 mg tablet active Not Available Not Available No t Available sucralfate 100 mg/mL oral suspension active Not Available Not Available N ot Available ondansetron HCl 4 mg tablet active Not Available Not Available Not Available metronidazo le 500 mg tablet active Not Available Not Available Not Available ciprofloxac in 500 mg tablet active Not Available Not Available Not Available omeprazole 40 mg capsule,del ayed release active Not Available Not Available Not Available pantoprazol e 40 mg tablet,marbella yed release active Not Available Not Available Not Available losartan 25 mg tablet active Not Available Not Available No t Available ibuprofen 600 mg tablet 11/20 completed Not Available Not Available Not Available levofloxaci n 750 mg tablet active Not Available Not Available Not Available rosuvastati n 20 mg tablet active Not Available Not Available Not Available peg 3350-electr olytes 236 gram-22.74 gram-6.74 gram-5.86 gram solution TAKE DIRECTED active Not Available Not Available No t Available Vitals Date Recorded Body height Body mass index (BMI) Body weight Heart rate Oxygen saturation Oxygen saturation in Arterial blood by Pulse oximetry Systolic blood pressure Diastolic blood pressure Provider Name and Address Organization Details Last Updated DateTime 5 182.88 cm 28.5 kg/m2 80584.4 g 94 /min 97 % 97 % 124 mm[Hg] 86 mm[Hg] LISANDRA Jones [facility] [employer] [facility] 15:28:40 Social History Question Answer Notes LastModified by Organizat ion Details LastModified Time Tobacco Smoking Status Never Smoker LISANDRA Jones null [place] [facility] [employer] [facility] 11/20/2024 11:52:52 What Is Your Level Of Alcohol Consumption? Occasional [email or web address] Information not available 11/21/2024 Sex: Unknown Functional Status None recorded. Mental Status None recorded. Family History Nothing Reported. Medical History Condition Response GERD/NAUSEA Y HIGH CHOLESTEROL / HYPERLIPIDEMIA Y Past Encounters Encounter ID Performer Location Encounter Start Date Encounter Closed Date Diagnosis/Indication Diagnosis SNOMED-CT Code Diagnosis ICD10 Code Diagnosis Note [id number] Tyrel Roy MD [facility] General Surgery [address] [place] [address] 11/21/2024 15:21:13 11/21/2024 16:13:43 Colitis 61947499 K52.9 Epigastric pain 71089786 R10.13 Lesion of liver 93756771 0 K76.9 Health Concerns Section Related Observation LastModified by Organization Detai ls LastModified Time None Recorded Concern Status LastModified by Organization Details LastModified Time None Recorded Advance Directives Directive None Recorded Payers Encounter Date Sequence Insurance Name Policy Number Policy Mcintyre Covered Member ID Mcintyre Member ID Guarantor Name 11/21/2024 1 [place] [id number] Suhail Graham [id number] Suhail Graham Notes Date Note Type Note Provider Name and Address Organization Details Recorded Time 11/21/2024 text/html patient is seen 1st time in the office patient is being seen for abdominal pain patient stated that he was in [place] and just came like a week ago patient had 2 episodes of abdominal pain chest pain for which she has seen a textile dyer according to him the textile dyer cleared him from the cardiac standpoint patient recently on November 20 was in the ER had a CT scan that showed a 3 cm liver lesion and also had colitis on it according to him his last colonoscopy was 5 years ago according to him he is getting a repeat colonoscopy at [facility] in February this year. Patient denies any [...] denies any diarrhea Tyrel Roy MD [address], [place], [address], [facility] 11/21/2024 16:07:34
[2024-12-12 15:09] LABS: Basophils Absolute Auto 0.1 K/mm3 (0.0-0.1); Basophils Percent Auto 0.4 % (0.2-1.2); Eosinophils Absolute Auto 0.2 K/mm3 (0-0.3); Eosinophils Percent Auto 1.8 % (0-4.4); Hematocrit 35.9 % (42.0-52.0); Hemoglobin 11.5 g/dL (14.0-18.0); Immature Granulocyte Absolute 0.11 K/mm3 (0.00-0.031); Immature Granulocyte Percent A 0.8 % (0-0.5); Lymphocytes Absolute Auto 2.48 K/mm3 (0.9-3.2); Lymphocytes Percent Auto 19.1 % (18.3-44.2); Mean Corpuscular Hemoglobin 28.5 pg (26-34); Mean Corpuscular Volume 89.1 fl (80-100); Mean Platelet Volume 8.9 fl (7.4-10.4); Monocytes Absolute Auto 1.1 K/mm3 (0.1-0.6); Monocytes Percent Auto 8.5 % (2.6-8.5); Neutrophils Percent Auto 69.4 % (45.5-73.1); Platelet Count Result 503 k/mm3 (150-375); Red Blood Count 4.03 M/mm3 (4.6-6.20); Red Cell Distribution Width 13.2 % (11.5-14.5)
[2024-12-12 15:22] LABS: Alanine Aminotransferase 67 U/L (6-50); Albumin Level 3.5 g/dL (3.5-5.1); Alkaline Phosphatase 147 U/L (38-126); Amylase 65 U/L (30-110); Anion Gap 8 mmol/L (4-12); Aspartate Amino Transferase 49 U/L (17-59); Bilirubin,Total 0.4 mg/dL (0.2-1.3); Blood Urea Nitrogen 14 mg/dL (9-20); CRP 8.9 mg/dL (<1.0); Calcium 8.9 mg/dL (8.4-10.2); Carbon Dioxide 27 mmol/L (22-30); Chloride 102 mmol/L (98-107); Estimated Glomerular Filt Rate > 60; Glucose 113 mg/dL (65-110); Lipase 107 U/L (23-300); Potassium 4.1 mmol/L (3.4-5.0); Sodium 137 mmol/L (137-145)
== END 2024-12-12 14:40 | disposition home or self-care (01) ==
LOC: ANHLAB 14:40
PROVIDERS: PCP Family Medicine; Visit Provider Nurse Practitioner
DX: K85.90 Acute pancreatitis without necrosis or infection, unspecified (principal); D72.829 Elevated white blood cell count, unspecified
CPT/HCPCS: 36415; 80053; 82150; 83690; 85025; 86140

== ENCOUNTER 2025-03-14 00:38 | Day surgery (SDC) | payer BC, SELFPAY ==
[2025-02-26 12:45] VITALS: BMI 27.9
--- OUTSIDE RECORDS SUMMARY | 2025-03-14 00:40 | XMS_ITS | Data Portability ---
Author Organization [place] [facility], Main Office Address [address] [place] [address] Assessment No assessment recorded. Plan of Treatment Reminders Order Date Submit Date Provider Last Modified By Organization Details Last Modified Time Details Appointments Follow Up 15 2024 03:00P M Tyrel Roy MD Not available Not available Not available Lab None recorded. Referral None recorded. Procedures upper endoscopy procedure (EGD) (PROC) [address] [place] [address] Ctr (Pre-Screen), [address] [place], [address], 12/20/2024 07:56:51 colonosco py procedure (PROC) - December 202420[address] [place] [address] Ctr (Pre-Screen), [address] [place], [address], 12/06/2024 08:06:49 Surgeries None recorded. Imaging MRI, abdomen, w/wo contrast - PLEASE CONTACT PATIENT TO SCHEDULE [address] [place] [address] ([facility] Scheduling), [address] [place], [address], 12/16/2024 08:05:24 Medication Orders None recorded. Patient TargetsNo targets recorded. Patient Instructions Encounter Date Encounter Id Patient Instructions Last Modified By Organization Details Last Modified Time 11/21/2024 [id number] patient currentl y is stable abdomen is [...] esophagitis ulcers. Patient has already seen the information assurance analyst and according to me has been cleared from Cardiology. I also advised the patient that in 6 weeks he needs to get a colonoscopy done patient wants to check it with the [facility] and see if his colonoscopy can be done sooner otherwise he wants to get it scheduled at [place]. Follow up with me in 3-4 months in the office [email or web address] Not available 11/21/2024 16:07:02 Reason for Referral [...] Organization Details Recorded Time Lesion of liver 354970299 Active Srini Roy MD [address], [place] [address], [place], [address], [employer] 5 16:03:21 Epigastric pain 10060122 Active Srini Roy MD [address], [place] [address], [place], [address], [employer] 5 16:03:31 Colitis 76093284 Active Srini Roy MD [address] [place] [address], [place], [address], [employer] 5 16:03:37 Problem Notes None recorded. Procedures Surgical History Date Name Laterality Status Provider Name and Address Organization Details Recorded Time Appendectomy completed LISANDRA Jones [facility] 11/20/2024 11:53:03 Myringotomy Tube Placement completed LISANDRA Jones [facility] 11/20/2024 11:53:20 Tonsillectomy completed LISANDRA Jones [place] [facility] 11/20/2024 11:53:32 Imaging Results None recorded. Procedure Notes None recorded. Medical Equipment None [...] Updated DateTime 5 182.88 cm 28.5 kg/m2 70013.4 g 94 /min 97 % 97 % 124 mm[Hg] 86 mm[Hg] LISANDRA Jones [facility] [employer] [facility] 15:28:40 Social History None recorded. Functional Status Question Answer Note LastModified by Organizat ion Details LastModified Time What is your level of alcohol consumption? Occasional [email or web address] Information not available 11/21/2024 Mental Status None recorded. Family History Nothing Reported. Medical History Condition Response GERD/NAUSEA Y HIGH CHOLESTEROL / HYPERLIPIDEMIA Y Past Encounters Encounter ID Performer Location Encounter Start Date Encounter Closed Date Diagnosis/Indication Diagnosis SNOMED-CT Code Diagnosis ICD10 Code Diagnosis Note [id number] Tyrel Roy MD [facility] [place] [address] [facility], [address] [place] [address] 11/21/2024 15:21:13 11/21/2024 16:13:43 Colitis 88047010 K52.9 Epigastric pain 57359180 R10.13 Lesion of liver 36832028 0 K76.9 Health Concerns Section Related Observation LastModified by Organization Detai ls LastModified Time None Recorded Concern Status LastModified by Organization Details LastModified Time None Recorded Advance Directives Directive None Recorded Payers Insurance Date Sequence Insurance Name Policy Number Policy Mcintyre Covered Member ID Mcintyre Member ID Guarantor Name 01/03/2025 1 [place] [id number] Suhail Graham [id number] Suhail Graham Notes Date Note Type Note Provider Name and Address Organization Details Recorded Time 11/21/2024 text/html patient is seen 1st time in the office patient is being seen for abdominal pain patient stated that he was in [place] and just came like a week ago patient had 2 episodes of abdominal pain chest pain for which she has seen a information assurance analyst according to him the information assurance analyst cleared him from the cardiac standpoint patient recently on November 20 was in the ER had a CT scan that showed a 3 cm liver lesion and also had colitis on it according to him his last colonoscopy was 5 years ago according to him he is getting a repeat colonoscopy at [facility] in February this year. Patient denies [...] fevers denies any diarrhea Tyrel Roy MD [facility] [address] [facility] [address], [place], [address], [place] [facility] 11/21/2024 16:07:34
--- OUTSIDE RECORDS SUMMARY | 2025-03-14 00:40 | XMS_ITS | Clinical Summary ---
Author Organization [facility] Address [address] [place] [address] Care Team Providers Care Personal Injury Attorney Name Role Phone Ben Magdaleno MD Primary Care Provider Allergies No known active allergies Medications omeprazole (PriLOSEC) 40 mg capsule Take 1 capsule (40 mg total) by mouth daily 10/02/2024 Active rosuvastatin (CRESTOR) 20 mg tablet Take 1 tablet (20 mg total) by mouth daily Active Active Problems Problem Noted Date Diagnosed Date Other chest pain 10/17/2024 Surgical History Surgery Date Site/Laterality Comments APPENDECTOMY [...] on file Legal Sex Male 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 Gender Identity Not on file Sexual Orientation Not on file Obstetrics History Last Filed Vital Signs Vital Sign Reading Time Taken Comments Blood Pressure 142/84 10/17/2024 1:11 PM MARKER [employer]MENTS Pulse 71 10/17/2024 1:11 PM MARKER [employer]MENTS Temperature - - Respiratory Rate - - Oxygen Saturation 99% 10/17/2024 1:11 PM MARKER SHIPMENTS Inhaled Oxygen Concentration - - Weight 98.4 kg (217 lb) 10/17/2024 1:11 PM MARKER SHIPMENTS Height 180.3 cm (5' 11) 10/17/2024 1:11 PM MARKER SHIPMENTS Body Mass Index 30.27 10/17/2024 1:11 PM [employer] Plan of Treatment Health Maintenance Due Date Last Done Comments Colon Cancer Screening-Colonoscopy 1970 Depression Screening 1970 Hepatitis C Screening 1970 Prostate Cancer Screening-PSA 1969 DTaP/Tdap/Td Vaccine (1 - Tdap) 1980 Hepatitis B Screening 1987 Regular Well Visit/Exam 18-64 1987 Zoster Vaccine (1 of 2) 2019 Covid-19 Vaccine (3 - 2023-2 5 season) 2024 09/24/2021, 08/27/2021 Influenza Vaccine (Season Ended) 2025 Pneumococcal vaccine <65 Aged Out No longer eligible based on patient's age to complete this topic Insurance [facility] CHOICE OOS Care Teams Personal Injury Attorney Relationship Specialty Start Date End Date Ben Magdaleno MD [address] [place], [place] [id number] PCP - General Family Medicine 09/13/24
--- OUTSIDE RECORDS SUMMARY | 2025-03-14 00:40 | XMS_ITS | Referral Summary ---
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 Gender Identity Not on file Sexual Orientation Not on file Last Filed Vital Signs Vital Sign Reading Time Taken Comments Blood Pressure 142/84 10/17/2024 1:11 PM FAST FOOD SERVICES MANAGER Pulse 71 10/17/2024 1:11 PM FAST FOOD SERVICES MANAGER Temperature - - Respiratory Rate - - Oxygen Saturation 99% 10/17/2024 1:11 PM FAST FOOD SERVICES MANAGER Inhaled Oxygen Concentration - - Weight 98.4 kg (217 lb) 10/17/2024 1:11 PM FAST FOOD SERVICES MANAGER Height 180.3 cm (5' 11) 10/17/2024 1:11 PM FAST FOOD SERVICES MANAGER Body Mass Index 30.27 10/17/2024 1:11 PM FAST FOOD SERVICES MANAGER Plan of Treatment [place] [phone] [employer] CHOICE OOS Care Teams Battery Plate Assembler Relationship Specialty Start Date End Date Ben Magdaleno MD [facility] [place] [address] PCP - General Family Medicine 09/13/24
--- OUTSIDE RECORDS SUMMARY | 2025-03-14 00:40 | XMS_ITS | CONTINUITY OF CARE DOCUMENT ---
Author Name cody ross Address Unknown Organization [facility] Address [address] [address] [facility] [address] [place] [address] Phone [phone] Care Team Providers Care Forestry Support Specialist Name Role Phone Alexandre BOONE, [place] Unavailable [phone] [place] Schroeder MD Unavailable [phone] INSURANCE PROVIDERS Payer name Policy type / Coverage type [place] red libertarian ID [facility] [id number] 1
[2025-03-14 09:40] VITALS: BP 125/89; PULSE 72; RESP 18; TEMP 36.4; O2SAT 99; BMI 27.8
[2025-03-14] MEDS: LACTATED RINGERS 1,000 ML 150 ML IV CONT (09:52)
--- NOTE | 2025-03-14 09:56 | P.PNAN_ITS ---
Anes - Initial Pre Proc Eval Procedure: Operation Date: 03/14/25 10:30 Proposed Procedures p Esophagogastroduodenoscopy & Colonoscopy - Damon Heredia MD Date/Time: 03/14/25 09:56 Surgeon: Damon Heredia MD Pre Op Diagnosis: Change in bowel habit, Esophagitis Patient Data Age: 54 Gender: M Height: 1.8 m Weight: 90.4 kg Last Vital Signs Temp 97.6 F 03/14/25 09:40 Pulse 72 03/14/25 09:40 Resp 18 03/14/25 09:40 BP 125/89 03/14/25 09:40 Pulse Ox 99 03/14/25 09:40 O2 Del Method Room Air 03/14/25 09:40 Allergies Allergy/AdvReac Type Severity Reaction Status Date / Time ondansetron (From Zofran) Allergy Intermediate Vomiting Verified 03/14/25 09:38 Home Medications ?Medication ?Instructions ?Recorded ?Confirmed ?Type cholecalciferol (vitamin D3) 100 4,000 unit PO DAILY 11/11/19 02/26/25 History mcg (4,000 unit) capsule (Vitamin D3) multivitamin 1 cap PO DAILY 11/11/19 03/14/25 History omega 3 350 mg-dha 235 mg-epa 90 1 cap PO DAILY 11/11/19 03/14/25 History mg-fish oil 597 mg capsule,delay rel ([place]-3) rosuvastatin 20 mg tablet 20 mg PO DAILY 11/29/24 03/14/25 History polyethylene glycol 3350 17 gram 17 g PO QAM PRN Constipation #10 ea 12/07/24 03/14/25 Rx oral powder packet (Miralax) pantoprazole 40 mg tablet,delayed 40 mg PO BID #60 tabs 12/17/24 03/14/25 Rx release Patient hx anesthesia problems: none Family hx anesthesia problems: none Results Review: All pre-operative results and documents have been reviewed as part of the pre- operative evaluation. REPLACED BY [facility] Past Medical History Medical History (Updated 12/20/24 @ 10:04 by Tomeka Turner) Constipation Esophageal stricture Ulcerative esophagitis Leukocytosis SIRS (systemic inflammatory response syndrome) Choledocholithiasis Hyperlipidemia Gastroesophageal reflux disease Surgical History Surgical History (Updated 12/20/24 @ 09:32 by Yvonne Mejia MA) Hx laparoscopic cholecystectomy 11/29/24 Laparoscopic cholecystectomy with intraoperative cholangiogram Dr. Abdalla History of tonsillectomy History of appendectomy Social History Social History Social History: Surrogate medical decision maker: Sole Graham, spouse. Code status: Full code. Smoking status: Never smoker Alcohol intake: current Drinks per week: 2 Substance use: never Do You Feel Safe in your Home?: Yes Lack of Transportation: No Lack of Food: Never True Current Housing: I Have Housing Concerned About Future Housing: No Difficulty Paying Gas/Electric Bills: No Difficulty Paying for Meds: No Currently Unemployed: No Education: High School Diploma/GED Difficulty w/ Childcare or Family Care: No Spiritual care concerns: No Anes - Eval Final PreProcedure Day of Procedure 03/14/25 09:56 Patient weight: normal Heart: regular rate and rhythm Lungs: clear to auscultation Airway: Mallampati scale class II Neurological: alert and oriented Last oral intake: >/= 8 hours ASA classification: III Emergent: no Anesthetic plan: proceed Anesthesia type and monitoring: general GIVS and standard monitoring Results Review: All pre-operative results and documents have been reviewed as part of the pre- operative evaluation. Informed Consent: The patient's anesthetic plan and its attendant risks and benefits were discussed with the patient/family/POA. Questions were solicited and answers provided to the satisfaction of the patient/family/POA.
--- NOTE | 2025-03-14 10:20 | PM.HPGS ---
History of Present Illness History of Present Illness Consent: Risks, benefits, and alternatives have been discussed and questions answered. Patient agrees to proceed with procedure. Chief complaint: Change in bowel habit, Esophagitis Narrative: Suhail Graahm is a 54 year old male here for egd and colonoscopy, 11/2024 had cholecystitis and choledocholithiasis, stone removed with ercp but also noted ulcerative esophagitis with stricture dilated with EGD and CRE balloon before advancing ERCP, currently doing well on ppi daily, no dysphagia. Also had colon polyp in 2019 Review of Systems Review of Systems: All systems reviewed & are unremarkable except as noted in HPI and below PMFSH Past Medical History Medical History (Updated 12/20/24 @ 10:04 by Tomeka Turner) Constipation Esophageal stricture Ulcerative esophagitis Leukocytosis SIRS (systemic inflammatory response syndrome) Choledocholithiasis Hyperlipidemia Gastroesophageal reflux disease Surgical History Surgical History (Updated 12/20/24 @ 09:32 by Yvonne Mejia MA) Hx laparoscopic cholecystectomy 11/29/24 Laparoscopic cholecystectomy with intraoperative cholangiogram Dr. Abdalla History of tonsillectomy History of appendectomy Social History Social History Social History: Surrogate medical decision maker: Sole Graham, spouse. Code status: Full code. Smoking status: Never smoker Alcohol intake: current Drinks per week: 2 Substance use: never Do You Feel Safe in your Home?: Yes Lack of Transportation: No Lack of Food: Never True Current Housing: I Have Housing Concerned About Future Housing: No Difficulty Paying Gas/Electric Bills: No Difficulty Paying for Meds: No Currently Unemployed: No Education: High School Diploma/GED Difficulty w/ Childcare or Family Care: No Spiritual care concerns: No Meds Home Medications and Allergies Home Medications ?Medication ?Instructions ?Recorded ?Confirmed ?Type cholecalciferol (vitamin D3) 100 4,000 unit PO DAILY 11/11/19 02/26/25 History mcg (4,000 unit) capsule (Vitamin D3) multivitamin 1 cap PO DAILY 11/11/19 03/14/25 History omega 3 350 mg-dha 235 mg-epa 90 1 cap PO DAILY 11/11/19 03/14/25 History mg-fish oil 597 mg capsule,delay rel ([place]-3) rosuvastatin 20 mg tablet 20 mg PO DAILY 11/29/24 03/14/25 History polyethylene glycol 3350 17 gram 17 g PO QAM PRN Constipation #10 ea 12/07/24 03/14/25 Rx oral powder packet (Miralax) pantoprazole 40 mg tablet,delayed 40 mg PO BID #60 tabs 12/17/24 03/14/25 Rx release Allergies Allergy/AdvReac Type Severity Reaction Status Date / Time ondansetron (From Zofran) Allergy Intermediate Vomiting Verified 03/14/25 09:38 Vital Signs Vital Signs - 24 hr 03/14/25 09:40 Temperature 97.6 F Pulse Rate 72 Respiratory Rate 18 Blood Pressure 125/89 Pulse Oximetry 99 Oxygen Delivery Room Air Exam Const: General: comfortable and no acute distress HENMT: Face/Nose/Sinus: Normal nares present Eyes: General: appearance normal, both eyes and all related structures Neck: Neck: no JVD Resp: Auscultation: clear to auscultation bilaterally Cardio: Rate: regular rate Rhythm: regular rhythm GI: Inspection: non-distended GI Palp: Yes Soft to palpation Skin: General skin exam: normal color Neuro: General: gait normal Speech: normal speech Extrem: General: normal to inspection Psych: Mental Status: mental status grossly normal Assessment and Plan Assessment and plan (1) Esophagitis: Code(s): K20.90 - Esophagitis, unspecified without bleeding Status: Acute Assessment and Plan: now he is asymptomatic egd to assess healing (2) Colon polyps: Qualifiers: Colon polyp type: adenomatous Colon location: ascending Qualified Code(s): D12.2 - Benign neoplasm of ascending colon Code(s): K63.5 - Polyp of colon Status: Acute Assessment and Plan: colonoscopy
--- NOTE | 2025-03-14 10:28 | SUR.OPER ---
EGD end 1028 COLONOSCOPY start 1031
--- NOTE | 2025-03-14 10:40 | S_PTH ---
PATIENT: Suhail Graham LOC: [facility]#:[id number] AGE/SX: 54/M ROOM: RE03/14/[address]: Damon Heredia MD : 1970 BED: DIS: 03/14/2025 SPEC #: [id number] RECD: 03/14/25 11:44 STATUS: SUDHEER REQ #: [id number] OLMAN: 03/14/25 10:[address]: Damon Heredia DEPT: [facility] Surgical RECD BY: Melissa Lizama ENTERED: 03/14/25 11:45 SP TYPE: Surgical OTHR DR: Ben MagdalenoMD Tissues: A - Gastric Biopsy B - Colon Polypectomy Procedures: Hematoxylin and Eosin Stain Gross and Microscopic Level 4
[2025-03-14 10:43] VITALS: BP 117/81; PULSE 65; RESP 15; O2SAT 99
[2025-03-14 10:53] VITALS: BP 122/84; PULSE 65; RESP 18; O2SAT 99
[2025-03-14 11:03] VITALS: BP 120/91; PULSE 64; O2SAT 100
== END 2025-03-14 11:29 | disposition home or self-care (01) ==
PROVIDERS: PCP Family Medicine; Referring Provider Nurse Practitioner Family; Visit Provider Internal Medicine Gastroenterology
PROC: 0DJ08ZZ Inspection of Upper Intestinal Tract, Via Natural or Artificial Opening Endoscopic (ICD-10-PCS; CPT 45378; principal; 2025-03-14 10:30)
DX: R19.4 Change in bowel habit (principal); K63.5 Polyp of colon; K64.8 Other hemorrhoids; Z87.19 Personal history of other diseases of the digestive system
CPT/HCPCS: 45385; 43239; 88305; J2003; J2704; J7120